=== PATIENT | female | born 1995 | race Caucasian/White ===

== ENCOUNTER 2023-08-06 20:34 | Outpatient (REF) | payer BC, SELFPAY ==
[2023-08-10 15:08] LABS: Age Gdln ACOG Testing Note (.); HPV Aptima Negative (Negative); IGP, Aptima HPV, rfx 16/18,45 Note (.)
== END 2023-08-06 20:35 | disposition home or self-care (01) ==
LOC: LAB 20:34
PROVIDERS: Visit Provider Obstetrics & Gynecology
DX: Z01.419 Encounter for gynecological examination (general) (routine) without abnormal findings (principal)
CPT/HCPCS: 87624; G0145

== ENCOUNTER 2023-08-21 16:31 | Outpatient (OUT) | payer BC, SELFPAY ==
[2023-08-21 17:27] LABS: Estimated Average Glucose 97 mg/dL
[2023-08-21 17:38] LABS: Free T3 2.84 pg/mL (2.18-3.98); Glucose 83 mg/dL (74-106); Thyroid Stimulating Hormone 1.248 uIU/mL (0.358-3.740)
[2023-08-23 04:08] LABS: Estradiol 16.7 pg/mL (.); Progesterone 0.4 ng/mL (.)
[2023-08-23 11:10] LABS: Insulin 7.7 uIU/mL (2.6-24.9)
[2023-08-23 12:10] LABS: C-Peptide, Serum 2.1 ng/mL (1.1-4.4)
[2023-08-23 17:08] LABS: Thyroglobulin Antibody 1.2 IU/mL (0.0-0.9); Thyroid Peroxidase (TPO) Ab 50 IU/mL (0-34)
[2023-08-24 17:10] LABS: Estrone, Serum 65 pg/mL (27-231)
== END 2023-08-21 16:32 | disposition home or self-care (01) ==
PROVIDERS: PCP Family Medicine; Visit Provider Obstetrics & Gynecology
DX: R68.82 Decreased libido (principal); E34.9 Endocrine disorder, unspecified
CPT/HCPCS: 36415; 82306; 82530; 82627; 82670; 82679; 82728; 82947; 83036; 83525; 84144; 84260; 84270; 84402; 84403; 84432; 84436; 84439; 84443; 84481; 84482; 84681; 86376; 86800

== ENCOUNTER 2023-11-10 11:01 | Outpatient (OUT) | payer BC, SELFPAY ==
--- OUTSIDE RECORDS SUMMARY | 2023-11-10 11:05 | XMS_ITS | CCD ---
Author Organization [facility] Care Team Providers Care Film Cleaner Name Role Phone YAAKOV BLANCAS Unavailable Unavailable YESENIA ., DR ANDRE Attending Unavailable YESENIA ., DR ANDRE Consulting Unavailable YESENIA ., DR ANDRE Admitting Unavailable YESENIAJES Attending Unavailable MARIAELENA MATUTE Attending Unavailable COLLAZO, LIONEL Attending Unavailable KUNS, AVRIL Referring Unavailable KUNS, AVRIL Primary Care Unavailable SAIDA DAHL Attending Unavailable KUNS, AVRIL Referring Unavailable KUNS, AVRIL Primary Care Unavailable SAIDA DAHL Attending Unavailable FURLONG, WILFRIDO G Primary Care Unavailable FURLONGMIHAELAWILFRIDO G Referring Unavailable COLLAZOLIONEL Attending Unavailable KUNS, AVRIL Referring Unavailable KUNS, AVRIL Primary Care Unavailable LIONEL COLLAZO Attending Unavailable KUNS, AVRIL Referring Unavailable KUNS, AVRIL Primary Care Unavailable SAIDA DAHL Attending Unavailable KUNS, AVRIL Referring Unavailable KUNS, AVRIL Primary Care Unavailable COLLAZOLIONEL Attending Unavailable KUNS, AVRIL Referring Unavailable KUNS, AVRIL Primary Care Unavailable Allergies Allergy Classification Reported Allergen(s) Allergy Type Date of Onset Reaction(s) Facility (2 sources) Penicillins; Translations: [PENICILLINS] Propensity to adverse reactions to drug (disorder) 2 [facility] Repository Problems Problem Classification Problem Date Documented Date Episodic/Chronic Attention-deficit, conduct, and disruptive behavior disorders (1 source) Attention-deficit hyperactivity disorder, combined type; Translations: [Attention-deficit hyperactivity disorder, combined type] Onset: 03-20-2022 Chronic Immunizations and screening for infectious disease (1 source) Encounter for screening for human papillomavirus (HPV); Translations: [ENC SCREENING HUMAN PAPILLOMAVIRUS] Onset: 08-03-2022 Episodic Other screening for suspected conditions (not mental disorders or infectious disease) (4 sources) Encounter for screening for malignant neoplasm of cervix; Translations: [ENC SCREENING MALIG NEOPLASM CERV] Onset: 07-31-2022 Episodic Results Test Name Value Interpretation Reference Range Facility PAP ACOG PANEL 2: 21 to 29on 08-07-2022 . . Normal [facility] Comment on above: Performed By: #### [id number] #### [facility] [address] [place] [address] Dr. Pat Aguilar Age Gdln ACOG Testing - Normal [facility] Comment on above: Performed By: #### [id number] #### [facility] [address] [address] [address] Pat Aguilar DIAGNOSIS: Comment [facility] Comment on above: Result Comment: NEGA TIVE FOR INTRAEPITHELIAL LESION OR MALIGNANCY. Performed By: #### [id number] #### [facility] [address] [place] [address] Dr. Pat Aguilar Methodology: Comment [facility] Comment on above: Result Comment: This liquid based ThinPrep(R) pap test was screened with the use of an image guided system. Performed By: #### 4 [id number] #### [facility] [address] [place] [address] Dr. Pat Aguilar Note: Comment [facility] Comment on above: Result Comment: The Pap smear is a screening test designed to aid in the detection of premalignant and malignant conditions of the uterine cervix. It is not a diagnostic procedure and should not be used as the sole means of detecting cervical cancer. Both false-positive and false-negative reports do occur. . Performed By: #### [id number] #### [facility] [address] [place] [address] Dr. Pat Aguilar Performed by: Comment Normal [facility] Comment on above: Result Comment: Soo Haney, Publishing Manager (ASCP) Performed By: #### 4 [id number] #### [facility] [address] [place] [address] Dr. Pat Aguilar Reflex Criteria: Comment [facility] Comment on above: Result Comment: The HPV DNA reflex criteria were not met with this specimen result therefore, no HPV testing was performed. . Performed By: #### 4 [id number] #### [facility] [address] [place] [address] Dr. Pat Aguilar Specimen adequacy: Comment Normal [facility] Comment on above: Result Comment: Sati sfactory for evaluation. Endocervical and/or squamous metaplastic cells (endocervical component) are present. Performed By: #### 4 [id number] #### [facility] [address] [address] [address] Pat Aguilar [facility] 11-26-2021 Albumin [Mass/Vol] 4.1 g/dL Normal 3.6-5.1 [facility] Comment on above: Performed By: #### 1 0231, 7600 #### [facility] [place] [address] Software Sales Executive: Vladislav Kamara MD Albumin/Globulin [Mass ratio] 1.6 {ratio} Normal 1.0-2.5 [facility] Comment on above: Performed By: #### 1 0231, 7600 #### [facility] [place] [address] Software Sales Executive: Vladislav Kamara MD ALP [Catalytic activity/Vol] 53 U/L Normal 31-125 [facility] Comment on above: Performed By: #### 1 0231, 7600 #### [facility] [place] [address] Software Sales Executive: Vladislav Kamara MD ALT [Catalytic activity/Vol] 6 U/L Normal 6-29 [facility] Comment on above: Performed By: #### 1 0231, 7600 #### [facility] [place] [address] Software Sales Executive: Vladislav Kamara MD AST [Catalytic activity/Vol] 10 U/L Normal 10-30 [facility] Comment on above: Performed By: #### 1 0231, 7600 #### [facility] [place] [address] Software Sales Executive: Vladislav Kamara MD Bilirubin [Mass/Vol] 0.5 mg/dL Normal 0.2-1.2 [facility] Comment on above: Performed By: #### 1 0231, 7600 #### [facility] [place] [address] Software Sales Executive: Vladislav Kamara MD BUN/CREATININE RATIO NOT APPLICABLE Normal 6-22 [facility] Comment on above: Performed By: #### 1 0231, 7600 #### [facility] [place] [address] Software Sales Executive: Vladislav Kamara MD Calcium [Mass/Vol] 9.3 mg/dL Normal 8.6-10.2 [facility] Comment on above: Performed By: #### 1 0231, 7600 #### [facility] [place] [address] Software Sales Executive: Vladislav Kamara MD Chloride [Moles/Vol] 104 mmol/L Normal 98-110 [facility] Comment on above: Performed By: #### 1 0231, 7600 #### [facility] [place] [address] Software Sales Executive: Vladislav Kamara MD CO2 [Moles/Vol] 27 mmol/L Normal 20-32 [facility] Comment on above: Performed By: #### 1 0231, 7600 #### [facility] [place] [address] Software Sales Executive: Vladislav Kamara MD Creatinine [Mass/Vol] 0.92 mg/dL Normal 0.50-0.96 [facility] Comment on above: Performed By: #### 1 0231, 7600 #### [facility] [place] [address] Software Sales Executive: Vladislav Kamara MD GFR/1.73 sq M.predicted among non-blacks MDRD (S/P/Bld) [Vol rate/Area] 87 mL/min/{1.73_m2} Normal > OR = 60 [facility] Comment on above: Result Comment: The eGFR is based on the CKD-EPI 2021 equation. To calculate the new eGFR from a previous Creatinine or Cystatin C result, go to https://www.kidney.org/professionals/ kdoqi/gfr%5Fcalculator Performed By: #### 1 023, 7600 #### [facility] [place] [address] Software Sales Executive: Vladislav Kamara MD Globulin (S) [Mass/Vol] 2.5 g/dL Normal 1.9-3.7 [facility] Comment on above: Performed By: #### 1 023, 7600 #### [facility] [place] [address] Software Sales Executive: Vladislav Kamara MD Glucose [Mass/Vol] 81 mg/dL Normal 65-99 [facility] Comment on above: Result Comment: Fasting reference interval Performed By: #### 1 023, 7600 #### [facility] [place] [address] Software Sales Executive: Vladislav Kamara MD Potassium [Moles/Vol] 4.4 mmol/L Normal 3.5-5.3 [facility] Comment on above: Performed By: #### 1 023, 7600 #### [facility] [place] [address] Software Sales Executive: Vladislav Kamara MD Protein [Mass/Vol] 6.6 g/dL Normal 6.1-8.1 [facility] Comment on above: Performed By: #### 1 023, 7600 #### [facility] [place] [address] Software Sales Executive: Vladislav Kamara MD Sodium [Moles/Vol] 138 mmol/L Normal 135-146 [facility] Comment on above: Performed By: #### 1 023, 7600 #### [facility] [place] [address] Software Sales Executive: Vladislav Kamara MD Urea nitrogen [Mass/Vol] 12 mg/dL Normal 7-25 [facility] Comment on above: Performed By: #### 1 0231, 7600 #### [facility] [address], [address] [place] [address] Software Sales Executive: Vladislav Kamara MD LIPID PANEL, [address] Cholesterol [Mass/Vol] 153 mg/dL Normal <200 [facility] Comment on above: Order Comment: FASTI NG:YES FASTING: YES Performed By: #### 1 0231, 7600 #### [facility] [address], [address] [place] [address] Software Sales Executive: Vladislav Kamara MD Cholesterol in HDL [Mass/Vol] 73 mg/dL Normal > OR = 50 [facility] Comment on above: Order Comment: FASTI NG:YES FASTING: YES Performed By: #### 1 023, 7600 #### [facility] [address], [address] [place] [address] Software Sales Executive: Vladislav Kamara MD Cholesterol in LDL [Mass/Vol] 63 mg/dL Normal [facility] Comment on above: Order Comment: FASTI NG:YES FASTING: YES Result Comment: Refe rence range: <100 Desirable range <100 mg/dL for primary prevention; <70 mg/dL for patients with CHD or diabetic patients with > or = 2 CHD risk factors. LDL-C is now calculated using the Swathi calculation, which is a validated novel method providing better accuracy than the Friedewald equation in the estimation of LDL-C. Marko SS et al. BRITTANY. 2013;310(19): 2909-8931 (http://education.[employer]ara[employer]/faq/YWO154) Performed By: #### 1 023, 0 #### [facility] [address], [address] [place] [address] Software Sales Executive: Vladislav Kamara MD Cholesterol.total /Cholesterol in HDL [Mass ratio] 2.1 {ratio} Normal <5.0 [facility] Comment on above: Order Comment: FASTI NG:YES FASTING: YES Performed By: #### 1 0231, 7600 #### [facility] [address], [address] [address] Software Sales Executive: Vladislav Kamara MD NON HDL CHOLESTEROL 80 mg/dL (calc) Normal <130 [facility] Comment on above: Order Comment: FASTI NG:YES FASTING: YES Result Comment: For patients with diabetes plus 1 major ASCVD risk factor, treating to a non-HDL-C goal of <100 mg/dL (LDL-C of <70 mg/dL) is considered a therapeutic option. Performed By: #### 1 0231, 7600 #### [facility] [address] [place] [address], [address] [address] Software Sales Executive: Vladislav Kamara MD Triglyceride [Mass/Vol] 86 mg/dL Normal <150 [facility] Comment on above: Order Comment: FASTI NG:YES FASTING: YES Performed By: #### 1 0231, 7600 #### [facility] [address] [place] [address], [address] [place] [address] Software Sales Executive: Vladislav Kamara MD PROGRESSon 02-26-2018 Protein mass conc HNO ID: [id number] thor: Yaakov Brar: (none)Author Type: PhysicianType: Progress NotesFiled: 02/26/2018 9:50 AMNote Text:This is a 23 year old female diagnosed upon referral 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 s/p laser for Horseshoetear omn anterior edge of the coloboma LE. Visual acuity with correctionis 20/20 RE and 20/20 LE. IOP is 14 /15. Anterior segment exam issignificant for iris coloboma LE . Dilated fundus examinationdemonstrates small coloboma bneneath disc RE and large colobomaextramacular LE with good anterior thermal treatment. I recommend obsandsuggest follow up in 1y.I have confirmed and edited as necessary the relevant ophthalmic history,ROS, and the neuro exam findings as obtained by others. I have seen andexamined Luke Mao. I have discussed the case and the management ofthis patient's care with the Resident/Fellow, if applicable. I also havereviewed and agree with the assessment and plan as stated above and agreewith all of its relevant components. Normal [facility] Encounters Encounter Date Encounter Type Care Provider Facility Start: 10-31-2023 End: 10-31-2023 ambulatory SAIDA DAHL [facility] Start: 08-07-2023 End: 08-07-2023 ambulatory MARIAELENA MATUTE Not Available Start: 08-06-2023 End: 08-06-2023 ambulatory JES PATTERSON Not Available Start: 07-30-2023 End: [facility]: 05-31-2023 End: 05-31-2023 ambulatory [facility] Start: 05-16-2023 End: 05-16-2023 ambulatory [facility] Start: 05-09-2023 End: 05-09-2023 ambulatory [facility] Start: 05-02-2023 End: 05-02-2023 ambulatory [facility] Start: 04-11-2023 End: 04-11-2023 ambulatory [facility] Start: 07-31-2022 End: 07-31-[address] JES PATTERSON . Facility: Start: 02-26-2018 End: 03-01-2018 Patient encounter procedure YAAKOV BLANCAS [facility] Payers Date Payer Category Payer Unknown [id number] 1995 Unknown [id number] 2.16.84 [id number] 1995 Unknown [id number] 2.16.84 [id number] 1993 Unknown [id number] 2.16.84 [id number] 1993 Unknown [id number] 2.16.8 [id number] 1993 Unknown [id number] 2.16.8 [id number] 1993 Unknown [id number] 2.16.8 [id number] 1993 Unknown [id number] 2.16.8 [id number] 1993 Unknown [id number] 2.16.8 [id number] 1993 Unknown [id number] 2.16.8 [id number] 1993 Unknown [id number] 2.16.84 [id number] 1961 Private Health Insurance [id number] Summary Purpose Family History No Family History Records FoundNo Family History Records FoundNo Family History Records FoundNo Family History Records FoundNo Family History Records Found Advance Directives No Advanced Directives Records FoundNo Advanced Directives Records FoundNo Advanced Directives Records FoundNo Advanced Directives Records FoundNo Advanced Directives Records Found Additional Source Comments INFORMATION SOURCE (unrecogn ized section and content) DATE CREATED AUTHOR 03/11/2018 [facility] DATE CREATED AUTHOR AUTHOR'S ORGANIZ ATION 11/27/2021 [facility] DATE CREATED AUTHOR AUTHOR'S ORGANIZ ATION 08/08/2022 [facility] DATE CREATED AUTHOR AUTHOR'S ORGANIZ ATION 08/08/2023 [facility] DATE CREATED AUTHOR AUTHOR'S ORGANIZ ATION 11/03/2023 [facility] FOR RECORDS PERTAINING TO PATIENTS WHO ARE OR HAVE BEEN ENROLLED IN A CHEMICAL DEPENDENCY/SUBSTANCEABUSE PROGRAM, SOME INFORMATION MAY BE OMITTED. This clinical summary was aggregated from multiple sources. Caution should be exercised in using it in the provision of clinical care. This summary normalizes information from multiple sources, and as a consequence, information in this document may materially change the coding, format and clinical context of patient data. In addition, data may be omitted in some cases. CLINICAL DECISIONS SHOULD BE BASED ON THE PRIMARY CLINICAL RECORDS. [facility] [employer] [facility]. provides no warranty or guarantee of the accuracy or completeness of information in this document.
[2023-11-10 11:44] LABS: Thyroid Stimulating Hormone 1.023 uIU/mL (0.358-3.740)
[2023-11-10 12:00] LABS: Free T4 0.95 ng/dL (0.76-1.46)
== END 2023-11-10 11:02 | disposition home or self-care (01) ==
LOC: LAB 11:03
PROVIDERS: PCP Family Medicine; Visit Provider Obstetrics & Gynecology
DX: R68.82 Decreased libido (principal); E34.9 Endocrine disorder, unspecified
CPT/HCPCS: 36415; 84439; 84443

== ENCOUNTER 2024-03-21 08:52 | Outpatient (OUT) | payer BC, SELFPAY ==
--- NOTE | 2024-03-21 08:55 | US_ITS ---
[address] [address] Patient Name: LUKE RODRIGUEZ MRN: [id number] date: 1995 Sex: F Assigned Patient Location: [facility] Current Patient Location: [facility] Accession/Order Number: [id number] Exam Date: 03/21/2024 08:56 Report Date: 03/21/2024 09:51 At the request of: JES PATTERSON Procedure: US OB transvaginal EXAMINATION: US OB transvaginal HISTORY: MISSED MENSES COMPARISON: No relevant comparison available. FINDINGS: Transvaginal images Gestational sac: 4.08 cm, 9 weeks 3 days CRL: 2.61 cm, 3 days Yolk sac: 4.6 mm Heart rate: 174 beats minute Cervix: Closed, 4.3 cm Clinical age: 9 weeks 5 days Clinical JAMES: 10/19/2024 Ultrasound age: 9 weeks 3 days Ultrasound JAMES: 10/21/2024 US/US OB transvaginal IMPRESSION: Viable sommer intrauterine gestation measuring 9 weeks 3 days Electronically authenticated by: KARLA CHILD Date: 03/21/2024 09:51
--- OUTSIDE RECORDS SUMMARY | 2024-03-21 08:58 | XMS_ITS | CCD ---
Author Organization [facility] CliniSyfl Care Team Providers Care Sludge Control Operator Name Role Phone YAAKOV BLANCAS Unavailable Unavailable YESENIA ., DR ANDRE Attending Unavailable YESENIA ., DR ANDRE Consulting Unavailable YESENIA ., DR ANDRE Admitting Unavailable YESENIAJES Attending Unavailable MARIAELENA MATUTE Attending Unavailable LIONEL COLLAZO Attending Unavailable KUNS, AVRIL Referring Unavailable KUNS, AVRIL Primary Care Unavailable SAIDA DAHL Attending Unavailable KUNS, AVRIL Referring Unavailable KUNS, AVRIL Primary Care Unavailable LIONEL COLLAZO Attending Unavailable KUNS, AVRIL Referring Unavailable KUNS, AVRIL Primary Care Unavailable VALERIEZAKSAIDA Attending Unavailable FURLONG, WILFRIDO G Primary Care Unavailable FURLONG, WILFRIDO G Referring Unavailable JEZAKSAIDA Attending Unavailable FURLONG, WILFRIDO G Referring Unavailable FURLONG, WILFRIDO G Primary Care Unavailable JEZAKSAIDA Attending Unavailable FURLONG, WILFRIDO G Referring Unavailable FURLONG, WILFRIDO G Primary Care Unavailable LIONEL COLLAZO Attending Unavailable KUNS, AVRIL Referring Unavailable KUNS, AVRIL Primary Care Unavailable SAIDA DAHL Attending Unavailable KUNS, AVRIL Referring Unavailable KUNS, AVRIL Primary Care Unavailable LIONEL COLLZAO Attending Unavailable KUNS, AVRIL Referring Unavailable KUNS, AVRIL Primary Care Unavailable Allergies Allergy Classification Reported Allergen(s) Allergy Type Date of Onset Reaction(s) Facility (2 sources) Penicillins; Translations: [PENICILLINS] Propensity to adverse reactions to drug (disorder) 2 AOF [facility] Repository Problems Problem Classification Problem Date Documented [...] 2: 19 to 27on 08-07-2022 . . [facility] Comment on above: Performed By: #### [id number] #### [facility] [address] [place] [address] Dr. Pat Aguilar Age Gdln ACOG Testing - [facility] Comment on above: Performed By: #### [id number] #### [facility] [address] [place] [address] Dr. Pat Aguilar DIAGNOSIS: Comment [facility] Comment on above: Result Comment: NEGA TIVE FOR INTRAEPITHELIAL LESION OR MALIGNANCY. Performed By: #### [id number] #### [facility] [address] [place] [address] Dr. Pat Aguilar Methodology: Comment [facility] Comment on above: Result Comment: This liquid based ThinPrep(R) pap test was screened with the use of an image guided system. Performed By: #### 4 [id number] #### [facility] [address] [place] [address] Dr. Pat Aguilar Note: Comment [facility] Comment on above: Result Comment: The Pap smear is a screening test designed to aid in the detection of premalignant and malignant conditions of the uterine cervix. It is not a diagnostic procedure and should not be used as the sole means of detecting cervical cancer. Both false-positive and false-negative reports do occur. . Performed By: #### [id number] #### [facility] [address] [place] [address] Dr. Pat Aguilar Performed by: Comment [facility] Comment on above: Result Comment: Soo Haney, Registered Occupational Therapist (ASCP) Performed By: #### [id number] #### [facility] [address] [place] [address] Dr. Pat Aguilar Reflex Criteria: Comment Normal [facility] Comment on above: Result Comment: The HPV DNA reflex criteria were not met with this specimen result therefore, no HPV testing was performed. . Performed By: #### [id number] #### [facility] [address] [place] [address] Dr. Pat Aguilar Specimen adequacy: Comment Normal [facility] Comment on above: Result Comment: Sati sfactory for evaluation. Endocervical and/or squamous metaplastic cells (endocervical component) are present. Performed By: #### [id number] #### [facility] [address] [place] [address] Dr. Pat Aguilar [facility] 11-26-2021 Albumin [Mass/Vol] 4.1 g/dL Normal 3.6-5.1 [facility] Comment on above: Performed By: #### 1 023, 7600 #### [facility] [place] [address] Percher: Vladislav Kamara MD Albumin/Globulin [Mass ratio] 1.6 {ratio} Normal 1.0-2.5 [facility] Comment on above: Performed By: #### 1 0231, 7600 #### [facility] [place] [address] Percher: Vladislav Kamara MD ALP [Catalytic activity/Vol] 53 U/L Normal 31-125 [facility] Comment on above: Performed By: #### 1 023, 7600 #### [facility] [place] [address] Percher: Vladislav Kamara MD ALT [Catalytic activity/Vol] 6 U/L Normal 6-29 [facility] Comment on above: Performed By: #### 1 0231, 7600 #### [facility] [place] [address] Percher: Vladislav Kamara MD AST [Catalytic activity/Vol] 10 U/L Normal 10-30 [facility] Comment on above: Performed By: #### 1 0231, 7600 #### [facility] of [address], [address] [place] [address] Percher: Vladislav Kamara MD Bilirubin [Mass/Vol] 0.5 mg/dL Normal 0.2-1.2 [facility] Comment on above: Performed By: #### 1 0231, 7600 #### [facility] of [address], [address] [place] [address] Percher: Vladislav Kamara MD BUN/CREATININE RATIO NOT APPLICABLE Normal 6-22 [facility] Comment on above: Performed By: #### 1 0231, 7600 #### [facility] of [address], [address] [place] [address] Percher: Vladislav Kamara MD Calcium [Mass/Vol] 9.3 mg/dL Normal 8.6-10.2 [facility] Comment on above: Performed By: #### 1 023, 7600 #### [facility] of [address], [address] [place] [address] Percher: Vladislav Kamara MD Chloride [Moles/Vol] 104 mmol/L Normal 98-110 [facility] Comment on above: Performed By: #### 1 0231, 7600 #### [facility] of [address], [address] [place] [address] Percher: Vladislav Kamara MD CO2 [Moles/Vol] 27 mmol/L Normal 20-32 [facility] Comment on above: Performed By: #### 1 0231, 7600 #### [facility] of [place] [address] Percher: Vladislav Kamara MD Creatinine [Mass/Vol] 0.92 mg/dL Normal 0.50-0.96 [facility] Comment on above: Performed By: #### 1 0231, 7600 #### [facility] of [address], [address] [place] [address] Percher: Vladislav Kamara MD GFR/1.73 sq M.predicted among non-blacks MDRD (S/P/Bld) [Vol rate/Area] 87 mL/min/{1.73_m2} Normal > OR = 60 [facility] Comment on above: Result Comment: The eGFR is based on the CKD-EPI 2020 equation. To calculate the new eGFR from a previous Creatinine or Cystatin C result, go to https://www.kidney.org/professionals/ kdoqi/gfr%5Fcalculator Performed By: #### 1 0231, 7600 #### [facility] [place] [address] Percher: Vladislav Kamara MD Globulin (S) [Mass/Vol] 2.5 g/dL Normal 1.9-3.7 [facility] Comment on above: Performed By: #### 1 023, 7600 #### [facility] [place] [address] Percher: Vladislav Kamara MD Glucose [Mass/Vol] 81 mg/dL Normal 65-99 [facility] Comment on above: Result Comment: Fasting reference interval Performed By: #### 1 0231, 7600 #### [facility] [place] [address] Percher: Vladislav Kamara MD Potassium [Moles/Vol] 4.4 mmol/L Normal 3.5-5.3 [facility] Comment on above: Performed By: #### 1 0231, 7600 #### [facility] [place] [address] Percher: Vladislav Kamara MD Protein [Mass/Vol] 6.6 g/dL Normal 6.1-8.1 [facility] Comment on above: Performed By: #### 1 0231, 7600 #### [facility] [place] [address] Percher: Vladislav Kamara MD Sodium [Moles/Vol] 138 mmol/L Normal 135-146 [facility] Comment on above: Performed By: #### 1 0231, 7600 #### [facility] [address], [address] [place] [address] Percher: Vladislav Kamara MD Urea nitrogen [Mass/Vol] 12 mg/dL Normal 7-25 [facility] Comment on above: Performed By: #### 1 0231, 7600 #### [facility] [address], [address] [place] [address] Percher: Vladislav Kamara MD LIPID PANEL, [facility] 11-01 Cholesterol [Mass/Vol] 153 mg/dL Normal <200 [facility] Comment on above: Order Comment: FASTI NG:YES FASTING: YES Performed By: #### 1 0231, 7600 #### [facility] [address], [address] [place] [address] Percher: Vladislav Kamara MD Cholesterol in HDL [Mass/Vol] 73 mg/dL Normal > OR = 50 [facility] Comment on above: Order Comment: FASTI NG:YES FASTING: YES Performed By: #### 1 0231, 7600 #### [facility] [address], [address] [place] [address] Percher: Vladislav Kamara MD Cholesterol in LDL [Mass/Vol] 63 mg/dL Normal [facility] Comment on above: Order Comment: FASTI NG:YES FASTING: YES Result Comment: Refe rence range: <100 Desirable range <100 mg/dL for primary prevention; <70 mg/dL for patients with CHD or diabetic patients with > or = 2 CHD risk factors. LDL-C is now calculated using the Marko-Volodymyr calculation, which is a validated novel method providing better accuracy than the Friedewald equation in the estimation of LDL-C. Marko SS et al. BRITTANY. 2013;310(19): 9795-6554 (http://education.[employer]mets/faq/XQS619) Performed By: #### 1 0231, 7600 #### [facility] [address], [address] [place] [address] Percher: Vladislav Kamara MD Cholesterol.total /Cholesterol in HDL [Mass ratio] 2.1 {ratio} Normal <5.0 [facility] Comment on above: Order Comment: FASTI NG:YES FASTING: YES Performed By: #### 1 023, 7600 #### [facility] [address], [address] [place] [address] Percher: Vladislav Kamara MD NON HDL CHOLESTEROL 80 mg/dL (calc) Normal <130 [facility] Comment on above: Order Comment: FASTI NG:YES FASTING: YES Result Comment: For patients with diabetes plus 1 major ASCVD risk factor, treating to a non-HDL-C goal of <100 mg/dL (LDL-C of <70 mg/dL) is considered a therapeutic option. Performed By: #### 1 0231, 0 #### [facility] [address], [address] [place] [address] Percher: Vladislav Kamara MD Triglyceride [Mass/Vol] 86 mg/dL Normal <150 [facility] Comment on above: Order Comment: FASTI NG:YES FASTING: YES Performed By: #### 1 023, 0 #### [facility] [address], [address] [place] [address] Percher: Vladislav Kamara MD PROGRESSon 02-26-2018 Protein mass conc HNO ID: [id number] thor: Yaakov Brar: (none)Author Type: PhysicianType: Progress [...] obtained by others. I have seen andexamined Lukesotero Bashirber. I have discussed the case and the management ofthis patient's care with the Resident/Fellow, if applicable. I also havereviewed and agree with the assessment and plan as stated above and agreewith all of its relevant components. Normal [facility] Encounters Encounter Date Encounter Type Care Provider Facility Start: 02-20-2024 End: 02-20-2024 ambulatory [facility] Start: 12-26-2023 End: 12-26-2023 ambulatory [facility] Start: 10-31-2023 End: 10-31-2023 ambulatory [facility] Start: 08-07-2023 End: 08-07-2023 ambulatory MARIAELENA MATUTE Not Available Start: 08-06-2023 End: 08-06-2023 ambulatory JES PATTERSON Not Available Start: 07-30-2023 End: 07-30-2023 ambulatory [facility] Start: 05-31-2023 End: 05-31-2023 ambulatory [facility] Start: 05-16-2023 End: 05-16-2023 [facility] Start: 05-09-2023 End: 05-09-2023 ambulatory [facility] Start: 05-02-2023 End: 05-02-2023 ambulatory [facility] Start: 04-11-2023 End: 04-11-2023 ambulatory [facility] Start: 07-31-2022 End: 07-31-[address] JES PATTERSON . Facility: Start: 02-26-2018 End: 03-01-2018 Patient encounter procedure YAAKOV BLANCAS [facility] Payers Date Payer Category Payer Unknown [id number] 1995 Unknown [id number] 2.16.84 [id number] 1995 Unknown [id number] 2.16.84 [id number] 1993 Unknown [id number] 2.16.84 [id number] 1993 Unknown [id number] 2.16.8 [id number] 1993 Unknown [id number] 2.16.8 [id number] 1993 Unknown [id number] 2.16.8 [id number] 1993 Unknown [id number] 2.16.8 [id number] 1993 Unknown [id number] 2.16.8 [id number] 1993 Unknown [id number] 2.16.8 [id number] 1993 Unknown [id number] 2.16.8 [id number] 1993 Unknown [id number] 2.16.8 [id number] 1993 Unknown [id number] 2.16.84 [id number] 1961 Private Health Insurance [id number] Summary Purpose Family History No Family History Records FoundNo Family History Records FoundNo Family History Records FoundNo Family History Records FoundNo Family History Records Found Advance Directives No Advanced Directives Records FoundNo Advanced Directives Records FoundNo Advanced Directives Records FoundNo Advanced Directives Records FoundNo Advanced Directives Records Found Additional Source Comments INFORMATION SOURCE (unrecogn ized section and content) DATE CREATED AUTHOR 03/11/2018 [facility] DATE CREATED AUTHOR AUTHOR'S ORGANIZ ATION 11/27/2021 [facility] DATE CREATED AUTHOR AUTHOR'S ORGANIZ ATION 08/08/2022 [facility] DATE CREATED AUTHOR AUTHOR'S ORGANIZ ATION 08/08/2023 [facility] DATE CREATED AUTHOR AUTHOR'S ORGANIZ ATION 02/23/2024 [facility] FOR RECORDS PERTAINING TO PATIENTS WHO ARE [...] BE BASED ON THE PRIMARY CLINICAL RECORDS. [facility] [employer] provides no warranty or guarantee of the accuracy or completeness of information in this document.
== END 2024-03-21 08:53 | disposition home or self-care (01) ==
LOC: NOMS 08:53
PROVIDERS: PCP Family Medicine; Visit Provider Obstetrics & Gynecology
DX: Z34.91 Encounter for supervision of normal pregnancy, unspecified, first trimester (principal); Z3A.09 9 weeks gestation of pregnancy; N92.6 Irregular menstruation, unspecified
CPT/HCPCS: 76817

== ENCOUNTER 2024-04-16 15:22 | Outpatient (OUT) | payer BC, SELFPAY ==
--- OUTSIDE RECORDS SUMMARY | 2024-04-16 15:29 | XMS_ITS | CCD ---
Author Organization [facility] Care Team Providers Care Engagement Lead Name Role Phone YAAKOV BLANCAS Unavailable Unavailable KENJI ., DR ANDRE Attending Unavailable KENJI ., DR ANDRE Consulting Unavailable KENJI ., DR ANDRE Admitting Unavailable LIONEL COLLAZO Attending Unavailable KUNS, AVRIL [...] Unavailable FURLONG, WILFRIDO G Primary Care Unavailable SAIDA DAHL Attending Unavailable FURLONG, WILFRIDO G Referring Unavailable FURLONG, WILFRIDO G Primary Care Unavailable LIONEL COLLAZO Attending Unavailable KUNS, AVRIL Referring Unavailable KUNS, AVRIL Primary Care Unavailable SAIDA DAHL Attending Unavailable KUNS, AVRIL Referring Unavailable KUNS, AVRIL Primary Care Unavailable LIONEL COLLAZO Attending Unavailable KUNS, AVRIL Referring Unavailable KUNS, AVRIL Primary Care Unavailable Unavailable Primary Care Provider UnavailJES Maravilla Attending Unavailable KAROLINA WHYTE Attending Unavailable Allergies Allergy Classification Reported Allergen(s) Allergy Type Date of Onset Reaction(s) Facility (3 sources) Penicillins; Translations: [PENICILLINS] Propensity to adverse reactions to drug (disorder) 4 Hives, Other [facility] Repository Medications Current Medications Medication Drug Class(es) Dates Sig (Normalized) Sig (Original) 24 hr amphetamine aspartate 2.5 mg / amphetamine sulfate 2.5 mg / dextroamphetamine saccharate 2.5 mg / dextroamphetamine sulfate 2.5 mg extended release oral capsule (1 source) Central Nervous System Stimulant Start: 12-14-2022 End: 03-21-2024 Adderall XR 10 MG 24 hr capsule 12/14/2022 03/21/2024 Discontinued escitalopram 20 mg oral tablet (1 source) Serotonin Reuptake Inhibitor Start: 10-31-2022 End: 03-21-2024 take 1 tablet by mouth in the morning escitalopram (Lexapro) 20 MG tablet Take 20 mg by mouth in the morning. 10/31/2022 03/21/2024 Discontinued estazolam 1 mg oral tablet (1 source) Benzodiazepine Start: 12-13-2022 End: 03-21-2024 take 0.5 mg by mouth at bedtime estazolam (Prosom) 1 MG tablet Take 0.5 mg by mouth at bedtime 12/13/2022 03/21/2024 Discontinued Ethinyl Estradiol / Levonorgestrel (1 source) Progestin, Estrogen, Progestin-containin g Intrauterine Device Start: 04-02-2017 End: 03-21-2024 take 1 tablet by mouth once daily L norgest/e.estradio l-e.estrad (Seasonique) 0.15-0.03 &0.01 MG tablet tablet Take 1 tablet by mouth Daily 04/02/2017 03/21/2024 Discontinued ondansetron 4 mg disintegrating oral tablet (1 source) Serotonin-3 Receptor Antagonist Start: 03-03-2024 End: 04-02-2024 take 1 tablet by mouth every six hours for nausea ondansetron ODT (Zofran-ODT) 4 MG disintegrating tablet Indications: Nausea and vomiting in Take 1 tablet (4 mg) by mouth every 6 (six) hours if needed for nausea or vomiting 30 tablet 2 03/03/2024 04/02/2024 Active SUMAtriptan 50 mg oral tablet (1 source) Serotonin-1b and Serotonin-1d Receptor Agonist End: 03-21-2024 SUMAtriptan (Imitrex) 50 MG tablet as needed. 03/21/2024 Discontinued tretinoin 0.5 mg/ml topical lotion (1 source) Retinoid Start: 08-07-2023 End: 03-21-2024 Tretinoin (Altreno) 0.05 % lotion Indications: Rhytides Apply thin layer to face at bedtime 45 g 08/07/2023 03/21/2024 Discontinued Problems Active Problems Problem Classification Problem Date Documented Date Episodic/Chronic Attention-deficit, conduct, and disruptive behavior disorders (1 source) Attention-deficit hyperactivity disorder, combined type; Translations: [Attention-deficit hyperactivity disorder, combined type] Onset: 03-20-2022 Chronic Immunizations and screening for infectious disease (1 source) Encounter for screening for human papillomavirus (HPV); Translations: [ENC SCREENING HUMAN PAPILLOMAVIRUS] Onset: 08-03-2022 Episodic Menstrual disorders (1 source) Missed period; Translations: [Irregular menstruation, unspecified] 03-21-2024 Chronic Other and delivery including normal (2 sources) ; Translations: [Encounter for supervision of normal , unspecified, unspecified trimester] 03-21-2024 Episodic Other screening for suspected conditions (not mental disorders or infectious disease) (4 sources) Encounter for screening for malignant neoplasm of cervix; Translations: [ENC SCREENING MALIG NEOPLASM CERV] Onset: 07-31-2022 Episodic Past or Other Problems Problem Classification Problem Date Documented Da te Episodic/Chronic Residual codes; unclassified (1 source) Reduced libido; Translations: [Decreased libido] Onset: 08-09-2023 08-09-2023 Episodic Results Test Name Value Interpretation Reference Range Facility HCG ( test) Ql (U)o n 03-21-2024 Interpretation and review of laboratory results Abnormal [facility] Preg Test, Ur Positive Negative [facility] Urinalysis macro (dipstick) panel (U)on 03-21-2024 Bilirubin, UA Negative Negative - 4(70) +++ mg/dL [facility] Blood, UA Negative Negative - 50 Julius/mcL [facility] Clarity, UA Clear [facility] Color, UA Yellow [facility] Glucose, UA Negative Negative - 1999(110) ++++ mg/dL [facility] Interpretation and review of laboratory results Abnormal [facility] Ketones, UA Negative Negative - 160(16) ++++ mg/dL [facility] Leukocytes, UA Trace Negative - 500+++ Dori/mcL [facility] Nitrite, UA Negative Negative - Positive [facility] pH, UA 7 5 - 9 [facility] Protein, UA Negative Negative - 2000(20) ++++ mg/dL [facility] Spec Grav, UA 1.02 1 - 1.03 [facility] Urobilinogen, UA 0.2 0.2 - 12 mg/dL [facility] PAP ACOG PANEL 2: 21 to 29on 08-07-2022 . . [facility] Comment on above: Performed By: #### [id number] #### [facility] [address] [place] [address] Dr. Pat Aguilar Age Gdln ACOG Testing - [facility] Comment on above: Performed By: #### [id number] #### [facility] [address] [place] [address] Dr. Pat Aguilar DIAGNOSIS: Comment [facility] Comment on above: Result Comment: NEGA TIVE FOR INTRAEPITHELIAL LESION OR MALIGNANCY. Performed By: #### [id number] #### [facility] [address] [place] [address] Dr. Pat Aguilar Methodology: Comment [facility] Comment on above: Result Comment: This liquid based ThinPrep(R) pap test was screened with the use of an image guided system. Performed By: #### 4 [id number] #### [facility] [address] [place] [address] Dr. Pat Aguilar Note: Comment [facility] Comment on above: Result Comment: The Pap smear is a screening test designed to aid in the detection of premalignant and malignant conditions of the uterine cervix. It is not a diagnostic procedure and should not be used as the sole means of detecting cervical cancer. Both false-positive and false-negative reports do occur. . Performed By: #### [id number] #### [facility] [address] [place] [address] Dr. Pat Aguilar Performed by: Comment [facility] Comment on above: Result Comment: Soo Haney, Wash Worker (ASCP) Performed By: #### [id number] #### [facility] [address] [place] [address] Dr. Pat Aguilar Reflex Criteria: Comment [facility] Comment on above: Result Comment: The HPV DNA reflex criteria were not met with this specimen result therefore, no HPV testing was performed. . Performed By: #### 4 [id number] #### [facility] [address] [place] [address] Dr. Pat Aguilar Specimen adequacy: Comment Normal [facility] Comment on above: Result Comment: Sati sfactory for evaluation. Endocervical and/or squamous metaplastic cells (endocervical component) are present. Performed By: #### 4 [id number] #### [facility] [address] [place], [place] [address] Dr. Pat Aguilar [facility] 11-26-2021 Albumin [Mass/Vol] 4.1 g/dL Normal 3.6-5.1 [facility] Comment on above: Performed By: #### 1 023, 7600 #### [facility] [place] [address] Estimator Binding: Vladislav Kamara MD Albumin/Globulin [Mass ratio] 1.6 {ratio} Normal 1.0-2.5 [facility] Comment on above: Performed By: #### 1 023, 7600 #### [facility] [place] [address] Estimator Binding: Vladislav Kamara MD ALP [Catalytic activity/Vol] 53 U/L Normal 31-125 [facility] Comment on above: Performed By: #### 1 0231, 7600 #### [facility] [place] [address] Estimator Binding: Vladislav Kamara MD ALT [Catalytic activity/Vol] 6 U/L Normal 6-29 [facility] Comment on above: Performed By: #### 1 0231, 7600 #### [facility] [place] [address] Estimator Binding: Vladislav Kamara MD AST [Catalytic activity/Vol] 10 U/L Normal 10-30 [facility] Comment on above: Performed By: #### 1 0231, 7600 #### [facility] [place] [address] [place] [address] Estimator Binding: Vladislav Kamara MD Bilirubin [Mass/Vol] 0.5 mg/dL Normal 0.2-1.2 [facility] Comment on above: Performed By: #### 1 0231, 7600 #### [facility] [place] [address] Estimator Binding: Vladislav Kamara MD BUN/CREATININE RATIO NOT APPLICABLE Normal 6-22 [facility] Comment on above: Performed By: #### 1 023, 7600 #### [facility] [place] [address] Estimator Binding: Vladislav Kamara MD Calcium [Mass/Vol] 9.3 mg/dL Normal 8.6-10.2 [facility] Comment on above: Performed By: #### 1 023, 7600 #### [facility] [place] [address] Estimator Binding: Vladislav Kamara MD Chloride [Moles/Vol] 104 mmol/L Normal 98-110 [facility] Comment on above: Performed By: #### 1 023, 7600 #### [facility] [place] [address] Estimator Binding: Vladislav Kamara MD CO2 [Moles/Vol] 27 mmol/L Normal 20-32 [facility] Comment on above: Performed By: #### 1 0231, 7600 #### [facility] [place] [address] Estimator Binding: Vladislav Kamara MD Creatinine [Mass/Vol] 0.92 mg/dL Normal 0.50-0.96 [facility] Comment on above: Performed By: #### 1 0231, 7600 #### [facility] [place] [address] Estimator Binding: Vladislav Kamara MD GFR/1.73 sq M.predicted among non-blacks MDRD (S/P/Bld) [Vol rate/Area] 87 mL/min/{1.73_m2} Normal > OR = 60 [facility] Comment on above: Result Comment: The eGFR is based on the CKD-EPI 2020 equation. To calculate the new eGFR from a previous Creatinine or Cystatin C result, go to https://www.kidney.org/professionals/ kdoqi/gfr%5Fcalculator Performed By: #### 1 0231, 7600 #### [facility] [place] [address] Estimator Binding: Vladislav Kamara MD Globulin (S) [Mass/Vol] 2.5 g/dL Normal 1.9-3.7 [facility] Comment on above: Performed By: #### 1 0231, 7600 #### [facility] [place] [address] Estimator Binding: Vladislav Kamara MD Glucose [Mass/Vol] 81 mg/dL Normal 65-99 [facility] Comment on above: Result Comment: Fasting reference interval Performed By: #### 1 0231, 7600 #### [facility] [place] [address] Estimator Binding: Vladislav Kamara MD Potassium [Moles/Vol] 4.4 mmol/L Normal 3.5-5.3 [facility] Comment on above: Performed By: #### 1 0231, 7600 #### [facility] [place] [address] Estimator Binding: Vladislav Kamara MD Protein [Mass/Vol] 6.6 g/dL Normal 6.1-8.1 [facility] Comment on above: Performed By: #### 1 0231, 7600 #### [facility] [place] [address] Estimator Binding: Vladislav Kamara MD Sodium [Moles/Vol] 138 mmol/L Normal 135-146 [facility] Comment on above: Performed By: #### 1 0231, 7600 #### [facility] [place] [address] Estimator Binding: Vladislav Kamara MD Urea nitrogen [Mass/Vol] 12 mg/dL Normal 7-25 [facility] Comment on above: Performed By: #### 1 0231, 7600 #### [facility] [address], [address] [place] [address] Estimator Binding: Vladislav Kamara MD LIPID PANEL, [facility] 11-01 Cholesterol [Mass/Vol] 153 mg/dL Normal <200 [facility] Comment on above: Order Comment: FASTI NG:YES FASTING: YES Performed By: #### 1 0231, 7600 #### [facility] [address], [address] [place] [address] Estimator Binding: Vladislav Kamara MD Cholesterol in HDL [Mass/Vol] 73 mg/dL Normal > OR = 50 [facility] Comment on above: Order Comment: FASTI NG:YES FASTING: YES Performed By: #### 1 023, 0 #### [facility] [address], [address] [place] [address] Estimator Binding: Vladislav Kamara MD Cholesterol in LDL [Mass/Vol] [...] equation in the estimation of LDL-C. Marko RODRIGUEZ et al. BRITTANY. 2013;310(19): 4907-3927 (http://education.[employer].Celnyx/faq/VCQ584) Performed By: #### 1 0231, 7600 #### [facility] [address], [address] [place] [address] Estimator Binding: Vladislav Kamara MD Cholesterol.total/ Cholesterol in HDL [Mass ratio] 2.1 {ratio} Normal <5.0 [facility] Comment on above: Order Comment: FASTI NG:YES FASTING: YES Performed By: #### 1 0231, 7600 #### [facility] [address] [facility], [address] [place] [address] Estimator Binding: Vladislav Kamara MD NON HDL CHOLESTEROL 80 mg/dL (calc) Normal <130 [facility] Comment on above: Order Comment: FASTI NG:YES FASTING: YES Result Comment: For patients with diabetes plus 1 major ASCVD risk factor, treating to a non-HDL-C goal of <100 mg/dL (LDL-C of <70 mg/dL) is considered a therapeutic option. Performed By: #### 1 0231, 7600 #### [facility] [address], [address] [place] [address] Estimator Binding: Vladislav Kamara MD Triglyceride [Mass/Vol] 86 mg/dL Normal <150 [facility] Comment on above: Order Comment: FASTI NG:YES FASTING: YES Performed By: #### 1 0231, 7600 #### [facility] [address], [address] [place] [address] Estimator Binding: Vladislav Kamara MD PROGRESSon 02-26-2018 Protein mass conc HNO ID: [id number] thor: Yaakov Brar: (none)Author Type: PhysicianType: Progress [...] obtained by others. I have seen andexamined Valencia Mao. I have discussed the case and the management ofthis patient's care with the Resident/Fellow, if applicable. I also havereviewed and agree with the assessment and plan as stated above and agreewith all of its relevant components. Normal [facility] Faye Vital Signs Date Time Vital Sign Value Performing Clinician Susana ritchie 03-21-2024 09:48-0500 Body mass index (BMI) [Ratio] 27.19 kg/m2 [facility] 03-21-2024 09:48-0500 Body weight 71.85 kg [facility] 03-21-2024 09:48-0500 Diastolic blood pressure 60 mm[Hg] [facility] 03-21-2024 09:48-0500 Systolic blood pressure 110 mm[Hg] [facility] Encounters Encounter Date Encounter Type Care Provider Facility Start: 03-21-2024 End: 03-21-2024 Office outpatient visit 5 minutes [facility] Kenji Nurse [facility] Comment on above: GA: 9w5d Start: 03-21-2024 End: 03-21-2024 ambulatory JES KENJI Not Available Start: 02-20-2024 End: 02-20-2024 ambulatory [facility] Start: 12-26-2023 End: 12-26-2023 ambulatory [facility] Start: 10-31-2023 End: 10-31-2023 ambulatory [facility] Start: 08-07-2023 End: 08-07-2023 ambulatory KAROLINA WHYTE Not Available Start: 08-06-2023 End: 08-06-2023 ambulatory JES KENJI Not Available Start: 07-30-2023 End: 07-30-2023 ambulatory [facility] Start: 05-31-2023 End: 05-31-2023 ambulatory [facility] Start: 05-16-2023 End: 05-16-2023 ambulatory [facility] Start: 05-09-2023 End: 05-09-2023 ambulatory [facility] Start: 05-02-2023 End: 05-02-2023 ambulatory LIONELMARIANELA COLLAZO [facility] [place] Start: 04-11-2023 End: 04-11-2023 ambulatory LIONELMARIANELA COLLAZO [facility] [place] Start: 07-31-2022 End: 07-31-[address] JES PHILLIP . Facility: Start: 02-26-2018 End: 03-01-2018 Patient encounter procedure YAAKOV Sheyla YONNY [facility] Procedures Date Procedure Procedure Detail Performing Clinician Start: 03-21-2024 End: 03-21-2024 Urnls dip stick/tablet rgnt non-auto w/o micrscp Jes Phillip DO Work Phone: Start: 08-06-2023 Microscopic observat ion [Identifier] in Cervix by Cyto stain [facility] Plan of Treatment Date Care Activity Detail Author Start: 08-05-2026 Screening for malign ant neoplasm of cervix [facility] Start: 08-07-2024 End: 08-07-2024 Patient encounter procedure 08/07/2024 8:50 AM EDT Office Visit [facility] [address] [place] [address] Karolina Whyte, [employer]ING[employer] CLERK [address] [place] [address] [facility] Start: 04-22-2024 End: 04-22-2024 Patient encounter procedure 04/22/2024 9:40 AM EST Routine [facility] [address] [place] [id number] Jes Phillip, DO [address] [place] [address] [facility] Start: 03-21-2024 End: 03-21-2025 ABO/Rh ABO/Rh Lab Routine Missed menses , unspecified gestational age Expected: 03/21/2024 (Approximate), Expires: 03/21/2025 [facility] Comment on above: Expected: 03/21/2024 (Approximate), Expires: 03/21/2025 Start: 03-21-2024 End: 03-21-2025 Blood type and Indirect antibody screen panel - Blood Type and screen Lab Routine Missed menses , unspecified gestational age Expected: 03/21/2024 (Approximate), Expires: 03/21/2025 [facility] Work Phone: Comment on above: Expected: 03/21/2024 (Approximate), Expires: 03/21/2025 Start: 03-21-2024 End: 03-21-2025 Drugs of abuse panel - Urine by Screen method Rapid drug screen, urine Lab Routine , unspecified gestational age Encounter for supervision of normal first in first trimester Expected: 03/21/2024 (Approximate), Expires: 03/21/2025 [facility] Comment on above: Expected: 03/21/2024 (Approximate), Expires: 03/21/2025 Start: 03-21-2024 End: 03-21-2025 US Pelvis transvaginal US OB transvaginal Imaging Routine Missed menses Expected: 03/21/2024 (Approximate), Expires: 03/21/2025 [facility] Comment on above: Expected: 03/21/2024 (Approximate), Expires: 03/21/2025 Start: 12-02-2023 Influenza vaccination Influenza Vacc ine (#1) [facility] Start: 2023 Screening for malign ant neoplasm of cervix HPV/Cotest [facility] Bacteria identified in Urine by Culture Urine culture Microbiology Routine Missed menses Ordered: 03/21/2024 [facility] Comment on above: Ordered: 03/21/2024 CBC W Auto Different ial panel - Blood CBC and differential Lab Routine Missed menses , unspecified gestational age Ordered: 03/21/2024 [facility] Comment on above: Ordered: 03/21/2024 Hemoglobin A1c/Hemoglobin.total in Blood Hemoglobin A1c Lab Routine Missed menses , unspecified gestational age Ordered: 03/21/2024 [facility] Comment on above: Ordered: 03/21/2024 Hepatitis B virus surface Ag [Presence] in Serum or Plasma by Immunoassay Hepatitis B surface antigen Lab Routine Missed menses , unspecified gestational age Ordered: 03/21/2024 [facility] Comment on above: Ordered: 03/21/2024 Hepatitis C virus Ab [Presence] in Serum or Plasma by Immunoassay Hepatitis C antibody Lab Routine Missed menses , unspecified gestational age Ordered: 03/21/2024 [facility] Comment on above: Ordered: 03/21/2024 HIV-1/HIV-2 antigen/antibody combination immunoassay HIV-1 and HIV-2 antibodies Lab Routine Missed menses , unspecified gestational age Ordered: 03/21/2024 [facility] Comment on above: Ordered: 03/21/2024 Reagin Ab [Presence] in Serum by RPR RPR Lab Routine Missed menses , unspecified gestational age Ordered: 03/21/2024 [facility] Comment on above: Ordered: 03/21/2024 Rubella antibody, IgG Rubella an tibody, IgG Lab Routine Missed menses , unspecified gestational age Ordered: 03/21/2024 [facility] Comment on above: Ordered: 03/21/2024 Immunizations Immunization Date Immunization Notes Care Provider Heavenly martinez 01-15-2018 influenza virus vacc ine, unspecified formulation [facility] Payers Date Payer Category [facility] [id number] 2023 Unknown [id number] 1993 Unknown [id number] .[id number] 1993 Unknown [id number] [id number] .2.1286 1993 Unknown [id number] .[id number] .2.1286 1993 Unknown [id number] [id number] .2.1286 1993 Unknown [id number] 2.16.840.1.483542.3.579 .2.1286 1993 Unknown [id number] 2.16.840.1.303975.3.579 .2.1286 1993 Unknown [id number] 2.16.840.1.305128.3.579 .2.1286 1993 Unknown [id number] 2.16.840.1.458882.3.579 .2.1286 1993 Unknown [id number] 2.16.840.1.291669.3.579 .2.1286 1993 Unknown [id number] 2.16.840.1.839772.3.579 .2.1286 1993 Unknown [id number] 2.16.840.1.514252.3.579 .2.1259 1993 Unknown [id number] 2.16.840.1.543474.3.579 .2.1259 1993 Unknown [id number] [id number] .2.1259 1959 Private Health Insurance [id number] Social History Date Type Detail Facility Start: 08-07-2023 Tobacco smoking stat [facility] Never smoked tobacco [facility] Start: 08-07-2023 Tobacco use and exposure Smoke less tobacco non-user [facility] Start: 03-21-2024 Alcoholic beverage intake Defer [facility] Start: 08-07-2023 History of Social function [facility] Start: 08-07-2023 Tobacco use panel [facility] Start: 01-27-2024 [facility] Start: 1995 Sex assigned at Not on file [facility] History of Present illness Narrative 03-21-2024 Yudi Riley LPN - 03/21/2024 9:30 AM EST Note Date & Type Note Facility 03-21-2024 History of Presen t illness Narrative Reason for Appointment: Patient ID: Valencia Mao is a 29 y.o. female who presents for Amenorrhea Patient presents today for a Nurse OB Intake appointment. Patient is 9w5d with a Estimated Date of Delivery: 10/19/24 OB History Para Term AB Living 1 SAB IAB Ectopic Multiple Live Births # Outcome Date GA Lbr Alexandr/2nd Weight Sex Type Anes PTL Lv 1 Current Current Medications: has a current medication list which includes the following prescription(s): ondansetron odt. Medical History: Active Ambulatory Problems Diagnosis Date Noted Decreased libido 08/09/2023 Resolved Ambulatory Problems Diagnosis Date Noted No Resolved Ambulatory Problems No Additional Past Medical History No family history on file. Social History Tobacco Use Smoking status: Never Smokeless tobacco: Never Vaping Use Vaping status: Never Used Substance Use Topics Alcohol use: Defer Drug use: Defer Past Surgical History: Procedure Laterality Date APPENDECTOMY Allergies Allergen Reactions Penicillins Hives and Other Vitals: Estimated body mass index is 26.95 kg/m as calculated from the following: Height as of 08/04/22: 5' 4 . Weight as of 08/06/23: 157 lb. BP: Patient's last menstrual period was 01/13/2024. Assessment/Plan Diagnoses and all orders for this visit: Missed menses - Type and screen; Future - ABO/Rh; Future - CBC and differential - Hemoglobin A1c - RPR - Rubella antibody, IgG - Hepatitis B surface antigen - Hepatitis C antibody - HIV-1 and HIV-2 antibodies - Urine culture - US OB transvaginal; Future - POCT , urine manually resulted - POCT urinalysis dipstick manually resulted , unspecified gestational age - Type and screen; Future - ABO/Rh; Future - CBC and differential - Hemoglobin A1c - RPR - Rubella antibody, IgG - Hepatitis B surface antigen - Hepatitis C antibody - HIV-1 and HIV-2 antibodies - Rapid drug screen, urine; Future Encounter for supervision of normal first in first trimester - Rapid drug screen, urine; Future Nurse Note: OB Intake: Patient presents today for first OB visit. Patients history has been reviewed in great detail including any potential risks. Patient signed consent forms and patient desires testing in both trimesters. Patient currently has no complaints and has been advised to drink 6-8 glasses of water a day, eat no raw or undercooked meat, and stay away from [facility]. Patient has also been advised to not change litter boxes and eat 6 small meals a day. Patient has been consulted regarding the do's and don'ts of . Patient was given labs and all questions and concerns were answered. Follow Up: Patient is to return in 4 weeks for routine OB appointment. Follow Up: Patient is to have labs drawn at directed and return to office for initial OB appointment with provider. Patient may call office as needed with any concerns or questions. Nurse Visit Completed by: Yudi Riley LPN documented in this encounter [facility] Evaluation note Note Date & Type Note Facility Evaluation note Diagnosis Missed menses , unspecified gestational age Encounter for supervision of normal first in first trimester documented in this encounter [facility] Summary Purpose Family History No Family History Records FoundNo Family History Records FoundNo Family History Records FoundNo Family History Records FoundNo Family History Records Found Advance Directives No Advanced Directives Records FoundNo Advanced Directives Records FoundNo Advanced Directives Records FoundNo Advanced Directives Records FoundNo Advanced Directives Records Found Additional Source Comments INFORMATION SOURCE (unrecogn ized section and content) DATE CREATED AUTHOR 03/11/2018 [facility] DATE CREATED AUTHOR AUTHOR'S ORGANIZ ATION 11/27/2021 [facility] DATE CREATED AUTHOR AUTHOR'S ORGANIZ ATION 08/08/2022 [facility] DATE CREATED AUTHOR AUTHOR'S ORGANIZ ATION 02/23/2024 [facility] DATE CREATED AUTHOR AUTHOR'S ORGANIZ ATION 03/24/2024 [facility] EPIC Reason for Visit (unrecogniz ed section and content) Reason Comments Amenorrhea FOR RECORDS PERTAINING TO PATIENTS WHO ARE [...] BE BASED ON THE PRIMARY CLINICAL RECORDS. Death by Party [facility]. provides no warranty or guarantee of the accuracy or completeness of information in this document.
[2024-04-16 15:43] LABS: Basophils Percent Auto 0.3 % (0.2-2.0); Eosinophils Absolute Auto 0.2 10^3/uL (0.0-0.7); Eosinophils Percent Auto 1.2 % (0.9-7.0); Hematocrit 35.6 % (36.0-48.0); Immature Granulocytes Pct Auto 0.8 % (0.0-0.5); Lymphocytes Percent Auto 16.5 % (20.5-60.0); Mean Corpuscular HGB Conc 33.7 g/dL (29.9-35.2); Mean Corpuscular Hemoglobin 30.7 pg (26.7-34.0); Mean Platelet Volume 10.2 fL (9.5-13.5); Monocytes Absolute Auto 0.7 10^3/uL (0.3-0.8); Monocytes Percent Auto 6.1 % (1.7-12.0); Neutrophils Absolute Auto 9.1 10^3/uL (1.4-6.5); Neutrophils Percent Auto 75.1 % (43.0-75.0); Platelet Count 225 10^3/uL (150-450); Red Blood Count 3.91 10^6/uL (4.20-5.40); Red Cell Distribution Width 13.4 % (11.0-15.0); White Blood Count 12.2 10^3/uL (4.0-11.0)
[2024-04-16 15:56] LABS: Amphetamine Screen Urine NEGATIVE (NEGATIVE); Barbiturates Screen Urine NEGATIVE (NEGATIVE); Benzodiazepines Screen Urine NEGATIVE (NEGATIVE); Buprenorphine Screen Urine NEGATIVE (NEGATIVE); Cannabinoid Screen Urine NEGATIVE (NEGATIVE); Cocaine Screen Urine NEGATIVE (NEGATIVE); Methadone Screen Urine NEGATIVE (NEGATIVE); Methamphetamines Screen Urine NEGATIVE (NEGATIVE); Opiate Screen Urine NEGATIVE (NEGATIVE); Oxycodone Screen Urine NEGATIVE (NEGATIVE); Phencyclidine Screen Urine NEGATIVE (NEGATIVE); Tricyclic Antidepressant Urine NEGATIVE (NEGATIVE)
[2024-04-16 16:05] LABS: Estimated Average Glucose 94 mg/dL; Glycohemoglobin A1C 4.9 % (4.5-6.2)
[2024-04-17 07:12] LABS: HBsAg Screen Negative (Negative); HCV Ab Non Reactive (Non Reactive); HIV Ab/p24 Ag Screen Non Reactive (Non Reactive)
[2024-04-17 11:08] LABS: Rapid Plasma Reagin, Quant Non Reactive titer (NonRea<1:1)
== END 2024-04-16 15:23 | disposition home or self-care (01) ==
PROVIDERS: PCP Family Medicine; Visit Provider Obstetrics & Gynecology
DX: Z34.01 Encounter for supervision of normal first pregnancy, first trimester (principal); N92.6 Irregular menstruation, unspecified
CPT/HCPCS: 36415; 80307; 83036; 85025; 86592; 86762; 86803; 86850; 86900; 86901; 87086; 87340; 87389

== ENCOUNTER 2024-07-01 07:54 | Outpatient (OUT) | payer BC, SELFPAY ==
--- OUTSIDE RECORDS SUMMARY | 2024-07-01 08:01 | XMS_ITS | CCD ---
Author Organization [facility] Care Team Providers Care Literary Writer Name Role Phone YAAKOV BLANCAS Unavailable Unavailable KENJI ., DR NADRE Attending Unavailable KENJI ., DR ANDRE Consulting Unavailable KENJI ., DR ANDRE Admitting Unavailable Unavailable Primary Care Provider UnavailJES Maravilla Attending Unavailable AMI NORRIS Attending Unavailable KENJIJES Attending Unavailable KAROLINA WHYTE Attending Unavailable AMI NORRIS Referring Unavailable JES PHILLIP Attending Unavailable SAIDA DAHL Attending Unavailable DENILSON CALL Referring Unavailable KUNDENILSON Manley Primary Care Unavailable SAIDA DAHL Attending Unavailable FURLONG, WILFRIDO G Primary Care Unavailable FURLONG, WILFRIDO G Referring Unavailable SAIDA DAHL Attending Unavailable FURLONG, WILFRIDO G Referring Unavailable FURLONG, WILFRIDO G Primary Care Unavailable SAIDA DAHL Attending Unavailable FURLONG, WILFRIDO G Referring Unavailable FURLONG, WILFRIDO G Primary Care Unavailable SAIDA DAHL Attending Unavailable FURLONG, WILFRIDO G Referring Unavailable FURLONG, WILFRIDO G Primary Care Unavailable SAIDA DAHL Attending Unavailable FURLONG, WILFRIDO G Referring Unavailable FURLONG, WILFRIDO G Primary Care Unavailable Allergies Allergy Classification Reported Allergen(s) Allergy Type Date of Onset Reaction(s) Facility (13 sources) Penicillins; Translations: [PENICILLINS] Propensity to adverse reactions to drug (disorder) 4 Hives, Other [facility] Repository Medications Current Medications Medication Drug Class(es) Dates Sig (Normalized) Sig (Original) 24 hr amphetamine aspartate 2.5 mg / amphetamine sulfate 2.5 mg / dextroamphetamine saccharate 2.5 mg / dextroamphetamine sulfate 2.5 mg extended release oral capsule (1 source) Central Nervous System Stimulant Start: 12-14-2022 End: 03-21-2024 Adderall XR 10 MG 24 hr capsule 12/14/2022 03/21/2024 Discontinued cephalexin 500 mg oral capsule (2 sources) Cephalosporin Antibacterial Start: 06-19-2024 End: 06-26-2024 take 1 capsule by mouth in the morning, then take 1 capsule by mouth in the evening, then take 1 capsule by mouth at bedtime cephalexin (Keflex) 500 MG capsule Indications: Mastitis Take 1 capsule (500 mg) by mouth in the morning and 1 capsule (500 mg) in the evening and 1 capsule (500 mg) before bedtime. Do all this for 7 days. 21 capsule 06/19/2024 06/26/2024 Active escitalopram 5 mg oral tablet (3 sources) Serotonin Reuptake Inhibitor Start: 05-19-2024 End: 07-03-2024 take 1 tablet by mouth once daily escitalopram (Lexapro) 5 MG tablet Take 5 mg by mouth Daily 05/19/2024 07/03/2024 Active Start: 10-31-2022 End: 03-21-2024 take 1 tablet [...] 1 tablet by mouth once daily L norgest/e.estradiol -e.estrad (Seasonique) 0.15-0.03 &0.01 MG tablet tablet Take [...] Problem Classification Problem Date Documented Date Episodic/Chronic Anxiety disorders (1 source) Generalized anxiety disorder; Translations: [Generalized anxiety disorder] Onset: 03-20-2022 Chronic Attention-deficit, conduct, and disruptive behavior disorders (1 source) Attention-deficit hyperactivity disorder, combined type; Translations: [Attention-deficit hyperactivity disorder, combined type] Onset: 03-20-2022 Chronic Immunizations and screening for infectious disease (3 sources) Encounter for screening for human papillomavirus (HPV); Translations: [Exposure to sexually transmissible disorder] Onset: 08-03-2022 05-21-2024 Episodic Inflammation; infection of eye (except that caused by tuberculosis or sexually transmitteddisease) (2 sources) Hordeolum externum of right eyelid; Translations: [Hordeolum externum right eye, unspecified eyelid] 06-19-2024 Episodic Menstrual disorders (1 source) Missed period; Translations: [Irregular menstruation, unspecified] 03-21-2024 Chronic Mood disorders (1 source) Major depressive disorder, recurrent, mild; Translations: [Major depressive disorder, recurrent, mild] Onset: 2024 Chronic Nonmalignant breast conditions (2 sources) Inflammatory disorder of breast; Translations: [Mastitis without abscess] 06-19-2024 Episodic Other female genital disorders (2 sources) Vaginal discharge; Translations: [Other specified noninflammatory disorders of vagina] 05-21-2024 Episodic Other and delivery including normal (8 sources) ; Translations: [Encounter for supervision of normal , unspecified, unspecified trimester] 03-21-2024 Episodic Other screening for suspected conditions (not mental disorders or infectious disease) (8 sources) Encounter for screening for malignant neoplasm of cervix; Translations: [Patient encounter status] Onset: 07-31-2022 Episodic Residual codes; unclassified (2 sources) Gestation period, 14 weeks; Translations: [14 weeks gestation of ] 04-15-2024 Episodic Residual codes; unclassified (2 sources) Gestation period, 18 weeks; Translations: [18 weeks gestation of ] 05-21-2024 Episodic Residual codes; unclassified (2 sources) Gestation period, 22 weeks; Translations: [22 weeks gestation of ] 06-19-2024 Episodic Unclassified (7 sources) OB Reminders Onset: 04-29-2024 04-29-2024 Past or Other Problems Problem Classification Problem Date Documented Da te Episodic/Chronic Residual codes; unclassified (11 sources) Reduced libido; Translations: [Decreased libido] Onset: 08-09-2023 08-09-2023 Episodic Results Test Name Value Interpretation Reference Range Facility Urinalysis macro (dipstick) panel (U)on 06-19-2024 Bilirubin, UA Negative Negative - 4(70) +++ mg/dL [facility] Blood, UA Negative Negative - 50 Julius/mcL [facility] Clarity, UA Clear [facility] Color, UA Yellow [facility] Glucose, UA Negative Negative - 2000(110) ++++ mg/dL [facility] Interpretation and review of laboratory results Abnormal [facility] Ketones, UA Negative Negative - 160(16) ++++ mg/dL [facility] Leukocytes, UA Moderate Negative - 500+++ Dori/mcL [facility] Nitrite, UA Negative Negative - Positive [facility] pH, UA 7.5 5 - 9 [facility] Protein, UA Negative Negative - 2000(20) ++++ mg/dL [facility] Spec Grav, UA 1.02 1 - 1.03 [facility] Urobilinogen, UA 0.2 0.2 - 12 mg/dL [facility] US OB 14+ WEEKS ANATOMY SCAN on 06-11-2024 US OB 14+ WEEKS ANATOMY SCAN EXAM: US OB 14+ WEEKS ANATOMY SCAN HISTORY: anatomy. COMPARISON: None available. TECHNIQUE: Two-dimensional transabdominal grayscale ultrasound imaging of the pelvis was performed. FINDINGS: Gestation: Single Presentation: Cephalic Cardiac Activity: 155 beats per minute Placental Location: Posterior with no sonographic abnormalities identified. Distance from Placental Tip to Cervix: 4 cm Cervical Length: 4.9 cm Amniotic Fluid: Appears adequate MEASUREMENTS: BPD: 5.0 cm EGA: 21 weeks 1 days HC: 18.7 cm EGA: 21 weeks 0 days AC: 16.0 cm EGA: 21 weeks 1 days FL: 3.6 cm EGA: 21 weeks 2 days HC/AC Ratio: 1.17 The gestational age by today's ultrasound is 21 weeks 1 days (+/- 10 days gestation). Estimated Weight: 406 grams, +/- 61 grams ( 0 lb 14 oz). Weight Percentile for gestational age: 32 % ANATOMY C-Spine: Unremarkable T-Spine: Unremarkable L-Spine: Unremarkable Sacrum: Unremarkable Four Chamber Heart: Unremarkable LVOT: Unremarkable RVOT: Unremarkable Stomach: Unremarkable Kidneys: Unremarkable Bladder: Unremarkable Diaphragm: Unremarkable Cord insertion: Unremarkable Cord vessels: Three Lateral Ventricles: Unremarkable Cerebellum: Unremarkable Cisterna Magna: Unremarkable Posterior Fossa: Unremarkable Right Femur: Unremarkable Left Femur: Unremarkable Right Tib/Fib: Unremarkable Left Tib/Fib: Unremarkable Right Rad/Ulnar: Unremarkable Left Rad/Ulnar: Unremarkable Right Humerus: Unremarkable Left Humerus: Unremarkable Nose/Lips: Unremarkable Orbits: Unremarkable IMPRESSION: 1. Single, live intrauterine gestation 21 weeks, 3 days by LMP. Today's ultrasound measurements correlate with a gestational age of 21 weeks 1 days. Estimated weight is 406 grams, +/- 61 grams ( 0 lb 14 oz) which correlates to 32 %. JAMES is 10/21/2024. 2. Unremarkable ultrasound of the anatomy. Electronically Signed:Electronically signed by OSVALDO NERI II, MD, PHD at 12-Jun-2024 09:04:27 AM [facility] Normal Not Available Comment on above: Order Comment: US OB ANATOMY SINGLE W US OB CERVICAL LENGTH Estimated Date of Delivery: 10/19/24 Gestational Age as of 05/21/2024: 18w3d RECURRENT VAGINITIS (HTRX)on 05-22-2024 ATOPOBIUM VAGINAE 0 [facility] ATOPOBIUM VAGINAE Not detected [facility] BVAB 2,3 (BACTERIAL VAGINOSIS ASSOCIATED BACTERIA 2, 3); MOBILUNCUS SPP 26.828 Abnormal [facility] BVAB 2,3 (BACTERIAL VAGINOSIS ASSOCIATED BACTERIA 2, 3); MOBILUNCUS SPP Detected Abnormal [facility] MARQUITA ALBICANS, PARAPSILOSIS, TROPICALIS 0 [facility] MARQUITA ALBICANS, PARAPSILOSIS, TROPICALIS Not detected [facility] MARQUITA GLABRATA 0 [facility] MARQUITA GLABRATA Not detected [facility] MARQUITA KRUSEI 0 [facility] MARQUITA KRUSEI Not detected [facility] CHLAMYDIA TRACHOMATIS 0 [facility] CHLAMYDIA TRACHOMATIS Not detected [facility] GARDNERELLA VAGINALIS 0 [facility] GARDNERELLA VAGINALIS Not detected [facility] Interpretation and review of laboratory results Abnormal [facility] MEGASPHAERA (TYPES 1, 2) 0 [facility] MEGASPHAERA (TYPES 1, 2) Not detected [facility] MYCOPLASMA GENITALIUM 0 [facility] MYCOPLASMA GENITALIUM Not detected [facility] NEISSERIA GONORRHOEAE 0 [facility] NEISSERIA GONORRHOEAE Not detected [facility] TRICHOMONAS VAGINALIS 0 [facility] TRICHOMONAS VAGINALIS Not detected Critical access hospital ALL CBC WITH AUTO DIFFon BASOPHILS ABSOLUTE AUTO 0 [facility] Basophils/100 WBC (Bld) 0.3 % 0.2 - 2.0 % [facility] Eosinophils/100 WBC (Bld) 1.2 % 0.9 - 7.0 % [facility] Erythrocyte distribution width (RBC) [Ratio] 13.4 % 11.0 - 15.0 % [facility] Hematocrit (Bld) [Volume fraction] 35.6 % Low 36.0 - 48.0 % [facility] Hemoglobin (Bld) [Mass/Vol] 12 g/dL 12.0 - 16.0 g/dL [facility] IMMATURE GRANULOCYTES ABS AUTO 0.1 High [facility] Immature granulocytes/100 WBC (Bld) 0.8 % High 0.0 - 0.5 % [facility] Interpretation and review of laboratory results Abnormal [facility] LYMPHOCYTES ABSOLUTE AUTO 2 [facility] Lymphocytes/100 WBC (Bld) 16.5 % Low 20.5 - 60.0 % [facility] MCH (RBC) [Entitic mass] 30.7 pg 26.7 - 34.0 pg [facility] MCHC (RBC) [Mass/Vol] 33.7 g/dL 29.9 - 35.2 g/dL [facility] MCV (RBC) [Entitic vol] 91 fL 81.0 - 99.0 fL [facility] MONOCYTES ABSOLUTE AUTO 0.7 [facility] Monocytes/100 WBC (Bld) 6.1 % 1.7 - 12.0 % [facility] NEUTROPHILS ABSOLUTE AUTO 9.1 High [facility] Neutrophils/100 WBC (Bld) 75.1 % High 43.0 - 75.0 % [facility] Platelet mean volume (Bld) [Entitic vol] 10.2 fL 9.5 - 13.5 fL [facility] TBH EO # 0.2 [facility] PLT 225 [facility] RBC 3.91 Low [facility] WBC 12.2 High [facility] HCG ( test) Ql (U)o n 03-21-2024 Interpretation and review of laboratory results Abnormal [facility] Preg Test, Ur Positive Negative [facility] hospital Urinalysis macro (dipstick) panel (U)on 03-21-2024 Bilirubin, UA Negative Negative - 4(70) +++ mg/dL [facility] Blood, UA Negative Negative - 50 Julius/mcL [facility] Clarity, UA Clear [facility] Color, UA Yellow [facility] Glucose, UA Negative Negative - 2000(110) ++++ mg/dL [facility] Interpretation and review of laboratory results Abnormal [facility] Ketones, UA Negative Negative - 160(16) ++++ mg/dL [facility] Leukocytes, UA Trace Negative - 500+++ Dori/mcL [facility] Nitrite, UA Negative Negative - Positive [facility] pH, UA 7 5 - 9 [facility] Protein, UA Negative Negative - 2000(20) ++++ mg/dL [facility] Spec Grav, UA 1.02 1 - 1.03 [facility] Urobilinogen, UA 0.2 0.2 - 12 mg/dL [facility] PAP ACOG PANEL 2: 21 to 29on 08-07-2022 . . Normal [facility] Comment on above: Performed By: #### [id number] #### [facility] [address] [address] [address] Pat Aguilar Age Gdln ACOG Testing 21-29 Normal [facility] Comment on above: Performed By: #### [id number] #### [facility] [address] [address] [address] Pat Aguilar DIAGNOSIS: Comment Normal [facility] Comment on above: Result Comment: NEGA TIVE FOR INTRAEPITHELIAL LESION OR MALIGNANCY. Performed By: #### [id number] #### [facility] [address] [place] [address] Dr. Pat Aguilar Methodology: Comment Normal [facility] Comment on above: Result Comment: This liquid based ThinPrep(R) pap test was screened with the use of an image guided system. Performed By: #### [id number] #### [facility] [address] [place] [address] Dr. Pat Aguilar Note: Comment Normal [facility] Comment on above: Result Comment: The Pap smear is a screening test designed to aid in the detection of premalignant and malignant conditions of the uterine cervix. It is not a diagnostic procedure and should not be used as the sole means of detecting cervical cancer. Both false-positive and false-negative reports do occur. . Performed By: #### [id number] #### [facility] [address] [place] [address] Dr. Pat Aguilar Performed by: Comment Normal [facility] Comment on above: Result Comment: Soo Haney, Vehicle Check In Clerk (ASCP) Performed By: #### [id number] #### [facility] [address] [place] [address] Dr. Pat Aguilar Reflex Criteria: Comment Normal [facility] Comment on above: Result Comment: The HPV DNA reflex criteria were not met with this specimen result therefore, no HPV testing was performed. . Performed By: #### [id number] #### [facility] [address] [place] [address] Dr. Pat Aguilar Specimen adequacy: Comment Normal [facility] Comment on above: Result Comment: Sati sfactory for evaluation. Endocervical and/or squamous metaplastic cells (endocervical component) are present. Performed By: #### 4 [id number] #### [facility] [address] [place] [address] Dr. Pat Aguilar [facility] 11-26-2021 Albumin [Mass/Vol] 4.1 g/dL Normal 3.6-5.1 [facility] Comment on above: Performed By: #### 1 0231, 7600 #### [facility] of [address], [address] [place] [address] Medical Scheduler: Vladislav Kamara MD Albumin/Globulin [Mass ratio] 1.6 {ratio} Normal 1.0-2.5 [facility] Comment on above: Performed By: #### 1 023, 7600 #### [facility] of [address], [address] [place] [address] Medical Scheduler: Vladislav Kamara MD ALP [Catalytic activity/Vol] 53 U/L Normal 31-125 [facility] Comment on above: Performed By: #### 1 023, 7600 #### [facility] of [place] [address] Medical Scheduler: Vladislav Kamara MD ALT [Catalytic activity/Vol] 6 U/L Normal 6-29 [facility] Comment on above: Performed By: #### 1 023, 7600 #### [facility] [place] [address] Medical Scheduler: Vladislav Kamara MD AST [Catalytic activity/Vol] 10 U/L Normal 10-30 [facility] Comment on above: Performed By: #### 1 0231, 7600 #### [facility] of [place] [address] Medical Scheduler: Vladislav Kamara MD Bilirubin [Mass/Vol] 0.5 mg/dL Normal 0.2-1.2 [facility] Comment on above: Performed By: #### 1 0231, 7600 #### [facility] of [place] [address] Medical Scheduler: Vladislav Kamara MD BUN/CREATININE RATIO NOT APPLICABLE Normal 6-22 [facility] Comment on above: Performed By: #### 1 0231, 7600 #### [facility] of [place] [address] Medical Scheduler: Vladislav Kamara MD Calcium [Mass/Vol] 9.3 mg/dL Normal 8.6-10.2 [facility] Comment on above: Performed By: #### 1 0231, 7600 #### [facility] [place] [address] Medical Scheduler: Vladislav Kamara MD Chloride [Moles/Vol] 104 mmol/L Normal 98-110 [facility] Comment on above: Performed By: #### 1 0231, 7600 #### [facility] [place] [address] Medical Scheduler: Vladislav Kamara MD CO2 [Moles/Vol] 27 mmol/L Normal 20-32 [facility] Comment on above: Performed By: #### 1 0231, 7600 #### [facility] [place] [address] Medical Scheduler: Vladislav Kamara MD Creatinine [Mass/Vol] 0.92 mg/dL Normal 0.50-0.96 [facility] Comment on above: Performed By: #### 1 0231, 7600 #### [facility] [place] [address] Medical Scheduler: Vladislav Kamara MD GFR/1.73 sq M.predicted among non-blacks MDRD (S/P/Bld) [Vol rate/Area] 87 mL/min/{1.73_m2} Normal > OR = 60 [facility] Comment on above: Result Comment: The eGFR is based on the CKD-EPI 2020 equation. To calculate the new eGFR from a previous Creatinine or Cystatin C result, go to https://www.kidney.org/professionals/ kdoqi/gfr%5Fcalculator Performed By: #### 1 0231, 7600 #### [facility] [place] [address] Medical Scheduler: Vladislav Kamara MD Globulin (S) [Mass/Vol] 2.5 g/dL Normal 1.9-3.7 [facility] Comment on above: Performed By: #### 1 0231, 7600 #### [facility] [place] [address] Medical Scheduler: Vladislav Kamara MD Glucose [Mass/Vol] 81 mg/dL Normal 65-99 [facility] Comment on above: Result Comment: Fasting reference interval Performed By: #### 1 0231, 7600 #### [facility] [place] [address] Medical Scheduler: Vladislav Kamara MD Potassium [Moles/Vol] 4.4 mmol/L Normal 3.5-5.3 [facility] Comment on above: Performed By: #### 1 0231, 7600 #### [facility] [place] [address] Medical Scheduler: Vladislav Kamara MD Protein [Mass/Vol] 6.6 g/dL Normal 6.1-8.1 [facility] Comment on above: Performed By: #### 1 023, 7600 #### [facility] [place] [address] Medical Scheduler: Vladislav Kamara MD Sodium [Moles/Vol] 138 mmol/L Normal 135-146 [facility] Comment on above: Performed By: #### 1 023, 7600 #### [facility] [place] [address] Medical Scheduler: Vladislav Kamara MD Urea nitrogen [Mass/Vol] 12 mg/dL Normal 7-25 [facility] Comment on above: Performed By: #### 1 0231, 7600 #### [facility] [place] [address] Medical Scheduler: Vladislav Kamara MD LIPID PANEL, [facility] 11-01 Cholesterol [Mass/Vol] 153 mg/dL Normal <200 [facility] Comment on above: Order Comment: FASTI NG:YES FASTING: YES Performed By: #### 1 0231, 7600 #### [facility] [address], [address] [place] [address] Medical Scheduler: Vladislav Kamara MD Cholesterol in HDL [Mass/Vol] 73 mg/dL Normal > OR = 50 [facility] Comment on above: Order Comment: FASTI NG:YES FASTING: YES Performed By: #### 1 023, 7600 #### [facility] [address], [address] [place] [address] Medical Scheduler: Vladislav Kamara MD Cholesterol in LDL [Mass/Vol] [...] equation in the estimation of LDL-C. Marko RODRIGEUZ et al. BRITTANY. 2013;310(19): 9875-7100 (http://education.Amirite.com.[employer]/faq/AWW283) Performed By: #### 1 023, 0 #### [facility] [address], [address] [place] [address] Medical Scheduler: Vladislav Kamara MD Cholesterol.total/ Cholesterol in HDL [Mass ratio] 2.1 {ratio} Normal <5.0 [facility] Comment on above: Order Comment: FASTI NG:YES FASTING: YES Performed By: #### 1 0231, 7600 #### [facility] [address], [address] [place] [address] Medical Scheduler: Vladislav Kamara MD NON HDL CHOLESTEROL 80 mg/dL (calc) Normal <130 [facility] Comment on above: Order Comment: FASTI NG:YES FASTING: YES Result Comment: For patients with diabetes plus 1 major ASCVD risk factor, treating to a non-HDL-C goal of <100 mg/dL (LDL-C of <70 mg/dL) is considered a therapeutic option. Performed By: #### 1 0231, 7600 #### [facility] of [facility] [address], [address] [place] [address] Medical Scheduler: Vladislav Kamara MD Triglyceride [Mass/Vol] 86 mg/dL Normal <150 [facility] Comment on above: Order Comment: FASTI NG:YES FASTING: YES Performed By: #### 1 0231, 7600 #### [facility] [address], [address] [place] [address] Medical Scheduler: Vladislav Kamara MD PROGRESSon 02-26-2018 Protein mass conc HNO ID: [id number] thor: Yaakov Brar: (none)Author Type: PhysicianType: Progress [...] agreewith all of its relevant components. Normal [facility] Vital Signs Date Time Vital Sign Value Performing Clinician Faci erma 06-19-2024 09:040 Body mass index (BMI) [Ratio] 28.86 kg/m2 Aha Mobile DO Work Phone: [facility] 06-19-2024 09:0400 Body weight 76.26 kg Aha Mobile DO Work Phone: [facility] 06-19-2024 09:01-0400 Diastolic blood pressure 64 mm[Hg] Jes Kenji DO Work Phone: [facility] 06-19-2024 09:01-0400 Systolic blood pressure 110 mm[Hg] Jes Kenji DO Work Phone: [facility] 05-21-2024 08:42-0500 Body mass index (BMI) [Ratio] 28.49 kg/m2 Ami Samira PA Work Phone: [facility] 05-21-2024 08:42-0500 Body weight 75.3 kg Ami Samira PA Work Phone: [facility] 05-21-2024 08:42-0500 Diastolic blood pressure 60 mm[Hg] Ami Lucerne PA Work Phone: [facility] 05-21-2024 08:42-0500 Systolic blood pressure 112 mm[Hg] Ami Samira PA Work Phone: [facility] 04-22-2024 09:58-0500 Body mass index (BMI) [Ratio] 28 kg/m2 Jes Kenji DO Work Phone: [facility] 04-22-2024 09:58-0500 Body weight 73.99 kg Jes Kenji DO Work Phone: [facility] 04-22-2024 09:58-0500 Diastolic blood pressure 62 mm[Hg] Jes Kenji DO Work Phone: [facility] 04-22-2024 09:58-0500 Systolic blood pressure 112 mm[Hg] Jes Kenji DO Work Phone: [facility] 03-21-2024 09:48-0500 Body mass index (BMI) [Ratio] 27.19 kg/m2 Nom Nurse [facility] 03-21-2024 09:48-0500 Body weight 71.85 kg Nom Nurse [facility] 03-21-2024 09:48-0500 Diastolic blood pressure 60 mm[Hg] [facility] Nurse [facility] 03-21-2024 09:48-0500 Systolic blood pressure 110 mm[Hg] [facility] Encounters Encounter Date Encounter Type Care Provider Facility Start: 06-26-2024 End: 06-26-2024 ambulatory [facility] Start: 06-19-2024 End: 06-19-2024 Bamboo flowsheet Jes Kenji DO Work Phone: [facility] Start: 06-19-2024 End: 06-19-2024 Bamboo flowsheet Jes Kenji DO Work Phone: [facility] Start: 06-19-2024 End: 06-19-2024 flow sheet Jes Kenji DO Work Phone: [facility] Comment on above: Hordeolum externum o f right eye, unspecified eyelid (Primary Dx); 22 weeks gestation of ; Second trimester ; Diabetes mellitus screening; Mastitis Start: 06-19-2024 End: 06-19-2024 ambulatory JES KENJI Not Available Start: 06-11-2024 End: 06-11-2024 ambulatory AMI NORRIS Not Available Start: 05-21-2024 End: 05-21-2024 Bamboo flowsheet Ami LALA Work Phone: [facility] Start: 05-21-2024 End: 05-22-2024 Bamboo flowsheet Ami LALA Work Phone: [facility] Start: 05-21-2024 End: 05-22-2024 External Result Encounter Ami LALA Work Phone: [facility] External Department Unsolicited Start: 05-21-2024 End: 05-21-2024 flow sheet Ami LALA Work Phone: [facility] Comment on above: Second trimester pre gnancy; 18 weeks gestation of ; Screening, , for anatomic survey; STD exposure; Vaginal discharge Start: 05-21-2024 End: 05-21-2024 ambulatory AMI NORRIS Not Available Start: 05-19-2024 End: 05-19-2024 ambulatory [facility] Start: 04-22-2024 End: 04-22-2024 flow sheet Jes Kenji DO Work Phone: [facility] Comment on above: Second trimester pre gnancy; 14 weeks gestation of Start: 04-22-2024 End: 04-22-2024 ambulatory JES KENJI Not Available Start: 04-16-2024 End: 04-16-2024 Clinisync Result Encounter Jes Kenji DO Work Phone: [facility] External [facility] Unsolicited Start: 04-16-2024 End: 04-16-2024 Clinisync Result Encounter Jes Kenji DO Work Phone: [facility] Unsolicited Start: 03-21-2024 End: 03-21-2024 Office outpatient visit 5 minutes [facility] Kenji Nurse [facility] Comment on above: GA: 9w5d Start: 03-21-2024 End: 03-21-2024 ambulatory JES ABREUO Not Available Start: 02-20-2024 End: 02-20-2024 ambulatory [facility] Start: 12-26-2023 End: 12-26-2023 ambulatory [facility] Start: 10-31-2023 End: 10-31-2023 ambulatory [facility] Start: 08-07-2023 End: 08-07-2023 ambulatory KAROLINA WHYTE Not Available Start: 08-06-2023 End: 08-06-2023 ambulatory JES KENJI Not Available Start: 07-30-2023 End: 07-30-2023 ambulatory [facility] Start: 07-31-2022 End: 07-31-[address] JES PHILLIP . Facility: Start: 02-26-2018 End: 03-01-2018 Patient encounter procedure YAAKOV BLANCAS [facility] Procedures Date Procedure Procedure Detail Performing Clinician Start: 06-19-2024 Urnls dip stick/tabl et rgnt non-auto w/o micrscp Jes Kenji DO Work Phone: Start: 05-21-2024 RECURRENT VAGINITIS (HTRX) Ami Norris PA Work Phone: Start: 04-16-2024 ALL CBC WITH AUTO DIFF Jes Kenji DO Work Phone: Start: 03-21-2024 End: 03-21-2024 Urnls dip stick/tablet rgnt non-auto w/o micrscp Jes Kenji DO Work Phone: Start: 08-06-2023 Microscopic observat ion [Identifier] in Cervix by Cyto stain [facility] Nurse Plan of Treatment Date Care Activity Detail Author Start: 08-05-2026 Screening for malign ant neoplasm of cervix [facility] Start: 08-07-2024 End: 08-07-2024 Patient encounter procedure 08/07/2024 8:50 AM EDT [facility] [address] [place] [address] Karolina Whyte, [employer] UNDERWRITER-CASHIER [employer]ICE [employer] [address] [place], [place] [id number] [facility] Start: 07-21-2024 End: 07-21-2024 Patient encounter procedure 07/21/2024 9:50 AM EDT Routine [facility] [address] [address] Jes Phillip, DO [address] [place] [address] [facility] Start: 06-19-2024 End: 06-19-2025 CBC panel - Blood by Automated count CBC Lab Routine Diabetes mellitus screening Expected: 06/19/2024 (Approximate), Expires: 06/19/2025 [facility] Work Phone: Comment on above: Expected: 06/19/2024 (Approximate), Expires: 06/19/2025 Start: 06-19-2024 End: 06-19-2025 Measurement of glucose 1 hour after glucose challenge for glucose tolerance test Glucose tolerance, 1 hour Lab Routine Diabetes mellitus screening Expected: 06/19/2024 (Approximate), Expires: 06/19/2025 [facility] Comment on above: Expected: 06/19/2024 (Approximate), Expires: 06/19/2025 Start: 06-19-2024 End: 06-19-2024 Patient encounter procedure [facility] Comment on above: Arrived Start: 06-11-2024 End: 06-11-2024 Professional / ancillary services management 06/11/2024 8:00 AM EDT Ancillary Procedure [facility] [address] [address] [facility] Start: 05-21-2024 End: 07-19-2024 Alpha fetoprotein, maternal Alpha fetoprotein, maternal Lab Routine Screening, , for anatomic survey Expected: 05/21/2024 (Approximate), Expires: 07/19/2024 [facility] Comment on above: Expected: 05/21/2024 (Approximate), Expires: 07/19/2024 Start: 05-21-2024 End: 05-21-2025 US for US OB 14+ weeks anatomy scan Imaging Routine Screening, , for anatomic survey Expected: 05/21/2024, Expires: 05/21/2025 [facility] Comment on above: Expected: 05/21/2024 , Expires: 05/21/2025 Start: 05-21-2024 End: 05-21-2024 Patient encounter procedure [facility] Comment on above: Arrived Start: 04-22-2024 End: 04-22-2024 Patient encounter procedure [facility] Comment on above: Second trimester pre gnancy; 14 weeks gestation of Start: 03-21-2024 End: 03-21-2025 ABO/Rh ABO/Rh Lab Routine Missed menses , unspecified gestational age Expected: 03/21/2024 (Approximate), Expires: 03/21/2025 [facility] Comment on above: Expected: 03/21/2024 (Approximate), Expires: 03/21/2025 Start: 03-21-2024 End: 03-21-2025 Blood type and Indirect antibody screen panel - Blood Type and screen Lab Routine Missed menses , unspecified gestational age Expected: 03/21/2024 (Approximate), Expires: 03/21/2025 [facility] Work Phone: Comment on above: Expected: 03/21/2024 (Approximate), Expires: 03/21/2025 Start: 03-21-2024 End: 03-21-2025 Drugs of abuse panel - Urine by Screen method Rapid drug screen, urine Lab Routine , unspecified gestational age Encounter for supervision of normal first in first trimester Expected: 03/21/2024 (Approximate), Expires: 03/21/2025 [facility] Comment on above: Expected: 03/21/2024 (Approximate), Expires: 03/21/2025 Start: 03-21-2024 End: 03-21-2025 US Pelvis transvaginal US OB transvaginal Imaging Routine Missed menses Expected: 03/21/2024 (Approximate), Expires: 03/21/2025 [facility] Comment on above: Expected: 03/21/2024 (Approximate), Expires: 03/21/2025 Start: 12-02-2023 Influenza vaccination Influenza Vacc ine (#1) [facility] Start: 2023 Screening for malign ant neoplasm of cervix HPV/Cotest [facility] Bacteria identified in Urine by Culture Urine culture Microbiology Routine Missed menses Ordered: 03/21/2024 [facility] Comment on above: Ordered: 03/21/2024 CBC W Auto Different ial panel - Blood CBC and differential Lab Routine Missed menses , unspecified gestational age Ordered: 03/21/2024 [facility] Comment on above: Ordered: 03/21/2024 CHLAMYDIA TRACHOMATI S (GENITO/STI) CHLAMYDIA TRACHOMATIS (GENITO/STI) Lab Routine STD exposure Vaginal discharge Ordered: 05/21/2024 [facility] Comment on above: Ordered: 05/21/2024 Hemoglobin A1c/Hemoglobin.total in Blood Hemoglobin A1c Lab Routine Missed menses , unspecified gestational age Ordered: 03/21/2024 [facility] Comment on above: Ordered: 03/21/2024 Hepatitis B virus surface Ag [Presence] in Serum or Plasma by Immunoassay Hepatitis B surface antigen Lab Routine Missed menses , unspecified gestational age Ordered: 03/21/2024 [facility] Comment on above: Ordered: 03/21/2024 Hepatitis C virus Ab [Presence] in Serum or Plasma by Immunoassay Hepatitis C antibody Lab Routine Missed menses , unspecified gestational age Ordered: 03/21/2024 [facility] Comment on above: Ordered: 03/21/2024 HIV-1/HIV-2 antigen/antibody combination immunoassay HIV-1 and HIV-2 antibodies Lab Routine Missed menses , unspecified gestational age Ordered: 03/21/2024 [facility] Comment on above: Ordered: 03/21/2024 Neisseria gonorrhoea e DNA [Presence] in Unspecified specimen by CALISTA with probe detection Neisseria gonorrhea DNA probe, direct Lab Routine STD exposure Vaginal discharge Ordered: 05/21/2024 [facility] Comment on above: Ordered: 05/21/2024 Reagin Ab [Presence] in Serum by RPR RPR Lab Routine Missed menses , unspecified gestational age Ordered: 03/21/2024 [facility] Comment on above: Ordered: 03/21/2024 Rubella antibody, IgG Rubella an tibody, IgG Lab Routine Missed menses , unspecified gestational age Ordered: 03/21/2024 [facility] Comment on above: Ordered: 03/21/2024 SURESWAB(R) ADVANCED VAGINITIS PLUS, TMA SURESWAB(R) ADVANCED VAGINITIS PLUS, TMA Pathology and Cytology Routine STD exposure Vaginal discharge Ordered: 05/21/2024 [facility] Work Phone: Comment on above: Ordered: 05/21/2024 Immunizations Immunization Date Immunization Notes Care Provider Heavenly martinez 01-15-2018 influenza virus vacc ine, unspecified formulation Nom Nurse [facility] Payers Date Payer Category Payer [facility] [id number] [id number] 2023 Unknown [id number] 1993 Unknown [id number] 2.16.84 [id number] 1993 Unknown [id number] 2.16.84 [id number] 1993 Unknown [id number] 2.16.84 [id number] 1993 Unknown [id number] 2.16.84 [id number] 1993 Unknown [id number] 2.16.84 [id number] 1993 Unknown [id number] 2.16.84 [id number] 1993 Unknown [id number] 2.16.84 [id number] 1993 Unknown [id number] 2.16.84 [id number] 1993 Unknown [id number] 2.16. [id number] 1993 Unknown [id number] 2.16. [id number] 1993 Unknown [id number] 2.16.8 [id number] 1993 Unknown [id number] 2.16.8 [id number] 1993 Unknown [id number] 2.16.8 [id number] 1993 Unknown [id number] 2.16.8 [id number] 1959 Private Health Insurance [id number] Social History Date Type Detail Facility Start: 08-07-2023 Tobacco smoking stat [facility] Never smoked tobacco [facility] Start: 08-07-2023 Tobacco use and exposure Smoke less tobacco non-user [facility] Start: 03-21-2024 End: 06-19-2024 Alcoholic beverage intake Defer [facility] Start: 08-07-2023 History of Social function [facility] Start: 08-07-2023 Tobacco use panel [facility] Start: 01-27-2024 [facility] Start: 1995 Sex assigned at Not on file [facility] Goals Date Patient Goal Desired Activity /State Personal health goal History of Present illness Narrative 06-19-2024 SPIKE Guerra - 06/19/2024 8:40 AM EDT Note Date & Type Note Facility 06-19-2024 History of Presen t illness Narrative Reason for Appointment: Patient ID: Luke Israel is a 29 y.o. female who presents for Routine Visit Patient presents today for Return OB appointment. MEDICATIONS Current Outpatient Medications Medication Instructions escitalopram (LEXAPRO) 5 mg, Daily ALLERGIES Allergies Allergen Reactions Penicillins Hives and Other PROBLEMS Active Ambulatory Problems Diagnosis Date Noted Decreased libido 08/09/2023 Resolved Ambulatory Problems Diagnosis Date Noted No Resolved Ambulatory Problems No Additional Past Medical History HISTORY PAST MEDICAL HISTORY SOCIAL HISTORY History reviewed. No pertinent past medical history. Social History Tobacco Use Smoking status: Never Smokeless tobacco: Never Vaping Use Vaping status: Never Used Substance Use Topics Alcohol use: Defer Drug use: Defer FAMILY HISTORY No family history on file. SURGICAL HISTORY Past Surgical History: Procedure Laterality Date APPENDECTOMY REVIEW OF SYSTEMS Review of Systems: Review of Systems Constitutional: Negative. HENT: Negative. Eyes: Negative. Respiratory: Negative. Cardiovascular: Negative. Gastrointestinal: Negative. Musculoskeletal: Negative. Skin: Negative. Neurological: Negative. Psychiatric/Behavioral: Negative. All other systems reviewed and are negative. Hematological: Negative. Endocrine: Negative. OBJECTIVE Objective: Physical Exam Constitutional: Appearance: Normal appearance. She is normal weight. HENT: Head: Normocephalic. Cardiovascular: Rate and Rhythm: Normal rate. Pulses: Normal pulses. Pulmonary: Effort: Pulmonary effort is normal. Breath sounds: Normal breath sounds. Abdominal: Palpations: Abdomen is soft. Musculoskeletal: General: Normal range of motion. Neurological: General: No focal deficit present. Mental Status: She is alert and oriented to person, place, and time. Psychiatric: Mood and Affect: Mood normal. Behavior: Behavior normal. Thought Content: Thought content normal. Judgment: Judgment normal. Vitals and nursing note reviewed. Vitals: Estimated body mass index is 28.86 kg/m as calculated from the following: Height as of 08/04/22: 5' 4 . Weight as of this encounter: 168 lb 1.9 oz. BP: 110/64 Patient's last menstrual period was 01/13/2024. ASSESSMENT & PLAN ICD-10-CM 1. 22 weeks gestation of Z3A.22 POCT urinalysis dipstick manually resulted 2. Second trimester Z34.92 POCT urinalysis dipstick manually resulted 3. Diabetes mellitus screening Z13.1 CBC Glucose tolerance, 1 hour CBC Glucose tolerance, 1 hour Return OB: Patient presents today for a routine obstetrics appointment. Patient is currently 22w4d . Patient states she is doing well but has complaints of being tired due to current . Patient has verbalizes frequent movement. Patient with stye to right eye and tenderness surrounding the right eye. Recommend warm compress and if no improvement will place on antibiotic ointment. Patient reports shooting left breast pain, soreness and erythema. Noted lymph node enlargement to right axilla with out mass. Findings consistent with non lactational mastitis. Treated with Keflex. Orders Placed This Encounter Procedures CBC Glucose tolerance, 1 hour POCT urinalysis dipstick manually resulted Follow Up: Patient is to return to office in 4 week for routine OB appointment. Documented by SPIKE Guerra on behalf of: Jes Phillip DO documented in this encounter [facility] History of Present illness Narrative 05-21-2024 SPIKE Guerra - 05/21/2024 8:30 AM EST Note Date & Type Note Facility 05-21-2024 History of Presen t illness Narrative Reason for Appointment: Patient ID: Luke Israel is a 29 y.o. female who presents for Routine Visit Patient presents today for Return OB appointment. MEDICATIONS No current outpatient medications ALLERGIES Allergies Allergen Reactions Penicillins Hives and Other PROBLEMS Active Ambulatory Problems Diagnosis Date Noted Decreased libido 08/09/2023 Resolved Ambulatory Problems Diagnosis Date Noted No Resolved Ambulatory Problems No Additional Past Medical History HISTORY PAST MEDICAL HISTORY SOCIAL HISTORY No past medical history on file. Social History Tobacco Use Smoking status: Never Smokeless tobacco: Never Vaping Use Vaping status: Never Used Substance Use Topics Alcohol use: Defer Drug use: Defer FAMILY HISTORY No family history on file. SURGICAL HISTORY Past Surgical History: Procedure Laterality Date APPENDECTOMY REVIEW OF SYSTEMS Review of Systems: Review of Systems Constitutional: Negative. HENT: Negative. Eyes: Negative. Respiratory: Negative. Cardiovascular: Negative. Gastrointestinal: Negative. Genitourinary: Negative. Musculoskeletal: Negative. Skin: Negative. Neurological: Negative. All other systems reviewed and are negative. Hematological: Negative. Endocrine: Negative. Allergic/Immunologic: Negative. OBJECTIVE Objective: Physical Exam Constitutional: Appearance: Normal appearance. She is normal weight. HENT: Head: Normocephalic. Cardiovascular: Rate and Rhythm: Normal rate. Pulses: Normal pulses. Pulmonary: Effort: Pulmonary effort is normal. Breath sounds: Normal breath sounds. Abdominal: Palpations: Abdomen is soft. Musculoskeletal: General: Normal range of motion. Neurological: General: No focal deficit present. Mental Status: She is alert and oriented to person, place, and time. Psychiatric: Mood and Affect: Mood normal. Behavior: Behavior normal. Thought Content: Thought content normal. Judgment: Judgment normal. Vitals and nursing note reviewed. Vitals: Estimated body mass index is 28.49 kg/m as calculated from the following: Height as of 08/04/22: 5' 4 . Weight as of this encounter: 166 lb. BP: 112/60 Patient's last menstrual period was 01/13/2024. ASSESSMENT & PLAN ICD-10-CM 1. Second trimester Z34.92 POCT urinalysis dipstick manually resulted 2. 18 weeks gestation of Z3A.18 3. Screening, , for anatomic survey Z36.89 Alpha fetoprotein, maternal US OB 14+ weeks anatomy scan Alpha fetoprotein, maternal 4. STD exposure Z20.2 SURESWAB(R) ADVANCED VAGINITIS PLUS, TMA CHLAMYDIA TRACHOMATIS (GENITO/STI) Neisseria gonorrhea DNA probe, direct 5. Vaginal discharge N89.8 SURESWAB(R) ADVANCED VAGINITIS PLUS, TMA CHLAMYDIA TRACHOMATIS (GENITO/STI) Neisseria gonorrhea DNA probe, direct Return OB/Annual Exam: Patient presents today for a cultures routine obstetrics appointment. Patient is currently 18w3d . Patient is doing well and states she has no complaints. cultures was obtained without difficulty and patient was given msAFP order to have obtained. Orders Placed This Encounter Procedures US OB 14+ weeks anatomy scan CHLAMYDIA TRACHOMATIS (GENITO/STI) Neisseria gonorrhea DNA probe, direct Alpha fetoprotein, maternal POCT urinalysis dipstick manually resulted Follow Up: Patient is to return to our office in 4 weeks for routine OB appointment Documented by SPIKE Guerra on behalf of: SPIKE Guerra documented in this encounter [facility] History of Present illness Narrative 04-22-2024 Maddi Martínez, RESEARCH ASST - 04/22/2024 9:40 AM EST Note Date & Type Note Facility 04-22-2024 History of Presen t illness Narrative Reason for Appointment: Patient ID: Luke Israel is a 29 y.o. female who presents for Routine Visit Patient presents today for Return OB appointment. MEDICATIONS No current outpatient medications ALLERGIES Allergies Allergen Reactions Penicillins Hives and Other PROBLEMS Active Ambulatory Problems Diagnosis Date Noted Decreased libido 08/09/2023 Resolved Ambulatory Problems Diagnosis Date Noted No Resolved Ambulatory Problems No Additional Past Medical History HISTORY PAST MEDICAL HISTORY SOCIAL HISTORY History reviewed. No pertinent past medical history. Social History Tobacco Use Smoking status: Never Smokeless tobacco: Never Vaping Use Vaping status: Never Used Substance Use Topics Alcohol use: Defer Drug use: Defer FAMILY HISTORY No family history on file. SURGICAL HISTORY Past Surgical History: Procedure Laterality Date APPENDECTOMY REVIEW OF SYSTEMS Review of Systems: Review of Systems Constitutional: Negative. HENT: Negative. Eyes: Negative. Respiratory: Negative. Cardiovascular: Negative. Gastrointestinal: Negative. Genitourinary: Negative. Musculoskeletal: Negative. Skin: Negative. Neurological: Negative. All other systems reviewed and are negative. Hematological: Negative. Endocrine: Negative. Allergic/Immunologic: Negative. OBJECTIVE Objective: Physical Exam Constitutional: Appearance: Normal appearance. She is well-developed. Cardiovascular: Rate and Rhythm: Normal rate and regular rhythm. Pulmonary: Effort: Pulmonary effort is normal. Breath sounds: Normal breath sounds. Abdominal: General: Bowel sounds are normal. There is no distension. Palpations: Abdomen is soft. Tenderness: There is no abdominal tenderness. There is no guarding or rebound. Musculoskeletal: General: No swelling. Normal range of motion. Right lower leg: No edema. Left lower leg: No edema. Neurological: Mental Status: She is alert and oriented to person, place, and time. Skin: General: Skin is warm and dry. Psychiatric: Mood and Affect: Mood normal. Behavior: Behavior normal. Vitals and nursing note reviewed. Exam conducted with a field assessor present. Vitals: Estimated body mass index is 28 kg/m as calculated from the following: Height as of 08/04/22: 5' 4 . Weight as of this encounter: 163 lb 1.9 oz. BP: 112/62 Patient's last menstrual period was 01/13/2024. ASSESSMENT & PLAN ICD-10-CM 1. Second trimester Z34.92 POCT urinalysis dipstick manually resulted 2. 14 weeks gestation of Z3A.14 New OB: Patient presents today for 1st time obstetrics appointment with provider. Patient is currently 14w2d . Patients history has been reviewed in great detail including any potential risks. Patient stated she currently has no complaints. Expectations throughout regarding labs, ultrasounds, and appointments have been discussed with the patient in detail. It was reiterated that the patient is to drink 6-8 glasses of water a day, eat 6 small meals a day, do not consume raw or undercooked meat, and stay away from [facility]. Patient has been consulted regarding any further do's and don'ts of . Patient voiced understanding and all questions and concerns were answered. Pt states nausea and morning sickness is getting better Orders Placed This Encounter Procedures POCT urinalysis dipstick manually resulted Follow Up: Patient is to return in 4 weeks for routine OB appointment. Documented by Maddi Martínez LPN on behalf of: Jes Phillip DO documented in this encounter [facility] History of Present illness Narrative 03-21-2024 Yudi Riley LPN - 03/21/2024 9:30 AM EST Note Date & Type Note Facility 03-21-2024 History of Presen t illness Narrative Reason for Appointment: Patient ID: Luke Mao is a 29 y.o. female who [...] or undercooked meat, and stay away from [facility]. Patient has also been advised to [...] trimester documented in this encounter [facility] Evaluation note Note Date & Type Note Facility Evaluation note Diagnosis Second trimester state, incidental 14 weeks gestation of documented in this encounter [facility] Evaluation note Note Date & Type Note Facility Evaluation note Diagnosis Second trimester state, incidental 18 weeks gestation of Screening, , for anatomic survey Encounter for anatomic survey STD exposure Vaginal discharge Leukorrhea, not specified as infective documented in this encounter [facility] Evaluation note Note Date & Type Note Facility Evaluation note Diagnosis Hordeolum externum of right eye, unspecified eyelid- Primary 22 weeks gestation of Second trimester state, incidental Diabetes mellitus screening Screening for diabetes mellitus Mastitis Inflammatory disease of breast documented in this encounter [facility] Summary [...] section and content) DATE CREATED AUTHOR 03/11/2018 [facility] DATE CREATED AUTHOR AUTHOR'S ORGANIZ ATION 11/27/2021 [facility] DATE CREATED AUTHOR AUTHOR'S ORGANIZ ATION 08/08/2022 [facility] DATE CREATED AUTHOR AUTHOR'S ORGANIZ ATION 06/21/2024 [facility] EP[facility] DATE CREATED AUTHOR AUTHOR'S ORGANIZ ATION 06/28/2024 [facility] Reason for Visit (unrecogniz ed section and content) Reason Comments Amenorrhea Reason Comments Routine Visit FOR RECORDS PERTAINING TO PATIENTS WHO ARE [...] BE BASED ON THE PRIMARY CLINICAL RECORDS. [facility]. provides no warranty or guarantee of the accuracy or completeness of information in this document.
[2024-07-01 09:40] LABS: Glucose 1 Hour 129 mg/dL (<130)
[2024-07-01 09:49] LABS: Basophils Percent Auto 0.3 % (0.2-2.0); Eosinophils Absolute Auto 0.1 10^3/uL (0.0-0.7); Eosinophils Percent Auto 1.1 % (0.9-7.0); Hematocrit 34.9 % (36.0-48.0); Hemoglobin 11.6 g/dL (12.0-16.0); Immature Granulocytes Abs Auto 0.13 10^3/uL (0.00-0.03); Immature Granulocytes Pct Auto 1.1 % (0.0-0.5); Lymphocytes Absolute Auto 1.9 10^3/uL (1.2-3.8); Lymphocytes Percent Auto 16.4 % (20.5-60.0); Mean Corpuscular HGB Conc 33.2 g/dL (29.9-35.2); Mean Corpuscular Hemoglobin 31.2 pg (26.7-34.0); Mean Corpuscular Volume 93.8 fL (81.0-99.0); Mean Platelet Volume 10.4 fL (9.5-13.5); Monocytes Absolute Auto 0.7 10^3/uL (0.3-0.8); Monocytes Percent Auto 5.9 % (1.7-12.0); Neutrophils Absolute Auto 8.5 10^3/uL (1.4-6.5); Neutrophils Percent Auto 75.2 % (43.0-75.0); Platelet Count 208 10^3/uL (150-450); Red Blood Count 3.72 10^6/uL (4.20-5.40); Red Cell Distribution Width 13.4 % (11.0-15.0); White Blood Count 11.4 10^3/uL (4.0-11.0)
== END 2024-07-01 07:55 | disposition home or self-care (01) ==
PROVIDERS: PCP Family Medicine; Visit Provider Obstetrics & Gynecology
DX: Z13.1 Encounter for screening for diabetes mellitus (principal)
CPT/HCPCS: 36415; 82950; 85025

== ENCOUNTER 2024-09-24 14:42 | Outpatient (REF) | payer BC, SELFPAY ==
--- OUTSIDE RECORDS SUMMARY | 2024-09-10 11:30 | XMS_ITS | Encounter Summary ---
Author Organization [facility] Address [address] [facility] [place] [address] Care Team Providers Care Customer Data Technician Name Role Phone Unavailable Primary Care Provider Unavailabl e Reason for Visit * Reason Comments Routine Visit Encounter Details Date Type Department Care Team (Late st Contact Info) Description 09/10/2024 11:30 AM EDT Routine [facility] OB [address] [place] [phone] Darin Phillip, DO [address] [place] [address] Third trimester ([facility]); 34 weeks gestation of ([facility]) Social History Tobacco Use Types Packs/Day Years Used Date Smoking Tobacco: Never Smokeless Tobacco: Never Alcohol Use Standard Drinks/Week Comments Defer 0 (1 standard drink = 0.6 oz pur e alcohol) Estimated Date of Delivery Comme nts Yes 10/19/2024 Based on last me nstrual period of 01/13/2024 Sex and Gender Information Value Date Recorded Sex Assigned at Not on file Legal Sex Female 7:21 PM EDT Gender Identity Not on file Sexual Orientation Not on file documented as of this encounter Last Filed Vital Signs Vital Sign Reading Time Taken Comments Blood Pressure 122/70 09/10/2024 11:29 AM EDT Pulse - - Temperature - - Respiratory Rate - - Oxygen Saturation - - Inhaled Oxygen Concentration - - Weight 88 kg (194 lb) 09/10/2024 11:29 AM EDT Height - - Body Mass Index 33.3 08/04/2022 12:00 PM EDT documented in this encounter Progress Notes * Maddi Martínez, SHAKER FLATWORK - 09/10/2024 11:30 AM EDT Reason for Appointment: Patient ID: Valencia Israel is a 29 y.o. female who presents for Routine Visit Patient presents today for Return OB appointment. MEDICATIONS Current Outpatient Medications Medication Instructions escitalopram (Lexapro) 5 MG tablet ALLERGIES Allergies Allergen Reactions Penicillins Hives and [...] nursing note reviewed. Exam conducted with a relations director present. Vitals: Estimated body mass index is 33.3 kg/m?? as calculated from the following: Height as of 08/04/22: 5' 4 . Weight as of this encounter: 194 lb. BP: 122/70 Patient's last menstrual period was 01/13/2024. ASSESSMENT & PLAN ICD-10-CM 1. Third trimester Z34.93 POCT urinalysis dipstick manually resulted 2. 34 weeks gestation of Z3A.34 Return OB: Patient presents today for a routine obstetrics appointment. Patient is currently 34w3d . Patient states she is doing well but has complaints of being tired due to current . Patient has verbalizes frequent movement. labor precautions was discussed/given and patient was instructed to perform kick counts three times a day. Pt has complaints of feet and hand swelling, a burning sensation in upper abdomen, burning is from baby position. Pt denies headaches, vision changes, no bp elevation. Pt advised to stay hydrated and elevate legs. Pt voiced understanding. Orders Placed This Encounter Procedures POCT urinalysis dipstick manually resulted Follow Up: Patient is to return to office in 2 week for routine OB appointment. Documented by Maddi Martínez LPN on behalf of: Darin Phillip DO documented in this encounter Plan of Treatment Upcoming Encounters Date Type Department Care Team (Late st Contact Info) Description 09/30/2024 8:30 AM EDT Routine [facility] [address] [address] [phone] Darin Phillip DO [address] [place] [address] 08/13/2025 8:35 AM EDT Office Visit [facility] [address] [place] [address] Karolina Whyte, FABRICATION MANAGER-DYE BLENDER [address] [place] [address] documented as of this encounter Goals Goal Patient Goal Type Associated Problems Recent Progress Patient-Stated? Author Reminders Care Plan OB Reminders No Open Scheduling, Background documented as of this encounter Procedures Procedure Name Priority Date/Time Associated Diagnosis Comments POCT URINALYSIS DIPSTICK Routine 09/10/2024 11:40 AM EDT Third trimester ([facility]) documented in this encounter Results * POCT urinalysis dipstick manually resulted (09/10/2024 11:40 AM EDT) Color, UA Yellow Clarity, UA Clear Glucose, UA Negative Negative - 1999(110) ++++ mg/dL Bilirubin, UA Negative Negative - 4(70) +++ mg/dL Ketones, UA Negative Negative - 160(16) ++++ mg/dL Spec Grav, UA 1.010 1 - 1.03 Blood, UA Negative Negative - 50 Julius/mcL pH, UA 7.0 5 - 9 Protein, UA Negative Negative - 1999(20) ++++ mg/dL Urobilinogen, UA 0.2 0.2 - 12 mg/dL Leukocytes, UA Positive Negative - 500+++ Dori/mcL Nitrite, UA Negative Negative - Positive Urine 09/10/2024 11:4 0 AM EDT Darin Phillip DO POINT OF CARE TEST ENTER/EDIT OR DERABLES Final Result documented in this encounter Visit Diagnoses Diagnosis Third trimester ([facility]) state, incidental 34 weeks gestation of ([facility]) documented in this encounter Additional Health Concerns Active Problems Noted Date Diagnosed Date OB Reminders 04/29/2024 documented as of this encounter
--- OUTSIDE RECORDS SUMMARY | 2024-09-18 08:30 | XMS_ITS | Encounter Summary ---
Author Organization [facility] Address [address] [facility] [address] Care Team Providers Care Investigator Cash Shortage Name Role Phone Unavailable Primary Care Provider Unavailabl e Reason for Visit * Reason Comments Routine Visit Encounter Details Date Type Department Care Team (Late st Contact Info) Description 09/18/2024 8:30 AM EDT Routine [facility] OB [address] [facility] [place] [phone] Darin Phillip, DO [address] [place] [address] Third trimester ([facility]); 35 weeks gestation of ([facility]) Social History Tobacco Use Types Packs/Day Years [...] this encounter Progress Notes * Emily Watkins, WILLOW MACHINE TENDER - 09/18/2024 8:30 AM EDT Reason for [...] nursing note reviewed. Exam conducted with a baggage smasher present. Vitals: Estimated body mass index is 33.51 kg/m?? as calculated from the following: Height as of 08/04/22: 5' 4 . Weight as of this encounter: 195 lb 4 oz. BP: 116/80 Patient's last menstrual period was 01/13/2024. ASSESSMENT & PLAN ICD-10-CM 1. Third trimester ([facility]) Z34.93 POCT urinalysis dipstick manually resulted 2. 35 weeks gestation of ([facility]) Z3A.35 Patient presents today for a routine [...] AM EDT Routine [facility] [address] [facility] [place] [phone] Darin Phillip DO [address] [place] [address] 08/13/2025 8:35 AM EDT Office Visit [facility] [address] [place] [phone] Karolina Whyte APRN-CLIENT COORDINATOR [address] [place] [address] documented as of this encounter Goals Goal Patient Goal Type Associated Problems Recent Progress Patient-Stated? Author Reminders Care Plan OB Reminders No Open Scheduling, Background documented as of this encounter Procedures Procedure Name Priority Date/Time Associated Diagnosis Comments POCT URINALYSIS DIPSTICK Routine 09/18/2024 8:44 AM EDT Third trimester ([facility]) documented in this encounter Results * (ABNORMAL) [...] this encounter Visit Diagnoses Diagnosis Third trimester ([facility]) state, incidental 35 weeks gestation of ([facility]) documented in this encounter Additional Health Concerns Active Problems Noted Date Diagnosed Date OB Reminders 04/29/2024 documented as of this encounter
--- OUTSIDE RECORDS SUMMARY | 2024-09-24 08:50 | XMS_ITS | Encounter Summary ---
Author Organization [facility] Address [address] [facility] [place] [address] Care Team Providers Care Formula Technician Name Role Phone Unavailable Primary Care Provider Unavailabl e Reason for Visit * Reason Comments Routine Visit Encounter Details Date Type Department Care Team (Late st Contact Info) Description 09/24/2024 8:50 AM EDT Routine [facility] [address] [facility] [place] [phone] Ami Hogan PA [address] [facility] [place] [address] Third trimester ([facility]); 36 weeks gestation of ([facility]) Social History Tobacco Use Types Packs/Day Years [...] ASSESSMENT & PLAN ICD-10-CM 1. Third trimester ([facility]) Z34.93 POCT urinalysis dipstick manually resulted CULTURE, GROUP B STREP WITH SUSCEPTIBLITY CULTURE, GROUP B STREP WITH SUSCEPTIBLITY 2. 36 weeks gestation of ([facility]) Z3A.36 Patient is doing well but has [...] AM EDT Routine [facility] [address] [place] [phone] Darin Phillip, DO [address] [facility] [place] [address] 08/13/2025 8:35 AM EDT Office Visit [facility] [address] [place] [phone] Karolina Whyte APRN-PAID INTERNSHIP [address] [place] [address] Scheduled Orders Name Type Priority Associated Diagnoses Orde r Schedule CULTURE, GROUP B STREP WITH SUSCEPTIBLITY Lab Routine Third trimester ([facility]) Expected: 09/24/2024, Expires: 09/24/2025 documented as of this encounter Goals Goal Patient Goal Type Associated Problems Recent Progress Patient-Stated? Author Reminders Care Plan OB Reminders No Open Scheduling, Background documented as of this encounter Procedures Procedure Name Priority Date/Time Associated Diagnosis Comments POCT URINALYSIS DIPSTICK Routine 09/24/2024 9:04 AM EDT Third trimester ([facility]) documented in this encounter Results * (ABNORMAL) [...] this encounter Visit Diagnoses Diagnosis Third trimester ([facility]) state, incidental 36 weeks gestation of ([facility]) documented in this encounter Additional Health Concerns Active Problems Noted Date Diagnosed Date OB Reminders 04/29/2024 documented as of this encounter
--- OUTSIDE RECORDS SUMMARY | 2024-09-24 14:45 | XMS_ITS | Encounter Summary ---
Author Organization [facility] Address [address] [place] [address] Care Team Providers Care Proof Passer Name Role Phone Unavailable Primary Care Provider Unavailabl e Encounter Details Date Type Department Care Team (Late st Contact Info) Description 07/04/2024 Abstract [facility] OB [address] [place] [address] Darin Phillip [facility] [place], [id number] Social History Tobacco Use Types Packs/Day Years [...] on file documented as of this encounter Plan of Treatment Upcoming Encounters Date Type Department Care Team (Late st Contact Info) Description 09/30/2024 8:30 AM EDT Routine [facility] OB [address] [place] [address] Darin Phillip DO [facility] [place], [place] [phone] 08/13/2025 8:35 AM EDT Office Visit [facility] [address] [place] [address] Karolina Whyte, CAKE WASHER-WIRE PREPARATION MACHINE TENDER [address] [place] [address] documented as of this encounter Goals Goal Patient Goal Type Associated Problems Recent Progress Patient-Stated? Author Reminders Care Plan OB Reminders No Open Scheduling, Background documented as of this encounter Visit Diagnoses Not on filedocumented in this encounter Additional Health Concerns Active Problems Noted Date Diagnosed Date OB Reminders 04/29/2024 documented as of this encounter
--- OUTSIDE RECORDS SUMMARY | 2024-09-24 14:45 | XMS_ITS | Encounter Summary ---
Author Organization [facility] Address [id number] [address] [place] [address] Care Team Providers Care Bathhouse Attendant Name Role Phone Eric Hudson DO Primary Care Provider + [phone] Encounter Details Date Type Department Care Team (Late st Contact Info) Description 03/25/2024 Orders Only [facility] Internal Medicine - Family Medicine [address] [place] [phone] Eric Hudson DO [address], [facility] [place] [address] Social History Tobacco Use Types Packs/Day Years Used Date Smoking Tobacco: Never Smokeless Tobacco: Never Alcohol Use Standard Drinks/Week Comments Yes 0 (1 standard drink = 0.6 oz pur e alcohol) socially PHQ-2 Answer Date Recorded Total Score 7 03/20/2022 Childcare Answer Date Recorded Childcare Unknown 09/11/2018 Employment Answer Date Recorded Employment Unknown 09/11/2018 Hunger Screening Answer Date Recorded Within the past 12 months we worried whether our food would run out before we got money to buy more. Never True 06/01/2023 Within the past 12 months th e food we bought just didn't last and we didn't have money to get more. Never True 06/01/2023 Education Answer Date Recorded What is the highest level of school you have completed or the highest degree you have received? Bachelor's degree (e.g., BA, AB, BS) 03/20/2022 Estimated Date of Delivery Comme nts Yes 10/14/2024 Sex and Gender Information Value Date Recorded Sex Assigned at Not on file Legal Sex Female 12:12 PM EDT Gender Identity Not on file Sexual Orientation Not on file documented as of this encounter Plan of Treatment Not on file documented as of this encounter Visit Diagnoses Not on filedocumented in this encounter Additional Health Concerns Assessment Noted Time PHQ-9 Depression Total Score: 7 03/20/20 22 5:35 PM EST documented as of this encounter Care Teams Bathhouse Attendant Relationship Specialty Start Date End Date Eric Hudson DO [address] [facility], [place] [address] PCP - General 10/24/23 documented as of this encounter
--- OUTSIDE RECORDS SUMMARY | 2024-09-24 14:46 | XMS_ITS | Encounter Summary ---
Author Organization [facility] Address [address] [place] [address] Care Team Providers Care Machine Maintenance Technician Name Role Phone Unavailable Primary Care Provider Unavailabl e Encounter Details Date Type Department Care Team (Latest Contact Info) Description 09/19/2024 Travel Social History Tobacco Use Types Packs/Day Years [...] EDT Routine [facility] [address] [place] [phone] Darin Phillip, DO [address] [place] [address] 08/13/2025 8:35 AM EDT Office Visit [facility] [address] [place] [phone] Karolina Whyte, PAINT SPRAYING MACHINE OPERATOR HELPER-CYTOTECHNOLOGIST [address] [place] [address] documented as of this encounter [...]
--- OUTSIDE RECORDS SUMMARY | 2024-09-24 14:46 | XMS_ITS | Clinical Summary ---
Author Organization [facility] Address [address] [place] [address] Care Team Providers Care Photography Manager Name Role Phone Eric Hudson DO Primary Care Provider Allergies Active Allergy Reactions Criticality Noted Date Comments Penicillins Hives 08/29/2011 Medications L-Norgest and E Estradiol-E Estrad (ASHLYNA) 0.15 mg-30 mcg (84)/10 mcg (7) 3MPk once daily. Active SUMAtriptan (IMITREX) 50 mg tablet as needed. Active Active Problems No known active problems Family History Medical History Relation Comments Cataract Maternal Grandfather great grand mother Cataract Maternal Grandmother great grand parent Macular Degen Maternal Grandmother Other Mother elevated eye pre ssure Relation Status Comments Maternal Grandfather Maternal Grandmother Mother Social History Tobacco Use Types Packs/Day Years Used Date Smoking Tobacco: Never Smokeless Tobacco: Never Alcohol Use Standard Drinks/Week Comments No 0 (1 standard drink = 0.6 oz pur e alcohol) Comments Unknown Sex and Gender Information Value Date Recorded Sex Assigned at Not on file Legal Sex Female 9:12 AM EST Gender Identity Not on file Sexual Orientation Not on file Plan of Treatment Health Maintenance Due Date Last Done Comments Anxiety Screening 2011 Depression Screening 2011 HIV Screening 2011 Hepatitis C Screening 2011 Cervical Cancer Screening 2014 DTaP,Tdap,Td Vaccine (7 - Td or Tdap) 05/25/2021 05/25/2011, 10/20/1998, 06/28/1994, Additional history exists Covid-19 Vaccine (2023-2 5 season) 2023 Influenza Vaccine (Season Ended) 2024 Hepatitis B Vaccine Completed 1993, 1993, 1993 Insurance [employer] PPO Care Teams Photography Manager Relationship Specialty Start Date End Date Eric Hudson DO [address] [place] [address] PCP - General 07/11/00
--- OUTSIDE RECORDS SUMMARY | 2024-09-24 14:46 | XMS_ITS | Encounter Summary ---
Author Organization [facility] Address [address] [place] [address] Care Team Providers Care Underwriting Support Specialist Name Role Phone Karolina Whyte APRN-SYSTEM OPERATION SUPERINTENDENT Unavailable Encounter Details Date Type Department Care Team (Late st Contact Info) Description 08/14/2023 Orders Only [facility] OB [address] [facility] [place] [address] Yudi Riley LPN [facility] [address] [facility] Social History Tobacco Use Types Packs/Day Years [...] Description 09/30/2024 8:30 AM EDT Routine [facility] OB [address] [facility] [place] [address] Darin Phillip DO [address] [facility] [address] [place] [id number] 08/13/2025 8:35 AM EDT Office Visit [facility] [address] [place] [address] Karolina Whyte APRN-SYSTEM OPERATION SUPERINTENDENT [address] [place] [address] documented as of this encounter Procedures Procedure Name Priority Date/Time Associated Diagnosis Comments PAP SMEAR Routine 08/06/2023 12:00 AM EDT documented in this encounter Results * Pap Smear (08/06/2023 12:00 AM EDT) Swab Cervical swab / Unknown us Kenji Nurse [facility] LAB CYTOLOGY ORDERABLES Final Result EXTERNAL LAB documented in this encounter Visit Diagnoses Not on filedocumented in this encounter Care Teams Underwriting Support Specialist Relationship Specialty Start Date End Date Karolina Whyte APRN-CNP [address] [place] [address] PCP - Radha Commercial 10/01/23 documented as of this encounter
--- OUTSIDE RECORDS SUMMARY | 2024-09-24 14:46 | XMS_ITS | Encounter Summary ---
Author Organization [facility] Address [address] [place] [address] Care Team Providers Care Manager Pool Name Role Phone Unavailable Primary Care Provider Unavailabl e Encounter Details Date Type Department Care Team (Late st Contact Info) Description 04/23/2024 Abstract [facility] [place] [facility] OB [address] [place] [address] Darin Phillip [facility] [place], [facility] Social History Tobacco Use Types Packs/Day Years [...] Routine [facility] OB [address] [place] [address] Darin Phillip DO [facility] [place], [place] [id number] 08/13/2025 8:35 AM EDT Office Visit [facility] [address] [place] [address] Karolina Whyte, HIGH SCHOOL FOREIGN LANGUAGE TEACHER-TELEPHONE STERILIZER [address] [facility] [address] [place] [address] documented as of this encounter Visit Diagnoses Not on filedocumented in this encounter
--- OUTSIDE RECORDS SUMMARY | 2024-09-24 14:46 | XMS_ITS | Encounter Summary ---
Author Organization [facility] Address [address] [place] [address] Care Team Providers Care Ground Control Approach Technician Name Role Phone Unavailable Primary Care Provider Unavailabl e Encounter Details Date Type Department Care Team (Late st Contact Info) Description 03/21/2024 Clinisync Result Encounter [facility] External Department Unsolicited Jes Phillip, DO [address] [place], [facility] Social History Tobacco Use Types Packs/Day Years [...] EDT Routine [facility] OB [address] [place] [address] Jes Phillip, [address] [place] [address] 08/13/2025 8:35 AM EDT Office Visit [facility] [address] [place] [phone] Karolina Whyte, INTERVENTIONAL RADIOLOGIST-CALL CIRCUIT WORKER [address] [place] [address] documented as of this encounter Procedures Procedure Name Priority Date/Time Associated Diagnosis Comments US OB TRANSVAGINAL 03/21/2024 9: 51 AM EST documented in this encounter Results * US OB TRANSVAGINAL (03/21/2024 9:51 AM EST) Anatomical Region Laterality Modality Other 03/21/2024 9:51 AM EST Narrative 03/21/2024 2:41 PM EST [address] [address] Ultrasound Report Signed Patient: LUKE RODRIGUEZ MR#: [id number] : 1995 Acct:[id number] Age/Sex: 29 / F ADM Date: 03/21/24 Loc: [facility] Attending Dr: Jes Phillip D.O. Ordering Physician: Jes Phillip D.O. Date of Service: 03/21/24 Procedure(s): US OB transvaginal Accession Number(s): [id number] cc: WILFRIDO FLYNN ; Jes Phillip D.O. [address] [address] Patient Name: LUKE RODRIGUEZ MRN: [id number] date: 1995 Sex: F Assigned Patient Location: [facility] Current Patient Location: [facility] Accession/Order Number: [id number] Exam Date: 03/21/2024 08:56 Report Date: 03/21/2024 09:51 At the request of: JES PHILLIP Procedure: US OB transvaginal EXAMINATION: US OB transvaginal HISTORY: MISSED MENSES COMPARISON: No relevant comparison available. FINDINGS: Transvaginal images Gestational sac: 4.08 cm, 9 weeks 3 days CRL: 2.61 cm, 3 days Yolk sac: 4.6 mm Heart rate: 174 beats minute Cervix: Closed, 4.3 cm Clinical age: 9 weeks 5 days Clinical JAMES: 10/19/2024 Ultrasound age: 9 weeks 3 days Ultrasound JAMES: 10/21/2024 US/US OB transvaginal IMPRESSION: Viable sommer intrauterine gestation measuring 9 weeks 3 days Electronically authenticated by: KARLA CHILD Date: 03/21/2024 09:51 Dictated By: Karla Child M.D. Signed By: 03/21/24 1441 DD/ 0951 TD/TT: Supervisor Feed Mill: Procedure Note Radiology, Radiologist, MD - 03/21/2024 [place] [address] Ultrasound Report Signed Patient: LUKE RODRIGUEZ EMR#: [id number] : 1995Acct:[id number] Age/Sex: 29 / FADM Date: 03/21/24 Loc: [facility] Attending Dr: Jes Phillip D.O. Ordering Physician: Jes Phillip D.O. Date of Service: 03/21/24 Procedure(s): US OB transvaginal Accession Number(s): [id number] cc: WILFRIDO FLYNN Corey D.O. The [address] [address] Patient Name: LUKE RODRIGUEZ MRN: [id number] date: 1995 Sex: F Assigned Patient Location: [facility] Current Patient Location: [facility] Accession/Order Number: [id number] Exam Date: 03/21/2024 08:56 Report Date: 03/21/2024 09:51 At the request of: JES PHILLIP Procedure: US OB transvaginal EXAMINATION: US OB transvaginal HISTORY: MISSED MENSES COMPARISON: No relevant comparison available. FINDINGS: Transvaginal images Gestational sac: 4.08 cm, 9 weeks 3 days CRL: 2.61 cm, 3 days Yolk sac: 4.6 mm Heart rate: 174 beats minute Cervix: Closed, 4.3 cm Clinical age: 9 weeks 5 days Clinical JAMES: 10/19/2024 Ultrasound age: 9 weeks 3 days Ultrasound JAMES: 10/21/2024 US/US OB transvaginal IMPRESSION: Viable sommer intrauterine gestation measuring 9 weeks 3 days Electronically authenticated by: KARLA CHILD Date: 03/21/2024 09:51 Dictated By: Karla Child M.D. Signed By:03/21/24 1441 DD/ 0951 TD/TT: Supervisor Feed Mill: us Jes Phillip DO [facility] Final Result documented in this encounter Visit Diagnoses Not on filedocumented in this encounter
--- OUTSIDE RECORDS SUMMARY | 2024-09-24 14:46 | XMS_ITS | Encounter Summary ---
Author Organization [facility] Address [address] [place] [address] Care Team Providers Care Customer Service Officer Name Role Phone Unavailable Primary Care Provider Unavailabl e Encounter Details Date Type Department Care Team (Latest Contact Info) Description 09/11/2024 Travel Social History Tobacco Use Types Packs/Day [...] EDT Routine [facility] [address] [place] [phone] Darin hPillip, DO [address] [place] [address] 08/13/2025 8:35 AM EDT Office Visit [facility] [address] [place] [phone] Karolina Whyte, DREDGE OPERATOR-HOROLOGIST [address] [place] [address] documented as of this encounter [...]
--- OUTSIDE RECORDS SUMMARY | 2024-09-24 14:46 | XMS_ITS | Encounter Summary ---
Author Organization [facility] Address [address] [place] [address] Care Team Providers Care Cost Estimating Manager Name Role Phone Unavailable Primary Care Provider Unavailabl e Encounter Details Date Type Department Care Team (Late st Contact Info) Description 04/16/2024 Abstract [facility] OB [address] [place] [address] Darin Phillip [facility] [place], [id number] Social History Tobacco Use Types Packs/Day Years [...] Routine [facility] OB [address] [place] [address] Darin Phillip DO [facility] [place], [place] [id number] 08/13/2025 8:35 AM EDT Office Visit [facility] [address] [place] [address] Karolina Whyte, CLAIMS COORDINATOR-MERCHANDISING MANAGER [address] [facility] [address] [place] [address] documented as of this encounter Visit Diagnoses Not on filedocumented in this encounter
--- OUTSIDE RECORDS SUMMARY | 2024-09-24 14:46 | XMS_ITS | Encounter Summary ---
Author Organization [facility] Address [address] [place] [address] Care Team Providers Care Youth Court Judge Name Role Phone Unavailable Primary Care Provider Unavailabl e Encounter Details Date Type Department Care Team (Late st Contact Info) Description 09/10/[address] [facility] OB [address] [facility] [place] [address] Darin Phillip [facility] [place], [facility]11 Social History Tobacco Use Types Packs/Day Years [...] AM EDT Routine [facility] [address] [facility] [address] Darin Phillip DO [facility] [address] [place], [place] [address] 08/13/2025 8:35 AM EDT Office Visit [facility] [address] [place] [address] Karolina Whyte APRN-THERMOCOUPLE TESTER [address] [place] [address] documented as of this encounter Goals Goal Patient Goal Type Associated Problems Recent Progress Patient-Stated? Author Reminders Care Plan OB Reminders No Open Scheduling, Background documented as of this encounter Visit Diagnoses Not on filedocumented in this encounter Additional Health Concerns Active Problems Noted Date Diagnosed Date OB Reminders 04/29/2024 documented as of this encounter
--- OUTSIDE RECORDS SUMMARY | 2024-09-24 14:46 | XMS_ITS | Clinical Summary ---
Author Organization [facility] Healthcare Address [address] [place] [address] Care Team Providers Care Product Management Analyst Name Role Phone Unavailable Primary Care Provider Unavailabl e Allergies Active Allergy Reactions Criticality Noted Date Comments Penicillins Hives,Other 1993 Medications escitalopram (Lexapro) 5 MG tablet 06/02/2024 Active MV-Min-Fe Fum-FA-DHA ( 1 PO) Take by mouth Active Active Problems Problem Noted Date Diagnosed Date Decreased libido 08/09/2023 Estimated Date of Delivery Comme nts Yes 10/19/2024 Based on last me nstrual period of 01/13/2024 Encounters Date Type Department Care Team Description 09/24/2024 8:50 AM EDT Routine [facility] [place] [address] Ami Hogan PA Third trimester ([facility]); 36 weeks gestation of ([facility]) 09/24/2024 Bamboo flowsheet [facility] OB [address] [place] [address] Ami Hogan PA 09/19/2024 Travel 09/18/2024 8:30 AM EDT Routine [facility] OB [address] [place] [address] Darin Phillip DO Third trimester ([facility]); 35 weeks gestation of ([facility]) 09/18/2024 Bamboo flowsheet [facility] B[facility] OB [address] [place] [address] Darin Phillip, 09/11/2024 Travel 09/10/2024 11:30 AM EDT Routine NOM[facility] [address] [place] [address] Darin Phillip, Third trimester ([facility]); 34 weeks gestation of ([facility]) 09/10/2024 Bamboo flowsheet NOM[facility] [address] [place] [address] Darin Phillip, 09/09/2024 Travel 09/08/[address] [facility] [address] [place] [address] Birdie Stanley MA 09/04/2024 8:50 AM EDT Routine [facility]OM[facility] [address] [place] [address] Ami Hogan PA Third trimester ([facility]); 33 weeks gestation of ([facility]) 09/04/2024 Bamboo flowsheet NOM[facility] [address] [place] [address] Ami Hogan PA 09/03/2024 Travel 08/19/2024 10:30 AM EDT Routine [facility]OM[facility] [address] [place] [address] Darin Phillip, Third trimester ([facility]); 31 weeks gestation of ([facility]) 08/19/2024 10:00 AM EDT Ancillary Procedure [facility] [address] [place] [address] size inconsistent with dates ([facility]) 08/19/2024 Abstract [facility] [address] [place] [address] Emily Watkins LPN 08/14/2024 11:05 AM EDT Office Visit [facility] [address] [place] [address] Karolina Whyte, ECHO TECHNICIAN-ASSEMBLING MOTOR BUILDER Melanocytic nevus of trunk (Primary Dx); Other seborrheic dermatitis 08/14/2024 Bamboo flowsheet [facility] [address] [place] [address] Karolina Whyte, ECHO TECHNICIAN-ASSEMBLING MOTOR BUILDER 08/14/2024 Travel 08/12/2024 Travel 08/05/2024 9:50 AM EDT Routine [facility] OB [address] [place] [address] [place] [address] Ami Hogan PA 29 weeks gestation of ([facility]); Third trimester ([facility]); size inconsistent with dates ([facility]) 08/05/2024 Bamboo flowsheet [facility] [address] [place] [address] Ami Hogan PA 08/04/2024 Travel 07/21/2024 9:50 AM EDT Routine [facility] [address] [place] [address] Darin Phillip DO Nipple pain (Primary Dx); Second trimester ([facility]); 27 weeks gestation of ([facility]) 07/21/2024 Bamboo flowsheet [facility] [address] [place] [address] Darin Phillip DO 07/14/2024 Travel 07/04/2024 Abstract [facility] [address] [place] [address] Darin Phillip DO 07/01/2024 Clinisync Result Encounter N[facility] External Department Unsolicited Darin Phillip DO from Last 3 Months Family History Relation Name Status Comments Father Alive Mother Alive Social History Tobacco Use Types Packs/Day Years Used Date Smoking Tobacco: Never Smokeless Tobacco: Never Tobacco Cessation:Counseling Given: Not Answered Alcohol Use Standard Drinks/Week Comments Defer 0 (1 standard drink = 0.6 oz pur e alcohol) Estimated Date of Delivery Comme nts Yes 10/19/2024 Based on last me nstrual period of 01/13/2024 Sex and Gender Information Value Date Recorded Sex Assigned at Not on file Legal Sex Female 7:21 PM EDT Gender Identity Not on file Sexual Orientation Not on file Last Filed Vital Signs Vital Sign Reading Time Taken Comments Blood Pressure 118/84 09/24/2024 9:09 AM EDT Pulse - - Temperature - - Respiratory Rate - - Oxygen Saturation - - Inhaled Oxygen Concentration - - Weight 89.9 kg (198 lb 4 oz) 09/24/2024 8:57 AM EDT Height 162.6 cm (5' 4 ) 08/04/2022 12:00 PM EDT Body Mass Index 34.03 08/04/2022 12:00 PM EDT Plan of Treatment Upcoming Encounters Date Type Department Care Team (Late st Contact Info) Description 09/30/2024 8:30 AM EDT Routine [facility] B[facility] OB [address] [facility] [place] [address] Darin Phillip, DO [address] [place] [address] 08/13/2025 8:35 AM EDT Office Visit [facility] [address] [place] [address] Karolina Whyte APRN-ASSEMBLING MOTOR BUILDER [address] [place] [address] Health Maintenance Due Date Last Done Comments HPV/Cotest 2023 Cervical Cancer Screening 08/05/2026 Pap Smear 08/05/2026 08/06/2023, 07/31/2022 Influenza Vaccine Completed 04/21/2024, 01/15/2018 Goals Goal Patient Goal Type Associated Problems Recent Progress Patient-Stated? Author Reminders Care Plan OB Reminders No Open Scheduling, Background Procedures Procedure Name Priority Date/Time Associated Diagnosis Comments POCT URINALYSIS DIPSTICK Routine 09/24/2024 9:04 AM EDT Third trimester ([facility]) POCT URINALYSIS DIPSTICK Routine 09/18/2024 8:44 AM EDT Third trimester ([facility]) POCT URINALYSIS DIPSTICK Routine 09/10/2024 11:40 AM EDT Third trimester ([facility]) POCT URINALYSIS DIPSTICK Routine 09/04/2024 9:07 AM EDT Third trimester ([facility]) US OB FOLLOW UP TRANSABDOMINAL APPROACH Routine 08/19/2024 10:30 AM EDT size inconsistent with dates ([facility]) POCT URINALYSIS DIPSTICK Routine 08/05/2024 10:38 AM EDT 29 weeks gestation of ([facility]) POCT URINALYSIS DIPSTICK Routine 07/21/2024 10:01 AM EDT Second trimester ([facility]) ALL CBC WITH AUTO DIFF Routine 9:02 AM EDT GLUCOSE 1 HOUR Routine 07/01/2024 9:02 AM EDT PAP SMEAR Routine 08/06/2023 12:00 AM EDT from Last 3 Months or Most Recently Relevant to Health Maintenance Results * (ABNORMAL) POCT urinalysis dipstick manually resulted (09/24/2024 9:04 AM EDT) Only the most recent of6 resultswithin the time period is included. Color, UA Yellow Clarity, UA Clear Glucose, UA Negative Negative - 1999(110) ++++ mg/dL Bilirubin, UA Negative Negative - 4(70) +++ mg/dL Ketones, UA Negative Negative - 160(16) ++++ mg/dL Spec Grav, UA 1.020 1 - 1.03 Blood, UA Negative Negative - 50 Julius/mcL pH, UA 6.5 5 - 9 Protein, UA Trace Negative - 1999(20) ++++ mg/dL Urobilinogen, UA 0.2 0.2 - 12 mg/dL Leukocytes, UA Positive Negative - 500+++ Dori/mcL Comment:small Nitrite, UA Negative Negative - Positive Urine 09/24/2024 9:04 AM EDT Ami LALA POINT OF CARE TEST ENTER/EDIT OR DERABLES Final Result * US OB follow up transabdominal approach (08/19/2024 10:30 AM EDT) Anatomical Region Laterality Modality Body Ultrasound 08/19/2024 11:0 1 PM EDT Narrative 08/19/2024 11:01 PM EDT EXAM: US OB FOLLOW UP TRANSABDOMINAL APPROACH HISTORY: Inconsistent size. COMPARISON: Ob ultrasound 06/11/2024. TECHNIQUE: Two-dimensional transabdominal grayscale ultrasound imaging of the pelvis was performed. FINDINGS: Gestation: Single Presentation: Cephalic Cardiac Activity: 149 beats per minute Amniotic Fluid Index: 14.1 cm MEASUREMENTS: BPD: 8.1 cm EGA: 32 weeks 3 days HC: 29.5 cm EGA: 32 weeks 4 days AC: 27.6 cm EGA: 31 weeks 4 days FL: 5.9 cm EGA: 30 weeks 6 days HC/AC Ratio: 1.07 The gestational age by today's ultrasound is 31 weeks 6 days (+/- 16 days gestation). Estimated Weight: 1796 grams, +/- 269 grams ( 3 lb 15 oz). Weight Percentile for gestational age: 48 % IMPRESSION: 1. Single, live intrauterine gestation 31 weeks, 2 days by LMP. Today's ultrasound measurements correlate with a gestational age of 31 weeks 6 days. Estimated weight is 1796 grams, +/- 269 grams ( 3 lb 15 oz) which correlates to 48 %. JAMES is 10/15/2024. Interpreted by: Electronically signed by OSVALDO NERI II, MD, PHD at 19-Aug-2024 10:59:29 PM [facility] Procedure Note Osvaldo Neri MD - 08/19/2024 EXAM: US OB FOLLOW UP TRANSABDOMINAL APPROACH HISTORY: Inconsistent size. COMPARISON: Ob ultrasound 06/11/2024. TECHNIQUE: Two-dimensional transabdominal grayscale ultrasound imaging ofthe pelvis was performed. FINDINGS: Gestation: Single Presentation: Cephalic Cardiac Activity: 149 beats per minute Amniotic Fluid Index: 14.1 cm MEASUREMENTS: BPD: 8.1 cm EGA: 32 weeks 3 days HC: 29.5 cm EGA: 32 weeks 4 days AC: 27.6 cm EGA: 31 weeks 4 days FL: 5.9 cm EGA: 30 weeks 6 days HC/AC Ratio: 1.07 The gestational age by today's ultrasound is 31 weeks 6 days (+/- 16 daysgestation). Estimated Weight: 1796 grams, +/- 269 grams ( 3 lb 15 oz). Weight Percentile for gestational age: 48 % IMPRESSION: 1. Single, live intrauterine gestation 31 weeks, 2 days by LMP. Today'sultrasound measurements correlate with a gestational age of 31 weeks 6days. Estimated weight is 1796 grams, +/- 269 grams ( 3 lb 15 oz)which correlates to 48 %. JAMES is 10/15/2024. Interpreted by: Electronically signed by OSVALDO NERI II, MD, PHD [id number] 10:59:29 PM [facility] us Ami LALA IMG OB US PROCEDURES Final Resul t * GLUCOSE 1 HOUR (07/01/2024 9:02 AM EDT) GLUCOSE 1 HOUR 129 <130 mg/dL [facility] 07/01/2024 9:02 AM EDT 07/01/2024 9:05 AM EDT Narrative [facility] - 07/01/2024 9:44 AM EDT us Darin Kenji DO LAB BLOOD ORDERABLES [facility]ul [facility] * (ABNORMAL) ALL CBC WITH AUTO DIFF (07/01/2024 9:02 AM EDT) [facility] WBC 11.4(H) 4.0 - 11.0 10 3/uL TBH TBH RBC 3.72(L) 4.20 - 5.40 10 6/uL TBH TBH HGB 11.6(L) 12.0 - 16.0 g/dL TBH TBH HCT 34.9(L) 36.0 - 48.0 % TBH TBH MCV 93.8 81.0 - 99.0 fL TBH TBH MCH 31.2 26.7 - 34.0 pg TBH TBH MCHC 33.2 29.9 - 35.2 g/dL TBH TBH RDW 13.4 11.0 - 15.0 % TBH TBH PLT 208 150 - 450 10 3/uL TBH TBH MPV 10.4 9.5 - 13.5 fL TBH NEUTROPHILS PERCENT AUTO 75.2(H) 43.0 - 75.0 % TBH LYMPHOCYTES PERCENT AUTO 16.4(L) 20.5 - 60.0 % TBH MONOCYTES PERCENT AUTO 5.9 1.7 - 12.0 % TBH TBH EO % 1.1 0.9 - 7.0 % TBH BASOPHILS PERCENT AUTO 0.3 0.2 - 2.0 % [facility] IMMATURE GRANULOCYTES PCT AUTO 1.1(H) 0.0 - 0.5 % TBH NEUTROPHILS ABSOLUTE AUTO 8.5(H) 1.4 - 6.5 10 3/uL TBH LYMPHOCYTES ABSOLUTE AUTO 1.9 1.2 - 3.8 10 3/uL TBH MONOCYTES ABSOLUTE AUTO 0.7 0.3 - 0.8 10 3/uL TBH TBH EO # 0.1 0.0 - 0.7 10 3/uL TBH BASOPHILS ABSOLUTE AUTO 0.0 0.0 - 0.1 10 3/uL TBH IMMATURE GRANULOCYTES ABS AUTO 0.13(H) 0.00 - 0.03 10 3/uL [facility] 07/01/2024 9:02 AM EDT 07/01/2024 9:05 AM EDT Narrative [facility] - 07/01/2024 9:49 AM EDT us Darin Phillip DO [facility] Final Result [facility] * Pap Smear (08/06/2023 12:00 AM EDT) Swab Cervical swab / Unknown Kenji Nurse [facility] Ob LAB CYTOLOGY ORDERABLES Final Result EXTERNAL LAB from Last 3 Months or Most Recently Relevant to Health Maintenance Additional Health Concerns Active Problems Noted Date Diagnosed Date OB Reminders 04/29/2024 Insurance [facility]
--- OUTSIDE RECORDS SUMMARY | 2024-09-24 14:46 | XMS_ITS | Encounter Summary ---
Author Organization [employer] Address [id number] [address] [place] [address] Care Team Providers Care Quality Control Microbiologist Name Role Phone BrigitteEric gale Primary Care Provider + [phone] Reason for Visit * Reason Comments Med Refill Encounter Details Date Type Department Care Team (Late st Contact Info) Description 01/06/2022 Refill [facility] - Family Medicine [address] [place] [address] Sherrie Maya, PROCESS LINE OPERATOR-CENTRIFUGAL STATION OPERATOR [address] [facility] [address] Social History Tobacco Use Types Packs/Day Years Used Date Smoking Tobacco: Never Smokeless Tobacco: Never PHQ-2 Answer Date Recorded Total Score 9 12/13/2021 Childcare Answer Date Recorded Childcare Unknown 09/11/2018 Employment Answer Date Recorded Employment Unknown 09/11/2018 Comments Unknown Sex and Gender Information Value Date Recorded Sex Assigned at Not on file Legal Sex Female 12:12 PM EDT Gender Identity Not on file Sexual Orientation Not on file COVID-19 Exposure Response Date Recorded In the last month, have you been in contact with someone who was confirmed or suspected to have Coronavirus / COVID-19? No / Unsure 12/13/2021 7:58 AM EDT documented as of this encounter Plan of Treatment Not on file documented as of this encounter Visit Diagnoses Not on filedocumented in this encounter Additional Health Concerns Assessment Noted Time PHQ-9 Depression Total Score: 12/14/19 22 8:15 AM EDT documented as of this encounter Care Teams Quality Control Microbiologist Relationship Specialty Start Date End Date Eric Hudson DO [address] [facility] [place] [address] PCP - General 10/24/23 documented as of this encounter
--- OUTSIDE RECORDS SUMMARY | 2024-09-24 14:46 | XMS_ITS | Clinical Summary ---
Author Organization [employer] [facility] Address [id number] [address] [place] [address] Care Team Providers Care Pediatric Speech Therapist Name Role Phone BrigitteEric gale Primary Care Provider + [phone] Allergies Active Allergy Reactions Criticality Noted Date Comments Penicillins Hives 12/12/2021 Medications * This document contains information received from the source organization and may not represent a complete record from that organization. escitalopram (LEXAPRO) 5 mg tabletIndication s:Generalized anxiety disorder,Mild episode of recurrent major depressive disorder Take 1 tablet (5 mg total) by mouth in the morning. 30 tablet 5 06/26/2024 Active 21/iron fu/folic acid ( COMPLETE ORAL) Take by mouth. 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 Date Type Department Care Team Description 08/04/2024 Travel 06/24/2024 Travel from Last 3 Months Immunizations Immunization Administration Dates Next Due COVID-19, mRNA, LNP-S, PF, 3 0mcg/0.3mL Dose 07/24/2020,07/03/2020 Covid-19, Mrna, Lnp-s, Pf, 3 0 Mcg/0.3 Ml Dose, Ok-sucrose 07/24/2020,07/03/2020 DTP 06/28/1994, 4,1993,07/13,1993 DTaP 10/20/1998, 5,1993,08/16,1993,1993 DTaP, Unspecified 10/20/1998 HPV Quadrivalent 02/14/2012,07/25/2011, 2 HPV, Unspecified 02/14/2012,07/25/2011, 2 Hep B, Adolescent or Pediatric 1993,1993,1993 Hepatitis B 1993,1993,1993 HiB 06/28/1994, 4,1993,07/13,1993 Hib (PRP-T) 1993 IPV 05/25/2011, 9,1993,07/13,1993 MMR 10/20/1998,06/28/1994 Meningococcal Conjugate 05/25/2011 Meningococcal MCV4P 05/25/2011 Tdap 05/25/2011 Varicella 07/25/2011,05/25/2011 Family History Medical History Relation Name Comments Diabetes Father Alzheimer's disease Maternal Grandfather Alzheimer's disease Maternal Grandmother Depression Maternal Grandmother Hypothyroidism Mother Depression Paternal Grandfather Relation Name Status Comments Father Maternal Grandfather Maternal Grandmother Mother Paternal Grandfather Social History Tobacco Use Types Packs/Day Years [...] got money to buy more. Never True 08/04/2024 Within the past 12 months th e food we bought just didn't last and we didn't have money to get more. Never True 08/04/2024 Education Answer Date Recorded What is the [...] Sign Reading Time Taken Comments Blood Pressure 109/75 08/04/2024 4:34 PM EDT Pulse 100 08/04/2024 4:34 PM EDT Temperature 36.7 C (98 F) 12/13/2022 10:19 AM EDT Respiratory Rate 16 12/13/2022 10:19 AM EDT Oxygen Saturation 100% 12/13/2022 10:19 AM EDT Inhaled Oxygen Concentration - - Weight 70.3 kg (155 lb) 12/26/2023 5:32 PM EDT Height 165.1 cm (5' 5 ) 12/13/2022 10:19 AM EDT Body Mass Index 25.79 12/13/2022 10:19 AM EDT Plan of Treatment Health Maintenance Due Date Last Done Comments DTaP,Tdap and Td Vaccines (7 - Td or Tdap) 05/25/2021 05/25/2011, 10/20/1998, 10/20/1998, Additional history exists Depression Screening 03/20/2023 03/20/2022 Adult BMI Screening 12/25/2024 12/26/2023 Tobacco Screening 08/04/2025 08/04/2024 Pap Smear 08/05/2026 08/06/2023, 05/0 04/2022, 07/31/2022 COVID-19 Vaccine Discontinued 04/21/2024, , 07/24/2020, Additional history exists Influenza Vaccine Discontinued 04/21/2024 Medical Devices Not on file Insurance [employer] Care Teams Pediatric Speech Therapist Relationship Specialty Start Date End Date Eric Hudosn DO [address], [facility] [place] [address] PCP - General 10/24/23
--- OUTSIDE RECORDS SUMMARY | 2024-09-24 14:46 | XMS_ITS | Encounter Summary ---
Author Organization [facility] Address [address] [place] [address] Care Team Providers Care Warranty Administrator Name Role Phone Unavailable Primary Care Provider Unavailabl e Encounter Details Date Type Department Care Team (Late st Contact Info) Description 08/19/2024 Abstract [facility] OB [address] [facility] [place] [address] Emily Watkins LPN Social History Tobacco Use Types Packs/Day Years [...] AM EDT Routine [facility] [address] [place] [address] Darin Phillip DO [address] [place], [place] [id number] 08/13/2025 8:35 AM EDT Office Visit [facility] [address] [place] [phone] Karolina Whyte, MACHINE FARMWORKER-PAD HAND [address] [place] [address] documented as of this encounter Goals Goal Patient Goal Type Associated Problems Recent Progress Patient-Stated? Author Reminders Care Plan OB Reminders No Open Scheduling, Background documented as of this encounter Visit Diagnoses Not on filedocumented in this encounter Additional Health Concerns Active Problems Noted Date Diagnosed Date OB Reminders 04/29/2024 documented as of this encounter
--- OUTSIDE RECORDS SUMMARY | 2024-09-24 14:46 | XMS_ITS | Encounter Summary ---
Author Organization [facility] Address [address] [place] [address] Care Team Providers Care Critical Care Technician Name Role Phone Unavailable Primary Care Provider Unavailabl e Encounter Details Date Type Department Care Team (Late st Contact Info) Description 06/19/2024 Abstract [facility] OB [address] [place] [address] Darin Phillip [facility] [place], [facility] Social History Tobacco Use Types Packs/Day [...] Routine [facility] BCP OB [address] [place] [address] Darin Phillip DO [facility] [address] [place], [place] [id number] 08/13/2025 8:35 AM EDT Office Visit [facility] [address] [place] [address] Karolina Whyte, CHAR DUST CLEANER AND SALVAGER-FOREIGN BROADCAST SPECIALIST [address] [place] [address] documented as of this encounter Goals Goal Patient Goal Type Associated Problems Recent Progress Patient-Stated? Author Reminders Care Plan OB Reminders No Open Scheduling, Background documented as of this encounter Visit Diagnoses Not on filedocumented in this encounter Additional Health Concerns Active Problems Noted Date Diagnosed Date OB Reminders 04/29/2024 documented as of this encounter
--- OUTSIDE RECORDS SUMMARY | 2024-09-24 14:46 | XMS_ITS | Encounter Summary ---
Author Organization [facility] Address [address] [place] [address] Care Team Providers Care Stadium Attendant Name Role Phone Unavailable Primary Care Provider Unavailabl e Encounter Details Date Type Department Care Team (Late st Contact Info) Description 09/18/2024 Bamboo flowsheet [facility] OB [address] [facility] [place] [address] Darin Phillip [facility] [address] [place], [facility]11 Social History Tobacco Use Types [...] AM EDT Routine [facility] OB [address] [facility] [place] [address] Darin Phillip DO [facility] [address] [place], [facility]11 08/13/2025 8:35 AM EDT Office Visit [facility] [address] [place] [address] Karolina Whyte APRN-WINDING DEPARTMENT SUPERVISOR [address] [place] [address] documented as of this encounter Goals Goal Patient Goal Type Associated Problems Recent Progress Patient-Stated? Author Reminders Care Plan OB Reminders No Open Scheduling, Background documented as of this encounter Visit Diagnoses Not on filedocumented in this encounter Additional Health Concerns Active Problems Noted Date Diagnosed Date OB Reminders 04/29/2024 documented as of this encounter
--- OUTSIDE RECORDS SUMMARY | 2024-09-24 14:46 | XMS_ITS | Encounter Summary ---
Author Organization [employer] Address [id number] [address] [place] [address] Care Team Providers Care Psychiatry Instructor Name Role Phone Eric Hudson DO Primary Care Provider + [phone] Reason for Visit * Reason Comments Med Refill Encounter Details Date Type Department Care Team (Late st Contact Info) Description 06/01/2022 Refill [facility] - Family Medicine [address] [place] [address] Eric Hudson DO [address], [place] [address] Social History Tobacco Use Types Packs/Day Years Used Date Smoking Tobacco: Never Smokeless Tobacco: Never Alcohol Use Standard Drinks/Week Comments Yes 0 (1 standard drink = 0.6 oz pur e alcohol) socially PHQ-2 Answer Date Recorded Total Score 7 03/20/2022 Childcare Answer Date Recorded Childcare Unknown 09/11/2018 Employment Answer Date Recorded Employment Unknown 09/11/2018 Education Answer Date Recorded What is the highest level of school you have completed or the highest degree you have received? Bachelor's degree (e.g., BA, AB, BS) 03/20/2022 Comments No Sex and Gender Information Value Date Recorded Sex Assigned at Not on file Legal Sex Female 12:12 PM EDT Gender Identity Not on file Sexual Orientation Not on file COVID-19 Exposure Response Date Recorded In the last month, have you been in contact with someone who was confirmed or suspected to have Coronavirus / COVID-19? No / Unsure 05/23/2022 4:36 PM EST documented as of this encounter Plan of Treatment Not on file documented as of this encounter Visit Diagnoses Not on filedocumented in this encounter Additional Health Concerns Assessment Noted Time PHQ-9 Depression Total Score: 7 03/20/20 22 5:35 PM EST documented as of this encounter Care Teams Psychiatry Instructor Relationship Specialty Start Date End Date Eric Hudson DO [address] [facility] [place] [address] PCP - General 10/24/23 documented as of this encounter
--- OUTSIDE RECORDS SUMMARY | 2024-09-24 14:46 | XMS_ITS | Encounter Summary ---
Author Organization [facility] Address [address] [place] [address] Care Team Providers Care Credit Interviewer Name Role Phone Unavailable Primary Care Provider Unavailabl e Encounter Details Date Type Department Care Team (Late st Contact Info) Description 09/24/2024 Bamboo flowsheet [facility] OB [address] [facility] [place] [address] Ami Hogan PA [address] [facility] [address] [place], [facility]11 Social History Tobacco Use Types Packs/Day Years [...] [facility] [place] [address] Darin Phillip DO [address] [facility] [address] [place], [facility]11 08/13/2025 8:35 AM EDT Office Visit [facility] [address] [place] [address] Karolina Whyte, BEADWORKER-ORACLE DATABASE ARCHITECT [address] [place] [address] documented as of this encounter Goals Goal Patient Goal Type Associated Problems Recent Progress Patient-Stated? Author Reminders Care Plan OB Reminders No Open Scheduling, Background documented as of this encounter Visit Diagnoses Not on filedocumented in this encounter Additional Health Concerns Active Problems Noted Date Diagnosed Date OB Reminders 04/29/2024 documented as of this encounter
== END 2024-09-24 14:43 | disposition home or self-care (01) ==
LOC: LAB 14:42
PROVIDERS: PCP Family Medicine; Visit Provider Physician Assistant
DX: Z34.93 Encounter for supervision of normal pregnancy, unspecified, third trimester (principal)
CPT/HCPCS: 87081

== ENCOUNTER 2024-09-26 05:23 | Inpatient (IN) | payer BC, SELFPAY ==
--- OUTSIDE RECORDS SUMMARY | 2024-09-18 08:30 | XMS_ITS | Encounter Summary ---
Author Organization [facility] Address [address] [facility] [address] Care Team Providers Care Metallographer Name Role Phone Unavailable Primary Care Provider Unavailabl e Reason for Visit * Reason Comments Routine Visit Encounter Details Date Type Department Care Team (Late st Contact Info) Description 09/18/2024 8:30 AM EDT Routine [facility] [address] [facility] [place] [phone] Darin Phillip, DO [address] [place] [address] Third trimester ([facility]); 35 weeks gestation of ([facility]) Social History Tobacco Use Types Packs/Day [...] Sign Reading Time Taken Comments Blood Pressure 116/80 09/18/2024 8:38 AM EDT Pulse - - Temperature - - Respiratory Rate - - Oxygen Saturation - - Inhaled Oxygen Concentration - - Weight 88.6 kg (195 lb 4 oz) 09/18/2024 8:38 AM EDT Height - - Body Mass Index 33.51 08/04/2022 12:00 PM EDT documented in this encounter Progress Notes * Emily Watkins, ASIAN STUDIES PROGRAM CHAIR - 09/18/2024 8:30 AM EDT Reason for Appointment: Patient ID: [...] nursing note reviewed. Exam conducted with a chain hoist operator present. Vitals: Estimated body mass index is 33.51 kg/m?? as calculated from the following: Height as of 08/04/22: 5' 4 . Weight as of this encounter: 195 lb 4 oz. BP: 116/80 Patient's last menstrual period was 01/13/2024. ASSESSMENT & PLAN ICD-10-CM 1. Third trimester ([facility]) Z34.93 POCT urinalysis dipstick manually resulted 2. 35 weeks gestation of ([facility]) Z3A.35 Patient presents today for a routine obstetrics appointment. Patient is currently 35w4d with a Estimated Date of Delivery: 10/19/24. Patient only has complaints of insomnia at this time. Patient aware she will have GBS obtained at next appointment and will return in 1 week for routine OB jean ointment. Documented by Emily Watkins LPN on behalf of: Darin Phillip DO documented in this encounter Plan of Treatment Upcoming Encounters Date Type Department Care Team (Late st Contact Info) Description 09/30/2024 8:30 AM EDT Routine [facility] [address] [facility] [place] [phone] Darin Phillip DO [address] [facility] [place] [address] 08/13/2025 8:35 AM EDT Office Visit [facility] [address] [place] [phone] Karolina Whyte APRN-DELPHI PROGRAMMER [address] [place] [address] documented as of this encounter Goals Goal Patient Goal Type Associated Problems Recent Progress Patient-Stated? Author Reminders Care Plan OB Reminders No Open Scheduling, Background documented as of this encounter Procedures Procedure Name Priority Date/Time Associated Diagnosis Comments POCT URINALYSIS DIPSTICK Routine 09/18/2024 8:44 AM EDT Third trimester ([facility]) documented in this encounter Results * (ABNORMAL) POCT urinalysis dipstick manually resulted (09/18/2024 8:44 AM EDT) Color, UA Yellow Clarity, UA Clear Glucose, UA Negative Negative - 1999(110) ++++ mg/dL Bilirubin, UA Negative Negative - 4(70) +++ mg/dL Ketones, UA Negative Negative - 160(16) ++++ mg/dL Spec Grav, UA 1.010 1 - 1.03 Blood, UA Negative Negative - 50 Julius/mcL pH, UA 6.0 5 - 9 Protein, UA Negative Negative - 1999(20) ++++ mg/dL Urobilinogen, UA 0.2 0.2 - 12 mg/dL Leukocytes, UA Positive Negative - 500+++ Dori/mcL Comment:small Nitrite, UA Negative Negative - Positive Urine 09/18/2024 8:44 AM EDT Darin Phillip DO POINT OF CARE TEST ENTER/EDIT OR DERABLES Final Result documented in this encounter Visit Diagnoses Diagnosis Third trimester ([facility]) state, incidental 35 weeks gestation of ([facility]) documented in this encounter Additional Health Concerns Active Problems Noted Date Diagnosed Date OB Reminders 04/29/2024 documented as of this encounter
--- OUTSIDE RECORDS SUMMARY | 2024-09-24 08:50 | XMS_ITS | Encounter Summary ---
Author Organization [facility] Address [address] [facility] [address] Care Team Providers Care Pin Game Machine Inspector Name Role Phone Unavailable Primary Care Provider Unavailabl e Reason for Visit * Reason Comments Routine Visit Encounter Details Date Type Department Care Team (Late st Contact Info) Description 09/24/2024 8:50 AM EDT Routine [facility] OB [address] [facility] [place] [phone] Ami Hogan PA [address] [facility] [address] [place] [address] Third trimester ([facility]); 36 weeks gestation of ([facility]) Social History Tobacco Use Types Packs/Day Years [...] ASSESSMENT & PLAN ICD-10-CM 1. Third trimester ([facility]) Z34.93 POCT urinalysis dipstick manually resulted CULTURE, GROUP B STREP WITH SUSCEPTIBLITY CULTURE, GROUP B STREP WITH SUSCEPTIBLITY 2. 36 weeks gestation of ([facility]) Z3A.36 Patient is doing well but has [...] EDT Routine [facility] OB [address] [place] [address] Darin Phillip, DO [address] [facility] [place] [address] 08/13/2025 8:35 AM EDT Office Visit [facility] [address] [place] [phone] Karolina Whyte APRN-PROGRAM EVALUATION CONSULTANT [address] [place] [address] Scheduled Orders Name Type Priority Associated Diagnoses Orde r Schedule CULTURE, GROUP B STREP WITH SUSCEPTIBLITY Lab Routine Third trimester ([facility]) Expected: 09/24/2024, Expires: 09/24/2025 documented as of this encounter Goals Goal Patient Goal Type Associated Problems Recent Progress Patient-Stated? Author Reminders Care Plan OB Reminders No Open Scheduling, Background documented as of this encounter Procedures Procedure Name Priority Date/Time Associated Diagnosis Comments POCT URINALYSIS DIPSTICK Routine 09/24/2024 9:04 AM EDT Third trimester ([facility]) documented in this encounter Results * (ABNORMAL) [...] this encounter Visit Diagnoses Diagnosis Third trimester ([facility]) state, incidental 36 weeks gestation of ([facility]) documented in this encounter Additional Health Concerns Active Problems Noted Date Diagnosed Date OB Reminders 04/29/2024 documented as of this encounter
[2024-09-26] VITALS (19 sets, daily range): BP systolic 127–159; BP diastolic 71–88; PULSE 67–105; TEMP 36.4–36.9
--- OUTSIDE RECORDS SUMMARY | 2024-09-26 05:26 | XMS_ITS | Encounter Summary ---
Author Organization [facility] Address [address] [place] [address] Care Team Providers Care Supervisor Hanging And Trimming Name Role Phone Unavailable Primary Care Provider Unavailabl e Encounter Details Date Type Department Care Team (Late st Contact Info) Description 07/04/2024 Abstract [facility] OB [address] [place] [address] Darin Phillip [facility] Adrian Kang, [facility]11 Social History Tobacco Use Types Packs/Day Years [...] Routine [facility] OB [address] [place] [address] Darin Phillip, [facility] [place], [place] [id number] 08/13/2025 8:35 AM EDT Office Visit [facility] [address] [place] [address] Karolina Whyte, BUDGET AND POLICY ANALYST-WORKSHOP MANAGER [address] [place] [address] documented as of this encounter Goals Goal Patient Goal Type Associated Problems Recent Progress Patient-Stated? Author Reminders Care Plan OB Reminders No Open Scheduling, Background documented as of this encounter Visit Diagnoses Not on filedocumented in this encounter Additional Health Concerns Active Problems Noted Date Diagnosed Date OB Reminders 04/29/2024 documented as of this encounter
--- OUTSIDE RECORDS SUMMARY | 2024-09-26 05:26 | XMS_ITS | Encounter Summary ---
Author Organization [facility] Address [address] [place] [address] Care Team Providers Care Drywall Finisher Name Role Phone Unavailable Primary Care Provider Unavailabl e Encounter Details Date Type Department Care Team (Late st Contact Info) Description 08/19/2024 Abstract [facility] OB [address] [facility] [address] Emily Watkins LPN Social History Tobacco [...] AM EDT Routine [facility] OB [address] [facility] [place] [address] Darin Phillip DO [address] [place], [place] [id number] 08/13/2025 8:35 AM EDT Office Visit [facility] [address] [place] [address] Karolina Whyte, NURSE OBGYN-BAND TUMBLER [address] [place] [address] documented as of this encounter Goals Goal Patient Goal Type Associated Problems Recent Progress Patient-Stated? Author Reminders Care Plan OB Reminders No Open Scheduling, Background documented as of this encounter Visit Diagnoses Not on filedocumented in this encounter Additional Health Concerns Active Problems Noted Date Diagnosed Date OB Reminders 04/29/2024 documented as of this encounter
--- OUTSIDE RECORDS SUMMARY | 2024-09-26 05:26 | XMS_ITS | Encounter Summary ---
Author Organization [email or web address] tem Address [id number] [address] [place] [address] Care Team Providers Care Bank Accountant Name Role Phone Eric Hudson DO Primary Care Provider + [phone] Encounter Details Date Type Department Care Team (Late st Contact Info) Description 03/25/2024 Orders Only [facility] Internal [facility] - Family Medicine [address] [place] [address] Eric Hudson DO [address], [facility] [place] [address] Social History Tobacco Use Types Packs/Day Years [...] documented as of this encounter Care Teams Bank Accountant Relationship Specialty Start Date End Date Eric Hudson DO [address] [facility], [place] [address] PCP - General 10/24/23 documented as of this encounter
--- OUTSIDE RECORDS SUMMARY | 2024-09-26 05:26 | XMS_ITS | Encounter Summary ---
Author Organization [employer] Address [id number] [address] [place] [address] Care Team Providers Care Automotive Parts Counterperson Name Role Phone BrigitteEric gale Primary Care Provider + [phone] Reason for Visit * Reason Comments Med Refill Encounter Details Date Type Department Care Team (Late st Contact Info) Description 01/06/2022 Refill [facility] - Family Medicine [address] [place] [address] Sherrie Maya, NEON TUBE PUMPER-RUNNING RIGGER [address] [facility] [address] [place] [address] Social History Tobacco Use Types Packs/Day Years [...] documented as of this encounter Care Teams Automotive Parts Counterperson Relationship Specialty Start Date End Date Eric Hudson DO [address] [facility], [place] [address] PCP - General 10/24/23 documented as of this encounter
--- OUTSIDE RECORDS SUMMARY | 2024-09-26 05:26 | XMS_ITS | Encounter Summary ---
Author Organization [facility] Address [address] [place] [address] Care Team Providers Care Teacher Learning Disabled Name Role Phone Unavailable Primary Care Provider Unavailabl e Encounter Details Date Type Department Care Team (Late st Contact Info) Description 09/18/2024 Bamboo flowsheet [facility] OB [address] [facility] [address] Darin Phillip [facility] Adrian Kang, [facility]11 Social History Tobacco Use Types Packs/Day Years [...] AM EDT Routine [facility]CP OB [address] [facility] [place] [address] Darin Phillip DO [facility] Adrian Kang, [facility]11 08/13/2025 8:35 AM EDT Office Visit [facility] [address] [place] [address] Karolina Whyte APRN-LIFE CLAIMS EXAMINER [address] [place] [address] documented as of this encounter Goals Goal Patient Goal Type Associated Problems Recent Progress Patient-Stated? Author Reminders Care Plan OB Reminders No Open Scheduling, Background documented as of this encounter Visit Diagnoses Not on filedocumented in this encounter Additional Health Concerns Active Problems Noted Date Diagnosed Date OB Reminders 04/29/2024 documented as of this encounter
--- OUTSIDE RECORDS SUMMARY | 2024-09-26 05:26 | XMS_ITS | Encounter Summary ---
Author Organization [facility] Address [address] [place] [address] Care Team Providers Care Corporate Strategy Intern Name Role Phone Unavailable Primary Care Provider Unavailabl e Encounter Details Date Type Department Care Team (Late st Contact Info) Description 04/16/2024 Abstract [facility] OB [address] [place] [address] Darin Phillip [facility] Adrian Kang, [facility]11 Social History Tobacco Use Types Packs/Day Years [...] Routine [facility] BCP OB [address] [place] [address] Darin Phillip DO [facility] [place], [place] [id number] 08/13/2025 8:35 AM EDT Office Visit [facility] [address] [place] [address] Karolina Whyte, MEDICAL RECORD TECHNICIAN-ASSEMBLER PING PONG TABLE [address] [facility] [address] [place] [address] documented as of this encounter Visit Diagnoses Not on filedocumented in this encounter
--- OUTSIDE RECORDS SUMMARY | 2024-09-26 05:26 | XMS_ITS | Encounter Summary ---
Author Organization [facility] Address [address] [place] [address] Care Team Providers Care Display Artist Name Role Phone Unavailable Primary Care Provider [...] EDT Routine [facility] BCP OB [address] [place] [address] Darin Phillip, DO [address] [place] [address] 08/13/2025 8:35 AM EDT Office Visit [facility] [address] [place] [address] Karolina Whyte, SCREEDMAN-PRIVACY ATTORNEY [address] [place] [address] documented as of this encounter [...]
--- OUTSIDE RECORDS SUMMARY | 2024-09-26 05:26 | XMS_ITS | Encounter Summary ---
Author Organization [facility] Address [address] [place] [address] Care Team Providers Care Paediatric Physiotherapist Name Role Phone Unavailable Primary Care Provider Unavailabl e Encounter Details Date Type Department Care Team (Late st Contact Info) Description 06/19/2024 Abstract [facility] OB [address] [place] [address] Darin Phillip [facility] Adrian Kang, [facility]11 Social History Tobacco Use Types Packs/Day Years [...] Routine [facility] BCP OB [address] [place] [address] Darin Phillip DO [facility] [place], [place] [id number] 08/13/2025 8:35 AM EDT Office Visit [facility] [address] [place] [address] Karolina Whyte, MOVEMENT THERAPIST-RN DELIVERY [address] [place] [address] documented as of this encounter Goals Goal Patient Goal Type Associated Problems Recent Progress Patient-Stated? Author Reminders Care Plan OB Reminders No Open Scheduling, Background documented as of this encounter Visit Diagnoses Not on filedocumented in this encounter Additional Health Concerns Active Problems Noted Date Diagnosed Date OB Reminders 04/29/2024 documented as of this encounter
--- OUTSIDE RECORDS SUMMARY | 2024-09-26 05:26 | XMS_ITS | Clinical Summary ---
Author Organization [facility] tem Address [id number] [address] [place] [address] Care Team Providers Care Clinic Coordinator Name Role Phone BrigitteEric gale Primary Care Provider + [phone] Allergies Active Allergy Reactions Criticality Noted Date [...] Type Department Care Team Description 08/04/2024 Travel from Last 3 Months Immunizations Immunization [...] Not on file Insurance ANTHEM Care Teams Clinic Coordinator Relationship Specialty Start Date End Date Eric Hudson DO [address] [place] [address] PCP - General 10/24/23
--- OUTSIDE RECORDS SUMMARY | 2024-09-26 05:26 | XMS_ITS | Encounter Summary ---
Author Organization [facility] Address [address] [place] [address] Care Team Providers Care Assistant Portfolio Manager Name Role Phone Unavailable Primary Care Provider Unavailabl e Encounter Details Date Type Department Care Team (Late st Contact Info) Description 04/23/2024 Abstract [facility] OB [address] [place] [address] Darin Phillip [facility] Adrian Kang, [facility]11 Social History Tobacco Use Types Packs/Day [...] [place] [address] Darin Phillip DO [facility] [place], [place] [id number] 08/13/2025 8:35 AM EDT Office Visit [facility] [address] [place] [address] Karolina Whyte, MEDIA SPECIALIST-HAIR TINTER [address] [facility] [address] [place] [address] documented as of this encounter Visit Diagnoses Not on filedocumented in this encounter
--- OUTSIDE RECORDS SUMMARY | 2024-09-26 05:26 | XMS_ITS | Encounter Summary ---
Author Organization [facility] Address [address] [place] [address] Care Team Providers Care It Administrative Assistant Name Role Phone Unavailable Primary Care Provider Unavailabl e Encounter Details Date Type Department Care Team (Late st Contact Info) Description 03/21/2024 Clinisync Result Encounter [facility] External Department Unsolicited Jes Phillip, DO [address] [place], [facility]11 Social History Tobacco Use Types [...] BCP OB [address] [place] [address] Jes Phillip, [address] [place] [address] 08/13/2025 8:35 AM EDT Office Visit [facility] [address] [place] [address] Karolina Whyte, SWEDGER-HEALTH ASSESSMENT AND TREATMENT TEACHER [address] [place] [address] documented as of this encounter Procedures Procedure Name Priority Date/Time Associated Diagnosis Comments US OB TRANSVAGINAL 03/21/2024 9: 51 AM EST documented in this encounter Results * US OB TRANSVAGINAL (03/21/2024 9:51 AM EST) Anatomical Region Laterality Modality Other 03/21/2024 9:51 AM EST Narrative 03/21/2024 2:41 PM EST [address] [address] Ultrasound Report Signed Patient: LUKE RODRIGUEZ MR#: [id number] : 1995 Acct:[id number] Age/Sex: 29 / F ADM Date: 03/21/24 Loc: [facility] Attending Dr: Jes Phillip D.O. Ordering Physician: Jes Phillip D.O. Date of Service: 03/21/24 Procedure(s): US OB transvaginal Accession Number(s): [id number] cc: WILFRIDO FLYNN ; Jes Phillip D.O. [address] [address] Patient Name: LUKE RODRIGUEZ MRN: [id number] date: 1995 Sex: F Assigned Patient Location: [facility] Current Patient Location: [facility] Accession/Order Number: [id number] Exam Date: 03/21/2024 08:56 Report Date: 03/21/2024 [...] Signed By: 03/21/24 1441 DD/ 0951 TD/TT: Appraiser Timber: Procedure Note Radiology, Radiologist, MD - 03/21/2024 [place] [address] Ultrasound Report Signed Patient: LUEK RODRIGUEZ EMR#: [id number] : 1995Acct:[id number] Age/Sex: 29 / FADM Date: 03/21/24 Loc: [facility] Attending Dr: Jes Phillip D.O. Ordering Physician: Jes Phillip D.O. Date of Service: 03/21/24 Procedure(s): US OB transvaginal Accession Number(s): [id number] cc: WILFRIDO FLYNN Corey D.O. The [address] [address] Patient Name: LUKE RODRIGUEZ MRN: [id number] date: 1995 Sex: F Assigned Patient Location: [facility] Current Patient Location: [facility] Accession/Order Number: [id number] Exam Date: 03/21/2024 08:56 Report Date: 03/21/2024 [...] M.D. Signed By:03/21/24 1441 DD/ 0951 TD/TT: Appraiser Timber: us Jes Phillip DO [facility] Final Result documented in this encounter Visit Diagnoses Not on filedocumented in this encounter
--- OUTSIDE RECORDS SUMMARY | 2024-09-26 05:26 | XMS_ITS | Clinical Summary ---
Author Organization [facility] Address [address] [place] [address] Care Team Providers Care Retail Sales Clerk Name Role Phone Unavailable Primary Care Provider [...] Encounters Date Type Department Care Team Description 09/25/2024 Travel 09/24/2024 8:50 AM EDT Routine [facility] BCP OB [address] [facility] [place] [address] Ami Hogan PA Third trimester ([facility]); 36 weeks gestation of ([facility]) 09/24/2024 Bamboo flowsheet [facility] BCP OB [address] [facility] [place] [address] Ami Hogan PA 09/19/2024 Travel 09/18/2024 8:30 AM EDT Routine [facility] BCP OB 102 [facility] [address] Darin Phillip DO Third trimester ([facility]); 35 weeks gestation of ([facility]) 09/18/2024 Bamboo flowsheet [facility] OB [address] [place] [address] Darin Phillip DO 09/11/2024 Travel 09/10/2024 11:30 AM EDT Routine NOM[facility] [address] [place] [address] Darin Phillip, Third trimester ([facility]); 34 weeks gestation of ([facility]) 09/10/2024 Bamboo flowsheet NOM[facility] [address] [place] [address] Darin Phillip DO 09/09/2024 Travel 09/08/[address] [place] [address] Birdie Stanley MA 09/04/2024 8:50 AM EDT Routine NOM[facility] [address] [place] [address] Ami Hogan PA Third trimester ([facility]); 33 weeks gestation of ([facility]) 09/04/2024 Bamboo flowsheet NOM[facility] [address] [place] [address] Ami Hogan PA 09/03/2024 Travel 08/19/2024 10:30 AM EDT Routine NOM[facility] [address] [place] [address] Darin Phillip DO Third trimester ([facility]); 31 weeks gestation of ([facility]) 08/19/2024 10:00 AM EDT Ancillary Procedure NOM[facility] [address] [place] [address] size inconsistent with dates ([facility]) 08/19/2024 Abstract NOM[facility] [address] [place] [address] Emily Watkins LPN 08/14/2024 11:05 AM EDT Office Visit [facility] [address] [place] [address] TonoazraKarolina, RIGGING SLINGER-NEEDLE LOOM OPERATOR Melanocytic nevus of trunk (Primary Dx); Other seborrheic dermatitis 08/14/2024 Bamboo flowsheet [facility] [address] [place] [address] Karolina Whyte, RIGGING SLINGER-NEEDLE LOOM OPERATOR 08/14/2024 Travel 08/12/2024 Travel 08/05/2024 9:50 AM EDT Routine [facility] OB [address] [facility] [place] [address] Ami Hogan PA 29 weeks gestation of ([facility]); Third trimester ([facility]); size inconsistent with dates ([facility]) 08/05/2024 Bamboo flowsheet NOM[facility] [address] [place] [address] Ami Hogan PA 08/04/2024 Travel 07/21/2024 9:50 AM EDT Routine NOM[facility] [address] [place] [address] Darin Phillip DO Nipple pain (Primary Dx); Second trimester ([facility]); 27 weeks gestation of ([facility]) 07/21/2024 Bamboo flowsheet NOM[facility] [address] [place] [address] Darin Phillip DO 07/14/2024 Travel 07/04/2024 Abstract [facility] [address] [place] [address] Darin Phillip DO 07/01/2024 Clinisync Result Encounter [...] EDT Routine [facility] BCP OB [address] [place] [address] Darin Phillip DO [address] [place] [address] 08/13/2025 8:35 AM EDT Office Visit [facility] [address] [place] [address] Karolina Whyte APRN-NEEDLE LOOM OPERATOR [address] [place] [address] Health Maintenance Due Date Last Done Comments HPV/Cotest 2023 Cervical Cancer Screening 08/05/2026 Pap Smear 08/05/2026 08/06/2023, 07/31/2022 Influenza Vaccine Completed 04/21/2024, 01/15/2018 Goals Goal Patient Goal Type Associated Problems Recent Progress Patient-Stated? Author Reminders Care Plan OB Reminders No Open Scheduling, Background Procedures Procedure Name Priority Date/Time Associated Diagnosis Comments POCT URINALYSIS DIPSTICK Routine 09/24/2024 9:04 AM EDT Third trimester ([facility]) POCT URINALYSIS DIPSTICK Routine 09/18/2024 8:44 AM EDT Third trimester ([facility]) POCT URINALYSIS DIPSTICK Routine 09/10/2024 11:40 AM EDT Third trimester ([facility]) POCT URINALYSIS DIPSTICK Routine 09/04/2024 9:07 AM EDT Third trimester ([facility]) US OB FOLLOW UP TRANSABDOMINAL APPROACH Routine 08/19/2024 10:30 AM EDT size inconsistent with dates ([facility]) POCT URINALYSIS DIPSTICK Routine 08/05/2024 10:38 AM EDT 29 weeks gestation of ([facility]) POCT URINALYSIS DIPSTICK Routine 07/21/2024 10:01 AM EDT Second trimester ([facility]) ALL CBC WITH AUTO DIFF Routine 9:02 [...] - Positive Urine 09/24/2024 9:04 AM EDT us Ami LALA POINT OF CARE TEST ENTER/EDIT [...] II, MD, PHD at 19-Aug-2024 10:59:29 PM [facility] Procedure Note Osvaldo Neri MD - [...] signed by OSVALDO NERI II, MD, PHD [id number] 10:59:29 PM [facility] us Ami LALA IMG OB US PROCEDURES Final Resul t * GLUCOSE 1 HOUR (07/01/2024 9:02 AM EDT) GLUCOSE 1 HOUR 129 <130 mg/dL [facility] 07/01/2024 9:02 AM EDT 07/01/2024 9:05 AM EDT Narrative [facility] - 07/01/2024 9:44 AM EDT us Darin Phillip DO LAB BLOOD ORDERABLES Final Resul t [facility] * (ABNORMAL) ALL CBC WITH AUTO DIFF [...] - 07/01/2024 9:49 AM EDT us Darin Kenji DO [facility] Final Result [facility] * Pap Smear (08/06/2023 12:00 AM EDT) Swab Cervical swab / Unknown us Kenji Nurse [facility] Bcp Ob LAB CYTOLOGY ORDERABLES Final Result EXTERNAL LAB from Last 3 Months or Most Recently Relevant to Health Maintenance Additional Health Concerns Active Problems Noted Date Diagnosed Date OB Reminders 04/29/2024 Insurance [facility]
--- OUTSIDE RECORDS SUMMARY | 2024-09-26 05:26 | XMS_ITS | Encounter Summary ---
Author Organization [facility] Address [address] [place] [address] Care Team Providers Care Manager Scheduling Name Role Phone Unavailable Primary Care Provider Unavailabl e Encounter Details Date Type Department Care Team (Late st Contact Info) Description 09/24/2024 Bamboo flowsheet [facility] OB [address] [facility] [place] [address] Ami Hogan PA [address] [place], [facility]11 Social History Tobacco Use Types Packs/Day [...] EDT Routine [facility] BCP OB [address] [facility] [place] [address] Darin Phillip DO [address] [place], [facility]11 08/13/2025 8:35 AM EDT Office Visit [facility] [address] [place] [address] Karolina Whyte, FARM EQUIPMENT TECHNICIAN-UI DEVELOPER [address] [place] [address] documented as of this encounter Goals Goal Patient Goal Type Associated Problems Recent Progress Patient-Stated? Author Reminders Care Plan OB Reminders No Open Scheduling, Background documented as of this encounter Visit Diagnoses Not on filedocumented in this encounter Additional Health Concerns Active Problems Noted Date Diagnosed Date OB Reminders 04/29/2024 documented as of this encounter
--- OUTSIDE RECORDS SUMMARY | 2024-09-26 05:26 | XMS_ITS | Encounter Summary ---
Author Organization [facility] Address [address] [place] [address] Care Team Providers Care Cone Chocolate Dipper Name Role Phone Karolina Whyte APRN-CAP MAKER Unavailable Encounter Details Date Type Department Care Team (Late st Contact Info) Description 08/14/2023 Orders Only [facility] OB [address] [facility] [place] [address] Yudi Riley LPN [address] [facility] [address] [facility]11 Social History Tobacco Use Types Packs/Day [...] Description 09/30/2024 8:30 AM EDT Routine [facility] OB [address] [facility] [place] [address] Darin Phillip DO [address] [facility] [address] [place] [id number] 08/13/2025 8:35 AM EDT Office Visit [facility] [address] [place] [address] Karolina Whyte APRN-CAP MAKER [address] [place] [address] documented as of this encounter Procedures Procedure [...] on filedocumented in this encounter Care Teams Cone Chocolate Dipper Relationship Specialty Start Date End Date Karolina Whyte APRN-CNP [address] [place] [address] PCP - Radha Commercial 10/01/23 documented as of this encounter
--- OUTSIDE RECORDS SUMMARY | 2024-09-26 05:26 | XMS_ITS | Encounter Summary ---
Author Organization [facility] Address [id number] [address] [place] [address] Care Team Providers Care Equity Manager Name Role Phone Eric Hudson DO Primary Care Provider + [phone] Reason for Visit * Reason Comments Med Refill Encounter Details Date Type Department Care Team (Late st Contact Info) Description 06/01/2022 Refill [facility] Internal Medicine - Family Medicine [address] [place] [address] Eric Hudson DO [address] [place] [address] Social History Tobacco Use Types Packs/Day Years [...] documented as of this encounter Care Teams Equity Manager Relationship Specialty Start Date End Date Eric Hudson DO [address] [facility] [place] [address] PCP - General 10/24/23 documented as of this encounter
--- OUTSIDE RECORDS SUMMARY | 2024-09-26 05:26 | XMS_ITS | Clinical Summary ---
Author Organization [facility] Address [address] [place] [id number] Care Team Providers Care Sidewalk Inspector Name Role Phone Eric Hudson DO Primary [...] B Vaccine Completed 1993, 1993, 1993 Insurance [employer] Care Teams Sidewalk Inspector Relationship Specialty Start Date End Date Eric Hudson DO [address] [place] [id number] PCP - General 07/11/00
--- OUTSIDE RECORDS SUMMARY | 2024-09-26 05:27 | XMS_ITS | CCD ---
Author Organization [facility] Care Team Providers Care Clam Sorter Name Role Phone YAAKOV BLANCAS Unavailable Unavailable KENJI ., DR ANDRE Attending Unavailable KENJI ., DR ANDRE Consulting Unavailable KENJI ., DR ANDRE Admitting Unavailable Unavailable Primary Care Provider Unavailabl e SAIDA DAHL Attending Unavailable FURLONG, WILFRIDO G [...] Care Unavailable FURLONG, WILFRIDO G Referring Unavailable KENJIGASPERY Attending Unavailable MYRNAAMI Attending Unavailable MYRNA AMI Referring Unavailable KENJIGASPERY Attending Unavailable KENJIJES Attending Unavailable MYRNA AMI Attending Unavailable KAROLINA WHYTE Attending Unavailable MYRNA AMI Referring Unavailable KENJIGASPERY Attending Unavailable MYRNA, AMI Attending Unavailable KENJI, JES Attending Unavailable KENJI, JES Attending Unavailable MYRNA, AMI Attending Unavailable Allergies Allergy Classification Reported Allergen(s) Allergy Type Date of Onset Reaction(s) Facility (20 sources) Penicillins; Translations: [PENICILLINS] Propensity to adverse reactions to drug (disorder) 4 Hives, Other [facility] Repository Medications Current Medications Medication Drug [...] 06/26/2024 Active escitalopram 5 mg oral tablet (18 sources) Serotonin Reuptake Inhibitor Start: 05-19-2024 End: 07-03-2024 escitalopram (Lexapro) 5 MG tablet 06/02/2024 Active Start: 10-31-2022 End: 03-21-2024 take 1 [...] vomiting 30 tablet 2 03/03/2024 04/02/2024 Active MV-Min-Fe Fum-FA-DHA ( 1 PO) (2 sources) MV-Min- Fe Fum-FA-DHA ( 1 PO) Take by mouth Active SUMAtriptan 50 mg oral tablet (1 [...] Translations: [Mastitis without abscess] 06-19-2024 Episodic Other and unspecified benign neoplasm (2 sources) Melanocytic nevus of trunk; Translations: [Melanocytic nevi of trunk] 08-14-2024 Episodic Other complications of (2 sources) size does not accord with dates; Translations: [Uterine size-date discrepancy, unspecified trimester] 08-05-2024 Episodic Other female genital disorders (2 sources) Vaginal discharge; Translations: [Other specified noninflammatory disorders of vagina] 05-21-2024 Episodic Other inflammatory condition of skin (2 sources) Seborrheic dermatitis; Translations: [Other seborrheic dermatitis] 08-14-2024 Episodic Other and delivery including normal (20 sources) Second trimester ; Translations: [Encounter for supervision of normal , unspecified, second trimester] 04-15-2024 Episodic Other screening for suspected conditions (not [...] [22 weeks gestation of ] 06-19-2024 Episodic Residual codes; unclassified (2 sources) Gestation period, 27 weeks; Translations: [27 weeks gestation of ] 07-21-2024 Episodic Residual codes; unclassified (2 sources) Gestation period, 29 weeks; Translations: [29 weeks gestation of ] 08-05-2024 Episodic Residual codes; unclassified (2 sources) Gestation period, 31 weeks; Translations: [31 weeks gestation of ] 08-19-2024 Episodic Residual codes; unclassified (2 sources) Gestation period, 33 weeks; Translations: [33 weeks gestation of ] 09-04-2024 Episodic Residual codes; unclassified (2 sources) Gestation period, 34 weeks; Translations: [34 weeks gestation of ] 09-10-2024 Episodic Residual codes; unclassified (2 sources) Gestation period, 35 weeks; Translations: [35 weeks gestation of ] 09-18-2024 Episodic Residual codes; unclassified (2 sources) Gestation period, 36 weeks; Translations: [36 weeks gestation of ] 09-24-2024 Episodic Unclassified (20 sources) OB Reminders Onset: 04-29-2024 04-29-2024 Past or Other Problems Problem Classification Problem Date Documented Da te Episodic/Chronic Residual codes; unclassified (20 sources) Reduced libido; Translations: [Decreased libido] Onset: 08-09-2023 08-09-2023 Episodic Results Test Name Value Interpretation Reference Range Facility Urinalysis macro (dipstick) panel (U)on 09-24-2024 Bilirubin, UA Negative Negative - 4(70) +++ mg/dL [facility] Blood, UA Negative Negative - 50 Julius/mcL [facility] Clarity, UA Clear [facility] Color, UA Yellow [facility] Glucose, UA Negative Negative - 1999(110) ++++ mg/dL [facility] Interpretation and review of laboratory results Abnormal [facility] Ketones, UA Negative Negative - 160(16) ++++ mg/dL [facility] Leukocytes, UA Positive Negative - 500+++ Dori/mcL [facility] Comment on above: small Nitrite, UA Negative Negative - Positive [facility] pH, UA 6.5 5 - 9 [facility] Protein, UA Trace Negative - 1999(20) ++++ mg/dL [facility] Spec Grav, UA 1.02 1 - 1.03 [facility] Urobilinogen, UA 0.2 0.2 - 12 mg/dL [facility] Urinalysis macro (dipstick) panel (U)on 09-18-2024 Bilirubin, UA Negative Negative - 4(70) +++ mg/dL [facility] Blood, UA Negative Negative - 50 Julius/mcL [facility] Clarity, UA Clear [facility] Color, UA Yellow [facility] Glucose, UA Negative Negative - 2000(110) ++++ mg/dL [facility] Interpretation and review of laboratory results Abnormal [facility] Ketones, UA Negative Negative - 160(16) ++++ mg/dL [facility] Leukocytes, UA Positive Negative - 500+++ Dori/mcL [facility] Comment on above: small Nitrite, UA Negative Negative - Positive [facility] pH, UA 6 5 - 9 [facility] Protein, UA Negative Negative - 1999(20) ++++ mg/dL [facility] Spec Grav, UA 1.01 1 - 1.03 [facility] Urobilinogen, UA 0.2 0.2 - 12 mg/dL [facility] Urinalysis macro (dipstick) panel (U)on 09-10-2024 Bilirubin, UA Negative Negative - 4(70) +++ mg/dL [facility] Blood, UA Negative Negative - 50 Julius/mcL [facility] Clarity, UA Clear [facility] Color, UA Yellow [facility] Glucose, UA Negative Negative - 1999(110) ++++ mg/dL [facility] Interpretation and review of laboratory results Normal [facility] Ketones, UA Negative Negative - 160(16) ++++ mg/dL [facility] Leukocytes, UA Positive Negative - 500+++ Dori/mcL [facility] Nitrite, UA Negative Negative - Positive [facility] pH, UA 7 5 - 9 [facility] Protein, UA Negative Negative - 1999(20) ++++ mg/dL [facility] Spec Grav, UA 1.01 1 - 1.03 [facility] Urobilinogen, UA 0.2 0.2 - 12 mg/dL [facility] Urinalysis macro (dipstick) panel (U)on 09-04-2024 Bilirubin, UA Negative Negative - 4(70) +++ mg/dL [facility] Blood, UA Negative Negative - 50 Julius/mcL [facility] Clarity, UA Clear [facility] Color, UA Yellow [facility] Glucose, UA Negative Negative - 1999(110) ++++ mg/dL [facility] Interpretation and review of laboratory results Abnormal [facility] Ketones, UA Negative Negative - 160(16) ++++ mg/dL [facility] Leukocytes, UA Positive Negative - 500+++ Dori/mcL [facility] Comment on above: Moderate Nitrite, UA Negative Negative - Positive [facility] pH, UA 7 5 - 9 [facility] Protein, UA Negative Negative - 1999(20) ++++ mg/dL [facility] Spec Grav, UA 1.02 1 - 1.03 [facility] Urobilinogen, UA 0.2 0.2 - 12 mg/dL [facility] US OB FOLLOW UP TRANSABDOMIN AL APPROACHon 08-19-2024 US OB FOLLOW UP TRANSABDOMINAL APPROACH EXAM: US OB FOLLOW UP TRANSABDOMINAL APPROACH [...] II, MD, PHD at 19-Aug-2024 10:59:29 PM [facility] Normal Not Available Comment on above: Order Comment: US OB SCAN FOR GROWTH Estimated Date of Delivery: 10/19/24 Gestational Age as of 08/05/2024: 29w2d Urinalysis macro (dipstick) panel (U)on 08-05-2024 Bilirubin, UA Negative Negative - 4(70) +++ mg/dL [facility] Blood, UA Negative Negative - 50 Julius/mcL [facility] Clarity, UA Clear [facility] Color, UA Yellow [facility] Glucose, UA Negative Negative - 2000(110) ++++ mg/dL [facility] Interpretation and review of laboratory results Abnormal [facility] Ketones, UA Negative Negative - 160(16) ++++ mg/dL [facility] Leukocytes, UA Positive Negative - 500+++ Dori/mcL [facility] Comment on above: small Nitrite, UA Negative Negative - Positive [facility] pH, UA 7 5 - 9 [facility] Protein, UA Negative Negative - 1999(20) ++++ mg/dL [facility] Spec Grav, UA 1.02 1 - 1.03 [facility] Urobilinogen, UA 0.2 0.2 - 12 mg/dL [facility] Urinalysis macro (dipstick) panel (U)on 07-21-2024 Bilirubin, UA Negative Negative - 4(70) +++ mg/dL [facility] Blood, UA Negative Negative - 50 Julius/mcL [facility] Clarity, UA Clear [facility] Color, UA Yellow [facility] Glucose, UA Negative Negative - 1999(110) ++++ mg/dL [facility] Interpretation and review of laboratory results Abnormal [facility] Ketones, UA Negative Negative - 160(16) ++++ mg/dL [facility] Leukocytes, UA Positive Negative - 500+++ Dori/mcL [facility] Comment on above: Moderate Nitrite, UA Negative Negative - Positive [facility] pH, UA 7 5 - 9 [facility] Protein, UA Negative Negative - 1999(20) ++++ mg/dL [facility] Spec Grav, UA 1.015 1 - 1.03 [facility] Urobilinogen, UA 0.2 0.2 - 12 mg/dL [facility] GLUCOSE 1 HOURon 07-01-2024 Glucose [Mass/Vol] 129 mg/dL NINF - 13 0 mg/dL [facility] Urinalysis macro (dipstick) panel (U)on 06-19-2024 Bilirubin, UA Negative Negative - 4(70) +++ mg/dL [facility] Blood, UA Negative Negative - 50 Julius/mcL [facility] Clarity, UA Clear [facility] Color, UA Yellow [facility] Glucose, UA Negative Negative - 1999(110) ++++ mg/dL [facility] Interpretation and review of laboratory results Abnormal [facility] Ketones, UA Negative Negative - 160(16) ++++ mg/dL [facility] Leukocytes, UA Moderate Negative - 500+++ Dori/mcL [facility] Nitrite, UA Negative Negative - Positive [facility] pH, UA 7.5 5 - 9 [facility] Protein, UA Negative Negative - 2000(20) ++++ mg/dL [facility] Spec Grav, UA 1.02 1 - 1.03 [facility] Urobilinogen, UA 0.2 0.2 - 12 mg/dL [facility] US OB 14+ WEEKS ANATOMY SCAN on [...] II, MD, PHD at 12-Jun-2024 09:04:27 AM [facility] Normal Not Available Comment on above: Order Comment: US OB ANATOMY SINGLE W US OB CERVICAL LENGTH Estimated Date of Delivery: 10/19/24 Gestational Age as of 05/21/2024: 18w3d RECURRENT VAGINITIS (HTRX)on 05-22-2024 ATOPOBIUM VAGINAE 0 [facility] ATOPOBIUM VAGINAE Not detected [facility] BVAB 2,3 (BACTERIAL VAGINOSIS ASSOCIATED BACTERIA 2, 3); MOBILUNCUS SPP 26.828 Abnormal [facility] BVAB 2,3 (BACTERIAL VAGINOSIS ASSOCIATED BACTERIA 2, 3); MOBILUNCUS SPP Detected Abnormal [facility] MARQUITA ALBICANS, PARAPSILOSIS, TROPICALIS 0 [facility] MARQUITA ALBICANS, PARAPSILOSIS, TROPICALIS Not detected [facility] MARQUITA GLABRATA 0 [facility] MARQUITA GLABRATA Not detected [facility] MARQUITA KRUSEI 0 [facility] MARQUITA KRUSEI Not detected [facility] CHLAMYDIA TRACHOMATIS 0 [facility] CHLAMYDIA TRACHOMATIS Not detected [facility] GARDNERELLA VAGINALIS 0 [facility] GARDNERELLA VAGINALIS Not detected [facility] Interpretation and review of laboratory results Abnormal [facility] MEGASPHAERA (TYPES 1, 2) 0 [facility] MEGASPHAERA (TYPES 1, 2) Not detected [facility] MYCOPLASMA GENITALIUM 0 [facility] MYCOPLASMA GENITALIUM Not detected [facility] NEISSERIA GONORRHOEAE 0 [facility] NEISSERIA GONORRHOEAE Not detected [facility] TRICHOMONAS VAGINALIS 0 [facility] TRICHOMONAS VAGINALIS Not detected [facility] ALL CBC WITH AUTO DIFFon BASOPHILS ABSOLUTE AUTO 0 [facility] Basophils/100 WBC (Bld) 0.3 % 0.2 - 2.0 % [facility] Eosinophils/100 WBC (Bld) 1.2 % 0.9 - 7.0 % [facility] Erythrocyte distribution width (RBC) [Ratio] 13.4 % 11.0 - 15.0 % [facility] Hematocrit (Bld) [Volume fraction] 35.6 % Low 36.0 - 48.0 % [facility] Hemoglobin (Bld) [Mass/Vol] 12 g/dL 12.0 - 16.0 g/dL [facility] IMMATURE GRANULOCYTES ABS AUTO 0.1 High [facility] Immature granulocytes/100 WBC (Bld) 0.8 % High 0.0 - 0.5 % [facility] Interpretation and review of laboratory results Abnormal [facility] LYMPHOCYTES ABSOLUTE AUTO 2 [facility] Lymphocytes/100 WBC (Bld) 16.5 % Low 20.5 - 60.0 % [facility] MCH (RBC) [Entitic mass] 30.7 pg 26.7 - 34.0 pg [facility] MCHC (RBC) [Mass/Vol] 33.7 g/dL 29.9 - 35.2 g/dL [facility] MCV (RBC) [Entitic vol] 91 fL 81.0 - 99.0 fL [facility] MONOCYTES ABSOLUTE AUTO 0.7 [facility] Monocytes/100 WBC (Bld) 6.1 % 1.7 - 12.0 % [facility] NEUTROPHILS ABSOLUTE AUTO 9.1 High [facility] Neutrophils/100 WBC (Bld) 75.1 % High 43.0 - 75.0 % [facility] Platelet mean volume (Bld) [Entitic vol] 10.2 fL 9.5 - 13.5 fL [facility] TBH EO # 0.2 [facility] TBH PLT 225 [facility] RBC 3.91 Low [facility] WBC 12.2 High [facility] HCG ( test) Ql (U)o n 03-21-2024 Interpretation and review of laboratory results Abnormal [facility] Preg Test, Ur Positive Negative [facility] Urinalysis macro (dipstick) panel (U)on 03-21-2024 Bilirubin, UA Negative Negative - 4(70) +++ mg/dL [facility] Blood, UA Negative Negative - 50 Julius/mcL [facility] Clarity, UA Clear [facility] Color, UA Yellow [facility] Glucose, UA Negative Negative - 1999(110) ++++ mg/dL [facility] Interpretation and review of laboratory results Abnormal [facility] Ketones, UA Negative Negative - 160(16) ++++ mg/dL [facility] Leukocytes, UA Trace Negative - 500+++ Dori/mcL [facility] Nitrite, UA Negative Negative - Positive [facility] pH, UA 7 5 - 9 [facility] Protein, UA Negative Negative - 1999(20) ++++ mg/dL [facility] Spec Grav, UA 1.02 1 - 1.03 [facility] Urobilinogen, UA 0.2 0.2 - 12 mg/dL [facility] PAP ACOG PANEL 2: 21 to 29on 08-07-2022 . . Normal [facility] Comment on above: Performed By: #### [id number] #### [facility] [address] [place] [address] Dr. Pat Aguilar Age Gdln ACOG Testing 19- [facility] Comment on above: Performed By: #### [id number] #### [facility] [address] [place] [address] Dr. Pat Aguilar DIAGNOSIS: Comment [facility] Comment on above: Result Comment: NEGA TIVE FOR INTRAEPITHELIAL LESION OR MALIGNANCY. Performed By: #### 4 [id number] #### [facility] [address] [place] [address] Dr. Pat Aguilar Methodology: Comment [facility] Comment on above: Result Comment: This liquid based ThinPrep(R) pap test was screened with the use of an image guided system. Performed By: #### [id number] #### [facility] [address] [place] [address] Dr. Pat Aguilar Note: Comment [facility] Comment on above: Result Comment: The Pap smear is a screening test designed to aid in the detection of premalignant and malignant conditions of the uterine cervix. It is not a diagnostic procedure and should not be used as the sole means of detecting cervical cancer. Both false-positive and false-negative reports do occur. . Performed By: #### 4 [id number] #### [facility] [address] [place] [address] Dr. Pat Aguilar Performed by: Comment [facility] Comment on above: Result Comment: Soo Haney, Technical Delivery Manager (ASCP) Performed By: #### 4 [id number] #### [facility] [address] [place] [address] Dr. Pat Aguilar Reflex Criteria: Comment [facility] Comment on above: Result Comment: The HPV DNA reflex criteria were not met with this specimen result therefore, no HPV testing was performed. . Performed By: #### [id number] #### [facility] [address] [place], [place] [address] Dr. Pat Aguilar Specimen adequacy: Comment Normal [facility] [place] Comment on above: Result Comment: Sati sfactory for evaluation. Endocervical and/or squamous metaplastic cells (endocervical component) are present. Performed By: #### [id number] #### [facility] [address], [place] [address] Dr. Pat Aguilar [facility] METABOLIC PANE [facility] 11-26-2021 Albumin [Mass/Vol] 4.1 g/dL Normal 3.6-5.1 [facility] Comment on above: Performed By: #### 1 0231, 7600 #### [facility] [place] [address] Business Strategist: Vladislav Kamara MD Albumin/Globulin [Mass ratio] 1.6 {ratio} Normal 1.0-2.5 [facility] Comment on above: Performed By: #### 1 0231, 7600 #### [facility] [place] [address] Business Strategist: Vladislav Kamara MD ALP [Catalytic activity/Vol] 53 U/L Normal 31-125 [facility] Comment on above: Performed By: #### 1 0231, 7600 #### [facility] [place] [address] Business Strategist: Vladislav Kamara MD ALT [Catalytic activity/Vol] 6 U/L Normal 6-29 [facility] Comment on above: Performed By: #### 1 0231, 7600 #### [facility] [place] [address] Business Strategist: Vladislav Kamara MD AST [Catalytic activity/Vol] 10 U/L Normal 10-30 [facility] Comment on above: Performed By: #### 1 0231, 7600 #### [facility] [place] [address] Business Strategist: Vladislav Kamara MD Bilirubin [Mass/Vol] 0.5 mg/dL Normal 0.2-1.2 [facility] Comment on above: Performed By: #### 1 0231, 7600 #### [facility] [place] [address] Business Strategist: Vladislav Kamara MD BUN/CREATININE RATIO NOT APPLICABLE Normal 6-22 [facility] Comment on above: Performed By: #### 1 0231, 7600 #### [facility] [place] [address] Business Strategist: Vladislav Kamara MD Calcium [Mass/Vol] 9.3 mg/dL Normal 8.6-10.2 [facility] Comment on above: Performed By: #### 1 0231, 7600 #### [facility] [place] [address] Business Strategist: Vladislav Kamara MD Chloride [Moles/Vol] 104 mmol/L Normal 98-110 [facility] Comment on above: Performed By: #### 1 0231, 7600 #### [facility] [place] [address] Business Strategist: Vladislav Kamara MD CO2 [Moles/Vol] 27 mmol/L Normal 20-32 [facility] Comment on above: Performed By: #### 1 0231, 7600 #### [facility] [place] [address] Business Strategist: Vladislav Kamara MD Creatinine [Mass/Vol] 0.92 mg/dL Normal 0.50-0.96 [facility] Comment on above: Performed By: #### 1 0231, 7600 #### [facility] [place] [address] Business Strategist: Vladislav Kamara MD GFR/1.73 sq M.predicted among non-blacks MDRD (S/P/Bld) [Vol rate/Area] 87 mL/min/{1.73_m2} Normal > OR = 60 [facility] Comment on above: Result Comment: The eGFR is based on the CKD-EPI 2020 equation. To calculate the new eGFR from a previous Creatinine or Cystatin C result, go to https://www.kidney.org/professionals/ kdoqi/gfr%5Fcalculator Performed By: #### 1 0231, 7600 #### [facility] [place] [address] Business Strategist: Vladislav Kamara MD Globulin (S) [Mass/Vol] 2.5 g/dL Normal 1.9-3.7 [facility] Comment on above: Performed By: #### 1 023, 7600 #### [facility] [place] [address] Business Strategist: Vladislav Kamara MD Glucose [Mass/Vol] 81 mg/dL Normal 65-99 [facility] Comment on above: Result Comment: Fasting reference interval Performed By: #### 1 023, 7600 #### [facility] [place] [address] Business Strategist: Vladislav Kamara MD Potassium [Moles/Vol] 4.4 mmol/L Normal 3.5-5.3 [facility] Comment on above: Performed By: #### 1 023, 7600 #### [facility] [place] [address] Business Strategist: Vladislav Kamara MD Protein [Mass/Vol] 6.6 g/dL Normal 6.1-8.1 [facility] Comment on above: Performed By: #### 1 0231, 7600 #### [facility] [place] [address] Business Strategist: Vladislav Kamara MD Sodium [Moles/Vol] 138 mmol/L Normal 135-146 [facility] Comment on above: Performed By: #### 1 0231, 7600 #### [facility] [place] [address] Business Strategist: Vladislav Kamara MD Urea nitrogen [Mass/Vol] 12 mg/dL Normal 7-25 [facility] Comment on above: Performed By: #### 1 0231, 7600 #### [facility] [address], [address] [place] [address] Business Strategist: Vladislav Kamara MD LIPID PANEL, [facility] 11-01 Cholesterol [Mass/Vol] 153 mg/dL Normal <200 [facility] Comment on above: Order Comment: FASTI NG:YES FASTING: YES Performed By: #### 1 0231, 7600 #### [facility] [address], [address] [place] [address] Business Strategist: Vladislav Kamara MD Cholesterol in HDL [Mass/Vol] 73 mg/dL Normal > OR = 50 [facility] Comment on above: Order Comment: FASTI NG:YES FASTING: YES Performed By: #### 1 0231, 7600 #### [facility] [address], [address] [place] [address] Business Strategist: Vladislav Kamara MD Cholesterol in LDL [Mass/Vol] [...] LDL-C. Marko RODRIGUEZ et al. BRITTANY. 2013;310(19): 1063-9392 (http://[email or web address].Zientia/faq/[email or web address]) Performed By: #### 1 0231, 7600 #### [facility] [address], [address] [place] [address] Business Strategist: Vladislav Kamara MD Cholesterol.total/ Cholesterol in HDL [Mass ratio] 2.1 {ratio} Normal <5.0 [facility] Comment on above: Order Comment: FASTI NG:YES FASTING: YES Performed By: #### 1 0231, 7600 #### [facility] [address], [address] [place] [address] Business Strategist: Vladislav Kamara MD NON HDL CHOLESTEROL 80 mg/dL (calc) Normal <130 [facility] Comment on above: Order Comment: FASTI NG:YES FASTING: YES Result Comment: For patients with diabetes plus 1 major ASCVD risk factor, treating to a non-HDL-C goal of <100 mg/dL (LDL-C of <70 mg/dL) is considered a therapeutic option. Performed By: #### 1 0231, 7600 #### [facility] [address], [address] [place] [address] Business Strategist: Vladislav Kamara MD Triglyceride [Mass/Vol] 86 mg/dL Normal <150 [facility] Comment on above: Order Comment: FASTI NG:YES FASTING: YES Performed By: #### 1 0231, 0010 #### [facility] [address], [address] [place] [address] Business Strategist: Vladislav Kamara MD PROGRESSon 02-26-2018 Protein mass conc HNO ID: [id number] thor: Yaakov Brar: (none)Author Type: PhysicianType: Progress [...] agreewith all of its relevant components. Normal [facility] Vital Signs Date Time Vital Sign Value Performing Clinician Faci lity 09-24-2024 09:09-0400 Diastolic blood pressure 84 mm[Hg] Ami LALA Work Phone: [facility] 09-24-2024 09:09-0400 Systolic blood pressure 118 mm[Hg] Ami LALA Work Phone: [facility] 09-24-2024 08:57-0400 Body mass index (BMI) [Ratio] 34.03 kg/m2 Ami LALA Work Phone: [facility] 09-24-2024 08:57-0400 Body weight 89.93 kg Ami LALA Work Phone: [facility] 09-18-2024 08:38-0400 Body mass index (BMI) [Ratio] 33.51 kg/m2 Jes Kenji DO Work Phone: [facility] 09-18-2024 08:38-0400 Body weight 88.56 kg Jes Kenji DO Work Phone: [facility] 09-18-2024 08:38-0400 Diastolic blood pressure 80 mm[Hg] Jes Kenji DO Work Phone: [facility] 09-18-2024 08:38-0400 Systolic blood pressure 116 mm[Hg] Jes Kenji DO Work Phone: [facility] 09-10-2024 11:29-0400 Body mass index (BMI) [Ratio] 33.3 kg/m2 Jes Kenji DO Work Phone: [facility] 09-10-2024 11:29-0400 Body weight 88 kg Jes Kenji DO Work Phone: [facility] 09-10-2024 11:29-0400 Diastolic blood pressure 70 mm[Hg] Jes Kenji DO Work Phone: [facility] 09-10-2024 11:29-0400 Systolic blood pressure 122 mm[Hg] Jes Kenji DO Work Phone: [facility] 09-04-2024 09:02-0400 Body mass index (BMI) [Ratio] 33.26 kg/m2 Ami Imler PA Work Phone: [facility] 09-04-2024 09:02-0400 Body weight 87.88 kg Ami Imler PA Work Phone: [facility] 09-04-2024 09:02-0400 Diastolic blood pressure 80 mm[Hg] Ami Myrna PA Work Phone: [facility] 09-04-2024 09:02-0400 Systolic blood pressure 122 mm[Hg] Ami Imler PA Work Phone: [facility] 08-19-2024 11:06-0400 Body mass index (BMI) [Ratio] 31.84 kg/m2 Jes Kenji DO Work Phone: [facility] 08-19-2024 11:06-0400 Body weight 84.14 kg Jes Kenji DO Work Phone: [facility] 08-19-2024 11:06-0400 Diastolic blood pressure 64 mm[Hg] Jes Kenji DO Work Phone: [facility] 08-19-2024 11:06-0400 Systolic blood pressure 102 mm[Hg] Jes Kenji DO Work Phone: [facility] 08-05-2024 10:33-0400 Body mass index (BMI) [Ratio] 31.5 kg/m2 Ami Myrna PA Work Phone: [facility] 08-05-2024 10:33-0400 Body weight 83.23 kg Ami Imler PA Work Phone: [facility] 08-05-2024 10:33-0400 Diastolic blood pressure 62 mm[Hg] Ami Imler PA Work Phone: [facility] 08-05-2024 10:33-0400 Systolic blood pressure 104 mm[Hg] Ami Imler PA Work Phone: [facility] 07-21-2024 09:53-0400 Body mass index (BMI) [Ratio] 30.81 kg/m2 Jes Kenji DO Work Phone: [facility] 07-21-2024 09:53-0400 Body weight 81.42 kg Jes Kenji DO Work Phone: [facility] 07-21-2024 09:53-0400 Diastolic blood pressure 60 mm[Hg] Jes Kenji DO Work Phone: [facility] 07-21-2024 09:53-0400 Systolic blood pressure 120 mm[Hg] Jes Kenji DO Work Phone: [facility] 06-19-2024 09:01-0400 Body mass index (BMI) [Ratio] 28.86 kg/m2 Jes Kenji DO Work Phone: [facility] 06-19-2024 09:01-0400 Body weight 76.26 kg Jes Kenji DO Work Phone: [facility] 06-19-2024 09:01-0400 Diastolic blood pressure 64 mm[Hg] Jes Kenji DO Work Phone: [facility] 06-19-2024 09:01-0400 Systolic blood pressure 110 mm[Hg] Jes Kenji DO Work Phone: [facility] 05-21-2024 08:42-0500 Body mass index (BMI) [Ratio] 28.49 kg/m2 Ami LALA Work Phone: [facility] 05-21-2024 08:42-0500 Body weight 75.3 kg Ami LALA Work Phone: [facility] 05-21-2024 08:42-0500 Diastolic blood pressure 60 mm[Hg] mAi LALA Work Phone: [facility] 05-21-2024 08:42-0500 Systolic blood pressure 112 mm[Hg] Ami LALA Work Phone: [facility] 04-22-2024 09:58-0500 Body mass index (BMI) [Ratio] 28 kg/m2 Jes Kenji DO Work Phone: [facility] 04-22-2024 09:58-0500 Body weight 73.99 kg Jes Kenji DO Work Phone: [facility] 04-22-2024 09:58-0500 Diastolic blood pressure 62 mm[Hg] Jes Kenji DO Work Phone: [facility] 04-22-2024 09:58-0500 Systolic blood pressure 112 mm[Hg] Jes Kenji DO Work Phone: [facility] 03-21-2024 09:48-0500 Body mass index (BMI) [Ratio] 27.19 kg/m2 [facility] 03-21-2024 09:48-0500 Body weight 71.85 kg Nom Nurse [facility] 03-21-2024 09:48-0500 Diastolic blood pressure 60 mm[Hg] [facility] 03-21-2024 09:48-0500 Systolic blood pressure 110 mm[Hg] [facility] Nurse [facility] Healthcare Encounters Encounter Date Encounter Type Care Provider Facility Start: 09-24-2024 End: 09-24-2024 Bamboo flowsheet Ami LALA Work Phone: [facility] Start: 09-24-2024 End: 09-24-2024 Bamboo flowsheet Ami LALA Work Phone: [facility] Start: 09-24-2024 End: 09-24-2024 flow sheet Ami LALA Work Phone: [facility] Comment on above: Third trimester preg maría ([facility]); 36 weeks gestation of ([facility]) Start: 09-24-2024 End: 09-24-2024 ambulatory AMI NORRIS Not Available Start: 09-18-2024 End: 09-18-2024 Bamboo flowsheet Jes Kenji DO Work Phone: [facility] Start: 09-18-2024 End: 09-18-2024 Bamboo flowsheet Jes Kenji DO Work Phone: [facility] Start: 09-18-2024 End: 09-18-2024 flow sheet Jes Kenji DO Work Phone: [facility] Comment on above: Third trimester preg maría ([facility]); 35 weeks gestation of ([facility]) Start: 09-18-2024 End: 09-18-2024 ambulatory JES KENJI Not Available Start: 09-10-2024 End: 09-10-2024 Bamboo flowsheet Jes Kenji DO Work Phone: [facility] Start: 09-10-2024 End: 09-10-2024 Bamboo flowsheet Jes Kenji DO Work Phone: [facility] Start: 09-10-2024 End: 09-10-2024 flow sheet Jes Kenji DO Work Phone: [facility] Comment on above: Third trimester preg maría; 34 weeks gestation of Start: 09-10-2024 End: 09-10-2024 ambulatory JES KENJI Not Available Start: 09-04-2024 End: 09-04-2024 Bamboo flowsheet Ami LALA Work Phone: [facility] Start: 09-04-2024 End: 09-04-2024 Bamboo flowsheet Ami LALA Work Phone: [facility] Start: 09-04-2024 End: 09-04-2024 Office outpatient visit 15 minutes Ami LALA Work Phone: [facility] Comment on above: Third trimester preg maría; 33 weeks gestation of Start: 09-04-2024 End: 09-04-2024 ambulatory AMI NORRIS Not Available Start: 08-19-2024 End: 08-19-2024 flow sheet Jes Kenji DO Work Phone: [facility] Comment on above: Third trimester preg maría; 31 weeks gestation of Start: 08-19-2024 End: 08-19-2024 ambulatory JES KENJI Not Available Start: 08-14-2024 End: 08-14-2024 Bamboo flowsheet Karolina A Felter TRANSPORTATION ATTENDANT-INSPECTOR [employer] Work Phone: [facility] Start: 08-14-2024 End: 08-14-2024 Bamboo flowsheet Karolina Jaimes Felter TRANSPORTATION ATTENDANT-INSPECTOR [employer] Work Phone: [facility] Start: 08-14-2024 End: 08-14-2024 Office outpatient visit 15 minutes Karolina Jaimes Felter TRANSPORTATION ATTENDANT-INSPECTOR [employer] Work Phone: [facility] Comment on above: Melanocytic nevus of trunk (Primary Dx); Other seborrheic dermatitis Start: 08-14-2024 End: 08-14-2024 ambulatory KAROLINA Jaimes FELTER Not Available Start: 08-05-2024 End: 08-05-2024 Bamboo flowsheet Ami LALA Work Phone: [facility] Start: 08-05-2024 End: 08-05-2024 Bamboo flowsheet Ami LALA Work Phone: [facility] Start: 08-05-2024 End: 08-05-2024 flow sheet Ami LALA Work Phone: [facility] Comment on above: 29 weeks gestation o f ; Third trimester ; size inconsistent with dates Start: 08-05-2024 End: 08-05-2024 ambulatory AMI NORRIS Not Available Start: 08-04-2024 End: 08-04-2024 ambulatory [facility] Start: 07-21-2024 End: 07-21-2024 Bamboo flowsheet Jes Kenji DO Work Phone: [facility] Start: 07-21-2024 End: 07-21-2024 Bamboo flowsheet Jes Kenji DO Work Phone: [facility] Start: 07-21-2024 End: 07-21-2024 flow sheet Jes Kenji DO Work Phone: [facility] Comment on above: Second trimester pre gnancy; 27 weeks gestation of Start: 07-21-2024 End: 07-21-2024 ambulatory JES KENJI Not Available Start: 07-01-2024 End: 07-01-2024 Clinisync Result Encounter Jes Kenji DO Work Phone: [facility] Unsolicited Start: 07-01-2024 End: 07-01-2024 Clinisync Result Encounter Jes Kenji DO Work Phone: [facility] Unsolicited Start: 06-26-2024 End: 06-26-2024 ambulatory SAIDA ALBRECHTL [facility] Start: 06-19-2024 End: 06-19-2024 Bamboo flowsheet Jes Kenji DO Work Phone: [facility] Start: 06-19-2024 End: 06-19-2024 Bamboo flowsheet Jes Kenji DO Work Phone: [facility] Start: 06-19-2024 End: 06-19-2024 flow sheet Jes Kenji DO Work Phone: [facility] Comment on above: Hordeolum externum o f right eye, unspecified eyelid (Primary Dx); 22 weeks gestation of ; Second trimester ; Diabetes mellitus screening; Mastitis Start: 06-19-2024 End: 06-19-2024 ambulatory JES KENJI Not Available Start: 06-11-2024 End: 06-11-2024 ambulatory AMI NORRIS Not Available Start: 05-21-2024 End: 05-21-2024 Bamboo flowsheet Ami LALA Work Phone: [facility] Start: 05-21-2024 End: 05-22-2024 Bamboo flowsheet Ami LALA Work Phone: [facility] Start: 05-21-2024 End: 05-22-2024 External Result Encounter Ami LALA Work Phone: [facility] Unsolicited Start: 05-21-2024 End: 05-21-2024 flow sheet Ami LALA Work Phone: [facility] Comment on above: Second trimester pre gnancy; 18 weeks gestation of ; Screening, , for anatomic survey; STD exposure; Vaginal discharge Start: 05-21-2024 End: 05-21-2024 ambulatory AMI NORRIS Not Available Start: 05-19-2024 End: 05-19-2024 ambulatory [facility] Start: 04-22-2024 End: 04-22-2024 flow sheet Jes [...] Not Available Start: 02-20-2024 End: 02-20-2024 ambulatory [facility] Start: 12-26-2023 End: 12-26-2023 ambulatory [facility] Start: 10-31-2023 End: 10-31-2023 ambulatory [facility] Start: 07-31-2022 End: 07-31-[address] JES PHILLIP . Facility: Start: 02-26-2018 End: 03-01-2018 Patient encounter procedure YAAKOV BLANCAS [facility] Procedures Date Procedure Procedure Detail Performing Clinician Start: 09-24-2024 Urnls dip stick/tabl et rgnt non-auto w/o micrscp Ami Imler PA Work Phone: Start: 09-18-2024 Urnls dip stick/tabl et rgnt non-auto w/o micrscp Jes Kenji DO Work Phone: Start: 09-10-2024 Urnls dip stick/tabl et rgnt non-auto w/o micrscp Jes Kenji DO Work Phone: Start: 09-04-2024 Urnls dip stick/tabl et rgnt non-auto w/o micrscp Ami LALA Work Phone: Start: 08-05-2024 Urnls dip stick/tabl et rgnt non-auto w/o micrscp Ami LALA Work Phone: Start: 07-21-2024 Urnls dip stick/tabl et rgnt non-auto w/o micrscp Jes Kenji DO Work Phone: Start: 07-01-2024 GLUCOSE 1 HOUR Jes Fa zio DO Work Phone: Start: 06-19-2024 Urnls dip stick/tabl et rgnt non-auto w/o micrscp Jes Kenji DO Work Phone: Start: 05-21-2024 RECURRENT VAGINITIS (HTRX) Ami LALA Work Phone: Start: 04-16-2024 ALL CBC WITH AUTO DIFF Jes Kenji DO Work Phone: Start: 03-21-2024 End: 03-21-2024 Urnls dip stick/tablet rgnt non-auto w/o micrscp Jes Kenji DO Work Phone: Start: 08-06-2023 Microscopic observat ion [Identifier] in Cervix by Cyto stain Jes Kenji DO Work Phone: Plan of Treatment Date Care Activity Detail Author Start: 08-05-2026 Screening for malign ant neoplasm of cervix [facility] Start: 08-13-2025 End: 08-13-2025 Patient encounter procedure 08/13/2025 8:35 AM EDT Office Visit [facility] [address] [place] [phone] TonoKarolina oquendoBIBIANAN-INSPECTOR WELDED PARTS [address] [place] [address] [facility] Start: 09-24-2024 End: 09-24-2025 CULTURE, GROUP B STREP WITH SUSCEPTIBLITY CULTURE, GROUP B STREP WITH SUSCEPTIBLITY Lab Routine Third trimester ([facility]) Expected: 09/24/2024, Expires: 09/24/2025 [facility] Work Phone: Comment on above: Expected: 09/24/2024 , Expires: 09/24/2025 Start: 09-24-2024 End: 09-24-2024 Patient encounter procedure [facility] Comment on above: Arrived Start: 09-18-2024 End: 09-18-2024 Patient encounter procedure [facility] Comment on above: Arrived Start: 09-10-2024 End: 09-10-2024 Patient encounter procedure 09/10/2024 11:30 AM EDT Routine [facility] [address] [place] [id number] Jes Phillip, DO [address] [place] [address] Arrived [facility] Comment on above: Arrived Start: 09-04-2024 End: 09-04-2024 Patient encounter procedure [facility] Comment on above: Arrived Start: 08-19-2024 End: 08-19-2024 Patient encounter procedure 08/19/2024 10:30 AM EDT Routine [facility] [address] [place] [phone] Jes Phillip, DO [address] [place] [address] [facility] Start: 08-19-2024 End: 08-19-2024 Professional / ancillary services management 08/19/2024 10:00 AM EDT Ancillary Procedure [facility] [address] [place] [phone] [facility] Start: 08-14-2024 End: 08-14-2024 Patient encounter procedure [facility] Comment on above: Arrived Start: 08-07-2024 End: 08-07-2024 Patient encounter procedure 08/07/2024 8:50 AM EDT Office Visit [facility] [address] [place] [address] Karolina Whyte, TRANSPORTATION ATTENDANT-INSPECTOR [employer] [address] [place] [address] [facility] Start: 08-05-2024 End: 12-06-2024 US for US OB follow up transabdominal approach Imaging Routine size inconsistent with dates Expected: 08/05/2024, Expires: 12/06/2024 [facility] Work Phone: Comment on above: Expected: 08/05/2024 , Expires: 12/06/2024 Start: 08-05-2024 End: 08-05-2024 Patient encounter procedure 08/05/2024 9:50 AM EDT Routine [facility] [address] [place] [phone] Ami Norris PA [address] [place] [address] Arrived [facility] Comment on above: Arrived Start: 07-21-2024 End: 07-21-2024 Patient encounter procedure [facility] Comment on above: Arrived Start: 06-19-2024 End: 06-19-2025 CBC panel - Blood by Automated count CBC Lab Routine Diabetes mellitus screening Expected: 06/19/2024 (Approximate), Expires: 06/19/2025 [facility] Work Phone: Comment on above: Expected: [...] EDT Ancillary Procedure [facility] [address] [place] [address] [facility] Start: 05-21-2024 End: 07-19-2024 Alpha fetoprotein, maternal Alpha fetoprotein, maternal Lab Routine Screening, , for anatomic survey Expected: 05/21/2024 (Approximate), Expires: 07/19/2024 [facility] Comment on above: Expected: 05/21/2024 (Approximate), Expires: 07/19/2024 Start: 05-21-2024 End: 05-21-2025 US for US OB 14+ weeks anatomy scan Imaging Routine Screening, , for anatomic survey Expected: 05/21/2024, Expires: 05/21/2025 [facility] Comment on above: Expected: 05/21/2024 , [...] gestational age Expected: 03/21/2024 (Approximate), Expires: 03/21/2025 [facility] Work Phone: Comment on above: Expected: 03/21/2024 (Approximate), Expires: 03/21/2025 Start: 03-21-2024 End: 03-21-2025 Drugs of abuse panel - Urine by Screen method Rapid drug screen, urine Lab Routine , unspecified gestational age Encounter for supervision of normal first in first trimester Expected: 03/21/2024 (Approximate), Expires: 03/21/2025 [facility] Comment on above: Expected: 03/21/2024 (Approximate), Expires: 03/21/2025 Start: 03-21-2024 End: 03-21-2025 US Pelvis transvaginal US OB transvaginal Imaging Routine Missed menses Expected: 03/21/2024 (Approximate), Expires: 03/21/2025 [facility] Comment on above: Expected: 03/21/2024 (Approximate), Expires: 03/21/2025 Start: 12-02-2023 Influenza vaccination Influenza Vacc ine (#1) [facility] Start: 2023 Screening for malign ant neoplasm of cervix HPV/Cotest [facility] Bacteria identified in Urine by Culture Urine culture Microbiology Routine Missed menses Ordered: 03/21/2024 [facility] Comment on above: Ordered: 03/21/2024 CBC W Auto Different ial panel - Blood CBC and differential Lab Routine Missed menses , unspecified gestational age Ordered: 03/21/2024 [facility] Comment on above: Ordered: 03/21/2024 CHLAMYDIA TRACHOMATI S (GENITO/STI) CHLAMYDIA TRACHOMATIS (GENITO/STI) Lab Routine STD exposure Vaginal discharge Ordered: 05/21/2024 [facility] Comment on above: Ordered: 05/21/2024 Hemoglobin A1c/Hemoglobin.total in Blood Hemoglobin A1c Lab Routine Missed menses , unspecified gestational age Ordered: 03/21/2024 [facility] Comment on above: Ordered: 03/21/2024 Hepatitis B virus surface Ag [Presence] in Serum or Plasma by Immunoassay Hepatitis B surface antigen Lab Routine Missed menses , unspecified gestational age Ordered: 03/21/2024 [facility] Comment on above: Ordered: 03/21/2024 Hepatitis C virus Ab [Presence] in Serum or Plasma by Immunoassay Hepatitis C antibody Lab Routine Missed menses , unspecified gestational age Ordered: 03/21/2024 [facility] Comment on above: Ordered: 03/21/2024 HIV-1/HIV-2 antigen/antibody combination immunoassay HIV-1 and HIV-2 antibodies Lab Routine Missed menses , unspecified gestational age Ordered: 03/21/2024 [facility] Comment on above: Ordered: 03/21/2024 Neisseria gonorrhoea e DNA [Presence] in Unspecified specimen by CALISTA with probe detection Neisseria gonorrhea DNA probe, direct Lab Routine STD exposure Vaginal discharge Ordered: 05/21/2024 [facility] Comment on above: Ordered: 05/21/2024 Reagin Ab [Presence] in Serum by RPR RPR Lab Routine Missed menses , unspecified gestational age Ordered: 03/21/2024 [facility] Comment on above: Ordered: 03/21/2024 Rubella antibody, IgG Rubella an tibody, IgG Lab Routine Missed menses , unspecified gestational age Ordered: 03/21/2024 [facility] Comment on above: Ordered: 03/21/2024 SURESWAB(R) ADVANCED VAGINITIS PLUS, TMA SURESWAB(R) ADVANCED VAGINITIS PLUS, TMA Pathology and Cytology Routine STD exposure Vaginal discharge Ordered: 05/21/2024 [facility] Work Phone: Comment on above: Ordered: 05/21/2024 Immunizations Immunization Date Immunization Notes Care Provider Fa juan 01-15-2018 influenza virus vacc ine, unspecified formulation [facility] Healthcare Payers Date Payer Category Payer [facility] [id number] [id number] 2023 Unknown [id number] 1993 Unknown [id number] 2.16.84 [id number] 1993 Unknown [id number] 2.16. [id number] 1993 Unknown [id number] 2.16. 840.1.890947.3.579.2.1286 1993 Unknown [id number] 2.16. 840.1.666342.3.579.2.1286 1993 Unknown [id number] 2.16.8 40.1.027072.3.579.2.1286 1993 Unknown [id number] 2.16.8 40.1.771571.3.579.2.1286 1993 Unknown [id number] 2.16.8 40.1.080152.3.579.2.1286 1993 Unknown [id number] 2.16.8 40.1.422769.3.579.2.1259 1993 Unknown [id number] 2.16.8 40.1.032069.3.579.2.1259 1993 Unknown [id number] 2.16.8 40.1.642907.3.579.2.1259 1993 Unknown [id number] 2.16.8 40.1.203352.3.579.2.1259 1993 Unknown [id number] 2.16.84 0.1.722825.3.579.2.1259 1993 Unknown [id number] 2.16.84 0.1.873615.3.579.2.1259 1993 Unknown [id number] 2.16.84 0.1.271301.3.579.2.1259 1993 Unknown [id number] 2.16.84 0.1.183669.3.579.2.1259 1993 Unknown [id number] 2.16.84 0.1.327073.3.579.2.1259 1993 Unknown [id number] 2.16.84 0.1.347846.3.579.2.1259 1993 Unknown [id number] 2.16.84 0.1.515069.3.579.2.1259 1993 Unknown [id number] 2.16.84 0.1.331718.3.579.2.1259 1993 Unknown [id number] 2.16.84 0.1.598901.3.579.2.1259 1993 Unknown [id number] 2.16.84 0.1.783058.3.579.2.1259 1959 Private Health Insurance [id number] Social History Date Type Detail Facility Start: 08-07-2023 Tobacco smoking stat [facility] Never smoked tobacco [facility] Start: 08-07-2023 Tobacco use and exposure Smoke less tobacco non-user [facility] Start: 04-15-2024 End: 09-10-2024 Alcoholic beverage intake Defer [facility] Start: 08-07-2023 End: 08-14-2024 History of Social function [facility] Start: 08-07-2023 End: 08-14-2024 Tobacco use panel [facility] Start: 01-27-2024 [facility] Start: 1995 Sex assigned at Not on file [facility] Goals Date Patient Goal Desired Activity /State Personal health goal Clinical Notes 03-21-2024 to 09-24-2024 SPIKE Guerra - 09/24/2024 8:50 AM Flora Watkins LPN - 09/18/2024 8:30 AM Ara Martínez LPN - 09/10/2024 11:30 AM SPIKE Mendes - 09/04/2024 8:50 AM SPIKE Mendes - 08/05/2024 9:50 AM EDT Note Date & Type Note Facility 09-24-2024 History of Presen t illness Narrative Reason for Appointment: Patient ID: Valencia Israel [...] Vitals: Estimated body mass index is 34.03 kg/m as calculated from the following: Height as of 08/04/22: 5' 4 . Weight as of this encounter: 198 lb 4 oz. BP: 118/84 Patient's last menstrual period was 01/13/2024. ASSESSMENT & PLAN ICD-10-CM 1. Third trimester ([facility]) Z34.93 POCT urinalysis dipstick manually resulted CULTURE, GROUP B STREP WITH SUSCEPTIBLITY CULTURE, GROUP B STREP WITH SUSCEPTIBLITY 2. 36 weeks gestation of ([facility]) Z3A.36 Patient is doing well but has [...] of: SPIKE Guerra documented in this encounter [facility] 09-18-2024 History of Presen t illness Narrative Reason for Appointment: Patient ID: Valencia Israel [...] nursing note reviewed. Exam conducted with a ship engines operating engineer present. Vitals: Estimated body mass index is 33.51 kg/m as calculated from the following: Height as of 08/04/22: 5' 4 . Weight as of this encounter: 195 lb 4 oz. BP: 116/80 Patient's last menstrual period was 01/13/2024. ASSESSMENT & PLAN ICD-10-CM 1. Third trimester ([facility]) Z34.93 POCT urinalysis dipstick manually resulted 2. 35 weeks gestation of ([facility]) Z3A.35 Patient presents today for a routine obstetrics appointment. Patient is currently 35w4d with a Estimated Date of Delivery: 10/19/24. Patient only has complaints of insomnia at this time. Patient aware she will have GBS obtained at next appointment and will return in 1 week for routine OB appointment. Documented by Emily Watkins LPN on behalf of: Jes Phillip DO documented in this encounter [facility] 09-10-2024 History of Presen t illness Narrative Reason for Appointment: Patient ID: Valencia Israel [...] nursing note reviewed. Exam conducted with a ship engines operating engineer present. Vitals: Estimated body mass index is 33.3 kg/m as calculated from the following: Height [...] Jes Phillip DO documented in this encounter [facility] 09-04-2024 History of Presen t illness Narrative Reason for Appointment: Patient ID: Valencia Israel [...] reviewed. Vitals: Estimated body mass index is 33.26 kg/m as calculated from the following: Height as of 08/04/22: 5' 4 . Weight as of this encounter: 193 lb 12 oz. BP: 122/80 Patient's last menstrual period was 01/13/2024. ASSESSMENT & PLAN ICD-10-CM 1. Third trimester Z34.93 POCT urinalysis dipstick manually resulted 2. 33 weeks gestation of Z3A.33 Return OB: Patient presents today for a routine obstetrics appointment. Patient is currently 33w4d . Patient states she is doing well but has complaints of being tired due to current . Patient has verbalizes frequent movement. labor precautions was discussed/given and patient was instructed to perform kick counts three times a day. Orders Placed This Encounter Procedures POCT urinalysis dipstick manually resulted Follow Up: Patient is to return to office in 2 week for routine OB appointment. Documented by SPIKE Guerra on behalf of: SPIKE Guerra documented in this encounter [facility] 08-19-2024 History of Presen t illness Narrative Reason for Appointment: Patient ID: Valencia Israel [...] nursing note reviewed. Exam conducted with a ship engines operating engineer present. Vitals: Estimated body mass index is 31.84 kg/m as calculated from the following: Height as of 08/04/22: 5' 4 . Weight as of this encounter: 185 lb 8 oz. BP: 102/64 Patient's last menstrual period was 01/13/2024. ASSESSMENT & PLAN ICD-10-CM 1. Third trimester Z34.93 2. 31 weeks gestation of Z3A.31 Return OB: Patient presents today for a routine obstetrics appointment. Patient is currently 31w2d . Patient states she is doing well but has complaints of being tired due to current . Pt has pain from scar tissue breaking down, discussed with pt in great detail. Patient has verbalizes frequent movement. labor precautions was discussed/given and patient was instructed to perform kick counts three times a day. No orders of the defined types were placed in this encounter. Follow Up: Patient is to return to office in 2 week for routine OB appointment. Documented by Maddi Martínez LPN on behalf of: Jes Phillip DO documented in this encounter [facility] 08-14-2024 History of Presen t illness Narrative Skin Check Location: Patient requests a skin examination from the waist up, A full body skin exam was offered, patient declined Dermatologic history: no history of skin cancer, no history of atypical moles Last visit: 1 year ago Established patient of [facility] All pertinent medical history, medications, and allergies were reviewed. General Exam: alert, oriented to person, place, and time, normal affect, well appearing Unaccompanied A complete skin exam was offered, pt declined. Areas not examined despite medical recommendation: From the waist down Scalp, Examined Head, Face Examined Neck Examined Chest Examined Back Examined Abdomen Examined Right arm Examined Left arm Examined Hands Examined Digits,nails: Examined Lymphatics: Skin Exam 1. MELANOCYTIC NEVUS OF TRUNK (2) Arms, Trunk Scattered benign appearing, regular brown to light brown melanocytic papules and macules with similar morphology Counseled regarding these benign growths. Rarely, a nevus can develop into malignant melanoma, so any changing nevi should be promptly re-evaluated. 2. OTHER SEBORRHEIC DERMATITIS Scalp Erythema and scale. Flaring today Discussed that seborrheic dermatitis is a chronic condition that can be controlled but not cured. Notify office if flaring despite treatment. Patient declined Fluocinonide at this time, may send if she changes her mind in the future. Next Visit: 1 year documented in this encounter [facility] 08-05-2024 History of Presen t illness Narrative Reason for Appointment: Patient ID: Valencia Israel [...] reviewed. Vitals: Estimated body mass index is 31.5 kg/m as calculated from the following: Height as of 08/04/22: 5' 4 . Weight as of this encounter: 183 lb 8 oz. BP: 104/62 Patient's last menstrual period was 01/13/2024. ASSESSMENT & PLAN ICD-10-CM 1. 29 weeks gestation of Z3A.29 POCT urinalysis dipstick manually resulted 2. Third trimester Z34.93 3. size inconsistent with dates O26.849 US OB follow up transabdominal approach Return OB: Patient presents today for a routine obstetrics appointment. Patient is currently 29w2d . Patient states she is doing well but has complaints of being tired due to current . Patient has verbalizes frequent movement. labor precautions was discussed/given and patient was instructed to perform kick counts three times a day. Orders Placed This Encounter Procedures US OB follow up transabdominal approach POCT urinalysis dipstick manually resulted Follow Up: Patient is to return to office in 2 week for routine OB appointment. Documented by SPIKE Guerra on behalf of: SPIKE Guerra documented in this encounter [facility] 07-21-2024 History of Presen t illness Narrative Reason for Appointment: Patient ID: Valencia Israel [...] reviewed. Vitals: Estimated body mass index is 30.81 kg/m as calculated from the following: Height as of 08/04/22: 5' 4 . Weight as of this encounter: 179 lb 8 oz. BP: 120/60 Patient's last menstrual period was 01/13/2024. ASSESSMENT & PLAN ICD-10-CM 1. Second trimester Z34.92 POCT urinalysis dipstick manually resulted 2. 27 weeks gestation of Z3A.27 Return OB: Patient presents today for a routine obstetrics appointment. Patient is currently 27w1d . Patient states she is doing well but has complaints of being tired due to current . Patient has verbalizes frequent movement. Orders Placed This Encounter Procedures POCT urinalysis dipstick manually resulted Follow Up: Patient is to return to office in 2 week for routine OB appointment. Documented by SPIKE Guerra on behalf of: Jes Phillip DO documented in this encounter [facility] 06-19-2024 History of Presen t illness Narrative Reason for Appointment: Patient ID: Valencia Israel [...] Jes Phillip DO documented in this encounter [facility] 05-21-2024 History of Presen t illness Narrative Reason for Appointment: Patient ID: Valencia Israel [...] obtained without difficulty and patient was given [facility] order to have obtained. Orders Placed This Encounter Procedures US OB 14+ weeks anatomy scan CHLAMYDIA TRACHOMATIS (GENITO/STI) Neisseria gonorrhea DNA probe, direct Alpha fetoprotein, maternal POCT urinalysis dipstick manually resulted Follow Up: Patient is to return to our office in 4 weeks for routine OB appointment Documented by SPIKE Guerra on behalf of: SPIKE Guerra documented in this encounter [facility] 04-22-2024 History of Presen t illness Narrative Reason for Appointment: Patient ID: Valencia Israel [...] nursing note reviewed. Exam conducted with a ship engines operating engineer present. Vitals: Estimated body mass index is [...] or undercooked meat, and stay away from [facility]. Patient has been consulted regarding any [...] Jes Phillip DO documented in this encounter [facility] 03-21-2024 History of Presen t illness Narrative [...] or undercooked meat, and stay away from [facility]. Patient has also been advised to [...] Yudi Riley LPN documented in this encounter [facility] Healthcare Evaluation note Diagnosis Second trimester state, incidental 14 weeks gestation of [facility] Diagnosis Second trimester state, incidental 18 weeks gestation of Screening, , for anatomic survey Encounter for anatomic survey STD exposure Vaginal discharge Leukorrhea, not specified as infective [facility] Diagnosis Hordeolum externum of right eye, unspecified eyelid- Primary 22 weeks gestation of Second trimester state, incidental Diabetes mellitus screening Screening for diabetes mellitus Mastitis Inflammatory disease of breast documented [facility]* Diagnosis Second trimester state, incidental 27 weeks gestation of [facility]* Diagnosis 29 weeks gestation of Third trimester state, incidental size inconsistent with dates documented [facility]* Diagnosis Melanocytic nevus of trunk- Primary Benign neoplasm of skin of trunk, except scrotum Other seborrheic dermatitis documented [facility]* Diagnosis Third trimester state, incidental 31 weeks gestation of [facility]* Diagnosis Third trimester state, incidental 33 weeks gestation of [facility] Diagnosis Third trimester state, incidental 34 weeks gestation of [facility]* Diagnosis Missed menses , unspecified gestational age Encounter for supervision of normal first in first trimester [facility] Diagnosis Third trimester ([facility]) state, incidental 35 weeks gestation of ([facility]) [facility] Diagnosis Third trimester ([facility]) state, incidental 36 weeks gestation of ([facility]) documented in this encounter [facility] Summary [...] section and content) DATE CREATED AUTHOR 03/11/2018 [facility] DATE CREATED AUTHOR AUTHOR'S ORGANIZ ATION 11/27/2021 [facility] DATE CREATED AUTHOR AUTHOR'S ORGANIZ ATION 08/08/2022 [facility] DATE CREATED AUTHOR AUTHOR'S ORGANIZ ATION 08/07/2024 [facility] DATE CREATED AUTHOR AUTHOR'S ORGANIZ ATION 09/25/2024 [facility] EPIC Reason for Visit (unrecogniz ed section and content) Reason Comments Routine Visit Reason Comments Skin Check Reason Comments Amenorrhea FOR RECORDS PERTAINING TO [...] BE BASED ON THE PRIMARY CLINICAL RECORDS. [facility], [facility]. provides no warranty or guarantee of the accuracy or completeness of information in this document.
[2024-09-26 05:57] LABS: Bilirubin Urine NEGATIVE (NEGATIVE); Blood Urine SMALL (NEGATIVE); Clarity Urine SL CLOUDY (CLEAR); Color Urine LT. YELLOW (YELLOW); Glucose Urine UA NEGATIVE (NEGATIVE); Ketones Urine NEGATIVE (NEGATIVE); Leukocyte Esterase Urine NEGATIVE (NEGATIVE); Nitrite Urine NEGATIVE (NEGATIVE); Protein Urine 100 mg/dL (NEG/TRACE); Urobilinogen Urine 0.2 EU/dL (0.2-1.0)
[2024-09-26 06:01] LABS: Amnisure POSITIVE (NEGATIVE); Internal Control Within Normal Limits
[2024-09-26 06:04] LABS: Urine Microscopic Indicated YES
[2024-09-26 06:06] LABS: Bacteria Urine LARGE #/HPF (NONE SEEN); Cast Seen? NONE SEEN #/LPF (NONE SEEN); Crystals Seen? None Seen #/HPF (None Seen); Squamous Epithelial Cell Urine MANY #/LPF (NONE/RARE); Urine Culture Indicated YES-LC
[2024-09-26 06:07] LABS: Mucus Urine SMALL (NONE SEEN)
[2024-09-26] MEDS: 0.9 % SODIUM CHLORIDE 1,000 ML 125 ML IV (06:53)
[2024-09-26] MEDS: CLINDAMYCIN PHOSPHATE/D5W 900 MG/50 ML PREMIX 100 MG IV ×2 (06:54→14:44)
[2024-09-26 07:11] LABS: Hematocrit 36.1 % (36.0-48.0); Hemoglobin 12.4 g/dL (12.0-16.0); Mean Corpuscular HGB Conc 34.3 g/dL (29.9-35.2); Mean Corpuscular Hemoglobin 31.4 pg (26.7-34.0); Mean Corpuscular Volume 91.4 fL (81.0-99.0); Platelet Count 201 10^3/uL (150-450); Red Blood Count 3.95 10^6/uL (4.20-5.40); Red Cell Distribution Width 13.3 % (11.0-15.0)
[2024-09-26] MEDS: CALCIUM CARBONATE 500 MG (200MG ELEMENTAL) TAB CHEW 1000 MG PO (09:55)
[2024-09-26] MEDS: ONDANSETRON PF 4 MG/2 ML VIAL IV (10:59)
[2024-09-26 11:03] LABS: Amphetamine Screen Urine NEGATIVE (NEGATIVE); Cannabinoid Screen Urine NEGATIVE (NEGATIVE); Cocaine Screen Urine NEGATIVE (NEGATIVE); Methamphetamines Screen Urine NEGATIVE (NEGATIVE); Opiate Screen Urine NEGATIVE (NEGATIVE); Phencyclidine Screen Urine NEGATIVE (NEGATIVE)
[2024-09-26 11:04] LABS: Barbiturates Screen Urine NEGATIVE (NEGATIVE); Benzodiazepines Screen Urine NEGATIVE (NEGATIVE); Buprenorphine Screen Urine NEGATIVE (NEGATIVE); Methadone Screen Urine NEGATIVE (NEGATIVE); Oxycodone Screen Urine NEGATIVE (NEGATIVE); Tricyclic Antidepressant Urine NEGATIVE (NEGATIVE)
[2024-09-26] MEDS: NALBUPHINE HCL 10 MG/ML AMPULE IV (14:07)
[2024-09-26] MEDS: LIDOCAINE HCL 1% 200 MG/20 ML MDV INJ (16:28)
[2024-09-26] MEDS: OXYTOCIN/0.9 % SODIUM CHLORIDE 20 UNITS/1,000 ML PLAST..BAG 999 UNIT IV (16:38)
--- NOTE | 2024-09-26 16:44 | P.OBHP_ITS ---
OB - H&P: HPI History of Present Illness Chief complaint: POSS LABOR : 1 Para: 0 Date of last menstrual period: 01/13/2024 Gestational age based on last menstrual period: Yes Narrative: Patient a 29-year-old female 1 para 0-0-0-0 the last menstrual period of 01/13/2024 estimated due date of 10/19/2024. Estimate gestational age of 36 weeks and 5 days. Patient presents complaint of spontaneous return membranes at home. She admits occasional contraction denies any vaginal bleeding. care is with Dr. Cardenas without any complications thus far. History of Present Dating criteria: LMP confirmed by 1st trimester US care: good care Ultrasounds: normal 1st trimester US and normal mid trimester US complications: other (None) Medical complications OB: none Labs Blood type: O (+) positive Rubella: immune RPR/VDLR: nonreactive GBS status: unknown HBsAG: negative Review of Systems ROS Status of ROS: 10 or more systems reviewed and unremarkable except as noted in history and below PFSH PFSH Social History Little interest or pleasure in doing things: not at all Feeling down, depressed, or hopeless: not at all Meds Home Medications and Allergies Allergies Allergy/AdvReac Type Severity Reaction Status Date / Time Penicillins Allergy Severe hives Verified 09/26/24 06:17 Exam Constitutional Vital Signs, click to edit/add: Last Vital Signs Temp 97.5 F L 09/26/24 14:10 Pulse 100 H 09/26/24 16:28 Resp 20 09/26/24 13:15 BP 142/73 H 09/26/24 16:28 O2 Del Method Room Air 09/26/24 13:15 Documenting provider has reviewed patient's vital signs: yes Common normals: no apparent distress, average body habitus, oriented x3, no limitations, healthy appearing, alert and well nourished General appearance: cooperative, comfortable, well kempt and well developed Orientation/consciousness: Yes awake, Yes oriented to person, Yes oriented to place and Yes oriented to time Chest Common normals: inspection of breasts normal Respiratory Common normals: normal respiratory effort and clear to auscultation bilaterally Cardio Common normals: regular rate and regular rhythm GI Inspection: normal to inspection Palpation: soft (Gravid uterus with a fundal height of 36 cm and irregular contractions.) Back & Pelvis Pelvis: other (Amniosur positive on bimanual pelvic exam cervix was 80% effaced 1 to 2 cm ) Extremity Common normals: normal to inspection, no calf tenderness and no pedal edema Results Labs Labs: Short CBC 09/26/24 Range/Units 06:45 WBC 15.0 H (4.0-11.0) 10^3/uL Hgb 12.4 (12.0-16.0) g/dL Hct 36.1 (36.0-48.0) % Plt Count 201 (150-450) 10^3/uL Urine 09/26/24 Range/Units 05:30 Urine Color Lt. yellow (YELLOW) Urine Clarity Sl cloudy (CLEAR) Urine pH 7.0 (5.0-9.0) Ur Specific [place] 1.010 (1.005-1.025) Urine Protein 100 A (NEG/TRACE) mg/dL Urine Glucose (UA) Negative (NEGATIVE) mg/dL OB - A/P Assessment and Plan (1) premature rupture of membranes with onset of labor within 24 hours of rupture: Onset Date: ~09/26/24 Plan [facility] at 36 weeks and 5 days with premature rupture membranes in early labor. Will admit patient to monitor through labor progress.
--- NOTE | 2024-09-26 16:56 | PM.OBPRCVD ---
Procedure Procedure: Normal spontaneous vaginal delivery events: Labor < 37 Weeks and Premature Rupture of Membrane Intrapartal events: None Delivery monitor: external FHT and external uterine Route of delivery: Episiotomy Description: none L&D Laceration Description: perineal - 2nd degree Delivery repair: Chromic (2-0 chromic) Anesthesia type: Local Disposition: other (Stable in the LDR) Complications: None Delivery date: 09/26/24 presentation: vertex Placental delivery description: Spontaneous and Normal Configuration cord description: 3 Vessels heart rate - 1 minute: 100 bpm or Greater respiratory effort - 1 minute: Spontaneous/Strong Cry muscle tone - 1 minute: Active Movement reflex response - 1 minute: Prompt Response color - 1 minute: Bluish Hands or Feet total score - 1 minute: 9 heart rate - 5 minute: 100 bpm or Greater respiratory effort - 5 minute: Spontaneous/Strong Cry muscle tone - 5 minute: Active Movement reflex response - 5 minute: Prompt Response color - 5 minute: Bluish Hands or Feet total score - 5 minute: 9
[2024-09-26] MEDS: GLYCERIN/WITCH HAZEL PADS 1 PAD TOPICAL (17:40)
[2024-09-26] MEDS: IBUPROFEN 600 MG TABLET PO ×2 (17:40→23:25)
[2024-09-26] MEDS: BENZOCAINE/MENTHOL 85 GRAM SPRAY BOTTLE 1 APPLIC TOPICAL (17:40)
[2024-09-26] MEDS: ACETAMINOPHEN 325 MG TABLET 650 MG PO (17:41)
[2024-09-27 07:43] LABS: Basophils Percent Auto 0.2 % (0.2-2.0); Eosinophils Absolute Auto 0.1 10^3/uL (0.0-0.7); Eosinophils Percent Auto 0.3 % (0.9-7.0); Hematocrit 29.2 % (36.0-48.0); Hemoglobin 10.1 g/dL (12.0-16.0); Immature Granulocytes Abs Auto 0.22 10^3/uL (0.00-0.03); Immature Granulocytes Pct Auto 1.2 % (0.0-0.5); Lymphocytes Absolute Auto 2.9 10^3/uL (1.2-3.8); Lymphocytes Percent Auto 15.6 % (20.5-60.0); Mean Corpuscular HGB Conc 34.6 g/dL (29.9-35.2); Mean Corpuscular Hemoglobin 32.1 pg (26.7-34.0); Mean Corpuscular Volume 92.7 fL (81.0-99.0); Mean Platelet Volume 11.5 fL (9.5-13.5); Monocytes Absolute Auto 1.2 10^3/uL (0.3-0.8); Monocytes Percent Auto 6.5 % (1.7-12.0); Neutrophils Percent Auto 76.2 % (43.0-75.0); Platelet Count 165 10^3/uL (150-450); Red Blood Count 3.15 10^6/uL (4.20-5.40); Red Cell Distribution Width 13.5 % (11.0-15.0); White Blood Count 18.3 10^3/uL (4.0-11.0)
[2024-09-27] MEDS: DOCUSATE SODIUM 100 MG CAPSULE PO ×2 (08:33→20:00)
[2024-09-27] MEDS: IBUPROFEN 600 MG TABLET PO ×3 (08:33→23:57)
--- NOTE | 2024-09-27 09:08 | PM.OBPN ---
OB - PN: Subj Subjective Patient comments: no complaints [place] status: doing well [place] feeding status: exclusively Exam Constitutional Vital Signs, click to edit/add: Last Vital Signs Temp 98.1 F 09/26/24 23:25 Pulse 88 09/26/24 23:21 Resp 18 09/26/24 23:25 BP 138/74 09/26/24 23:21 O2 Del Method Room Air 09/26/24 23:25 Documenting provider has reviewed patient's vital signs: yes Common normals: no apparent distress General appearance: cooperative Orientation/consciousness: Yes awake, Yes oriented to person, Yes oriented to place and Yes oriented to time HENMT Common normals: normocephalic Eye Common normals: EOMs intact bilaterally Neck & C-Spine Common normals: full ROM Lymph Lymphatic: no lymphadenopathy noted Chest Common normals: inspection of chest normal Respiratory Common normals: normal respiratory effort Effort & inspection: able to speak in complete sentences Auscultation: clear to auscultation bilaterally Cardio Common normals: regular rate and regular rhythm Rate: regular rate Rhythm: regular rhythm GI Common normals: Normal to inspection, nondistended, normoactive bowel sounds present Inspection: normal to inspection Common normals: no CVA tenderness Back & Pelvis Common normals: no CVA tenderness Thoracic spine/upper back: normal to inspection Extremity Common normals: normal to inspection Neuro Common normals: oriented x3 Sensorium/orientation: awake, alert, oriented to person and oriented to place Psych Common normals: mental status grossly normal, thought process normal, cooperative, affect normal, speech normal, activity/motor behavior normal, denies hallucinations, denies homicidal ideation and denies suicidal ideation Attitude: calm Results Labs Labs: Short CBC 09/27/24 Range/Units 07:31 WBC 18.3 H (4.0-11.0) 10^3/uL Hgb 10.1 L (12.0-16.0) g/dL Hct 29.2 L (36.0-48.0) % Plt Count 165 (150-450) 10^3/uL OB - PN: A/P Assessment and Plan (1) premature rupture of membranes with onset of labor within 24 hours of rupture: Onset Date: ~09/26/24 Plan - Vaginal Delivery day: 1 Plan: routine care Time Spent with Patient Time: Total time spent is greater than 50% in coordination of care (as documented) at patient's floor/unit and/or counseling patient: Total time spent with greater than 50% in coordination of care (as documented) at patient's floor/unit and/or counseling patient: less than 15 minutes
[2024-09-27 09:36] VITALS: BP 119/57; PULSE 82; TEMP 37.1
[2024-09-27 16:40] VITALS: BP 138/82; PULSE 81
[2024-09-27] MEDS: GLYCERIN/WITCH HAZEL PADS 1 PAD TOPICAL (19:57)
[2024-09-27 23:54] VITALS: BP 125/75; PULSE 76; TEMP 37
[2024-09-28] MEDS: IBUPROFEN 600 MG TABLET PO ×2 (08:28→16:51)
[2024-09-28] MEDS: DOCUSATE SODIUM 100 MG CAPSULE PO (08:28)
[2024-09-28 08:32] VITALS: BP 130/77; PULSE 91; TEMP 36.9
--- NOTE | 2024-09-28 11:02 | PM.OBDS ---
DS: Providers Provider Date of admission: 09/26/24 06:40 Primary care physician: WILFRIDO FLYNN Admitting clinician: Jordon Duran Attending physician on admission: Jordon Duran Consults: 09/26/24 Consult to Anesthesiology Routine Consulting Provider: Johnathon Sheriff Reason for consultation: epidural Has provider been notified: No Attending physician on discharge: Jordon Duran Discharging clinician: Jordon Duran Anticipated date of discharge: 09/28/24 DS: Diagnosis Discharge Diagnosis (1) premature rupture of membranes with onset of labor within 24 hours of rupture: Onset Date: ~09/26/24 Assessment and plan: Patient is #2 doing well. Patient for discharge home today Plan Patient is #2 doing well. Patient for discharge home today. OB - DS: Summary Hospital Course Hospital Course: Uneventful hospital course Time spent discussing smoking cessation with patient: 3 to 10 minutes Peripartum Data - Vaginal Delivery Laceration description: perineal - 2nd degree Complications complications: none Infant Delivery method: spontaneous vaginal delivery Gender: female Status at Discharge Cognitive/behavioral status at discharge: Normal Functional status at discharge: independent ambulation Time Spent with Patient Time attestation: Total time spent providing and/or coordinating discharge services: Time spent: less than 30 minutes Specific discharge activities: Routine care Exam Constitutional Vital Signs, click to edit/add: Last Vital Signs Temp 98.5 F 09/28/24 08:32 Pulse 91 H 09/28/24 08:32 Resp 16 09/28/24 10:50 BP 130/77 09/28/24 08:32 O2 Del Method Room Air 09/28/24 10:50 Documenting provider has reviewed patient's vital signs: yes Common normals: no apparent distress, average body habitus, oriented x3, no limitations, healthy appearing, alert and well nourished General appearance: cooperative, comfortable, well kempt and well developed Orientation/consciousness: Yes awake, Yes oriented to person, Yes oriented to place and Yes oriented to time Chest Common normals: inspection of breasts normal GI Common normals: Normal to inspection, nondistended, normoactive bowel sounds present, soft to palpation and non-tender Palpation: soft and firm (Fundus firm and 2 fingerbreadth below umbilicus.) Back & Pelvis Pelvis: other (Mild lochia rubra is present.) Extremity Common normals: normal to inspection, no calf tenderness and no pedal edema Discharge Plan Discharge Disposition: Home, Self-Care Condition: Good Assessment: Patient is #2 doing well. Patient for discharge to home today. Health Concerns: None Plan of Treatment: Routine care Discharge Medications: New Dermoplast (with menthol) 20-0.5 % Aerosol 1 spray topical Q2H PRN (Reason: Pain) 30 Days Qty: 1 0RF calcium carbonate 200 mg calcium (500 mg) Tablet,Chewable 1,000 mg PO TID PRN (Reason: Heartburn) 30 Days Qty: 60 0RF ibuprofen 600 mg Tablet 600 mg PO Q6H PRN (Reason: Moderate Pain) 30 Days Qty: 120 0RF simethicone [Gas Relief 80 (simethicone)] 80 mg Tablet,Chewable 80 mg PO QID PRN (Reason: Abdominal Distention) 30 Days Qty: 90 0RF [employer] [place] 12.5-50 % Pads, Medicated 1 pad topical Q2H PRN (Reason: Pain) 30 Days Qty: 90 0RF Activity: resume usual activities as tolerated Diet: regular diet Print Language: Icelandic Forms: Portal Instructions
== END 2024-09-28 17:30 | disposition home or self-care (01) | DRG 807 ==
PROVIDERS: Obstetrics & Gynecology; Admitting Provider Family Medicine Addiction Medicine; PCP Family Medicine; Visit Provider Family Medicine Addiction Medicine
DX: O42.013 Preterm premature rupture of membranes, onset of labor within 24 hours of rupture, third trimester (principal); Z37.0 Single live birth; Z3A.36 36 weeks gestation of pregnancy; O70.1 Second degree perineal laceration during delivery
CPT/HCPCS: 36415; 59050; 59410; 80307; 81001; 84112; 85025; 85027; 86850; 86900; 86901; 87086; J0736; J2300; J2405

== ENCOUNTER 2024-10-08 08:31 | Outpatient (OUT) | payer BC, SELFPAY ==
--- OUTSIDE RECORDS SUMMARY | 2024-09-24 08:50 | XMS_ITS | Encounter Summary ---
Author Organization [facility] Address [address] [facility] [place] [address] Care Team Providers Care Blade Boner Name Role Phone Unavailable Primary Care Provider Unavailabl e Reason for Visit * Reason Comments Routine Visit Encounter Details Date Type Department Care Team (Late st Contact Info) Description 09/24/2024 8:50 AM EDT Routine [facility] OB [address] [facility] [phone] Ami Hogan PA [address] [place] [address] Third trimester ([facility] 36 weeks gestation of ([facility]) Social History Tobacco Use Types Packs/Day Years [...] Sign Reading Time Taken Comments Blood Pressure 118/84 09/24/2024 9:09 AM EDT Pulse - - Temperature - - Respiratory Rate - - Oxygen Saturation - - Inhaled Oxygen Concentration - - Weight 89.9 kg (198 lb 4 oz) 09/24/2024 8:57 AM EDT Height - - Body Mass Index 34.03 08/04/2022 12:00 PM EDT documented in this encounter Progress Notes * SPIKE Guerra - 09/24/2024 8:50 AM EDT Reason for Appointment: Patient ID: Valencia Israel is a 29 y.o. female who presents for Routine Visit Patient presents today for Return OB appointment. MEDICATIONS Current Outpatient Medications Medication Instructions escitalopram (Lexapro) 5 MG tablet MV-Min-Fe Fum-FA-DHA ( 1 PO) Take by mouth ALLERGIES Allergies Allergen Reactions Penicillins Hives and [...] reviewed. Vitals: Estimated body mass index is 34.03 kg/m?? as calculated from the following: Height as of 08/04/22: 5' 4 . Weight as of this encounter: 198 lb 4 oz. BP: 118/84 Patient's last menstrual period was 01/13/2024. ASSESSMENT & PLAN ICD-10-CM 1. Third trimester ([facility]) Z34.93 POCT urinalysis dipstick manually resulted CULTURE, GROUP B STREP WITH SUSCEPTIBLITY CULTURE, GROUP B STREP WITH SUSCEPTIBLITY 2. 36 weeks gestation of ([facility]) Z3A.36 Patient is doing well but has complaints of being tired and having maternal discomfort due to . Patient verbalized frequent movement and was instructed to perform kick counts three times per day. labor precautions were given, LARC consent was signed/declined, and GBS was obtained. Cervical check was performed and patient is 0cm dilated. Orders Placed This Encounter Procedures CULTURE, GROUP B STREP WITH SUSCEPTIBLITY POCT urinalysis dipstick manually resulted Follow Up: Patient is to return to office in 1 week for routine OB appointment Documented by SPIKE Guerra on behalf of: SPIKE Guerra documented in this encounter Plan of Treatment Upcoming Encounters Date Type Department Care Team (Late st Contact Info) Description 11/10/2024 10:30 AM EDT Visit [facility] OB [address] [facility] [address] Ami Hogan PA [address] [place] [address] 08/13/2025 8:35 AM EDT Office Visit [facility] [address] [place] [address] Karolina Whyte APRN-MAGAZINE REPAIRER [address] [place] [address] Scheduled Orders Name Type Priority Associated Diagnoses Orde r Schedule CULTURE, GROUP B STREP WITH SUSCEPTIBLITY Lab Routine Third trimester ([facility]) Expected: 09/24/2024, Expires: 09/24/2025 documented as of this encounter Goals Goal Patient Goal Type Associated Problems Recent Progress Patient-Stated? Author Reminders Care Plan OB Reminders No Open Scheduling, Background documented as of this encounter Procedures Procedure Name Priority Date/Time Associated Diagnosis Comments POCT URINALYSIS DIPSTICK Routine 09/24/2024 9:04 AM EDT Third trimester ([facility]) documented in this encounter Results * (ABNORMAL) POCT urinalysis dipstick manually resulted (09/24/2024 9:04 AM EDT) Color, UA Yellow Clarity, UA Clear Glucose, UA Negative Negative - 2000(110) ++++ mg/dL Bilirubin, UA Negative Negative - 4(70) +++ mg/dL Ketones, UA Negative Negative - 160(16) ++++ mg/dL Spec Grav, UA 1.020 1 - 1.03 Blood, UA Negative Negative - 50 Julius/mcL pH, UA 6.5 5 - 9 Protein, UA Trace Negative - 2000(20) ++++ mg/dL Urobilinogen, UA 0.2 0.2 - 12 mg/dL Leukocytes, UA Positive Negative - 500+++ Dori/mcL Comment:small Nitrite, UA Negative Negative - Positive Urine 09/24/2024 9:04 AM EDT Ami LALA POINT OF CARE TEST ENTER/EDIT OR DERABLES Final Result documented in this encounter Visit Diagnoses Diagnosis Third trimester ([facility]) state, incidental 36 weeks gestation of ([facility]) documented in this encounter Additional Health Concerns Active Problems Noted Date Diagnosed Date OB Reminders 04/29/2024 documented as of this encounter
--- OUTSIDE RECORDS SUMMARY | 2024-10-08 08:34 | XMS_ITS | Clinical Summary ---
Author Organization [facility] Address [address] [place] [id number] Care Team Providers Care Log Getter Name Role Phone Eric Hudson DO Primary [...] Vaccine (2023-2 5 season) 2023 Influenza Vaccine (#1) 2024 Hepatitis B Vaccine Completed 1993, 1993, 1993 Insurance [place] [employer] P[employer] Care Teams Log Getter Relationship Specialty Start Date End Date Eric Hudson DO [address] [place] [id number] PCP - General 07/11/00
--- OUTSIDE RECORDS SUMMARY | 2024-10-08 08:34 | XMS_ITS | Encounter Summary ---
Author Organization [facility] Address [address] [place] [address] Care Team Providers Care Career Development Coordinator/Teacher Name Role Phone Unavailable Primary Care Provider Unavailabl e Encounter Details Date Type Department Care Team (Late st Contact Info) Description 09/30/2024 Abstract [facility] OB [address] [facility] [place] [address] Darin Phillip DO [address] [facility] [address] Elza Kang, [facility] - [...] AM EDT Visit [facility] B[facility] OB [address] [facility] [place] [address] Ami Hogan PA [address] [facility] [address] [place], [place] [id number] 08/13/2025 8:35 AM EDT Office Visit [facility] [address] [place] [address] Karolina Whyte, SUPERVISOR MAILS-RELIEF SALESPERSON [address] [place] [address] documented as of this encounter Goals Goal Patient Goal Type Associated Problems Recent Progress Patient-Stated? Author Reminders Care Plan OB Reminders No Open Scheduling, Background documented as of this encounter Visit Diagnoses Not on filedocumented in this encounter Additional Health Concerns Active Problems Noted Date Diagnosed Date OB Reminders 04/29/2024 documented as of this encounter
--- OUTSIDE RECORDS SUMMARY | 2024-10-08 08:34 | XMS_ITS | Encounter Summary ---
Author Organization [employer] Address [id number] [address] [place] [address] Care Team Providers Care Correctional Supply Supervisor Name Role Phone Eric Hudson DO Primary Care Provider + [phone] Reason for Visit * Reason Comments Med Refill Encounter Details Date Type Department Care Team (Late st Contact Info) Description 06/01/2022 Refill [facility] - Family Medicine [address] [place] [address] Eric Hudson DO [address] [place] [address] Social History Tobacco Use Types Packs/Day Years [...] documented as of this encounter Care Teams Correctional Supply Supervisor Relationship Specialty Start Date End Date Eric Hudson DO [address] [facility] [place] [address] PCP - General 10/24/23 documented as of this encounter
--- OUTSIDE RECORDS SUMMARY | 2024-10-08 08:34 | XMS_ITS | Encounter Summary ---
Author Organization [facility] [employer] [facility] Address [facility] [place][id number] [address] [place] [address] Care Team Providers Care Line Servicer Name Role Phone Eric Hudson DO Primary Care Provider [phone] Encounter Details Date Type Department Care Team (Late st Contact Info) Description 03/25/2024 Orders Only [facility] - Family Medicine [address] [place] [address] Eric Hudson DO [address], [facility] [place] [address] Social History Tobacco Use Types Packs/Day Years [...] documented as of this encounter Care Teams Line Servicer Relationship Specialty Start Date End Date Eric Hudson DO [address] [facility] [address] PCP - General 10/24/23 documented as of this encounter
--- OUTSIDE RECORDS SUMMARY | 2024-10-08 08:34 | XMS_ITS | Encounter Summary ---
Author Organization [facility] Address [address] [place] [address] Care Team Providers Care Online Trader Name Role Phone Unavailable Primary Care Provider Unavailabl e Encounter Details Date Type Department Care Team (Late st Contact Info) Description 04/16/2024 Abstract [facility] B[facility] OB [address] [facility] [place] [address] Darin Phillip DO [address] [facility] [address] Elza Kang, [facility] Social History Tobacco Use Types Packs/Day Years [...] AM EDT Visit [facility] BCP OB [address] [place] [address] Ami Hogan PA [address] [facility] [address] [place], [place] [id number] 08/13/2025 8:35 AM EDT Office Visit [facility] [address] [place] [address] Karolina Whyte, FILM AND VIDEO EDITOR-RENOVATOR MACHINE OPERATOR [address] [facility] [address] [place] [address] documented as of this encounter Visit Diagnoses Not on filedocumented in this encounter
--- OUTSIDE RECORDS SUMMARY | 2024-10-08 08:34 | XMS_ITS | Encounter Summary ---
Author Organization [facility] Address [address] [place] [address] Care Team Providers Care Supervisor Vine Fruit Farming Name Role Phone Unavailable Primary Care Provider Unavailabl e Encounter Details Date Type Department Care Team (Late st Contact Info) Description 07/04/2024 Abstract [facility] B[facility] OB [address] [place] [address] Darin Phillip DO [address] [facility] [address] Elza Kang, [facility]11 Social History Tobacco Use Types Packs/Day Years [...] AM EDT Visit [facility] BCP OB [address] [place] [address] Ami Hogan PA [address] [facility] [address] [place], [place] [id number] 08/13/2025 8:35 AM EDT Office Visit [facility] [address] [place] [address] Karolina Whyte, MIX MAKER-CORRECTIONAL OFFICER SERGEANT [address] [place] [address] documented as of this encounter Goals Goal Patient Goal Type Associated Problems Recent Progress Patient-Stated? Author Reminders Care Plan OB Reminders No Open Scheduling, Background documented as of this encounter Visit Diagnoses Not on filedocumented in this encounter Additional Health Concerns Active Problems Noted Date Diagnosed Date OB Reminders 04/29/2024 documented as of this encounter
--- OUTSIDE RECORDS SUMMARY | 2024-10-08 08:34 | XMS_ITS | Encounter Summary ---
Author Organization [facility] Address [address] [place] [address] Care Team Providers Care Public Speaking Instructor Name Role Phone Unavailable Primary Care Provider Unavailabl e Encounter Details Date Type Department Care Team (Latest Contact Info) Description 09/25/2024 Travel Social History Tobacco Use Types Packs/Day [...] AM EDT Visit [facility] OB [address] [place] [address] Ami Hogan PA [address] [facility] [place] [address] 08/13/2025 8:35 AM EDT Office Visit [facility] [address] [place] [phone] Karolina Whyte, MANAGER DOMESTIC-ROVING CARRIER [address] [place] [address] documented as of this encounter Goals Goal Patient Goal Type Associated Problems Recent Progress Patient-Stated? Author Reminders Care Plan OB Reminders No Open Scheduling, Background documented as of this encounter Visit Diagnoses Not on filedocumented in this encounter Additional Health Concerns Active Problems Noted Date Diagnosed Date OB Reminders 04/29/2024 documented as of this encounter
--- OUTSIDE RECORDS SUMMARY | 2024-10-08 08:34 | XMS_ITS | Encounter Summary ---
Author Organization [facility] Address [address] [place] [address] Care Team Providers Care Academic Physician Name Role Phone Unavailable Primary Care Provider Unavailabl e Encounter Details Date Type Department Care Team (Late st Contact Info) Description 09/24/2024 Bamboo flowsheet [facility] OB [address] [facility] [place] [address] Ami Hogan PA [address] [place] [address] [address] [place], [place] [address] Social History Tobacco Use Types Packs/Day Years [...] AM EDT Visit [facility] BCP OB [address] [facility] [place] [address] Ami Hogan PA [address] [place] [address] Dr [place], [facility]11 08/13/2025 8:35 AM EDT Office Visit [facility] [address] [place] [address] Karolina Whyte, DRAWER IN DOBBY LOOM-CHAINSTITCH HEMMER [address] [place] [address] documented as of this encounter Goals Goal Patient Goal Type Associated Problems Recent Progress Patient-Stated? Author Reminders Care Plan OB Reminders No Open Scheduling, Background documented as of this encounter Visit Diagnoses Not on filedocumented in this encounter Additional Health Concerns Active Problems Noted Date Diagnosed Date OB Reminders 04/29/2024 documented as of this encounter
--- OUTSIDE RECORDS SUMMARY | 2024-10-08 08:34 | XMS_ITS | Encounter Summary ---
Author Organization [employer] Address [id number] [address] [place] [address] Care Team Providers Care Parking Lot Spotter Name Role Phone BrigitteEric gale Primary Care Provider + [phone] Reason for Visit * Reason Comments Med Refill Encounter Details Date Type Department Care Team (Late st Contact Info) Description 01/06/2022 Refill [facility] Internal Medicine - Family Medicine [address] [place] [address] Sherrie Maya, REGULATORY AFFAIRS ASSISTANT-TOOLING ENGINEERING TECH [address] [facility] [place] [address] Social History Tobacco Use Types Packs/Day Years [...] documented as of this encounter Care Teams Parking Lot Spotter Relationship Specialty Start Date End Date Eric Hudson DO [address] [facility], [place] [address] PCP - General 10/24/23 documented as of this encounter
--- OUTSIDE RECORDS SUMMARY | 2024-10-08 08:34 | XMS_ITS | Encounter Summary ---
Author Organization [facility] Address [address] [place] [address] Care Team Providers Care Teletype Mechanic Name Role Phone Karolina Whyte APRN-LINER REROLL TENDER Unavailable Encounter Details Date Type Department Care Team (Late st Contact Info) Description 08/14/2023 Orders Only [facility] OB [address] [facility] [address] uYdi Riley LPN [address] [facility]11 Social History Tobacco Use Types Packs/Day [...] AM EDT Visit [facility] BCP OB [address] [facility] [address] Ami Hogan PA [address] [facility] [address] [place], [facility]11 08/13/2025 8:35 AM EDT Office Visit [facility] [address] [place] [address] Karolina Whyte APRN-CNP [address] [place] [address] documented as of this encounter Procedures Procedure [...] on filedocumented in this encounter Care Teams Teletype Mechanic Relationship Specialty Start Date End Date Karolina Whyte APRN-CNP [address] [place] [address] PCP - Radha Commercial 10/01/23 documented as of this encounter
--- OUTSIDE RECORDS SUMMARY | 2024-10-08 08:34 | XMS_ITS | Encounter Summary ---
Author Organization [facility] Address [address] [facility] [place] [address] Care Team Providers Care Bingo Worker Name Role Phone Unavailable Primary Care Provider Unavailabl e Encounter Details Date Type Department Care Team (Late st Contact Info) Description 09/26/2024 Clinisync Result Encounter NOM[facility] External Department Unsolicited Darin Phillip DO [address] [place] [address], [facility]11 Social History Tobacco Use Types Packs/Day Years [...] AM EDT Visit [facility] BCP OB [address] [facility] [address] Ami Hogan PA [address] [place], [facility]11 08/13/2025 8:35 AM EDT Office Visit [facility] [address] [place] [address] Karolina Whyte, SENIOR DATA SCIENTIST-INVESTIGATION OFFICER [address] [place] [id number] documented as of this encounter Goals Goal Patient Goal Type Associated Problems Recent Progress Patient-Stated? Author Reminders Care Plan OB Reminders No Open Scheduling, Background documented as of this encounter Procedures Procedure Name Priority Date/Time Associated Diagnosis Comments AMNISURE Routine 09/26/2024 5:40 AM EDT [facility] URINE MICROSCOPIC ONLY Routine 09/26/2024 5:30 AM EDT TBH UA (CLEAN/CATCH) LEADERSHIP INTERN/MICRO IF IND. Routine 09/26/2024 5:30 AM EDT documented in this encounter Results * (ABNORMAL) AMNISURE (09/26/2024 5:40 AM EDT) TB AMNISURE POSITIVE(A ) NEGATIVE TBH 09/26/2024 5:40 AM EDT 09/26/2024 5:49 AM EDT Narrative [facility] - 09/26/2024 6:01 AM EDT us Darin Kenji DO LAB BLOOD ORDERABLES Final Resul t [facility] TB * (ABNORMAL) TBH URINE MICROSCOPIC ONLY (09/26/2024 5:30 AM EDT) TB WBC 5-10(A) NONE SEEN #/HPF TBH TBH RBC 5-10(A) 0 - 2 #/HPF TBH BACTERIA URINE LARGE(A) NONE SEEN #/HPF TBH MUCUS URINE SMALL(A) NONE SEEN TBH SQUAMOUS EPITHELIAL CELL URINE MANY(A) NONE/RARE #/LPF TBH CRYSTALS SEEN? None Seen None Seen #/HPF TBH CAST SEEN? NONE SEEN NONE SEEN #/LPF TBH URINE CULTURE INDICATED YES-LC TBH 09/26/2024 5:30 AM EDT 09/26/2024 5:45 AM EDT Narrative [facility] - 09/26/2024 6:07 AM EDT us Darin Kenji DO [facility] Final Result [facility] TBH * (ABNORMAL) TBH UA (CLEAN/CATCH) LEADERSHIP INTERN/MICRO IF IND. (09/26/2024 5:30 AM EDT) COLOR URINE LT. YELLOW YELLOW TBH CLARITY URINE SL CLOUDY CLEAR TBH SPECIFIC GRAVITY URINE 1.010 1.005 - 1.025 TBH PH URINE 7.0 5.0 - 9.0 TBH PROTEIN URINE 100(A) NEG/TRACE mg/dL TBH GLUCOSE URINE UA NEGATIVE NEGATIVE mg/dL TBH BILIRUBIN URINE NEGATIVE NEGATIVE TBH KETONES URINE NEGATIVE NEGATIVE mg/dL TBH BLOOD URINE SMALL(A) NEGATIVE TBH NITRITE URINE NEGATIVE NEGATIVE TBH UROBILINOGEN URINE 0.2 0.2 - 1.0 EU/dL TBH LEUKOCYTE ESTERASE URINE NEGATIVE NEGATIVE TBH URINE MICROSCOPIC INDICATED YES TBH 09/26/2024 5:30 AM EDT 09/26/2024 5:45 AM EDT Narrative [facility] - 09/26/2024 6:07 AM EDT us Darin Phillip DO [facility] Final Result Performing Organization Address [facility] [address]/ZIP Co de Phone Number [facility] TBH documented in this encounter Visit Diagnoses Not on filedocumented in this encounter Additional Health Concerns Active Problems Noted Date Diagnosed Date OB Reminders 04/29/2024 documented as of this encounter
--- OUTSIDE RECORDS SUMMARY | 2024-10-08 08:34 | XMS_ITS | Encounter Summary ---
Author Organization [facility] Address [address] [facility] [place] [address] Care Team Providers Care Electrician Journeyman Wireman Name Role Phone Unavailable Primary Care Provider Unavailabl e Encounter Details Date Type Department Care Team (Late st Contact Info) Description 03/21/2024 Clinisync Result Encounter NOM[facility] External Department Unsolicited Jes Phillip DO [address], [facility]11 Social History Tobacco Use Types Packs/Day Years [...] AM EDT Visit [facility] BCP OB [address] [facility] [place] [address] Ami Hogan PA [address] [place], [facility]11 08/13/2025 8:35 AM EDT Office Visit [facility] [address] [place] [address] Karolina Whyte Fiona, WINDOWS 7 DEPLOYMENT LEAD-ENGINEERING DIRECTOR [address] [place] [address] documented as of this encounter Procedures Procedure Name Priority Date/Time Associated Diagnosis Comments US OB TRANSVAGINAL 03/21/2024 9: 51 AM EST documented in this encounter Results * US OB TRANSVAGINAL (03/21/2024 9:51 AM EST) Anatomical Region Laterality Modality Other 03/21/2024 9:51 AM EST Narrative 03/21/2024 2:41 [place] [address] Ultrasound Report Signed Patient: LUKE RODRIGUEZ MR#: [id number] : 1995 Acct:[id number] Age/Sex: 29 / F ADM Date: 03/21/24 Loc: [facility] Attending Dr: Jes Phillip D.O. Ordering Physician: Jes Phillip D.O. Date of Service: 03/21/24 Procedure(s): US OB transvaginal Accession Number(s): [id number] cc: WILFRIDO FLYNN Corey D.O. [address] [address] Patient Name: LUKE RODRIGUEZ MRN: [id number] date: 1995 Sex: F Assigned Patient Location: [facility] Current Patient Location: [facility] Accession/Order Number: [id number] Exam Date: 03/21/2024 08:56 Report Date: 03/21/2024 [...] Signed By: 03/21/24 1441 DD/ 0951 TD/TT: Dean Of Men: Procedure Note Radiology, Radiologist, MD - 03/21/2024 [place] [address] Ultrasound Report Signed Patient: LUKE RODRIGUEZ EMR#: [id number] : 1995Acct:[id number] Age/Sex: 29 / FADM Date: 03/21/24 Loc: [facility] Attending Dr: Jes Phillip D.O. Ordering Physician: Jes Phillip D.O. Date of Service: 03/21/24 Procedure(s): US OB transvaginal Accession Number(s): [id number] cc: WILFRIDO FLYNN Corey D.O. The [place] [id number] Patient Name: LUKE RODRIGUEZ MRN: [id number] date: 1995 Sex: F Assigned Patient Location: [facility] Current Patient Location: [facility] Accession/Order Number: [id number] Exam Date: 03/21/2024 08:56 Report Date: 03/21/2024 [...] M.D. Signed By:03/21/24 1441 DD/ 0951 TD/TT: Dean Of Men: us Jes Díazo DO [facility] IMAGING Final Result documented in this encounter Visit Diagnoses Not on filedocumented in this encounter
--- OUTSIDE RECORDS SUMMARY | 2024-10-08 08:34 | XMS_ITS | Encounter Summary ---
Author Organization [facility] Address [address] [place] [address] Care Team Providers Care Garment Examiner Name Role Phone Unavailable Primary Care Provider Unavailabl e Encounter Details Date Type Department Care Team (Late st Contact Info) Description 08/19/2024 Abstract [facility] BCP OB [address] [facility] [place] [address] Emily Watkins LPN Social History Tobacco [...] AM EDT Visit [facility] BCP OB [address] [facility] [address] Ami Hogan PA [address] [facility] [address] [place], [place] [id number] 08/13/2025 8:35 AM EDT Office Visit [facility] [address] [place] [address] Felter, Karolina A, CRAP SHOOTER-DATA SOFTWARE ENGINEER [address] [place] [address] documented as of this encounter Goals Goal Patient Goal Type Associated Problems Recent Progress Patient-Stated? Author Reminders Care Plan OB Reminders No Open Scheduling, Background documented as of this encounter Visit Diagnoses Not on filedocumented in this encounter Additional Health Concerns Active Problems Noted Date Diagnosed Date OB Reminders 04/29/2024 documented as of this encounter
--- OUTSIDE RECORDS SUMMARY | 2024-10-08 08:34 | XMS_ITS | Encounter Summary ---
Author Organization [facility] Address [address] [place] [address] Care Team Providers Care Recordist Chief Name Role Phone Unavailable Primary Care Provider Unavailabl e Encounter Details Date Type Department Care Team (Late st Contact Info) Description 04/23/2024 Abstract [facility] B[facility] OB [address] [place] [address] Darin Phillip DO [address] [facility] [address] Elza Kang, [facility]11 Social History Tobacco Use Types Packs/Day [...] AM EDT Visit [facility] BCP OB [address] [place] [address] Ami Hogan PA [address] [facility] [address] [place], [place] [address] 08/13/2025 8:35 AM EDT Office Visit [facility] [address] [place] [address] Karolina Whyte, BUS MATRON[employer] [address] [facility] [address] [place] [address] documented as of this encounter Visit Diagnoses Not on filedocumented in this encounter
--- OUTSIDE RECORDS SUMMARY | 2024-10-08 08:34 | XMS_ITS | Clinical Summary ---
Author Organization [facility] tem Address [id number] [address] [place] [address] Care Team Providers Care Casualty Insurance Claim Adjuster Name Role Phone BrigitteEric gale Primary Care Provider [phone] Allergies Active Allergy Reactions Criticality Noted Date [...] organization. Date Type Department Care Team Description 10/06/2024 Travel 08/04/2024 Travel from Last 3 Months Immunizations [...] Not on file Insurance ANTHEM Care Teams Casualty Insurance Claim Adjuster Relationship Specialty Start Date End Date Eric Hudson DO [address], [facility] [place] [place] [address] PCP - General 10/24/23
--- OUTSIDE RECORDS SUMMARY | 2024-10-08 08:34 | XMS_ITS | Encounter Summary ---
Author Organization [employer] tem Address [id number] [address] [place] [address] Care Team Providers Care Voice Studies Director Name Role Phone Eric Hudson DO Primary Care Provider [phone] Encounter Details Date Type Department Care Team (Latest Contact Info) Description 10/06/2024 Travel Social History Tobacco Use Types Packs/Day [...] documented as of this encounter Care Teams Voice Studies Director Relationship Specialty Start Date End Date Eric [place] DO [address] [place], [facility] [place] [address] PCP - General 10/24/23 documented as of this encounter
--- OUTSIDE RECORDS SUMMARY | 2024-10-08 08:34 | XMS_ITS | Clinical Summary ---
Author Organization [facility] Address [address] [place] [address] Care Team Providers Care Sifter And Miller Name Role Phone Unavailable Primary Care Provider [...] Encounters Date Type Department Care Team Description 09/30/2024 Abstract [facility] [address] [facility] [place] [address] Darin Phillip DO 09/26/2024 Clinisync Result Encounter NOMS External Department Unsolicited Darin Phillip DO 09/25/2024 Travel 09/24/2024 8:50 AM EDT Routine [facility] OB [address] [place] [address] Ami Hogan PA Third trimester ([facility]); 36 weeks gestation of ([facility]) 09/24/2024 Bamboo flowsheet [facility] OB [address] [place] [address] Ami Hogan PA 09/19/2024 Travel 09/18/2024 8:30 AM EDT Routine [facility] [address] [facility] [place] [address] Darin Phillip, Third trimester ([facility]); 35 weeks gestation of ([facility]) 09/18/2024 Bamboo flowsheet [facility] [address] [facility] [place] [address] Darin Phillip DO 09/11/2024 Travel 09/10/2024 11:30 AM EDT Routine [facility] [address] [facility] [place] [address] Darin Phillip, Third trimester ([facility]); 34 weeks gestation of ([facility]) 09/10/2024 Bamboo flowsheet [facility] [address] [facility] [place] [address] Darin Phillip DO 09/09/2024 Travel 09/08/2024 Telephone [facility] OB [address] [facility] [place] [address] Birdie Stanley MA 09/04/2024 8:50 AM EDT Routine [facility] OB [address] [facility] [place] [address] Ami Hogan PA Third trimester ([facility]); 33 weeks gestation of ([facility]) 09/04/2024 Bamboo flowsheet [facility] OB [address] [facility] [place] [address] Ami Hogan PA 09/03/2024 Travel 08/19/2024 10:30 AM EDT Routine [facility] OB [address] [facility] [place] [address] Darin Phillip DO Third trimester ([facility]); 31 weeks gestation of ([facility]) 08/19/2024 10:00 AM EDT Ancillary Procedure [facility] OB [address] [facility] [place] [address] size inconsistent with dates ([facility]) 08/19/2024 Abstract [address] [address] [place] [address] Emily Watkins LPN 08/14/2024 11:05 AM EDT Office Visit [facility] [address] [place] [address] Karolina Whyte, HOSPICE SUPERINTENDENT-CRIME INVESTIGATOR SPECIAL AGENT Melanocytic nevus of trunk (Primary Dx); Other seborrheic dermatitis 08/14/2024 Bamboo flowsheet [facility] [address] [place] [address] Karolina Whyte, HOSPICE SUPERINTENDENT-CRIME INVESTIGATOR SPECIAL AGENT 08/14/2024 Travel 08/12/2024 Travel 08/05/2024 9:50 AM EDT Routine NOM[facility] [address] [place] [address] Ami Hogan PA 29 weeks gestation of ([facility]); Third trimester ([facility]); size inconsistent with dates ([facility]) 08/05/2024 Bamboo flowsheet NOM[facility] [address] [place] [address] Ami Hogan PA 08/04/2024 Travel 07/21/2024 9:50 AM EDT Routine NOM[facility] [address] [place] [address] Darin Phillip DO Nipple pain (Primary Dx); Second trimester ([facility]); 27 weeks gestation of ([facility]) 07/21/2024 Bamboo flowsheet NOM[facility] [address] [place] [address] Darin Phillip DO 07/14/2024 Travel from Last 3 Months Family History Relation [...] Visit [facility] OB [address] [facility] [place] [address] Ami Hogan PA [address] [place] [address] 08/13/2025 8:35 AM EDT Office Visit [facility] [address] [place] [address] Karolina Whyte APRN-CRIME INVESTIGATOR SPECIAL AGENT [address] [place] [address] Health Maintenance Due Date Last Done Comments HPV/Cotest 2023 Influenza Vaccine (#1) 2024 04/21/2024, 2017 Cervical Cancer Screening 08/05/2026 Pap Smear 08/05/2026 08/06/2023, 07/31/2022 Goals Goal Patient Goal Type Associated Problems Recent Progress Patient-Stated? Author Reminders Care Plan OB Reminders No Open Scheduling, Background Procedures Procedure Name Priority Date/Time Associated Diagnosis Comments AMNISURE Routine 09/26/2024 5:40 AM EDT TBH URINE MICROSCOPIC ONLY Routine 09/26/2024 5:30 AM EDT TBH UA (CLEAN/CATCH) PRINTING GREY CLOTH TENDER/MICRO IF IND. Routine 09/26/2024 5:30 AM EDT POCT URINALYSIS DIPSTICK Routine 09/24/2024 9:04 AM EDT Third trimester ([facility]) POCT URINALYSIS DIPSTICK Routine 09/18/2024 8:44 AM EDT Third trimester ([facility]) POCT URINALYSIS DIPSTICK Routine 09/10/2024 11:40 AM EDT Third trimester ([facility]) POCT URINALYSIS DIPSTICK Routine 09/04/2024 9:07 AM EDT Third trimester ([facility]) US OB FOLLOW UP TRANSABDOMINAL APPROACH Routine 08/19/2024 10:30 AM EDT size inconsistent with dates ([facility]) POCT URINALYSIS DIPSTICK Routine 08/05/2024 10:38 AM EDT 29 weeks gestation of ([facility]) POCT URINALYSIS DIPSTICK Routine 07/21/2024 10:01 AM EDT Second trimester ([facility]) PAP SMEAR Routine 08/06/2023 12:00 AM EDT from Last 3 Months or Most Recently Relevant to Health Maintenance Results * (ABNORMAL) AMNISURE (09/26/2024 5:40 AM EDT) [facility] AMNISURE POSITIVE(A ) NEGATIVE [facility] 09/26/2024 5:40 AM EDT 09/26/2024 5:49 AM EDT Narrative CLINISYNC - 09/26/2024 6:01 AM EDT iFLYER DO LAB BLOOD ORDERABLES Final Resul t [facility]IN[facility] TBH * (ABNORMAL) TBH URINE MICROSCOPIC ONLY (09/26/2024 [...] Narrative CLINISYNC - 09/26/2024 6:07 AM EDT Mowblyzio DO CLINISYNC Final Result Performing Organization Address City/[facility]/ZIP Co de Phone Number CLINGWENNC TB * (ABNORMAL) TBH UA (CLEAN/CATCH) PRINTING GREY CLOTH TENDER/MICRO IF IND. (09/26/2024 5:30 AM EDT) COLOR [...] 6:07 AM EDT us Darin Kenji DO SEKOU Final Result SEKOU TBH * (ABNORMAL) POCT urinalysis dipstick manually resulted [...] II, MD, PHD at 19-Aug-2024 10:59:29 PM [facility] Procedure Note Osvaldo Neri MD - [...] signed by OSVALDO NERI II, MD, PHD [id number] 10:59:29 PM [facility] us Ami LALA IMG OB US PROCEDURES Final Resul t * Pap Smear (08/06/2023 12:00 AM EDT) Swab Cervical swab / Unknown us Kenji Nurse [facility] Ob LAB CYTOLOGY ORDERABLES Final Result EXTERNAL LAB from Last 3 Months or Most Recently Relevant to Health Maintenance Additional Health Concerns Active Problems Noted Date Diagnosed Date OB Reminders 04/29/2024 Insurance [facility]
--- OUTSIDE RECORDS SUMMARY | 2024-10-08 08:34 | XMS_ITS | Encounter Summary ---
Author Organization [facility] Address [address] [place] [address] Care Team Providers Care Cable Layer Name Role Phone Unavailable Primary Care Provider Unavailabl e Encounter Details Date Type Department Care Team (Late st Contact Info) Description 06/19/2024 Abstract [facility] [address] [facility] [place] [address] Darin Phillip DO [address] [facility] [address] [place] Kang, [facility]11 Social History Tobacco Use Types Packs/Day [...] AM EDT Visit [facility] OB [address] [place] [address] Ami Hogan PA [address] [facility] [address] [place], [place] [id number] 08/13/2025 8:35 AM EDT Office Visit [facility] [address] [place] [address] Karolina Whyte, SKIVER MACHINE-COTTAGE PARENT [address] [place] [address] documented as of this encounter Goals Goal Patient Goal Type Associated Problems Recent Progress Patient-Stated? Author Reminders Care Plan OB Reminders No Open Scheduling, Background documented as of this encounter Visit Diagnoses Not on filedocumented in this encounter Additional Health Concerns Active Problems Noted Date Diagnosed Date OB Reminders 04/29/2024 documented as of this encounter
== END 2024-10-08 11:51 | disposition home or self-care (01) ==
LOC: FBCO 08:33
PROVIDERS: PCP Family Medicine; Visit Provider Obstetrics & Gynecology
DX: Z39.1 Encounter for care and examination of lactating mother (principal)
CPT/HCPCS: G0463

== ENCOUNTER 2024-10-15 08:49 | Outpatient (OUT) | payer BC, SELFPAY ==
--- OUTSIDE RECORDS SUMMARY | 2024-10-15 08:54 | XMS_ITS | Clinical Summary ---
Author Organization [facility] Address [address] [place] [address] Care Team Providers Care Typewriter Repairer Name Role Phone Unavailable Primary Care Provider [...] Department Care Team Description 09/30/2024 Abstract [facility] [address] [facility] [place] [address] Darin Phillip DO 09/26/2024 Clinisync Result Encounter [facility]S External Department Unsolicited Darin Phillip DO 09/25/2024 Travel 09/24/2024 8:50 AM EDT Routine [facility] OB [address] [place] [address] Ami Hogan PA Third trimester ([facility]); 36 weeks gestation of ([facility]) 09/24/2024 Bamboo flowsheet [facility] OB [address] [place] [address] Ami Hogan PA 09/19/2024 Travel 09/18/2024 8:30 AM EDT Routine [facility] OB [address] [facility] [place] [address] Darin Phillip, Third trimester ([facility]); 35 weeks gestation of ([facility]) 09/18/2024 Bamboo flowsheet [facility] OB [address] [facility] [place] [address] Darin Phillip DO 09/11/2024 Travel 09/10/2024 11:30 AM EDT Routine [facility] OB [address] [facility] [place] [address] Darin Phillip, Third trimester ([facility]); 34 weeks gestation of ([facility]) 09/10/2024 Bamboo flowsheet [facility] [address] [facility] [place] [address] Darin Phillip DO 09/09/2024 Travel 09/08/2024 Telephone [facility] OB [address] [facility] [place] [address] Birdie Stanley MA 09/04/2024 8:50 AM EDT Routine [facility] OB [address] [facility] [place] [address] Ami Hogan PA Third trimester ([facility]); 33 weeks gestation of ([facility]) 09/04/2024 Bamboo flowsheet [facility] OB [address] [facility] [place] [address] Ami Hogan PA 09/03/2024 Travel 08/19/2024 10:30 AM EDT Routine [facility] OB [address] [facility] [place] [address] Darin Phillip DO Third trimester ([facility]); 31 weeks gestation of ([facility]) 08/19/2024 10:00 AM EDT Ancillary Procedure [facility] [address] [facility] [place] [address] size inconsistent with dates ([facility]) 08/19/2024 Abstract [facility] [address] [place] [address] Emily Watkins LPN 08/14/2024 11:05 AM EDT Office Visit [facility] [address] [place] [address] Karolina Whyte, MAINSPRING STRIP INSPECTOR-VENDING ROUTE DRIVER Melanocytic nevus of trunk (Primary Dx); Other seborrheic dermatitis 08/14/2024 Bamboo flowsheet [facility] [address] [place] [address] Karolina Whyte, MAINSPRING STRIP INSPECTOR-VENDING ROUTE DRIVER 08/14/2024 Travel 08/12/2024 Travel 08/05/2024 9:50 AM EDT Routine [facility]OM[facility] [address] [place] [address] Ami Hogan PA 29 weeks gestation of ([facility]); Third trimester ([facility]); size inconsistent with dates ([facility]) 08/05/2024 Bamboo flowsheet NOM[facility] [address] [place] [address] Ami Hogan PA 08/04/2024 Travel 07/21/2024 9:50 AM EDT Routine [facility]OM[facility] [address] [place] [address] Darin Phillip DO Nipple pain (Primary Dx); Second trimester ([facility]); 27 weeks gestation of ([facility]) 07/21/2024 Bamboo flowsheet NOM[facility] [address] [place] [address] Darin Phillip DO from Last 3 Months [...] AM EDT Visit [facility] OB [address] [facility] [place] [address] Ami Hogan PA [address] [facility] [place] [address] 08/13/2025 8:35 AM EDT Office Visit [facility] [address] [place] [address] Karolina Whyte APRN-VENDING ROUTE DRIVER [address] [place] [address] Health Maintenance Due Date Last [...] 09/26/2024 5:30 AM EDT TBH UA (CLEAN/CATCH) ASSISTANT PRODUCER/MICRO IF IND. Routine 09/26/2024 5:30 AM EDT POCT URINALYSIS DIPSTICK Routine 09/24/2024 9:04 AM EDT Third trimester ([facility]) POCT URINALYSIS DIPSTICK Routine 09/18/2024 8:44 AM EDT Third trimester ([facility]) POCT URINALYSIS DIPSTICK Routine 09/10/2024 11:40 AM EDT Third trimester ([facility]) POCT URINALYSIS DIPSTICK Routine 09/04/2024 9:07 AM EDT Third trimester ([facility]) US OB FOLLOW UP TRANSABDOMINAL APPROACH Routine 08/19/2024 10:30 AM EDT size inconsistent with dates ([facility]) POCT URINALYSIS DIPSTICK Routine 08/05/2024 10:38 AM EDT 29 weeks gestation of ([facility]) POCT URINALYSIS DIPSTICK Routine 07/21/2024 10:01 AM EDT Second trimester ([facility]) PAP SMEAR Routine 08/06/2023 12:00 AM EDT from Last 3 Months or Most Recently Relevant to Health Maintenance Results * (ABNORMAL) AMNISURE (09/26/2024 5:40 AM EDT) [facility] AMNISURE POSITIVE(A ) NEGATIVE [facility] 09/26/2024 5:40 AM EDT 09/26/2024 5:49 AM EDT Narrative CLINISYNC - 09/26/2024 6:01 AM EDT Darin Kenji DO LAB BLOOD ORDERABLES Final Resul t [facility] TBH * (ABNORMAL) TBH URINE MICROSCOPIC ONLY (09/26/2024 5:30 AM EDT) TBH WBC 5-10(A) NONE SEEN #/HPF TBH TBH [...] Narrative CLINISYNC - 09/26/2024 6:07 AM EDT Darin Kenji DO CLINISYNC Final Result Performing Organization Address [facility] Co de Phone Number CLINISYNC TBH * (ABNORMAL) TBH UA (CLEAN/CATCH) ASSISTANT PRODUCER/MICRO IF IND. (09/26/2024 5:30 AM EDT) COLOR [...] Narrative CLINISYNC - 09/26/2024 6:07 AM EDT [employer] Kenji DO CLINISYNC Final Result CLINISYNC TBH * (ABNORMAL) POCT urinalysis dipstick manually [...] II, MD, PHD at 19-Aug-2024 10:59:29 PM [facility] Procedure Note Osvaldo Neri MD - [...] signed by OSVALDO NERI II, MD, PHD [id number] 10:59:29 PM [facility] us Ami LALA IMG OB US PROCEDURES Final Resul t * Pap Smear (08/06/2023 12:00 AM EDT) Swab Cervical swab / Unknown us Kenji Nurse [facility] Ob LAB CYTOLOGY ORDERABLES Final Result EXTERNAL LAB from Last 3 Months or Most Recently Relevant to Health Maintenance Additional Health Concerns Active Problems Noted Date Diagnosed Date OB Reminders 04/29/2024 Insurance [facility]
--- OUTSIDE RECORDS SUMMARY | 2024-10-15 08:54 | XMS_ITS | Encounter Summary ---
Author Organization [facility] Address [address] [place] [address] Care Team Providers Care Toe Pounder Name Role Phone Unavailable Primary Care Provider Unavailabl e Encounter Details Date Type Department Care Team (Late st Contact Info) Description 08/19/2024 Abstract [facility] [address] [facility] [place] [address] Emily Watkins LPN Social History Tobacco [...] [address] [facility] [place] [address] Ami Hogan PA [address] [facility] [address] [place], [place] [id number] 08/13/2025 8:35 AM EDT Office Visit [facility] [address] [place] [phone] Felter, Karolina A, EMPLOYMENT REPRESENTATIVE-SOLID W[employer] FACILITY SUPERVISOR [address] [place] [address] documented as of this encounter Goals Goal Patient Goal Type Associated Problems Recent Progress Patient-Stated? Author Reminders Care Plan OB Reminders No Open Scheduling, Background documented as of this encounter Visit Diagnoses Not on filedocumented in this encounter Additional Health Concerns Active Problems Noted Date Diagnosed Date OB Reminders 04/29/2024 documented as of this encounter
--- OUTSIDE RECORDS SUMMARY | 2024-10-15 08:54 | XMS_ITS | Encounter Summary ---
Author Organization [employer] Address [id number] [address] [place] [address] Care Team Providers Care Director Translational Name Role Phone Eric Hudson Primary Care Provider [phone] Encounter Details Date Type Department Care Team [...] degree (e.g., BA, AB, BS) 03/20/2022 Comments Yes Sex and Gender Information Value Date Recorded [...] documented as of this encounter Care Teams Director Translational Relationship Specialty Start Date End Date Eric Hudson DO [address], [place] [address] PCP - General 10/24/23 documented as of this encounter
--- OUTSIDE RECORDS SUMMARY | 2024-10-15 08:54 | XMS_ITS | Encounter Summary ---
Author Organization [employer] Address [id number] [address] [place] [address] Care Team Providers Care Dietist Name Role Phone BrigitteEric gale Primary Care Provider + [phone] Reason for Visit * Reason Comments Med Refill Encounter Details Date Type Department Care Team (Late st Contact Info) Description 01/06/2022 Refill [facility] Internal Medicine - Family Medicine [address] [place] [address] Sherrie Maya, YARN MERCERIZER OPERATOR-E COMMERCE STRATEGIST [address] [place] [address] Social History Tobacco Use Types Packs/Day Years [...] documented as of this encounter Care Teams Dietist Relationship Specialty Start Date End Date Eric Hudson DO [address] [facility], [place] [address] PCP - General 10/24/23 documented as of this encounter
--- OUTSIDE RECORDS SUMMARY | 2024-10-15 08:54 | XMS_ITS | Encounter Summary ---
Author Organization [facility] Address [address] [place] [address] Care Team Providers Care Technical Assistance Consultant Name Role Phone Unavailable Primary Care Provider Unavailabl e Encounter Details Date Type Department Care Team (Late st Contact Info) Description 07/04/2024 Abstract [facility] OB [address] [facility] [place] [address] Darin Phillip DO [address] [facility] [address] Elza Kang, [facility]11 Social History Tobacco Use Types Packs/Day [...] AM EDT Visit [facility] OB [address] [facility] [place] [address] Ami Hogan PA [address] [facility] [address] [place], [place] [id number] 08/13/2025 8:35 AM EDT Office Visit [facility] [address] [place] [address] Karolina Whyte, BIOLOGY RESEARCH ASSISTANT-VACUUM TESTER CANS [address] [place] [address] documented as of this encounter Goals Goal Patient Goal Type Associated Problems Recent Progress Patient-Stated? Author Reminders Care Plan OB Reminders No Open Scheduling, Background documented as of this encounter Visit Diagnoses Not on filedocumented in this encounter Additional Health Concerns Active Problems Noted Date Diagnosed Date OB Reminders 04/29/2024 documented as of this encounter
--- OUTSIDE RECORDS SUMMARY | 2024-10-15 08:54 | XMS_ITS | Encounter Summary ---
Author Organization [employer] Address [id number] [address] [place] [address] Care Team Providers Care Leach Runner Name Role Phone Eric Hudson DO Primary Care Provider + [phone] Encounter Details Date Type Department Care Team (Late st Contact Info) Description 03/25/2024 Orders Only [facility] Internal Medicine - Family Medicine [address] [place] [address] Eric Hudson DO [address], [facility] [place] [address] Social History Tobacco Use Types Packs/Day Years [...] documented as of this encounter Care Teams Leach Runner Relationship Specialty Start Date End Date Eric Hudson DO [address] [facility] [place] [address] PCP - General 10/24/23 documented as of this encounter
--- OUTSIDE RECORDS SUMMARY | 2024-10-15 08:54 | XMS_ITS | Encounter Summary ---
Author Organization [facility] Address [address] [place] [address] Care Team Providers Care Show Host/Hostess Name Role Phone Unavailable Primary Care Provider Unavailabl e Encounter Details Date Type Department Care Team (Late st Contact Info) Description 04/23/2024 Abstract [facility] OB [address] [facility] [place] [address] Darin Phillip DO [address] [facility] [address] Kang, [facility]11 Social History Tobacco Use Types Packs/Day [...] AM EDT Visit [facility] B[facility] OB [address] [place] [address] Ami Hogan PA [address] [facility] [address] [place], [place] [id number] 08/13/2025 8:35 AM EDT Office Visit [facility] [address] [place] [address] Karolina Whyte, PAPER STRIPPER-CATTLE DEHORNER [address] [facility] [address] [place] [address] documented as of this encounter Visit Diagnoses Not on filedocumented in this encounter
--- OUTSIDE RECORDS SUMMARY | 2024-10-15 08:54 | XMS_ITS | Encounter Summary ---
Author Organization [facility] Address [address] [place] [address] Care Team Providers Care Heavy Duty Truck Mechanic Name Role Phone Unavailable Primary Care Provider Unavailabl e Encounter Details Date Type Department Care Team (Late st Contact Info) Description 09/30/2024 Abstract [facility] OB [address] [facility] [place] [address] Darin Phillip DO [address] [facility] [address]za Kang, [facility]11 Social History Tobacco Use Types [...] AM EDT Visit [facility] OB [address] [place] [address] Ami Hogan PA [address] [facility] [address] [place], [place] [id number] 08/13/2025 8:35 AM EDT Office Visit [facility] [address] [place] [address] Karolina Whyte, WEB UI DEVELOPER-FIXED WING AIRCRAFT CREW CHIEF [address] [place] [address] documented as of this encounter Goals Goal Patient Goal Type Associated Problems Recent Progress Patient-Stated? Author Reminders Care Plan OB Reminders No Open Scheduling, Background documented as of this encounter Visit Diagnoses Not on filedocumented in this encounter Additional Health Concerns Active Problems Noted Date Diagnosed Date OB Reminders 04/29/2024 documented as of this encounter
--- OUTSIDE RECORDS SUMMARY | 2024-10-15 08:54 | XMS_ITS | Encounter Summary ---
Author Organization [facility] Address [address] [place] [address] Care Team Providers Care Front Office Specialist Name Role Phone Karolina Whyte APRN-[employer] PAYROLL CONSULTANT Unavailable [phone] Encounter Details Date Type Department Care Team (Late st Contact Info) Description 08/14/2023 Orders Only [facility] OB [address] [place] [place] [address] Yudi Riley LPN [address] [facility]11 Social History Tobacco Use Types Packs/Day Years [...] AM EDT Visit [facility] B[facility] OB [address] [place] [address] Ami Hogan PA [address] [facility] [address] [place], [facility]11 08/13/2025 8:35 AM EDT Office Visit [facility] [address] [place] [address] Karolina Whyte APRN-CNP [address] [place] [address] documented as of this encounter Procedures Procedure [...] on filedocumented in this encounter Care Teams Front Office Specialist Relationship Specialty Start Date End Date Karolina Whyte APRN-CNP [address] [place] [address] PCP - Radha Commercial 10/01/23 documented as of this encounter
--- OUTSIDE RECORDS SUMMARY | 2024-10-15 08:54 | XMS_ITS | Encounter Summary ---
Author Organization [employer] Address [id number] [address] [place] [address] Care Team Providers Care High [employer] Assistant Football Coach Name Role Phone Eric Hudson DO Primary Care Provider + [phone] Reason for Visit * Reason Comments Med Refill Encounter Details Date Type Department Care Team (Late st Contact Info) Description 06/01/2022 Refill [facility] Internal Medicine - Family Medicine [address] [place] [address] Eric Hudson DO [address] [place] [address] Social History Tobacco Use Types Packs/Day Years [...] documented as of this encounter Care Teams High School Assistant Football Coach Relationship Specialty Start Date End Date Eric Hudson DO [address] [facility] [place] [address] PCP - General 10/24/23 documented as of this encounter
--- OUTSIDE RECORDS SUMMARY | 2024-10-15 08:54 | XMS_ITS | Encounter Summary ---
Author Organization [facility] Address [address] [place] [address] Care Team Providers Care Circular Distributor Name Role Phone Unavailable Primary Care Provider Unavailabl e Encounter Details Date Type Department Care Team (Late st Contact Info) Description 04/16/2024 Abstract [facility] [address] [facility] [place] [address] Darin Phillip DO [address] [facility] [address] Elza Kang, [id number] Social [...] AM EDT Visit [facility] [address] [place] [address] Ami Hogan PA [address] [facility] [address] [place], [place] [id number] 08/13/2025 8:35 AM EDT Office Visit [facility] [address] [place] [address] Karolina Whyte, GUEST SERVICES COORDINATOR-CUSTODIAL MAINTENANCE WORKER [address] [facility] [address] [place] [address] documented as of this encounter Visit Diagnoses Not on filedocumented in this encounter
--- OUTSIDE RECORDS SUMMARY | 2024-10-15 08:54 | XMS_ITS | Clinical Summary ---
Author Organization [facility] Address [address] [place] [address] Care Team Providers Care Relief Pharmacist Name Role Phone Eric Hudson DO Primary [...] B Vaccine Completed 1993, [birth year] Insurance [employer] Care Teams Relief Pharmacist Relationship Specialty Start Date End Date Eric Hudson DO [address] [place] [address] PCP - General 07/11/00
--- OUTSIDE RECORDS SUMMARY | 2024-10-15 08:54 | XMS_ITS | Encounter Summary ---
Author Organization [facility] Address [address] [place] [place] [address] Care Team Providers Care Data Warehousing Engineer Name Role Phone Unavailable Primary Care Provider Unavailabl e Encounter Details Date Type Department Care Team (Late st Contact Info) Description 03/21/2024 Clinisync Result Encounter [facility] External Department Unsolicited Jes Phillip DO [address], [facility] Social History Tobacco Use Types [...] AM EDT Visit [facility] [address] [facility] [place] [place] [address] Ami Hogan PA [address] [place], [facility]11 08/13/2025 8:35 AM EDT Office Visit [facility] [address] [place] [phone] Karolina Whyte Fiona, MACHINE DESIGN TEACHER-OPERATIONS DISPATCHER [address] [place] [address] documented as of this encounter Procedures Procedure Name Priority Date/Time Associated Diagnosis Comments US OB TRANSVAGINAL 03/21/2024 9: 51 AM EST documented in this encounter Results * US OB TRANSVAGINAL (03/21/2024 9:51 AM EST) Anatomical Region Laterality Modality Other 03/21/2024 9:51 AM EST Narrative 03/21/2024 2:41 [place] [address] Ultrasound Report Signed Patient: LUKE RODRIGUEZ MR#: [id number] : 1995 Acct:[id number] Age/Sex: 29 / F ADM Date: 03/21/24 Loc: [facility] Attending Dr: Jes Phillip D.O. Ordering Physician: Jes Phillip D.O. Date of Service: 03/21/24 Procedure(s): US OB transvaginal Accession Number(s): [id number] cc: WILFRIDO FLYNN Corey D.O. [address] [address] Patient Name: LUKE RODRIGUEZ MRN: [id number] date: 1995 Sex: F Assigned Patient Location: [facility] Current Patient Location: [facility] Accession/Order Number: [id number] Exam Date: 03/21/2024 08:56 Report Date: 03/21/2024 [...] Signed By: 03/21/24 1441 DD/ 0951 TD/TT: Developmental Behavioral Physician: Procedure Note Radiology, Radiologist, MD - 03/21/2024 [place] [address] Ultrasound Report Signed Patient: LUKE RODRIGUEZ EMR#: [id number] : 1995Acct:[id number] Age/Sex: 29 / FADM Date: 03/21/24 Loc: [facility] Attending Dr: Jes Phillip D.O. Ordering Physician: Jes Phillip D.O. Date of Service: 03/21/24 Procedure(s): US OB transvaginal Accession Number(s): [id number] cc: WILFRIDO FLYNN Corey D.O. The [place] [id number] Patient Name: LUKE RODRIGUEZ MRN: [id number] date: 1995 Sex: F Assigned Patient Location: [facility] Current Patient Location: [facility] Accession/Order Number: [id number] Exam Date: 03/21/2024 08:56 Report Date: 03/21/2024 [...] M.D. Signed By:03/21/24 1441 DD/ 0951 TD/TT: Developmental Behavioral Physician: us Jes Díazo DO [facility] Final Result documented in this encounter Visit Diagnoses Not on filedocumented in this encounter
--- OUTSIDE RECORDS SUMMARY | 2024-10-15 08:54 | XMS_ITS | Clinical Summary ---
Author Organization [employer] [facility] tem Address [id number] [address] 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 Never True 10/08/2024 Within the past 12 months th e food we bought just didn't last and we didn't have money to get more. Never True 10/08/2024 Education Answer Date Recorded What is the [...] Sign Reading Time Taken Comments Blood Pressure 108/72 10/08/2024 4:38 PM EDT Pulse 94 10/08/2024 4:38 PM EDT Temperature 36.7 C (98 F) [...] Adult BMI Screening 12/25/2024 12/26/2023 Tobacco Screening 10/10/2025 10/10/2024 Pap Smear 08/05/2026 08/06/2023, 05/0 04/2022, 07/31/2022 COVID-19 Vaccine Discontinued 04/21/2024, , 07/24/2020, Additional history exists Influenza Vaccine Discontinued 04/21/2024 Medical Devices Not on file Insurance [employer] Care Teams County Records Management Officer Relationship Specialty Start Date End Date Eric [place] DO [address] [place] [address] PCP - General 10/24/23
--- OUTSIDE RECORDS SUMMARY | 2024-10-15 08:54 | XMS_ITS | Encounter Summary ---
Author Organization [facility] Address [address] [place] [address] Care Team Providers Care Manager Software Development Name Role Phone Unavailable Primary Care Provider Unavailabl e Encounter Details Date Type Department Care Team (Late st Contact Info) Description 06/19/2024 Abstract [facility] [address] [facility] [address] Darin Phillip DO [address] [facility] [address] Elza Kang, [facility]11 Social History Tobacco Use Types Packs/Day [...] AM EDT Visit [facility] OB [address] [place] [address] Ami Hogan PA [address] [facility] [address] [place], [place] [id number] 08/13/2025 8:35 AM EDT Office Visit [facility] [address] [place] [address] Karolina Whyte, LITHOGRAPH OPERATOR-CONTROL OFFICER MANAGER [address] [place] [address] documented as of this encounter Goals Goal Patient Goal Type Associated Problems Recent Progress Patient-Stated? Author Reminders Care Plan OB Reminders No Open Scheduling, Background documented as of this encounter Visit Diagnoses Not on filedocumented in this encounter Additional Health Concerns Active Problems Noted Date Diagnosed Date OB Reminders 04/29/2024 documented as of this encounter
== END 2024-10-15 14:24 | disposition home or self-care (01) ==
PROVIDERS: PCP Family Medicine; Visit Provider Obstetrics & Gynecology
DX: Z39.1 Encounter for care and examination of lactating mother (principal)
CPT/HCPCS: G0463

== ENCOUNTER 2024-10-23 08:53 | Outpatient (OUT) | payer BC, SELFPAY ==
--- OUTSIDE RECORDS SUMMARY | 2024-10-23 09:18 | XMS_ITS | CCD ---
Author Organization [facility] Care Team Providers Care Ve Teacher Name Role Phone YAAKOV BLANCAS Unavailable Unavailable KENJI ., DR ANDRE Attending Unavailable KENJI ., DR ANDRE Consulting Unavailable KENJI ., DR ANDRE Admitting Unavailable Unavailable Primary Care Provider Unavailabl e JES PHILLIP Attending Unavailable MYRNA, AMI Attending Unavailable MYRNA, AMI Referring Unavailable KENJI, JES Attending Unavailable KENJI, JES Attending Unavailable MYRNA, AMI Attending Unavailable KAROLINA WHYTE Attending Unavailable MYRNA, AMI Referring Unavailable KENJI, JES Attending Unavailable MYRNA, AMI Attending Unavailable KENJI, JES Attending Unavailable KENJI, JES Attending Unavailable MYRNA, AMI Attending Unavailable SAIDA DAHL Attending Unavailable FURLONG, WILFRIDO G Primary Care Unavailable FURLONG, WILFRIDO G Referring Unavailable VALERIEZASAIDA Zamora Attending Unavailable FURLONG, WILFRIDO G Referring Unavailable [...] reactions to drug (disorder) 4 Hives, Other [facility] Repository Medications Current Medications Medication Drug [...] 06/26/2024 Active escitalopram 5 mg oral tablet (19 sources) Serotonin Reuptake Inhibitor Start: 05-19-2024 End: [...] 04/02/2024 Active MV-Min-Fe Fum-FA-DHA ( 1 PO) (3 sources) MV-Min- Fe Fum-FA-DHA ( 1 PO) [...] Test Name Value Interpretation Reference Range Facility AMNISUREon 09-26-2024 Interpretation and review of laboratory results Abnormal [facility] AMNISURE Positive Abnormal NEGATIVE [facility] Urinalysis macro (dipstick) panel (U)on 09-24-2024 Bilirubin, UA Negative Negative - 4(70) +++ mg/dL [facility] Blood, UA Negative Negative - 50 Julius/mcL [facility] Clarity, UA Clear [facility] Color, UA Yellow [facility] Glucose, UA Negative Negative - 1999(110) ++++ mg/dL [facility] Interpretation and review of laboratory results Abnormal [facility] Ketones, UA Negative Negative - 160(16) ++++ mg/dL [facility] Leukocytes, UA Positive Negative - 500+++ Dori/mcL [facility] Comment on above: small Nitrite, UA Negative Negative - Positive [facility] pH, UA 6.5 5 - 9 [facility] Protein, UA Trace Negative - 1999(20) ++++ mg/dL [facility] Spec Grav, UA 1.02 1 - 1.03 [facility] Urobilinogen, UA 0.2 0.2 - 12 mg/dL [facility] Urinalysis macro (dipstick) panel (U)on 09-18-2024 Bilirubin, UA Negative Negative - 4(70) +++ mg/dL [facility] Blood, UA Negative Negative - 50 Julius/mcL [facility] Clarity, UA Clear [facility] Color, UA Yellow [facility] Glucose, UA Negative Negative - 1999(110) ++++ mg/dL [facility] Interpretation and review of laboratory results Abnormal [facility] Ketones, UA Negative Negative - 160(16) ++++ mg/dL [facility] Leukocytes, UA Positive Negative - 500+++ Dori/mcL [facility] Comment on above: small Nitrite, UA Negative Negative - Positive [facility] pH, UA 6 5 - 9 [facility] Protein, UA Negative Negative - 1999(20) ++++ mg/dL [facility] Spec Grav, UA 1.01 1 - 1.03 [facility] Urobilinogen, UA 0.2 0.2 - 12 mg/dL [facility] Urinalysis macro (dipstick) panel (U)on 09-10-2024 Bilirubin, UA Negative Negative - 4(70) +++ mg/dL [facility] Blood, UA Negative Negative - 50 Julius/mcL [facility] Clarity, UA Clear [facility] Color, UA Yellow [facility] Glucose, UA Negative Negative - 1999(110) ++++ mg/dL [facility] Interpretation and review of laboratory results Normal [facility] Ketones, UA Negative Negative - 160(16) ++++ mg/dL [facility] Leukocytes, UA Positive Negative - 500+++ Dori/mcL [facility] Nitrite, UA Negative Negative - Positive [facility] pH, UA 7 5 - 9 [facility] Protein, UA Negative Negative - 1999(20) ++++ mg/dL [facility] Spec Grav, UA 1.01 1 - 1.03 [facility] Urobilinogen, UA 0.2 0.2 - 12 mg/dL [facility] Urinalysis macro (dipstick) panel (U)on 09-04-2024 Bilirubin, UA Negative Negative - 4(70) +++ mg/dL [facility] Blood, UA Negative Negative - 50 Julius/mcL [facility] Clarity, UA Clear [facility] Color, UA Yellow [facility] Glucose, UA Negative Negative - 1999(110) ++++ mg/dL [facility] Interpretation and review of laboratory results Abnormal [facility] Ketones, UA Negative Negative - 160(16) ++++ mg/dL [facility] Leukocytes, UA Positive Negative - 500+++ Dori/mcL [facility] Comment on above: Moderate Nitrite, UA Negative Negative - Positive [facility] pH, UA 7 5 - [address] [facility] Protein, UA Negative Negative - 2000(20) ++++ mg/dL [facility] Spec Grav, UA 1.02 1 - 1.03 [facility] Urobilinogen, UA 0.2 0.2 - 12 mg/dL [facility] US OB FOLLOW UP TRANSABDOMIN [...] II, MD, PHD at 19-Aug-2024 10:59:29 PM [facility] Normal Not Available Comment on above: Order Comment: US OB SCAN FOR GROWTH Estimated Date of Delivery: 10/19/24 Gestational Age as of 08/05/2024: 29w2d Urinalysis macro (dipstick) panel (U)on 08-05-2024 Bilirubin, UA Negative Negative - 4(70) +++ mg/dL [facility] Blood, UA Negative Negative - 50 Julius/mcL [facility] Clarity, UA Clear [facility] Color, UA Yellow [facility] Glucose, UA Negative Negative - 1999(110) ++++ mg/dL [facility] Interpretation and review of laboratory results Abnormal [facility] Ketones, UA Negative Negative - 160(16) ++++ mg/dL [facility] Leukocytes, UA Positive Negative - 500+++ Dori/mcL [facility] Comment on above: small Nitrite, UA Negative Negative - Positive [facility] pH, UA 7 5 - 9 [facility] Protein, UA Negative Negative - 1999(20) ++++ mg/dL [facility] Spec Grav, UA 1.02 1 - 1.03 [facility] Urobilinogen, UA 0.2 0.2 - 12 mg/dL [facility] Urinalysis macro (dipstick) panel (U)on 07-21-2024 Bilirubin, UA Negative Negative - 4(70) +++ mg/dL [facility] Blood, UA Negative Negative - 50 Julius/mcL [facility] Clarity, UA Clear [facility] Color, UA Yellow [facility] Glucose, UA Negative Negative - 1999(110) ++++ mg/dL [facility] Interpretation and review of laboratory results Abnormal [facility] Ketones, UA Negative Negative - 160(16) ++++ mg/dL [facility] Leukocytes, UA Positive Negative - 500+++ Dori/mcL [facility] Comment on above: Moderate Nitrite, UA Negative Negative - Positive [facility] pH, UA 7 5 - 9 [facility] Protein, UA Negative Negative - 1999(20) ++++ mg/dL [facility] Spec Grav, UA 1.015 1 - 1.03 [facility] Urobilinogen, UA 0.2 0.2 - 12 mg/dL [facility] GLUCOSE 1 HOURon 07-01-2024 Glucose [Mass/Vol] 129 mg/dL NINF - 13 0 mg/dL [facility] Urinalysis macro (dipstick) panel (U)on 06-19-2024 Bilirubin, UA Negative Negative - 4(70) +++ mg/dL [facility] Blood, UA Negative Negative - 50 Julius/mcL [facility] Clarity, UA Clear [facility] Color, UA Yellow [facility] Glucose, UA Negative Negative - 1999(110) ++++ mg/dL [facility] Interpretation and review of laboratory results Abnormal [facility] Ketones, UA Negative Negative - 160(16) ++++ mg/dL [facility] Leukocytes, UA Moderate Negative - 500+++ Dori/mcL [facility] Nitrite, UA Negative Negative - Positive [facility] pH, UA 7.5 5 - 9 [facility] Protein, UA Negative Negative - 2000(20) ++++ mg/dL [facility] Spec Grav, UA 1.02 1 - 1.03 [facility] Urobilinogen, UA 0.2 0.2 - 12 mg/dL [facility] US OB 14+ WEEKS ANATOMY [...] II, MD, PHD at 12-Jun-2024 09:04:27 AM [facility] Normal Not Available Comment on above: Order Comment: US OB ANATOMY SINGLE W US OB CERVICAL LENGTH Estimated Date of Delivery: 10/19/24 Gestational Age as of 05/21/2024: 18w3d RECURRENT VAGINITIS (HTRX)on 05-22-2024 ATOPOBIUM VAGINAE 0 [facility] ATOPOBIUM VAGINAE Not detected [facility] BVAB 2,3 (BACTERIAL VAGINOSIS ASSOCIATED BACTERIA 2, 3); MOBILUNCUS SPP 26.828 Abnormal [facility] BVAB 2,3 (BACTERIAL VAGINOSIS ASSOCIATED BACTERIA 2, 3); MOBILUNCUS SPP Detected Abnormal [facility] MARQUITA ALBICANS, PARAPSILOSIS, TROPICALIS 0 [facility] MARQUITA ALBICANS, PARAPSILOSIS, TROPICALIS Not detected [facility] MARQUITA GLABRATA 0 [facility] MARQUITA GLABRATA Not detected [facility] MARQUITA KRUSEI 0 [facility] MARQUITA KRUSEI Not detected [facility] CHLAMYDIA TRACHOMATIS 0 [facility] CHLAMYDIA TRACHOMATIS Not detected [facility] GARDNERELLA VAGINALIS 0 [facility] GARDNERELLA VAGINALIS Not detected [facility] Interpretation and review of laboratory results Abnormal [facility] MEGASPHAERA (TYPES 1, 2) 0 [facility] MEGASPHAERA (TYPES 1, 2) Not detected [facility] MYCOPLASMA GENITALIUM 0 [facility] MYCOPLASMA GENITALIUM Not detected [facility] NEISSERIA GONORRHOEAE 0 [facility] NEISSERIA GONORRHOEAE Not detected [facility] TRICHOMONAS VAGINALIS 0 [facility] TRICHOMONAS VAGINALIS Not detected [facility] ALL CBC WITH AUTO DIFFon BASOPHILS ABSOLUTE AUTO 0 [facility] Basophils/100 WBC (Bld) 0.3 % 0.2 - 2.0 % [facility] Eosinophils/100 WBC (Bld) 1.2 % 0.9 - 7.0 % [facility] Erythrocyte distribution width (RBC) [Ratio] 13.4 % 11.0 - 15.0 % [facility] Hematocrit (Bld) [Volume fraction] 35.6 % Low 36.0 - 48.0 % [facility] Hemoglobin (Bld) [Mass/Vol] 12 g/dL 12.0 - 16.0 g/dL [facility] IMMATURE GRANULOCYTES ABS AUTO 0.1 High [facility] Immature granulocytes/100 WBC (Bld) 0.8 % High 0.0 - 0.5 % [facility] Interpretation and review of laboratory results Abnormal [facility] LYMPHOCYTES ABSOLUTE AUTO 2 [facility] Lymphocytes/100 WBC (Bld) 16.5 % Low 20.5 - 60.0 % [facility] MCH (RBC) [Entitic mass] 30.7 pg 26.7 - 34.0 pg [facility] MCHC (RBC) [Mass/Vol] 33.7 g/dL 29.9 - 35.2 g/dL [facility] MCV (RBC) [Entitic vol] 91 fL 81.0 - 99.0 fL [facility] MONOCYTES ABSOLUTE AUTO 0.7 [facility] Monocytes/100 WBC (Bld) 6.1 % 1.7 - 12.0 % [facility] NEUTROPHILS ABSOLUTE AUTO 9.1 High [facility] Neutrophils/100 WBC (Bld) 75.1 % High 43.0 - 75.0 % [facility] Platelet mean volume (Bld) [Entitic vol] 10.2 fL 9.5 - 13.5 fL [facility] TBH EO # 0.2 [facility] PLT 225 [facility] RBC 3.91 Low [facility] WBC 12.2 High [facility] HCG ( test) Ql (U)o n 03-21-2024 Interpretation and review of laboratory results Abnormal [facility] Preg Test, Ur Positive Negative [facility] Urinalysis macro (dipstick) panel (U)on 03-21-2024 Bilirubin, UA Negative Negative - 4(70) +++ mg/dL [facility] Blood, UA Negative Negative - 50 Julius/mcL [facility] Clarity, UA Clear [facility] Color, UA Yellow [facility] Glucose, UA Negative Negative - 2000(110) ++++ mg/dL [facility] Interpretation and review of laboratory results Abnormal [facility] Ketones, UA Negative Negative - 160(16) ++++ mg/dL [facility] Leukocytes, UA Trace Negative - 500+++ Dori/mcL [facility] Nitrite, UA Negative Negative - Positive [facility] pH, UA 7 5 - 9 [facility] Protein, UA Negative Negative - 2000(20) ++++ mg/dL [facility] Spec Grav, UA 1.02 1 - 1.03 [facility] Urobilinogen, UA 0.2 0.2 - 12 mg/dL [facility] PAP ACOG PANEL 2: 21 to 29on 08-07-2022 . . Normal [facility] Comment on above: Performed By: #### [id number] #### [facility] [address] [place] [address] Dr. Pat Aguilar Age Gdln ACOG Testing - [facility] Comment on above: Performed By: #### [id number] #### [facility] [address] [place] [address] Dr. Pat Aguilar DIAGNOSIS: Comment [facility] Comment on above: Result Comment: NEGA TIVE FOR INTRAEPITHELIAL LESION OR MALIGNANCY. Performed By: #### 4 [id number] #### [facility] [address] [place] [address] Dr. Pat Aguilar Methodology: Comment [facility] Comment on above: Result Comment: This liquid based ThinPrep(R) pap test was screened with the use of an image guided system. Performed By: #### 4 [id number] #### [facility] [address] [place] [address] Dr. Pat Aguilar Note: Comment [facility] Comment on above: Result Comment: The Pap smear is a screening test designed to aid in the detection of premalignant and malignant conditions of the uterine cervix. It is not a diagnostic procedure and should not be used as the sole means of detecting cervical cancer. Both false-positive and false-negative reports do occur. . Performed By: #### 4 [id number] #### [facility] [address] [place] [address] Dr. Pat Aguilar Performed by: Comment [facility] Comment on above: Result Comment: Soo Haney, Zyglo Inspector (ASCP) Performed By: #### 4 [id number] #### [facility] [address] [place] [address] Dr. Pat Aguilar Reflex Criteria: Comment Normal [facility] Comment on above: Result Comment: The HPV DNA reflex criteria were not met with this specimen result therefore, no HPV testing was performed. . Performed By: #### 4 [id number] #### [facility] [address] [address] [address] Pat Aguilar Specimen adequacy: Comment Normal [facility] Comment on above: Result Comment: Sati sfactory for evaluation. Endocervical and/or squamous metaplastic cells (endocervical component) are present. Performed By: #### [id number] #### [facility] [address] [address] [address] Pat Aguilar [facility] 11-26-2021 Albumin [Mass/Vol] 4.1 g/dL Normal 3.6-5.1 [facility] Comment on above: Performed By: #### 1 0231, 7600 #### [facility] [place] [address] Actuarial Technician: Vladislav Kamara MD Albumin/Globulin [Mass ratio] 1.6 {ratio} Normal 1.0-2.5 [facility] Comment on above: Performed By: #### 1 0231, 7600 #### [facility] [place] [address] Actuarial Technician: Vladislav Kamara MD ALP [Catalytic activity/Vol] 53 U/L Normal 31-125 [facility] Comment on above: Performed By: #### 1 0231, 7600 #### [facility] [place] [address] Actuarial Technician: Vladislav Kamara MD ALT [Catalytic activity/Vol] 6 U/L Normal 6-29 [facility] Comment on above: Performed By: #### 1 0231, 7600 #### [facility] [place] [address] Actuarial Technician: Vladislav Kamara MD AST [Catalytic activity/Vol] 10 U/L Normal 10-30 [facility] Comment on above: Performed By: #### 1 0231, 7600 #### [facility] of [address], [address] [place] [address] Actuarial Technician: Vladislav Kamara MD Bilirubin [Mass/Vol] 0.5 mg/dL Normal 0.2-1.2 [facility] Comment on above: Performed By: #### 1 023, 7600 #### [facility] of [address], [address] [place] [address] Actuarial Technician: Vladislav Kamara MD BUN/CREATININE RATIO NOT APPLICABLE Normal 6-22 [facility] Comment on above: Performed By: #### 1 023, 7600 #### [facility] of [place] [address] Actuarial Technician: Vladislav Kamara MD Calcium [Mass/Vol] 9.3 mg/dL Normal 8.6-10.2 [facility] Comment on above: Performed By: #### 1 023, 7600 #### [facility] of [place] [address] Actuarial Technician: Vladislav Kamara MD Chloride [Moles/Vol] 104 mmol/L Normal 98-110 [facility] Comment on above: Performed By: #### 1 023, 7600 #### [facility] of [place] [address] Actuarial Technician: Vladislav Kamara MD CO2 [Moles/Vol] 27 mmol/L Normal 20-32 [facility] Comment on above: Performed By: #### 1 023, 7600 #### [facility] of [place] [address] Actuarial Technician: Vladislav Kamara MD Creatinine [Mass/Vol] 0.92 mg/dL Normal 0.50-0.96 [facility] Comment on above: Performed By: #### 1 0231, 7600 #### [facility] of [place] [address] Actuarial Technician: Vladislav Kamara MD GFR/1.73 sq M.predicted among non-blacks MDRD (S/P/Bld) [Vol rate/Area] 87 mL/min/{1.73_m2} Normal > OR = 60 [facility] Comment on above: Result Comment: The eGFR is based on the CKD-EPI 2020 equation. To calculate the new eGFR from a previous Creatinine or Cystatin C result, go to https://www.kidney.org/professionals/ kdoqi/gfr%5Fcalculator Performed By: #### 1 023, 7600 #### [facility] [place] [address] Actuarial Technician: Vladislav Kamara MD Globulin (S) [Mass/Vol] 2.5 g/dL Normal 1.9-3.7 [facility] Comment on above: Performed By: #### 1 023, 7600 #### [facility] [place] [address] Actuarial Technician: Vladislav Kamara MD Glucose [Mass/Vol] 81 mg/dL Normal 65-99 [facility] Comment on above: Result Comment: Fasting reference interval Performed By: #### 1 023, 7600 #### [facility] [place] [address] Actuarial Technician: Vladislav Kamara MD Potassium [Moles/Vol] 4.4 mmol/L Normal 3.5-5.3 [facility] Comment on above: Performed By: #### 1 023, 7600 #### [facility] [place] [address] Actuarial Technician: Vladislav Kamara MD Protein [Mass/Vol] 6.6 g/dL Normal 6.1-8.1 [facility] Comment on above: Performed By: #### 1 023, 7600 #### [facility] [place] [address] Actuarial Technician: Vladislav Kamara MD Sodium [Moles/Vol] 138 mmol/L Normal 135-146 [facility] Comment on above: Performed By: #### 1 0231, 7600 #### [facility] [address], [address] [place] [address] Actuarial Technician: Vladislav Kamara MD Urea nitrogen [Mass/Vol] 12 mg/dL Normal 7-25 [facility] Comment on above: Performed By: #### 1 0231, 7600 #### [facility] [address], [address] [place] [address] Actuarial Technician: Vladislav Kamara MD LIPID PANEL, [facility] 11-01 Cholesterol [Mass/Vol] 153 mg/dL Normal <200 [facility] Comment on above: Order Comment: FASTI NG:YES FASTING: YES Performed By: #### 1 0231, 7600 #### [facility] [address], [address] [place] [address] Actuarial Technician: Vladislav Kamara MD Cholesterol in HDL [Mass/Vol] 73 mg/dL Normal > OR = 50 [facility] Comment on above: Order Comment: FASTI NG:YES FASTING: YES Performed By: #### 1 023, 7600 #### [facility] [address], [address] [place] [address] Actuarial Technician: Vladislav Kamara MD Cholesterol in LDL [Mass/Vol] [...] LDL-C. Marko RODRIGUEZ et al. BRITTANY. 2013;310(19): 4593-4260 (http://education.wiMAN.Lucidworks/faq/LQE988) Performed By: #### 1 0231, 7600 #### [facility] [address], [address] [place] [address] Actuarial Technician: Vladislav Kamara MD Cholesterol.total/ Cholesterol in HDL [Mass ratio] 2.1 {ratio} Normal <5.0 [facility] Comment on above: Order Comment: FASTI NG:YES FASTING: YES Performed By: #### 1 0231, 7600 #### [facility] [address], [address] [place] [address] Actuarial Technician: Vladislav Kamara MD NON HDL CHOLESTEROL 80 mg/dL (calc) Normal <130 [facility] Comment on above: Order Comment: FASTI NG:YES FASTING: YES Result Comment: For patients with diabetes plus 1 major ASCVD risk factor, treating to a non-HDL-C goal of <100 mg/dL (LDL-C of <70 mg/dL) is considered a therapeutic option. Performed By: #### 1 0231, 7600 #### [facility] [address], [address] [place] [address] Actuarial Technician: Vladislav Kamara MD Triglyceride [Mass/Vol] 86 mg/dL Normal <150 [facility] Comment on above: Order Comment: FASTI NG:YES FASTING: YES Performed By: #### 1 0231, 7600 #### [facility] [address], [address] [place] [address] Actuarial Technician: Vladislav Kamara MD PROGRESSon 02-26-2018 Protein mass conc HNO ID: [id number] thor: Yaakov Brar: (none)Author Type: PhysicianType: Progress [...] agreewith all of its relevant components. Normal [facility] Vital Signs Date Time Vital Sign Value Performing Clinician Susana ritchie 09-24-2024 09:09-0400 Diastolic blood pressure 84 mm[Hg] Ami LALA Work Phone: [facility] 09-24-2024 09:09-0400 Systolic blood pressure 118 mm[Hg] Ami LALA Work Phone: [facility] 09-24-2024 08:57-0400 Body mass index (BMI) [Ratio] 34.03 kg/m2 Ami LALA Work Phone: [facility] 09-24-2024 08:57-0400 Body weight 89.93 kg Ami LALA Work Phone: [facility] 09-18-2024 08:38-0400 Body mass index (BMI) [Ratio] 33.51 kg/m2 Jes Kenji DO Work Phone: [facility] 09-18-2024 08:38-0400 Body weight 88.56 kg Jes Kenji DO Work Phone: [facility] 09-18-2024 08:38-0400 Diastolic blood pressure 80 mm[Hg] Jes Kenji DO Work Phone: [facility] 09-18-2024 08:38-0400 Systolic blood pressure 116 mm[Hg] Jes Kenji DO Work Phone: [facility] 09-10-2024 11:29-0400 Body mass index (BMI) [Ratio] 33.3 kg/m2 Jes Kenji DO Work Phone: [facility] 09-10-2024 11:29-0400 Body weight 88 kg Jes Kenji DO Work Phone: [facility] 09-10-2024 11:29-0400 Diastolic blood pressure 70 mm[Hg] Jes Kenji DO Work Phone: [facility] [facility] 09-10-2024 11:29-0400 Systolic blood pressure 122 mm[Hg] Jes Kenji DO Work Phone: [facility] 09-04-2024 09:02-0400 Body mass index (BMI) [Ratio] 33.26 kg/m2 Ami Myrna PA Work Phone: [facility] 09-04-2024 09:02-0400 Body weight 87.88 kg Ami [place] PA Work Phone: [facility] 09-04-2024 09:02-0400 Diastolic blood pressure 80 mm[Hg] Ami Myrna PA Work Phone: [facility] 09-04-2024 09:02-0400 Systolic blood pressure 122 mm[Hg] Ami Myrna PA Work Phone: [facility] 08-19-2024 11:06-0400 Body mass index (BMI) [Ratio] 31.84 kg/m2 Jes Kenji DO Work Phone: [facility] 08-19-2024 11:06-0400 Body weight 84.14 kg Jes Kenji DO Work Phone: [facility] 08-19-2024 11:06-0400 Diastolic blood pressure 64 mm[Hg] Jes Kenji DO Work Phone: [facility] 08-19-2024 11:06-0400 Systolic blood pressure 102 mm[Hg] Jes Kenji DO Work Phone: [facility] 08-05-2024 10:33-0400 Body mass index (BMI) [Ratio] 31.5 kg/m2 Ami [place] PA Work Phone: [facility] 08-05-2024 10:33-0400 Body weight 83.23 kg Ami Myrna PA Work Phone: [facility] 08-05-2024 10:33-0400 Diastolic blood pressure 62 mm[Hg] Ami Myrna PA Work Phone: [facility] 08-05-2024 10:33-0400 Systolic blood pressure 104 mm[Hg] Ami LALA Work Phone: [facility] 07-21-2024 09:53-0400 Body mass index (BMI) [Ratio] 30.81 kg/m2 Jes Kenji DO Work Phone: [facility] 07-21-2024 09:53-0400 Body weight 81.42 kg Jes Kenji DO Work Phone: [facility] 07-21-2024 09:53-0400 Diastolic blood pressure 60 mm[Hg] Jes Kenji DO Work Phone: [facility] 07-21-2024 09:53-0400 Systolic blood pressure 120 mm[Hg] Jes Kenji DO Work Phone: [facility] 06-19-2024 09:01-0400 Body mass index (BMI) [Ratio] 28.86 kg/m2 Jes Kenji DO Work Phone: [facility] 06-19-2024 09:01-0400 Body weight 76.26 kg Jes Kenji DO Work Phone: [facility] 06-19-2024 09:01-0400 Diastolic blood pressure 64 mm[Hg] Jes Kenji DO Work Phone: [facility] 06-19-2024 09:01-0400 Systolic blood pressure 110 mm[Hg] Jes Kenji DO Work Phone: [facility] 05-21-2024 08:42-0500 Body mass index (BMI) [Ratio] 28.49 kg/m2 Ami LALA Work Phone: [facility] 05-21-2024 08:42-0500 Body weight 75.3 kg Ami LALA Work Phone: [facility] 05-21-2024 08:42-0500 Diastolic blood pressure 60 mm[Hg] Ami LALA Work Phone: [facility] 05-21-2024 08:42-0500 Systolic blood pressure 112 mm[Hg] Ami LALA Work Phone: [facility] 04-22-2024 09:58-0500 Body mass index (BMI) [Ratio] 28 kg/m2 Jes Kenji DO Work Phone: [facility] 04-22-2024 09:58-0500 Body weight 73.99 kg Jes Kenji DO Work Phone: [facility] 04-22-2024 09:58-0500 Diastolic blood pressure 62 mm[Hg] Jes Kenji DO Work Phone: [facility] 04-22-2024 09:58-0500 Systolic blood pressure 112 mm[Hg] Jes Kenji DO Work Phone: [facility] 03-21-2024 09:48-0500 Body mass index (BMI) [Ratio] 27.19 kg/m2 [facility] 03-21-2024 09:48-0500 Body weight 71.85 kg Noms Nurse [facility] 03-21-2024 09:48-0500 Diastolic blood pressure 60 mm[Hg] Noms Nurse [facility] 03-21-2024 09:48-0500 Systolic blood pressure 110 mm[Hg] [facility] Nurse [facility] Encounters Encounter Date Encounter Type Care Provider Facility Start: 10-08-2024 End: 10-08-2024 ambulatory SAIDA [facility] Start: 09-26-2024 End: 09-26-2024 Clinisync Result Encounter Jes Kenji DO Work Phone: [facility] Unsolicited Start: 09-26-2024 End: 09-26-2024 Clinisync Result Encounter Jes Kenji DO Work Phone: [facility] Unsolicited Start: 09-24-2024 End: 09-24-2024 Bamboo flowsheet Ami LALA Work Phone: [facility] Start: 09-24-2024 End: 09-24-2024 Bamboo flowsheet Ami LALA Work Phone: [facility] Start: 09-24-2024 End: 09-24-2024 flow sheet Ami LALA Work Phone: [facility] Comment on above: Third trimester preg maría ([facility]); 36 weeks gestation of ([facility]) Start: 09-24-2024 End: 09-24-2024 ambulatory AMI NORRIS Not Available Start: 09-18-2024 End: 09-18-2024 Bamboo flowsheet Jes Kenji DO Work Phone: [facility] Start: 09-18-2024 End: 09-18-2024 Bamboo flowsheet Jes Kenji DO Work Phone: [facility] Start: 09-18-2024 End: 09-18-2024 flow sheet Jes Kenji DO Work Phone: [facility] Comment on above: Third trimester preg maría ([facility]); 35 weeks gestation of ([facility]) Start: 09-18-2024 End: 09-18-2024 ambulatory JES KENJI [...] visit 15 minutes Ami LALA Work Phone: [facility] Comment on above: Third trimester preg maría; 33 weeks gestation of Start: 09-04-2024 End: 09-04-2024 ambulatory AMI NORRIS Not Available Start: 08-19-2024 End: 08-19-2024 flow sheet Jes Kenji DO Work Phone: [facility] Comment on above: Third trimester preg maría; 31 weeks gestation of Start: 08-19-2024 End: 08-19-2024 ambulatory JES KENJI Not Available Start: 08-14-2024 End: 08-14-2024 Bamboo flowsheet Karolina A Felter [employer] Work Phone: [facility] Start: 08-14-2024 End: 08-14-2024 Bamboo flowsheet Karolina A Felter [employer] Work Phone: [facility] Start: 08-14-2024 End: 08-14-2024 Office outpatient visit 15 minutes Karolina A Felter [employer] Work Phone: [facility] Comment on above: Melanocytic nevus of trunk (Primary Dx); Other seborrheic dermatitis Start: 08-14-2024 End: 08-14-2024 ambulatory KAROLINA A FELTER Not Available Start: 08-05-2024 End: 08-05-2024 Bamboo flowsheet Ami LALA Work Phone: [facility] Start: 08-05-2024 End: 08-05-2024 Bamboo flowsheet Ami LALA Work Phone: [facility] Start: 08-05-2024 End: 08-05-2024 flow sheet Ami LALA Work Phone: [facility] Comment on above: 29 weeks gestation o f ; Third trimester ; size inconsistent with dates Start: 08-05-2024 End: 08-05-2024 ambulatory AMI MYRNA Not Available Start: 08-04-2024 End: 08-04-2024 ambulatory [facility] Start: 07-21-2024 End: 07-21-2024 Bamboo flowsheet Jes [...] Department Unsolicited Start: 06-26-2024 End: 06-26-2024 ambulatory [facility] Start: 06-19-2024 End: 06-19-2024 Bamboo flowsheet Jes [...] Available Start: 06-11-2024 End: 06-11-2024 ambulatory AMI MYRNA Not Available Start: 05-21-2024 End: 05-21-2024 Bamboo [...] discharge Start: 05-21-2024 End: 05-21-2024 ambulatory AMI MYRNA Not Available Start: 05-19-2024 End: 05-19-2024 ambulatory SAIDA [facility] Start: 04-22-2024 End: 04-22-2024 flow sheet [...] Not Available Start: 02-20-2024 End: 02-20-2024 ambulatory SAIDA PALACIOS [facility] Start: 12-26-2023 End: 12-26-2023 ambulatory SAIDA PALACIOS [facility] Start: 10-31-2023 End: 10-31-2023 ambulatory SAIDA PALACIOS [facility] Start: 07-31-2022 End: 07-31-[address] JES PHILLIP . Facility: Start: 02-26-2018 End: 03-01-2018 [facility] Procedures Date Procedure Procedure Detail Performing Clinician Start: 09-26-2024 AMNISURE Jes Fazi o DO Work Phone: Start: 09-24-2024 Urnls dip stick/tabl et rgnt non-auto w/o micrscp Ami LALA Work Phone: Start: 09-18-2024 Urnls dip stick/tabl [...] ant neoplasm of cervix [facility] Start: 08-13-2025 End: 08-13-2025 Patient encounter procedure 08/13/2025 8:35 AM EDT Office Visit [facility] [address] [place] [phone] Karolina Whyte, [employer] [address] [place] [address] [facility] Start: 09-30-2024 End: 09-30-2024 Patient encounter procedure 09/30/2024 8:30 AM EDT Routine [facility] [address] [place] [address] Jes Phillip, DO [address] [place] [address] [facility] Start: 09-24-2024 End: 09-24-2025 CULTURE, GROUP B STREP WITH SUSCEPTIBLITY CULTURE, GROUP B STREP WITH SUSCEPTIBLITY Lab Routine Third trimester ([facility]) Expected: 09/24/2024, Expires: 09/24/2025 [facility] Work Phone: Comment on above: Expected: 09/24/2024 , Expires: 09/24/2025 Start: 09-24-2024 End: 09-24-2024 Patient encounter procedure [facility] Comment on above: Arrived Start: 09-18-2024 End: 09-18-2024 Patient encounter procedure [facility] Comment on above: Arrived Start: 09-10-2024 End: 09-10-2024 Patient encounter procedure 09/10/2024 11:30 AM EDT Routine [facility] [address] [place] [place] [phone] Jes Phillip, DO [address] [place] [address] Arrived [facility] Comment on above: Arrived Start: 09-04-2024 End: 09-04-2024 Patient encounter procedure [facility] Comment on above: Arrived Start: 08-19-2024 End: 08-19-2024 Patient encounter procedure 08/19/2024 10:30 AM EDT Routine [facility] [address] [place] [place] [address] Jes Phillip, DO [address] [place] [address] [facility] Start: 08-19-2024 End: 08-19-2024 Professional / ancillary services management 08/19/2024 10:00 AM EDT Ancillary Procedure [facility] [address] [place] [phone] [facility] Start: 08-14-2024 End: 08-14-2024 Patient encounter procedure [facility] Comment on above: Arrived Start: 08-07-2024 End: 08-07-2024 Patient encounter procedure 08/07/2024 8:50 AM EDT Office Visit [facility] [address] [place] [address] Karolina Whyte, [employer] [address] [place] [address] [facility] Start: 08-05-2024 End: 12-06-2024 US for US OB follow up transabdominal approach Imaging Routine size inconsistent with dates Expected: 08/05/2024, Expires: 12/06/2024 [facility] Work Phone: Comment on above: Expected: 08/05/2024 , Expires: 12/06/2024 Start: 08-05-2024 End: 08-05-2024 Patient encounter procedure 08/05/2024 9:50 AM EDT Routine [facility] [address] [place] [place] [address] Ami Norris PA [address] [place], [place] [id number] Arrived [facility] Comment on above: Arrived Start: 07-21-2024 End: 07-21-2024 Patient encounter procedure [facility] Comment on above: Arrived Start: 06-19-2024 End: 06-19-2025 CBC panel - Blood by Automated count CBC Lab Routine Diabetes mellitus screening Expected: 06/19/2024 (Approximate), Expires: 06/19/2025 [facility] Work Phone: Comment on above: Expected: 06/19/2024 (Approximate), Expires: 06/19/2025 Start: 06-19-2024 End: 06-19-2025 Measurement of glucose 1 hour after glucose challenge for glucose tolerance test Glucose tolerance, 1 hour Lab Routine Diabetes mellitus screening Expected: 06/19/2024 (Approximate), Expires: 06/19/2025 [facility] Comment on above: Expected: 06/19/2024 (Approximate), Expires: 06/19/2025 Start: 06-19-2024 End: 06-19-2024 Patient encounter procedure [facility] Comment on above: Arrived Start: 06-11-2024 End: 06-11-2024 Professional / ancillary services management 06/11/2024 8:00 AM EDT Ancillary Procedure [facility] [address] [place] [address] [facility] Start: 05-21-2024 End: 07-19-2024 Alpha fetoprotein, maternal Alpha fetoprotein, maternal Lab Routine Screening, , for anatomic survey Expected: 05/21/2024 (Approximate), Expires: 07/19/2024 [facility] Comment on above: Expected: 05/21/2024 (Approximate), Expires: 07/19/2024 Start: 05-21-2024 End: 05-21-2025 US for US OB 14+ weeks anatomy scan Imaging Routine Screening, , for anatomic survey Expected: 05/21/2024, Expires: 05/21/2025 [facility] Comment on above: Expected: 05/21/2024 [...] gestational age Expected: 03/21/2024 (Approximate), Expires: 03/21/2025 [facility] Comment on above: Expected: 03/21/2024 (Approximate), Expires: 03/21/2025 Start: 03-21-2024 End: 03-21-2025 Blood type and Indirect antibody screen panel - Blood Type and screen Lab Routine Missed menses , unspecified gestational age Expected: 03/21/2024 (Approximate), Expires: 03/21/2025 [facility] Work Phone: Comment on above: Expected: 03/21/2024 (Approximate), Expires: 03/21/2025 Start: 03-21-2024 End: 03-21-2025 Drugs of abuse panel - Urine by Screen method Rapid drug screen, urine Lab Routine , unspecified gestational age Encounter for supervision of normal first in first trimester Expected: 03/21/2024 (Approximate), Expires: 03/21/2025 [facility] Comment on above: Expected: 03/21/2024 (Approximate), Expires: 03/21/2025 Start: 03-21-2024 End: 03-21-2025 US Pelvis transvaginal US OB transvaginal Imaging Routine Missed menses Expected: 03/21/2024 (Approximate), Expires: 03/21/2025 [facility] Comment on above: Expected: 03/21/2024 (Approximate), Expires: 03/21/2025 Start: 12-02-2023 Influenza vaccination Influenza Vacc ine (#1) [facility] Start: 2023 Screening for malign ant neoplasm of cervix HPV/Cotest [facility] Bacteria identified in Urine by Culture Urine culture Microbiology Routine Missed menses Ordered: 03/21/2024 [facility] Comment on above: Ordered: 03/21/2024 CBC W Auto Different ial panel - Blood CBC and differential Lab Routine Missed menses , unspecified gestational age Ordered: 03/21/2024 [facility] Comment on above: Ordered: 03/21/2024 CHLAMYDIA TRACHOMATI S (GENITO/STI) CHLAMYDIA TRACHOMATIS (GENITO/STI) Lab Routine STD exposure Vaginal discharge Ordered: 05/21/2024 [facility] Comment on above: Ordered: 05/21/2024 Hemoglobin A1c/Hemoglobin.total in Blood Hemoglobin A1c Lab Routine Missed menses , unspecified gestational age Ordered: 03/21/2024 [facility] Comment on above: Ordered: 03/21/2024 Hepatitis B virus surface Ag [Presence] in Serum or Plasma by Immunoassay Hepatitis B surface antigen Lab Routine Missed menses , unspecified gestational age Ordered: 03/21/2024 [facility] Comment on above: Ordered: 03/21/2024 Hepatitis C virus Ab [Presence] in Serum or Plasma by Immunoassay Hepatitis C antibody Lab Routine Missed menses , unspecified gestational age Ordered: 03/21/2024 [facility] Comment on above: Ordered: 03/21/2024 HIV-1/HIV-2 antigen/antibody combination immunoassay HIV-1 and HIV-2 antibodies Lab Routine Missed menses , unspecified gestational age Ordered: 03/21/2024 [facility] Comment on above: Ordered: 03/21/2024 Neisseria gonorrhoea e DNA [Presence] in Unspecified specimen by CALISTA with probe detection Neisseria gonorrhea DNA probe, direct Lab Routine STD exposure Vaginal discharge Ordered: 05/21/2024 [facility] Comment on above: Ordered: 05/21/2024 Reagin Ab [Presence] in Serum by RPR RPR Lab Routine Missed menses , unspecified gestational age Ordered: 03/21/2024 [facility] Comment on above: Ordered: 03/21/2024 Rubella antibody, IgG Rubella an tibody, IgG Lab Routine Missed menses , unspecified gestational age Ordered: 03/21/2024 [facility] Comment on above: Ordered: 03/21/2024 SURESWAB(R) ADVANCED VAGINITIS PLUS, TMA SURESWAB(R) ADVANCED VAGINITIS PLUS, TMA Pathology and Cytology Routine STD exposure Vaginal discharge Ordered: 05/21/2024 [facility] Work Phone: Comment on above: Ordered: 05/21/2024 Immunizations Immunization Date Immunization Notes Care Provider [facility] 01-15-2018 influenza virus vacc ine, unspecified formulation [facility] Payers Date Payer Category Payer [facility] [id number] [id number] 2023 Unknown [id number] 1993 Unknown [id number] 2.16.84 [id number] 1993 Unknown [id number] 2.16.8 40.1.452357.3.579.2.1259 1993 Unknown [id number] 2.16.8 40.1.173134.3.579.2.1259 1993 Unknown [id number] 2.16.8 40.1.267829.3.579.2.1259 1993 Unknown [id number] 2.16.8 40.1.015674.3.579.2.1259 1993 Unknown [id number] 2.16.84 0.1.762107.3.579.2.1259 1993 Unknown [id number] 2.16.84 0.1.683134.3.579.2.1259 1993 Unknown [id number] 2.16.84 0.1.087199.3.579.2.1259 1993 Unknown [id number] 2.16.84 0.1.942442.3.579.2.1259 1993 Unknown [id number] 2.16.84 0.1.471429.3.579.2.1259 1993 Unknown [id number] 2.16.84 0.1.292908.3.579.2.1259 1993 Unknown [id number] 2.16.84 0.1.335898.3.579.2.1259 1993 Unknown [id number] 2.16.84 0.1.248498.3.579.2.1259 1993 Unknown [id number] 2.16.84 0.1.767114.3.579.2.9 1993 Unknown [id number] 2.16.84 0.1.014984.3.579.2.1259 1993 Unknown [id number] 2.16. 840.1.510769.3.579.2.1286 1993 Unknown [id number] 2.16. 840.1.662384.3.579.2.1286 1993 Unknown [id number] 2.16. 840.1.649033.3.579.2.1286 1993 Unknown [id number] 2.16. 840.1.261229.3.579.2.1286 1993 Unknown [id number] 2.16.8 40.1.442723.3.579.2.1286 1993 Unknown [id number] 2.16.8 40.1.020498.3.579.2.1286 1993 Unknown [id number] 2.16.8 40.1.157162.3.579.2.1286 1959 Private Health Insurance [id number] Social History Date Type Detail Facility Start: 08-07-2023 [facility] Start: 08-07-2023 [...] 09-24-2024 SPIKE Guerra - 09/24/2024 8:50 AM EDJulio Watkins IUSS MASTER ANALYST - 09/18/2024 8:30 AM Ara Martínez IUSS MASTER ANALYST - 09/10/2024 11:30 AM SPIKE Mendes - [...] ASSESSMENT & PLAN ICD-10-CM 1. Third trimester ([facility]) Z34.93 POCT urinalysis dipstick manually resulted CULTURE, GROUP B STREP WITH SUSCEPTIBLITY CULTURE, GROUP B STREP WITH SUSCEPTIBLITY 2. 36 weeks gestation of ([facility]) Z3A.36 Patient is doing well but [...] of: SPIKE Guerra documented in this encounter [facility] 09-18-2024 History of Presen t illness Narrative [...] nursing note reviewed. Exam conducted with a oil dipper present. Vitals: Estimated body mass index is 33.51 kg/m as calculated from the following: Height as of 08/04/22: 5' 4 . Weight as of this encounter: 195 lb 4 oz. BP: 116/80 Patient's last menstrual period was 01/13/2024. ASSESSMENT & PLAN ICD-10-CM 1. Third trimester ([facility]) Z34.93 POCT urinalysis dipstick manually resulted 2. 35 weeks gestation of ([facility]) Z3A.35 Patient presents today for a [...] Jes Phillip DO documented in this encounter [facility] 09-10-2024 History of Presen t illness Narrative [...] nursing note reviewed. Exam conducted with a oil dipper present. Vitals: Estimated body mass index is [...] Jes Phillip DO documented in this encounter [facility] 09-04-2024 History of Presen t illness Narrative [...] of: SPIKE Guerra documented in this encounter [facility] 08-19-2024 History of Presen t illness Narrative [...] nursing note reviewed. Exam conducted with a oil dipper present. Vitals: Estimated body mass index is [...] Jes Phillip DO documented in this encounter [facility] 08-14-2024 History of Presen t illness Narrative [...] Visit: 1 year documented in this encounter [facility] 08-05-2024 History of Presen t illness Narrative [...] of: SPIKE Guerra documented in this encounter [facility] 07-21-2024 History of Presen t illness Narrative [...] Jes Phillip DO documented in this encounter [facility] 06-19-2024 History of Presen t illness Narrative [...] for routine OB appointment. Documented by SPIKE Gurera on behalf of: Jes Phillip DO documented in this encounter [facility] 05-21-2024 History of Presen t illness Narrative [...] of: SPIKE Guerra documented in this encounter [facility] 04-22-2024 History of Presen t illness Narrative [...] nursing note reviewed. Exam conducted with a oil dipper present. Vitals: Estimated body mass index is [...] or undercooked meat, and stay away from [facility]. Patient has been consulted regarding any [...] Jes Phillip DO documented in this encounter [facility] 03-21-2024 History of Presen t illness Narrative [...] or undercooked meat, and stay away from [facility]. Patient has also been advised to [...] Yudi Riley LPN documented in this encounter [facility] Evaluation note Diagnosis Second trimester [...] section and content) DATE CREATED AUTHOR 03/11/2018 [facility] DATE CREATED AUTHOR AUTHOR'S ORGANIZ ATION 11/27/2021 [facility] DATE CREATED AUTHOR AUTHOR'S ORGANIZ ATION 08/08/2022 [facility] DATE CREATED AUTHOR AUTHOR'S ORGANIZ ATION 09/25/2024 [facility] EPIC DATE CREATED AUTHOR AUTHOR'S ORGANIZ ATION 10/12/2024 [facility] Reason for Visit (unrecogniz ed [...] BE BASED ON THE PRIMARY CLINICAL RECORDS. [facility] [employer] provides no warranty or guarantee of the accuracy or completeness of information in this document.
== END 2024-10-23 12:36 | disposition home or self-care (01) ==
LOC: FBCO 08:56
PROVIDERS: PCP Family Medicine; Visit Provider Obstetrics & Gynecology
DX: Z39.1 Encounter for care and examination of lactating mother (principal)
CPT/HCPCS: G0463

== ENCOUNTER 2024-10-30 08:41 | Outpatient (OUT) | payer BC, SELFPAY ==
--- OUTSIDE RECORDS SUMMARY | 2024-10-30 09:00 | XMS_ITS | CCD ---
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 Name Role Phone YAAKOV BLANCAS Unavailable [...] Unavailable FURLONG, WILFRIDO G Primary Care Unavailable VALERIEZASAIDA Zamora Attending Unavailable FURLONG, WILFRIDO [...] reactions to drug (disorder) 4 Hives, Other [facility] Repository Medications Current Medications Medication Drug [...] Interpretation and review of laboratory results Abnormal [facility] AMNISURE Positive Abnormal NEGATIVE [facility] Urinalysis macro (dipstick) panel (U)on 09-24-2024 Bilirubin, UA Negative Negative - 4(70) +++ mg/dL [facility] Blood, UA Negative Negative - 50 Julius/mcL [facility] Clarity, UA Clear [facility] Color, UA Yellow [facility] Glucose, UA Negative Negative - 1999(110) ++++ mg/dL [facility] Interpretation and review of laboratory results Abnormal [facility] Ketones, UA Negative Negative - 160(16) ++++ mg/dL [facility] Leukocytes, UA Positive Negative - 500+++ Dori/mcL [facility] Comment on above: small Nitrite, UA Negative Negative - Positive [facility] pH, UA 6.5 5 - 9 [facility] Protein, UA Trace Negative - 1999(20) ++++ mg/dL [facility] Spec Grav, UA 1.02 1 - 1.03 [facility] Urobilinogen, UA 0.2 0.2 - 12 mg/dL [facility] Urinalysis macro (dipstick) panel (U)on 09-18-2024 Bilirubin, UA Negative Negative - 4(70) +++ mg/dL [facility] Blood, UA Negative Negative - 50 Julius/mcL [facility] Clarity, UA Clear [facility] Color, UA Yellow [facility] Glucose, UA Negative Negative - 1999(110) ++++ mg/dL [facility] Interpretation and review of laboratory results Abnormal [facility] Ketones, UA Negative Negative - 160(16) ++++ mg/dL [facility] Leukocytes, UA Positive Negative - 500+++ Dori/mcL [facility] Comment on above: small Nitrite, UA Negative Negative - Positive [facility] pH, UA 6 5 - 9 [facility] Protein, UA Negative Negative - 1999(20) ++++ mg/dL [facility] Spec Grav, UA 1.01 1 - 1.03 [facility] Urobilinogen, UA 0.2 0.2 - 12 mg/dL [facility] Urinalysis macro (dipstick) panel (U)on 09-10-2024 Bilirubin, UA Negative Negative - 4(70) +++ mg/dL [facility] Blood, UA Negative Negative - 50 Julius/mcL [facility] Clarity, UA Clear [facility] Color, UA Yellow [facility] Glucose, UA Negative Negative - 1999(110) ++++ mg/dL [facility] Interpretation and review of laboratory results Normal [facility] Ketones, UA Negative Negative - 160(16) ++++ mg/dL [facility] Leukocytes, UA Positive Negative - 500+++ Dori/mcL [facility] Nitrite, UA Negative Negative - Positive [facility] pH, UA 7 5 - 9 [facility] Protein, UA Negative Negative - 1999(20) ++++ mg/dL [facility] Spec Grav, UA 1.01 1 - 1.03 [facility] Urobilinogen, UA 0.2 0.2 - 12 mg/dL [facility] Urinalysis macro (dipstick) panel (U)on 09-04-2024 Bilirubin, UA Negative Negative - 4(70) +++ mg/dL [facility] Blood, UA Negative Negative - 50 Julius/mcL [facility] Clarity, UA Clear [facility] Color, UA Yellow [facility] Glucose, UA Negative Negative - 1999(110) ++++ mg/dL [facility] Interpretation and review of laboratory results Abnormal [facility] Ketones, UA Negative Negative - 160(16) ++++ mg/dL [facility] Leukocytes, UA Positive Negative - 500+++ Dori/mcL [facility] Comment on above: Moderate Nitrite, UA Negative Negative - Positive [facility] pH, UA 7 5 - 9 [facility] Protein, UA Negative Negative - 2000(20) ++++ mg/dL [facility] Spec Grav, UA 1.02 1 - 1.03 [facility] Urobilinogen, UA 0.2 0.2 - 12 mg/dL [facility] US OB FOLLOW UP TRANSABDOMIN AL APPROACHon [...] II, MD, PHD at 19-Aug-2024 10:59:29 PM [facility] Normal Not Available Comment on above: Order Comment: US OB SCAN FOR GROWTH Estimated Date of Delivery: 10/19/24 Gestational Age as of 08/05/2024: 29w2d Urinalysis macro (dipstick) panel (U)on 08-05-2024 Bilirubin, UA Negative Negative - 4(70) +++ mg/dL [facility] Blood, UA Negative Negative - 50 Julius/mcL [facility] Clarity, UA Clear [facility] Color, UA Yellow [facility] Glucose, UA Negative Negative - 1999(110) ++++ mg/dL [facility] Interpretation and review of laboratory results Abnormal [facility] Ketones, UA Negative Negative - 160(16) ++++ mg/dL [facility] Leukocytes, UA Positive Negative - 500+++ Dori/mcL [facility] Comment on above: small Nitrite, UA Negative Negative - Positive [facility] pH, UA 7 5 - 9 [facility] Protein, UA Negative Negative - 1999(20) ++++ mg/dL [facility] Spec Grav, UA 1.02 1 - 1.03 [facility] Urobilinogen, UA 0.2 0.2 - 12 mg/dL [facility] Urinalysis macro (dipstick) panel (U)on 07-21-2024 Bilirubin, UA Negative Negative - 4(70) +++ mg/dL [facility] Blood, UA Negative Negative - 50 Julius/mcL [facility] Clarity, UA Clear [facility] Color, UA Yellow [facility] Glucose, UA Negative Negative - 1999(110) ++++ mg/dL [facility] Interpretation and review of laboratory results Abnormal [facility] Ketones, UA Negative Negative - 160(16) ++++ mg/dL [facility] Leukocytes, UA Positive Negative - 500+++ Dori/mcL [facility] Comment on above: Moderate Nitrite, UA Negative Negative - Positive [facility] pH, UA 7 5 - 9 [facility] Protein, UA Negative Negative - 1999(20) ++++ mg/dL [facility] Spec Grav, UA 1.015 1 - 1.03 [facility] Urobilinogen, UA 0.2 0.2 - 12 mg/dL [facility] GLUCOSE 1 HOURon 07-01-2024 Glucose [Mass/Vol] 129 mg/dL NINF - 13 0 mg/dL [facility] Urinalysis macro (dipstick) panel (U)on 06-19-2024 Bilirubin, UA Negative Negative - 4(70) +++ mg/dL [facility] Blood, UA Negative Negative - 50 Julius/mcL [facility] Clarity, UA Clear [facility] Color, UA Yellow [facility] Glucose, UA Negative Negative - 1999(110) ++++ mg/dL [facility] Interpretation and review of laboratory results Abnormal [facility] Ketones, UA Negative Negative - 160(16) ++++ mg/dL [facility] Leukocytes, UA Moderate Negative - 500+++ Dori/mcL [facility] Nitrite, UA Negative Negative - Positive [facility] pH, UA 7.5 5 - 9 [facility] Protein, UA Negative Negative - 2000(20) ++++ mg/dL [facility] Spec Grav, UA 1.02 1 - 1.03 [facility] Urobilinogen, UA 0.2 0.2 - 12 mg/dL [facility] US OB 14+ WEEKS ANATOMY SCAN on [...] II, MD, PHD at 12-Jun-2024 09:04:27 AM [facility] Normal Not Available Comment on above: Order Comment: US OB ANATOMY SINGLE W US OB CERVICAL LENGTH Estimated Date of Delivery: 10/19/24 Gestational Age as of 05/21/2024: 18w3d RECURRENT VAGINITIS (HTRX)on 05-22-2024 ATOPOBIUM VAGINAE 0 [facility] ATOPOBIUM VAGINAE Not detected [facility] BVAB 2,3 (BACTERIAL VAGINOSIS ASSOCIATED BACTERIA 2, 3); MOBILUNCUS SPP 26.828 Abnormal [facility] BVAB 2,3 (BACTERIAL VAGINOSIS ASSOCIATED BACTERIA 2, 3); MOBILUNCUS SPP Detected Abnormal [facility] MARQUITA ALBICANS, PARAPSILOSIS, TROPICALIS 0 [facility] MARQUITA ALBICANS, PARAPSILOSIS, TROPICALIS Not detected [facility] MARQUITA GLABRATA 0 [facility] MARQUITA GLABRATA Not detected [facility] MARQUITA KRUSEI 0 [facility] MARQUITA KRUSEI Not detected [facility] CHLAMYDIA TRACHOMATIS 0 [facility] CHLAMYDIA TRACHOMATIS Not detected [facility] GARDNERELLA VAGINALIS 0 [facility] GARDNERELLA VAGINALIS Not detected [facility] Interpretation and review of laboratory results Abnormal [facility] MEGASPHAERA (TYPES 1, 2) 0 [facility] MEGASPHAERA (TYPES 1, 2) Not detected [facility] MYCOPLASMA GENITALIUM 0 [facility] MYCOPLASMA GENITALIUM Not detected [facility] NEISSERIA GONORRHOEAE 0 [facility] NEISSERIA GONORRHOEAE Not detected [facility] TRICHOMONAS VAGINALIS 0 [facility] TRICHOMONAS VAGINALIS Not detected [facility] ALL CBC WITH AUTO DIFFon BASOPHILS ABSOLUTE AUTO 0 [facility] Basophils/100 WBC (Bld) 0.3 % 0.2 - 2.0 % [facility] Eosinophils/100 WBC (Bld) 1.2 % 0.9 - 7.0 % [facility] Erythrocyte distribution width (RBC) [Ratio] 13.4 % 11.0 - 15.0 % [facility] Hematocrit (Bld) [Volume fraction] 35.6 % Low 36.0 - 48.0 % [facility] Hemoglobin (Bld) [Mass/Vol] 12 g/dL 12.0 - 16.0 g/dL [facility] IMMATURE GRANULOCYTES ABS AUTO 0.1 High [facility] Immature granulocytes/100 WBC (Bld) 0.8 % High 0.0 - 0.5 % [facility] Interpretation and review of laboratory results Abnormal [facility] LYMPHOCYTES ABSOLUTE AUTO 2 [facility] Lymphocytes/100 WBC (Bld) 16.5 % Low 20.5 - 60.0 % [facility] MCH (RBC) [Entitic mass] 30.7 pg 26.7 - 34.0 pg [facility] MCHC (RBC) [Mass/Vol] 33.7 g/dL 29.9 - 35.2 g/dL [facility] MCV (RBC) [Entitic vol] 91 fL 81.0 - 99.0 fL [facility] MONOCYTES ABSOLUTE AUTO 0.7 [facility] Monocytes/100 WBC (Bld) 6.1 % 1.7 - 12.0 % [facility] NEUTROPHILS ABSOLUTE AUTO 9.1 High [facility] Neutrophils/100 WBC (Bld) 75.1 % High 43.0 - 75.0 % [facility] Platelet mean volume (Bld) [Entitic vol] 10.2 fL 9.5 - 13.5 fL [facility] TBH EO # 0.2 [facility] PLT 225 [facility] RBC 3.91 Low [facility] WBC 12.2 High [facility] HCG ( test) Ql (U)o n 03-21-2024 Interpretation and review of laboratory results Abnormal [facility] Preg Test, Ur Positive Negative [facility] Urinalysis macro (dipstick) panel (U)on 03-21-2024 Bilirubin, UA Negative Negative - 4(70) +++ mg/dL [facility] Blood, UA Negative Negative - 50 Julius/mcL [facility] Clarity, UA Clear [facility] Color, UA Yellow [facility] Glucose, UA Negative Negative - 2000(110) ++++ mg/dL [facility] Interpretation and review of laboratory results Abnormal [facility] Ketones, UA Negative Negative - 160(16) ++++ mg/dL [facility] Leukocytes, UA Trace Negative - 500+++ Dori/mcL [facility] Nitrite, UA Negative Negative - Positive [facility] pH, UA 7 5 - 9 [facility] Protein, UA Negative Negative - 2000(20) ++++ mg/dL [facility] Spec Grav, UA 1.02 1 - 1.03 [facility] Urobilinogen, UA 0.2 0.2 - 12 mg/dL [facility] PAP ACOG PANEL 2: 21 to 29on 08-07-2022 . . Normal [facility] Comment on above: Performed By: #### [id number] #### [facility] [address] [place] [address] Dr. Pat Aguilar Age Gdln ACOG Testing - [facility] Comment on above: Performed By: #### [id number] #### [facility] [address] [place] [address] Dr. Pat Aguilar DIAGNOSIS: Comment [facility] Comment on above: Result Comment: NEGA TIVE FOR INTRAEPITHELIAL LESION OR MALIGNANCY. Performed By: #### 4 [id number] #### [facility] [address] [place] [address] Dr. Pat Aguilar Methodology: Comment [facility] Comment on above: Result Comment: This liquid based ThinPrep(R) pap test was screened with the use of an image guided system. Performed By: #### 4 [id number] #### [facility] [address] [place] [address] Dr. Pat Aguilar Note: Comment [facility] Comment on above: Result Comment: The Pap smear is a screening test designed to aid in the detection of premalignant and malignant conditions of the uterine cervix. It is not a diagnostic procedure and should not be used as the sole means of detecting cervical cancer. Both false-positive and false-negative reports do occur. . Performed By: #### 4 [id number] #### [facility] [address] [place] [address] Dr. Pat Aguilar Performed by: Comment [facility] Comment on above: Result Comment: Soo Haney, Test Eng (ASCP) Performed By: #### 4 [id number] #### [facility] [address] [place] [address] Dr. Pat Aguilar Reflex Criteria: Comment Normal [facility] Comment on above: Result Comment: The HPV DNA reflex criteria were not met with this specimen result therefore, no HPV testing was performed. . Performed By: #### 4 [id number] #### [facility] [address] [address] [address] Pat Aguilar Specimen adequacy: Comment Normal [facility] Comment on above: Result Comment: Sati sfactory for evaluation. Endocervical and/or squamous metaplastic cells (endocervical component) are present. Performed By: #### 4 [id number] #### [facility] [address] [address] [address] Pat Aguilar [facility] 11-26-2021 Albumin [Mass/Vol] 4.1 g/dL Normal 3.6-5.1 [facility] Comment on above: Performed By: #### 1 0231, 7600 #### [facility] [place] [address] Power Regulator: Vladislav Kamara MD Albumin/Globulin [Mass ratio] 1.6 {ratio} Normal 1.0-2.5 [facility] Comment on above: Performed By: #### 1 0231, 7600 #### [facility] [place] [address] Power Regulator: Vladislav Kamara MD ALP [Catalytic activity/Vol] 53 U/L Normal 31-125 [facility] Comment on above: Performed By: #### 1 0231, 7600 #### [facility] [place] [address] Power Regulator: Vladislav Kamara MD ALT [Catalytic activity/Vol] 6 U/L Normal 6-29 [facility] Comment on above: Performed By: #### 1 0231, 7600 #### [facility] [place] [address] Power Regulator: Vladislav Kamara MD AST [Catalytic activity/Vol] 10 U/L Normal 10-30 [facility] Comment on above: Performed By: #### 1 0231, 7600 #### [facility] of [address], [address] [place] [address] Power Regulator: Vladislav Kamara MD Bilirubin [Mass/Vol] 0.5 mg/dL Normal 0.2-1.2 [facility] Comment on above: Performed By: #### 1 023, 7600 #### [facility] of [address], [address] [place] [address] Power Regulator: Vladislav Kamara MD BUN/CREATININE RATIO NOT APPLICABLE Normal 6-22 [facility] Comment on above: Performed By: #### 1 023, 7600 #### [facility] of [place] [address] Power Regulator: Vladislav Kamara MD Calcium [Mass/Vol] 9.3 mg/dL Normal 8.6-10.2 [facility] Comment on above: Performed By: #### 1 023, 7600 #### [facility] of [place] [address] Power Regulator: Vladislav Kamara MD Chloride [Moles/Vol] 104 mmol/L Normal 98-110 [facility] Comment on above: Performed By: #### 1 023, 7600 #### [facility] of [place] [address] Power Regulator: Vladislav Kamara MD CO2 [Moles/Vol] 27 mmol/L Normal 20-32 [facility] Comment on above: Performed By: #### 1 023, 7600 #### [facility] of [place] [address] Power Regulator: Vladislav Kamara MD Creatinine [Mass/Vol] 0.92 mg/dL Normal 0.50-0.96 [facility] Comment on above: Performed By: #### 1 0231, 7600 #### [facility] of [place] [address] Power Regulator: Vladislav Kamara MD GFR/1.73 sq M.predicted among non-blacks MDRD (S/P/Bld) [Vol rate/Area] 87 mL/min/{1.73_m2} Normal > OR = 60 [facility] Comment on above: Result Comment: The eGFR is based on the CKD-EPI 2020 equation. To calculate the new eGFR from a previous Creatinine or Cystatin C result, go to https://www.kidney.org/professionals/ kdoqi/gfr%5Fcalculator Performed By: #### 1 023, 7600 #### [facility] [place] [address] Power Regulator: Vladislav Kamara MD Globulin (S) [Mass/Vol] 2.5 g/dL Normal 1.9-3.7 [facility] Comment on above: Performed By: #### 1 023, 7600 #### [facility] [place] [address] Power Regulator: Vladislav Kamara MD Glucose [Mass/Vol] 81 mg/dL Normal 65-99 [facility] Comment on above: Result Comment: Fasting reference interval Performed By: #### 1 023, 7600 #### [facility] [place] [address] Power Regulator: Vladislav Kamara MD Potassium [Moles/Vol] 4.4 mmol/L Normal 3.5-5.3 [facility] Comment on above: Performed By: #### 1 023, 7600 #### [facility] [place] [address] Power Regulator: Vladislav Kamara MD Protein [Mass/Vol] 6.6 g/dL Normal 6.1-8.1 [facility] Comment on above: Performed By: #### 1 023, 7600 #### [facility] [place] [address] Power Regulator: Vladislav Kamara MD Sodium [Moles/Vol] 138 mmol/L Normal 135-146 [facility] Comment on above: Performed By: #### 1 0231, 7600 #### [facility] [address], [address] [place] [address] Power Regulator: Vladislav Kamara MD Urea nitrogen [Mass/Vol] 12 mg/dL Normal 7-25 [facility] Comment on above: Performed By: #### 1 0231, 7600 #### [facility] [address], [address] [place] [address] Power Regulator: Vladislav Kamara MD LIPID PANEL, [facility] 11-01 Cholesterol [Mass/Vol] 153 mg/dL Normal <200 [facility] Comment on above: Order Comment: FASTI NG:YES FASTING: YES Performed By: #### 1 0231, 7600 #### [facility] [address], [address] [place] [address] Power Regulator: Vladislav Kamara MD Cholesterol in HDL [Mass/Vol] 73 mg/dL Normal > OR = 50 [facility] Comment on above: Order Comment: FASTI NG:YES FASTING: YES Performed By: #### 1 023, 7600 #### [facility] [address], [address] [place] [address] Power Regulator: Vladislav Kamara MD Cholesterol in LDL [Mass/Vol] [...] LDL-C. Marko RODRIGUEZ et al. BRITTANY. 2013;310(19): 0651-0643 (http://education.[employer] [facility]/faq/ROO026) Performed By: #### 1 0231, 7600 #### [facility] [address], [address] [place] [address] Power Regulator: Vladislav Kamara MD Cholesterol.total/ Cholesterol in HDL [Mass ratio] 2.1 {ratio} Normal <5.0 [facility] Comment on above: Order Comment: FASTI NG:YES FASTING: YES Performed By: #### 1 0231, 7600 #### [facility] [address], [address] [place] [address] Power Regulator: Vladislav Kamara MD NON HDL CHOLESTEROL 80 mg/dL (calc) Normal <130 [facility] Comment on above: Order Comment: FASTI NG:YES FASTING: YES Result Comment: For patients with diabetes plus 1 major ASCVD risk factor, treating to a non-HDL-C goal of <100 mg/dL (LDL-C of <70 mg/dL) is considered a therapeutic option. Performed By: #### 1 0231, 7600 #### [facility] [address], [address] [place] [address] Power Regulator: Vladislav Kamara MD Triglyceride [Mass/Vol] 86 mg/dL Normal <150 [facility] Comment on above: Order Comment: FASTI NG:YES FASTING: YES Performed By: #### 1 0231, 7600 #### [facility] [address], [address] [place] [address] Power Regulator: Vladislav Kamara MD PROGRESSon 02-26-2018 Protein mass conc HNO ID: [id number] thor: Yaakov Brar: (none)Author Type: PhysicianType: Progress [...] agreewith all of its relevant components. Normal [facility] Vital Signs Date Time Vital Sign Value Performing Clinician Susana ritchie 09-24-2024 09:09-0400 Diastolic blood pressure 84 mm[Hg] Ami LALA Work Phone: [facility] 09-24-2024 09:09-0400 Systolic blood pressure 118 mm[Hg] Ami LALA Work Phone: [facility] 09-24-2024 08:57-0400 Body mass index (BMI) [Ratio] 34.03 kg/m2 Ami LALA Work Phone: [facility] 09-24-2024 08:57-0400 Body weight 89.93 kg Ami LALA Work Phone: [facility] 09-18-2024 08:38-0400 Body mass index (BMI) [Ratio] 33.51 kg/m2 Jes Kenji DO Work Phone: [facility] 09-18-2024 08:38-0400 Body weight 88.56 kg Jes Kenji DO Work Phone: [facility] 09-18-2024 08:38-0400 Diastolic blood pressure 80 mm[Hg] Jes Kenji DO Work Phone: [facility] 09-18-2024 08:38-0400 Systolic blood pressure 116 mm[Hg] Jes Kenji DO Work Phone: [facility] 09-10-2024 11:29-0400 Body mass index (BMI) [Ratio] 33.3 kg/m2 Jes Kenji DO Work Phone: [facility] 09-10-2024 11:29-0400 Body weight 88 kg Jes Kenji DO Work Phone: [facility] 09-10-2024 11:29-0400 Diastolic blood pressure 70 mm[Hg] Jes Kenji DO Work Phone: [facility] 09-10-2024 11:29-0400 Systolic blood pressure 122 mm[Hg] Jes Kenji DO Work Phone: [facility] 09-04-2024 09:02-0400 Body mass index (BMI) [Ratio] 33.26 kg/m2 Ami Myrna PA Work Phone: [facility] 09-04-2024 09:02-0400 Body weight 87.88 kg Ami Maryknoll PA Work Phone: [facility] 09-04-2024 09:02-0400 Diastolic blood pressure 80 mm[Hg] Ami Myrna PA Work Phone: [facility] 09-04-2024 09:02-0400 Systolic blood pressure 122 mm[Hg] Ami Myrna PA Work Phone: [facility] 08-19-2024 11:06-0400 Body mass index (BMI) [Ratio] 31.84 kg/m2 Jes Kenji DO Work Phone: [facility] 08-19-2024 11:06-0400 Body weight 84.14 kg Jes Kenji DO Work Phone: [facility] 08-19-2024 11:06-0400 Diastolic blood pressure 64 mm[Hg] Jes Kenji DO Work Phone: [facility] 08-19-2024 11:06-0400 Systolic blood pressure 102 mm[Hg] Jes Kenji DO Work Phone: [facility] 08-05-2024 10:33-0400 Body mass index (BMI) [Ratio] 31.5 kg/m2 Ami Maryknoll PA Work Phone: [facility] 08-05-2024 10:33-0400 Body weight 83.23 kg Ami Myrna PA Work Phone: [facility] 08-05-2024 10:33-0400 Diastolic blood pressure 62 mm[Hg] Ami Myrna PA Work Phone: [facility] 08-05-2024 10:33-0400 Systolic blood pressure 104 mm[Hg] Ami LALA Work Phone: [facility] 07-21-2024 09:53-0400 Body mass index (BMI) [Ratio] 30.81 kg/m2 Jes Kenji DO Work Phone: [facility] 07-21-2024 09:53-0400 Body weight 81.42 kg Jes Kenji DO Work Phone: [facility] [facility] 09:53-0400 Diastolic blood pressure 60 mm[Hg] Jes Kenji DO Work Phone: [facility] 07-21-2024 09:53-0400 Systolic blood pressure 120 mm[Hg] Jes Kenji DO Work Phone: [facility] 06-19-2024 09:01-0400 Body mass index (BMI) [Ratio] 28.86 kg/m2 Jes Kenji DO Work Phone: [facility] 06-19-2024 09:01-0400 Body weight 76.26 kg Jes Kenji DO Work Phone: [facility] 06-19-2024 09:01-0400 Diastolic blood pressure 64 mm[Hg] Jes Kenji DO Work Phone: [facility] 06-19-2024 09:01-0400 Systolic blood pressure 110 mm[Hg] Jes Kenji DO Work Phone: [facility] 05-21-2024 08:42-0500 Body mass index (BMI) [Ratio] 28.49 kg/m2 Ami LALA Work Phone: [facility] 05-21-2024 08:42-0500 Body weight 75.3 kg Ami LALA Work Phone: [facility] 05-21-2024 08:42-0500 Diastolic blood pressure 60 mm[Hg] Ami LALA Work Phone: [facility] 05-21-2024 08:42-0500 Systolic blood pressure 112 mm[Hg] Ami LALA Work Phone: [facility] 04-22-2024 09:58-0500 Body mass index (BMI) [Ratio] 28 kg/m2 Jes Kenji DO Work Phone: [facility] 04-22-2024 09:58-0500 Body weight 73.99 kg Jes Kenji DO Work Phone: [facility] 04-22-2024 09:58-0500 Diastolic blood pressure 62 mm[Hg] Jes Kenji DO Work Phone: [facility] 04-22-2024 09:58-0500 Systolic blood pressure 112 mm[Hg] Jes Kenji DO Work Phone: [facility] 03-21-2024 09:48-0500 Body mass index (BMI) [Ratio] 27.19 kg/m2 [facility] 03-21-2024 09:48-0500 Body weight 71.85 kg [facility] 03-21-2024 09:48-0500 Diastolic blood pressure 60 mm[Hg] [facility] 03-21-2024 09:48-0500 Systolic blood pressure 110 mm[Hg] [facility] Encounters Encounter Date Encounter Type Care Provider Facility Start: 10-08-2024 End: 10-08-2024 ambulatory [facility] Start: 09-26-2024 End: 09-26-2024 Clinisync Result Encounter Jes Kenji DO Work Phone: [facility] Unsolicited Start: 09-26-2024 End: 09-26-2024 Clinisync Result Encounter Jes Kenji DO Work Phone: [facility] Unsolicited Start: 09-24-2024 End: 09-24-2024 Bamboo flowsheet Ami LALA Work Phone: [facility] Start: 09-24-2024 End: 09-24-2024 Bamboo flowsheet Ami LALA Work Phone: [facility] Start: 09-24-2024 End: 09-24-2024 flow sheet Ami LALA Work Phone: [facility] Comment on above: Third trimester preg maría ([facility]); 36 weeks gestation of ([facility]) Start: 09-24-2024 End: 09-24-2024 ambulatory AMI NORRIS Not Available Start: 09-18-2024 End: 09-18-2024 Bamboo flowsheet Jes Kenji DO Work Phone: [facility] Start: 09-18-2024 End: 09-18-2024 Bamboo flowsheet Jes Kenji DO Work Phone: [facility] Start: 09-18-2024 End: 09-18-2024 flow sheet Jes Kenji DO Work Phone: [facility] Comment on above: Third trimester preg maría ([facility]); 35 weeks gestation of ([facility]) Start: 09-18-2024 End: 09-18-2024 ambulatory JES KENJI [...] visit 15 minutes Ami LALA Work Phone: [facility] Comment on above: Third trimester preg maría; 33 weeks gestation of Start: 09-04-2024 End: 09-04-2024 ambulatory AMI NORRIS Not Available Start: 08-19-2024 End: 08-19-2024 flow sheet Jes Kenji DO Work Phone: [facility] Comment on above: Third trimester preg maría; 31 weeks gestation of Start: 08-19-2024 End: 08-19-2024 ambulatory JES KENJI Not Available Start: 08-14-2024 End: 08-14-2024 Bamboo flowsheet Karolina A Felter [employer] Work Phone: [facility] Start: 08-14-2024 End: 08-14-2024 Bamboo flowsheet Karolina A Felter [employer] Work Phone: [facility] Start: 08-14-2024 End: 08-14-2024 Office outpatient visit 15 minutes Karolina A Felter [employer] Work Phone: [facility] Comment on above: Melanocytic nevus of trunk (Primary Dx); Other seborrheic dermatitis Start: 08-14-2024 End: 08-14-2024 ambulatory KAROLINA A FELTER Not Available Start: 08-05-2024 End: 08-05-2024 Bamboo flowsheet Ami LALA Work Phone: [facility] Start: 08-05-2024 End: 08-05-2024 Bamboo flowsheet Ami LALA Work Phone: [facility] Start: 08-05-2024 End: 08-05-2024 flow sheet Ami LALA Work Phone: [facility] Comment on above: 29 weeks gestation o f ; Third trimester ; size inconsistent with dates Start: 08-05-2024 End: 08-05-2024 ambulatory AMI MYRNA Not Available Start: 08-04-2024 End: 08-04-2024 ambulatory [facility] Start: 07-21-2024 End: 07-21-2024 Bamboo flowsheet Jes [...] Department Unsolicited Start: 06-26-2024 End: 06-26-2024 ambulatory [facility] Start: 06-19-2024 End: 06-19-2024 Bamboo flowsheet Jes [...] Available Start: 05-19-2024 End: 05-19-2024 ambulatory SA[facility] Start: 04-22-2024 End: 04-22-2024 flow sheet [...] Start: 02-20-2024 End: 02-20-[address] [facility] Start: 12-26-2023 End: 12-26-[address] [facility] Start: 10-31-2023 End: 10-31-[address] [facility] Start: 07-31-2022 End: 07-31-[address] JES PHILLIP . Facility: Start: 02-26-2018 End: 03-01-2018 Patient encounter procedure YAAKOV BLANCAS [facility] Procedures Date Procedure Procedure Detail Performing Clinician [...] dip stick/tabl et rgnt non-auto w/o micrscp Aim LALA Work Phone: Start: 08-05-2024 Urnls dip [...] 08/13/2025 8:35 AM EDT Office Visit [facility] [address] [place] [id number] Karolina Whyte, [employer] [address] [place] [address] [facility] Start: 09-30-2024 End: 09-30-2024 Patient encounter procedure 09/30/2024 8:30 AM EDT Routine [facility] [address] [address] Jes Phillip, DO [address] [place] [address] [facility] Start: 09-24-2024 End: 09-24-2025 CULTURE, GROUP B STREP WITH SUSCEPTIBLITY CULTURE, GROUP B STREP WITH SUSCEPTIBLITY Lab Routine Third trimester ([facility]) Expected: 09/24/2024, Expires: 09/24/2025 [facility] Work Phone: Comment on above: Expected: 09/24/2024 , Expires: 09/24/2025 Start: 09-24-2024 End: 09-24-2024 Patient encounter procedure [facility] Comment on above: Arrived Start: 09-18-2024 End: 09-18-2024 Patient encounter procedure [facility] Comment on above: Arrived Start: 09-10-2024 End: 09-10-2024 Patient encounter procedure 09/10/2024 11:30 AM EDT Routine [facility] [address] [place] [id number] Jes Phillip, DO [address] [place] [address] Arrived [facility] Comment on above: Arrived Start: 09-04-2024 End: 09-04-2024 Patient encounter procedure [facility] Comment on above: Arrived Start: 08-19-2024 End: 08-19-2024 Patient encounter procedure 08/19/2024 10:30 AM EDT Routine [facility] [address] [place] [id number] Jes Phillip, DO [address] [place] [address] [facility] Start: 08-19-2024 End: 08-19-2024 Professional / ancillary services management 08/19/2024 10:00 AM EDT Ancillary Procedure [facility] [address] [place] [id number] [facility] Start: 08-14-2024 End: 08-14-2024 Patient encounter procedure [facility] Comment on above: Arrived Start: 08-07-2024 End: 08-07-2024 Patient encounter procedure 08/07/2024 8:50 AM EDT Office Visit [facility] [address] [place] [address] Karolina Whyte, [employer] [address] [place] [address] [facility] Start: 08-05-2024 End: 12-06-2024 US for US OB follow up transabdominal approach Imaging Routine size inconsistent with dates Expected: 08/05/2024, Expires: 12/06/2024 [facility] Work Phone: Comment on above: Expected: 08/05/2024 , Expires: 12/06/2024 Start: 08-05-2024 End: 08-05-2024 Patient encounter procedure 08/05/2024 9:50 AM EDT Routine [facility] [address] [place] [address] Ami Norris PA [address] [place], [place] [id number] Arrived [facility] Comment on above: Arrived Start: 07-21-2024 End: 07-21-2024 Patient encounter procedure [facility] Comment on above: Arrived Start: 06-19-2024 End: 06-19-2025 CBC panel - Blood by Automated count CBC Lab Routine Diabetes mellitus screening Expected: 06/19/2024 (Approximate), Expires: 06/19/2025 [facility] Work Phone: Comment on above: Expected: 06/19/2024 (Approximate), Expires: 06/19/2025 Start: 06-19-2024 End: 06-19-2025 Measurement of glucose 1 hour after glucose challenge for glucose tolerance test Glucose tolerance, 1 hour Lab Routine Diabetes mellitus screening Expected: 06/19/2024 (Approximate), Expires: 06/19/2025 [facility] Comment on above: Expected: 06/19/2024 (Approximate), Expires: 06/19/2025 Start: 06-19-2024 End: 06-19-2024 Patient encounter procedure [facility] Comment on above: Arrived Start: 06-11-2024 End: 06-11-2024 Professional / ancillary services management 06/11/2024 8:00 AM EDT Ancillary Procedure [facility] [address] [place] [address] [facility] Start: 05-21-2024 End: 07-19-2024 Alpha fetoprotein, maternal Alpha fetoprotein, maternal Lab Routine Screening, , for anatomic survey Expected: 05/21/2024 (Approximate), Expires: 07/19/2024 [facility] Comment on above: Expected: 05/21/2024 (Approximate), Expires: 07/19/2024 Start: 05-21-2024 End: 05-21-2025 US for US OB 14+ weeks anatomy scan Imaging Routine Screening, , for anatomic survey Expected: 05/21/2024, Expires: 05/21/2025 [facility] Comment on above: Expected: 05/21/2024 [...] gestational age Expected: 03/21/2024 (Approximate), Expires: 03/21/2025 [facility] Comment on above: Expected: 03/21/2024 (Approximate), Expires: 03/21/2025 Start: 03-21-2024 End: 03-21-2025 Blood type and Indirect antibody screen panel - Blood Type and screen Lab Routine Missed menses , unspecified gestational age Expected: 03/21/2024 (Approximate), Expires: 03/21/2025 [facility] Work Phone: Comment on above: Expected: 03/21/2024 (Approximate), Expires: 03/21/2025 Start: 03-21-2024 End: 03-21-2025 Drugs of abuse panel - Urine by Screen method Rapid drug screen, urine Lab Routine , unspecified gestational age Encounter for supervision of normal first in first trimester Expected: 03/21/2024 (Approximate), Expires: 03/21/2025 [facility] Comment on above: Expected: 03/21/2024 (Approximate), Expires: 03/21/2025 Start: 03-21-2024 End: 03-21-2025 US Pelvis transvaginal US OB transvaginal Imaging Routine Missed menses Expected: 03/21/2024 (Approximate), Expires: 03/21/2025 [facility] Comment on above: Expected: 03/21/2024 (Approximate), Expires: 03/21/2025 Start: 12-02-2023 Influenza vaccination Influenza Vacc ine (#1) [facility] Start: 2023 Screening for malign ant neoplasm of cervix HPV/Cotest [facility] Bacteria identified in Urine by Culture Urine culture Microbiology Routine Missed menses Ordered: 03/21/2024 [facility] Comment on above: Ordered: 03/21/2024 CBC W Auto Different ial panel - Blood CBC and differential Lab Routine Missed menses , unspecified gestational age Ordered: 03/21/2024 [facility] Comment on above: Ordered: 03/21/2024 CHLAMYDIA TRACHOMATI S (GENITO/STI) CHLAMYDIA TRACHOMATIS (GENITO/STI) Lab Routine STD exposure Vaginal discharge Ordered: 05/21/2024 [facility] Comment on above: Ordered: 05/21/2024 Hemoglobin A1c/Hemoglobin.total in Blood Hemoglobin A1c Lab Routine Missed menses , unspecified gestational age Ordered: 03/21/2024 [facility] Comment on above: Ordered: 03/21/2024 Hepatitis B virus surface Ag [Presence] in Serum or Plasma by Immunoassay Hepatitis B surface antigen Lab Routine Missed menses , unspecified gestational age Ordered: 03/21/2024 [facility] Comment on above: Ordered: 03/21/2024 Hepatitis C virus Ab [Presence] in Serum or Plasma by Immunoassay Hepatitis C antibody Lab Routine Missed menses , unspecified gestational age Ordered: 03/21/2024 [facility] Comment on above: Ordered: 03/21/2024 HIV-1/HIV-2 antigen/antibody combination immunoassay HIV-1 and HIV-2 antibodies Lab Routine Missed menses , unspecified gestational age Ordered: 03/21/2024 [facility] Comment on above: Ordered: 03/21/2024 Neisseria gonorrhoea e DNA [Presence] in Unspecified specimen by CALISTA with probe detection Neisseria gonorrhea DNA probe, direct Lab Routine STD exposure Vaginal discharge Ordered: 05/21/2024 [facility] Comment on above: Ordered: 05/21/2024 Reagin Ab [Presence] in Serum by RPR RPR Lab Routine Missed menses , unspecified gestational age Ordered: 03/21/2024 [facility] Comment on above: Ordered: 03/21/2024 Rubella antibody, IgG Rubella an tibody, IgG Lab Routine Missed menses , unspecified gestational age Ordered: 03/21/2024 [facility] Comment on above: Ordered: 03/21/2024 SURESWAB(R) ADVANCED VAGINITIS PLUS, TMA SURESWAB(R) ADVANCED VAGINITIS PLUS, TMA Pathology and Cytology Routine STD exposure Vaginal discharge Ordered: 05/21/2024 [facility] Work Phone: Comment on above: Ordered: 05/21/2024 Immunizations Immunization Date Immunization Notes Care Provider [facility] 01-15-2018 influenza virus vacc ine, unspecified formulation [facility] Nurse [facility] Payers Date Payer Category Payer [facility] [id number] [id number] 2023 Unknown [id number] 1993 Unknown [id number] 2.16.84 0.1.457082.3.579.2.593 1993 Unknown [id number] 2.16.8 40.1.140641.3.579.2.1259 1993 Unknown [id number] 2.16.8 40.1.663065.3.579.2.1259 1993 Unknown [id number] 2.16.8 40.1.913188.3.579.2.1259 1993 Unknown [id number] 2.16.8 40.1.778557.3.579.2.1259 1993 Unknown [id number] 2.16.84 0.1.995113.3.579.2.1259 1993 Unknown [id number] 2.16.84 0.1.041414.3.579.2.1259 1993 Unknown [id number] 2.16.84 0.1.311034.3.579.2.1259 1993 Unknown [id number] 2.16.84 0.1.518836.3.579.2.1259 1993 Unknown [id number] 2.16.84 0.1.551263.3.579.2.1259 1993 Unknown [id number] 2.16.84 0.1.804512.3.579.2.1259 1993 Unknown [id number] 2.16.84 0.1.750388.3.579.2.1259 1993 Unknown [id number] 2.16.84 0.1.138675.3.579.2.1259 1993 Unknown [id number] 2.16.84 0.1.028780.3.579.2.9 1993 Unknown [id number] 2.16.84 0.1.971712.3.579.2.1259 1993 Unknown [id number] 2.16. 840.1.162974.3.579.2.1286 1993 Unknown [id number] 2.16. 840.1.040556.3.579.2.1286 1993 Unknown [id number] 2.16. 840.1.647506.3.579.2.1286 1993 Unknown [id number] 2.16. 840.1.187570.3.579.2.1286 1993 Unknown [id number] 2.16.8 40.1.103891.3.579.2.1286 1993 Unknown [id number] 2.16.8 40.1.783533.3.579.2.1286 1993 Unknown [id number] 2.16.8 40.1.877027.3.579.2.1286 1959 Private Health Insurance [id number] Social History Date Type Detail Facility [facility]: [facility]07[facility]23 [facility] Start: 08-07-2023 [...] Guerra - 09/24/2024 8:50 AM EDJulio Watkins [employer] - 09/18/2024 8:30 AM Ara Martínez [employer] - 09/10/2024 11:30 AM SPIKE Mendes - [...] ASSESSMENT & PLAN ICD-10-CM 1. Third trimester ([facility]) Z34.93 POCT urinalysis dipstick manually resulted CULTURE, GROUP B STREP WITH SUSCEPTIBLITY CULTURE, GROUP B STREP WITH SUSCEPTIBLITY 2. 36 weeks gestation of ([facility]) Z3A.36 Patient is doing well but has [...] of: SPIKE Guerra documented in this encounter [facility] 09-18-2024 History of Presen t illness Narrative [...] nursing note reviewed. Exam conducted with a material scheduler present. Vitals: Estimated body mass index is 33.51 kg/m as calculated from the following: Height as of 08/04/22: 5' 4 . Weight as of this encounter: 195 lb 4 oz. BP: 116/80 Patient's last menstrual period was 01/13/2024. ASSESSMENT & PLAN ICD-10-CM 1. Third trimester ([facility]) Z34.93 POCT urinalysis dipstick manually resulted 2. 35 weeks gestation of ([facility]) Z3A.35 Patient presents today for a routine [...] Jes Phillip DO documented in this encounter [facility] 09-10-2024 History of Presen t illness Narrative [...] nursing note reviewed. Exam conducted with a material scheduler present. Vitals: Estimated body mass index is [...] Jes Phillip DO documented in this encounter [facility] 09-04-2024 History of Presen t illness Narrative [...] of: SPIKE Guerra documented in this encounter [facility] 08-19-2024 History of Presen t illness Narrative [...] nursing note reviewed. Exam conducted with a material scheduler present. Vitals: Estimated body mass index is [...] Jes Phillip DO documented in this encounter [facility] 08-14-2024 History of Presen t illness Narrative [...] Visit: 1 year documented in this encounter [facility] 08-05-2024 History of Presen t illness Narrative [...] of: SPIKE Guerra documented in this encounter [facility] 07-21-2024 History of Presen t illness Narrative [...] Jes Phillip DO documented in this encounter [facility] 06-19-2024 History of Presen t illness Narrative [...] Jes Phillip DO documented in this encounter [facility] 05-21-2024 History of Presen t illness Narrative [...] of: SPIKE Guerra documented in this encounter [facility] 04-22-2024 History of Presen t illness Narrative [...] nursing note reviewed. Exam conducted with a material scheduler present. Vitals: Estimated body mass index is [...] or undercooked meat, and stay away from [facility]. Patient has been consulted regarding any further [...] Jes Phillip DO documented in this encounter [facility] 03-21-2024 History of Presen t illness Narrative [...] or undercooked meat, and stay away from [facility]. Patient has also been advised to not [...] Yudi Riley LPN documented in this encounter [facility] Evaluation note Diagnosis Second trimester [...] section and content) DATE CREATED AUTHOR 03/11/2018 [facility] DATE CREATED AUTHOR AUTHOR'S ORGANIZ ATION 11/27/2021 [facility] DATE CREATED AUTHOR AUTHOR'S ORGANIZ ATION 08/08/2022 [facility] DATE CREATED AUTHOR AUTHOR'S ORGANIZ ATION 09/25/2024 [facility] EPIC DATE CREATED AUTHOR AUTHOR'S ORGANIZ ATION 10/12/2024 [facility] Reason for Visit (unrecogniz ed section and [...] BE BASED ON THE PRIMARY CLINICAL RECORDS. [facility] [employer] provides no warranty or guarantee of the accuracy or completeness of information in this document.
--- NOTE | 2024-10-30 11:12 | PC.NURSE ---
Valencia and 5 week old Heather arrive for support. Valencia is smiling today, baby is calm in car seat. Valencia relates that things are much better today States did take baby to PCP and is now on antacid medication twice daily. Reports different baby altogether Heather is now latching without the shield, mom still keeps it available just in case but has not needed it since the weekend. Reports after last visit, she did nap for 4 hours straight, wake to feed baby and slept another 3 hours while cared for infant. Valencia states it was the reset that I needed . Denies feeling extreme tiredness, or overwhelmed. Latching became easier and now the medication is helping the baby not cry to such levels that Valencia feels like she is not handling it States is beginning to Enjoy her baby. Much praise, validation and support offered. Valencia is able to continue to breastfeed infant at this time. No longer feels the need to quit, and is coping well. Will follow up with her mental health therapist next week as well. Heather to breast, nurses well 14/01. Fussy with burping and continues to act uncomfortable with regurg, but is much improved from last visit. Mom calm and gentle with baby, soothing and patting as needed. Diaper changed and secured into car eat, mom and baby leave ambulatory for home. Will call as needed. No further visits scheduled.
== END 2024-10-30 11:29 | disposition home or self-care (01) ==
LOC: FBCO 08:43
PROVIDERS: PCP Family Medicine; Visit Provider Obstetrics & Gynecology
DX: Z39.1 Encounter for care and examination of lactating mother (principal)